=== PATIENT | male | born 1955 | race Hispanic/Latino ===

== ENCOUNTER 2017-01-15 10:07 | Emergency (ER) | payer OTHER ==
[2017-01-15 10:08] VITALS: PULSE 93
[2017-01-15 10:20] VITALS: O2SAT 100
--- NOTE | 2017-01-15 11:11 | ED PDOC ---
HPI: Back Time Seen by Provider: 01/15/17 11:08 Chief Complaint (Nursing): Back Pain Chief Complaint (Provider): fall History Per: Patient (61 y/o male on h/o DM on xeralta here for evaluation of fall of chair in cafeteria. Patient states chair broke and he landed on buttock. No head injury. Was worried he would have back pain (no current back pain) but notes instead right calf swelling and discomfort. ) History/Exam Limitations: no limitations Past Medical History Reviewed: Historical Data, Nursing Documentation, Vital Signs Vital Signs: Last Vital Signs Temp 97 F L 01/15/17 10:16 Pulse 89 01/15/17 10:16 Resp 18 01/15/17 10:16 BP 154/77 H 01/15/17 10:16 Pulse Ox 100 01/15/17 10:16 - Medical History PMH: Arthritis, Atrial Fibrillation, CAD (w/ stents), Cardia Arrhythmia (A FIB) , CHF, Diabetes, HTN, Hypercholesterolemia, Peripheral Edema Denies: HIV - Surgical History Surgical History: Cholecystectomy, Coronary Stent (2), Endoscopy Denies: Pacemaker - Family History Family History: States: Unknown Family Hx - Home Medications Home Medications: Ambulatory Orders Medication Instructions Recorded Amlodipine Besylate 10 mg PO DAILY 08/16/14 Aspirin 325 mg PO DAILY 08/16/14 Digoxin 0.25 mg PO DAILY 08/16/14 Furosemide 40 mg PO DAILY 08/16/14 Gemfibrozil 600 mg PO BID 08/16/14 GlipiZIDE SR [Glucotrol XL] 2.5 mg PO BID 08/16/14 Metformin Hydrochloride/Megan 1 tab PO BID 08/16/14 [Janumet 1000 mg-50 mg] Metoprolol Tartrate 50 mg PO BID 08/16/14 Rivaroxaban [Xarelto] 20 mg PO DAILY 08/16/14 Valsartan/Hydrochlorothiazide 1 tab PO DAILY 08/16/14 [Valsartan-Hydrochlorothiazide 12.5 mg-160 mg] Amoxicillin/Clavulanate [Augmentin 1 tab PO BID #14 tab 06/29/15 875 MG-125 MG] ALPRAZolam [Xanax] 0.25 mg PO BID PRN #6 tab 04/24/16 Naproxen [Naprosyn] 500 mg PO Q12H #20 tab 10/02/16 Sulfamethoxazole/Trimethoprim 1 tab PO BID #20 tab 10/02/16 [Bactrim DS 800 mg-160 mg] Acetaminophen [Acetaminophen Extra 2 tab PO Q6 PRN #24 tablet 01/15/17 Strength] - Allergies Allergies/Adverse Reactions: Allergies Allergy/AdvReac Type Severity Reaction Status Date / Time azithromycin Allergy RASH Verified 01/15/17 10:25 [From Zithromax Z-Mitchell] ciprofloxacin [From Cipro] Allergy RASH Verified 01/15/17 10:16 ciprofloxacin HCl Allergy RASH Verified 01/15/17 10:16 [From Cipro] Penicillins Allergy RASH Verified 01/15/17 10:24 Review of Systems ROS Statement: Except As Marked, All Systems Reviewed And Found Negative Musculoskeletal: Positive for: Leg Pain Physical Exam - Reviewed Nursing Documentation Reviewed: Yes Vital Signs Reviewed: Yes - Physical Exam Appears: Positive for: Well, Non-toxic, No Acute Distress Head Exam: Positive for: ATRAUMATIC, NORMAL INSPECTION, NORMOCEPHALIC Skin: Positive for: Normal Color, Warm, DRY Eye Exam: Positive for: EOMI, Normal appearance, PERRL ENT: Positive for: Normal ENT Inspection Neck: Positive for: Normal, Painless ROM Cardiovascular/Chest: Positive for: Regular Rate, Rhythm Respiratory: Positive for: CNT, Normal Breath Sounds Gastrointestinal/Abdominal: Positive for: Normal Exam, Bowel Sounds, Soft Back: Positive for: Normal Inspection Extremity: Positive for: Normal ROM, Swelling (right calf swelling noted. No ecchymosis. Nontender knee. No tibial spine tenderness. nontender ankle) Neurologic/Psych: Positive for: Alert, Oriented - ECG O2 Sat by Pulse Oximetry: 100 Disposition - Clinical Impression Clinical Impression: Contusion of leg - Patient ED Disposition Is Patient to be Admitted: No - Disposition Disposition: Routine/Home Disposition Time: 11:11 Condition: FAIR Prescriptions: Acetaminophen [Acetaminophen Extra Strength] 2 tab PO Q6 PRN #24 tablet PRN Reason: Pain, Moderate (4-7) Instructions: Contusion in Adults (ED)
[2017-01-15 11:33] VITALS: BP 120/78; PULSE 78; RESP 20; TEMP 97.6
== END 2017-01-15 11:32 | disposition home or self-care (01) ==
LOC: H.ER 10:07
DX: S80.11XA Contusion of right lower leg, initial encounter (principal); W07.XXXA Fall from chair, initial encounter; Y92.238 Other place in hospital as the place of occurrence of the external cause; E11.9 Type 2 diabetes mellitus without complications; E78.00 Pure hypercholesterolemia, unspecified; I11.0 Hypertensive heart disease with heart failure; I25.10 Atherosclerotic heart disease of native coronary artery without angina pectoris; I50.9 Heart failure, unspecified; Z79.01 Long term (current) use of anticoagulants; Z79.82 Long term (current) use of aspirin; Z88.0 Allergy status to penicillin; Z95.5 Presence of coronary angioplasty implant and graft

== ENCOUNTER 2017-01-17 14:48 | Inpatient (IN) | payer OTHER ==
--- NOTE | 2017-01-17 15:22 | ED PDOC ---
HPI: Hypertension/Hypotension Time Seen by Provider: 01/17/17 14:58 Chief Complaint (Nursing): Palpitations Additional Complaint(s): Patient is a 61 y/o M with hx of stents, chf, DM, afib, presentating with palpitations, nausea and lightheadedness. Patient reports that he was eating lunch when he began to feel unwell. He reports some chest tightness and chronic worsening shortness of breath. He also reports a recent increase in swelling in his legs. He reports that he saw his PMD who ordered an echo and increased his diuretic. PMD: Dr. Hernandez Meds: digoxin, glipizide, janumet, xarelto, amlodipine, furosemide, valsartan/ htcz, aspirin Past Medical History Vital Signs: Last Vital Signs Temp 98.6 F 01/17/17 14:51 Pulse 113 H 01/17/17 14:51 Resp 19 01/17/17 14:51 BP 151/90 H 01/17/17 14:51 Pulse Ox 100 01/17/17 14:51 - Medical History PMH: Arthritis, Atrial Fibrillation, CAD (w/ stents), Cardia Arrhythmia (A FIB) , CHF, Diabetes, HTN, Hypercholesterolemia, Peripheral Edema Denies: HIV - Surgical History Surgical History: Cholecystectomy, Coronary Stent (2), Endoscopy Denies: Pacemaker - Family History Family History: States: Unknown Family Hx - Home Medications Home Medications: Ambulatory Orders Medication Instructions Recorded Aspirin [Aspirin EC] 325 mg PO DAILY 01/17/17 Digoxin [Lanoxin] 0.0625 mg PO DAILY 01/17/17 Furosemide [Lasix] 40 mg PO DAILY 01/17/17 Glyburide [Micronase] 1.25 mg PO DAILY 01/17/17 Metoprolol Tartrate [Lopressor] 75 mg PO BID 01/17/17 Rivaroxaban [Xarelto] 20 mg PO QPM 01/17/17 Sitagliptin Phos/Metformin HCl 1 tab PO BID 01/17/17 [Janumet 50-1,000 mg Tablet] Spironolactone [Aldactone] 25 mg PO DAILY 01/17/17 Valsartan/Hydrochlorothiazide 1 tab PO DAILY 01/17/17 [Diovan Hct 160-12.5 mg Tab] amLODIPine [Norvasc] 10 mg PO DAILY 06/22/17 traMADol [Ultram] 50 mg PO Q8H PRN 01/17/17 - Allergies Allergies/Adverse Reactions: Allergies Allergy/AdvReac Type Severity Reaction Status Date / Time azithromycin Allergy RASH Verified 01/15/17 10:25 [From Zithromax Z-Mitchell] ciprofloxacin [From Cipro] Allergy RASH Verified 01/15/17 10:16 ciprofloxacin HCl Allergy RASH Verified 01/15/17 10:16 [From Cipro] Penicillins Allergy RASH Verified 01/15/17 10:24 Review of Systems Constitutional: Negative for: Fever, Chills, Weakness, Malaise, Weight loss Cardiovascular: Positive for: Palpitations, Edema, Light Headedness. Negative for: Chest Pain Respiratory: Positive for: Shortness of Breath. Negative for: Cough, Pleuritic Pain, Wheezing Gastrointestinal: Negative for: Nausea, Vomiting, Abdominal Pain, Diarrhea, Constipation Genitourinary Male: Negative for: Dysuria Musculoskeletal: Negative for: Neck Pain Skin: Negative for: Rash Neurological: Negative for: Weakness, Numbness, Incoordination, Change in Speech , Confusion, Seizures, Altered Mental Status, Headache Physical Exam - Reviewed Nursing Documentation Reviewed: Yes Vital Signs Reviewed: Yes - Physical Exam Appears: Positive for: Well Head Exam: Positive for: ATRAUMATIC, NORMAL INSPECTION, NORMOCEPHALIC Skin: Positive for: Normal Color, Warm, DRY Eye Exam: Positive for: EOMI, Normal appearance, PERRL Neck: Positive for: Normal, Painless ROM, Supple Cardiovascular/Chest: Positive for: Tachycardia (irregularly irregular) Respiratory: Positive for: Normal Breath Sounds. Negative for: Rales, Rhonchi, Stridor Gastrointestinal/Abdominal: Positive for: Soft. Negative for: Tenderness, Mass , Distended Extremity: Positive for: Pedal Edema (2+) - Laboratory Results Result Diagrams: 01/17/17 15:37 01/17/17 15:37 - ECG O2 Sat by Pulse Oximetry: 100 Medical Decision Making Medical Decision Making: Patient has multiple cardiac risk factors and presenting with afib at 107bpm with pvcs. He is complaining of nausea and lightheadedness. Compliant with all medications, including aspirin 325mg this morning 4:26PM Cxray negative. Trop x 1 negative but BNP elevated. Due to presenting rapid afib symptoms (HR now 86), and hx, combined with lab results, that is concerning for chf vs acs, will need observation for further cardiac evaluation and echo. Lasix ordered. 5:46PM Spoke to Dr. Hernandez who agrees and consult to cardiology placed. PMD aware that residents are at graduation tonight. Disposition - Clinical Impression Clinical Impression: Rapid palpitations, CHF (congestive heart failure), Edema - Disposition Disposition Time: 16:27 Condition: FAIR - Pt Status Changed To: Hospital Disposition Of: Observation
[2017-01-17 15:43] LABS: BASO # 0.1 K/uL (0.0-0.2); BASO % 0.9 % (0.0-2.0); EOS # 0.1 K/uL (0.0-0.7); EOS % 1.3 % (0.0-4.0); HEMATOCRIT 44.7 % (35.0-51.0); LYMPH # 2.2 K/uL (1.0-4.3); MEAN CELL VOLUME 82.5 fl (80.0-94.0); MEAN CORPUSCULAR HEMOGLOBIN 27.9 pg (27.0-31.0); MEAN CORPUSCULAR HGB CONC 33.8 g/dL (33.0-37.0); MEAN PLATELET VOLUME 9.8 fl (7.2-11.7); MONO # 1.4 K/uL (0.0-0.8); MONO % 12.5 % (0.0-10.0); NEUT # 7.5 K/uL (1.8-7.0); NEUT % 66.3 % (50.0-75.0); RED CELL DISTRIBUTION WIDTH 14.2 % (11.5-14.5); WHITE BLOOD COUNT 11.3 K/uL (4.8-10.8)
--- NOTE | 2017-01-17 15:45 | RAD ---
HISTORY: palpitations COMPARISON: Chest x-ray performed 08/16/14 TECHNIQUE: Chest, one view. FINDINGS: Examination limited by habitus. LUNGS: No focal consolidation. Please note that chest x-ray has limited sensitivity for the detection of pulmonary masses. PLEURA: No significant pleural effusion identified. No definite pneumothorax . CARDIOVASCULAR: Heart size appears top normal. OSSEOUS STRUCTURES: No acute osseous abnormality identified. VISUALIZED UPPER ABDOMEN: Unremarkable. OTHER FINDINGS: None. IMPRESSION: No focal consolidation, significant pleural effusion, or definite pneumothorax identified.
[2017-01-17 15:52] LABS: ALB/GLOB RATIO 1.3 (1.0-2.1); ALKALINE PHOSPHATASE 102 U/L (38-126); ALT/SGPT 50 U/L (21-72); AST/SGOT 40 U/L (17-59); BILIRUBIN,TOTAL 1.1 mg/dl (0.2-1.3); BLOOD UREA NITROGEN 26 mg/dl (9-20); CALCIUM 9.5 mg/dL (8.4-10.2); CARBON DIOXIDE 28 mmol/L (22-30); CHLORIDE 101 mmol/L (98-107); GFR AFRICAN-AMERICAN > 60; GLUCOSE,RANDOM 100 mg/dL (75-110); LIPASE 267 U/L (23-300); MAGNESIUM 2.2 MG/DL (1.6-2.3); PHOSPHOROUS 3.7 mg/dl (2.5-4.5); POTASSIUM 3.7 MMOL/L (3.6-5.0); SODIUM 142 mmol/l (132-148); TOTAL PROTEIN 8.1 G/DL (6.3-8.2)
--- NOTE | 2017-01-18 01:29 | CP.PCM.HP ---
Addendum entered and electronically signed by Mara Acosta MD 01/18/17 11 :48: Patient was seen and examined at bedside, in no acute distress, intermittent symptoms of dizziness persist, cardiology on board recommended repeat echo/hold aldactone, monitor patient on telemetry. Original Note: <Roosevelt Kate - Last Filed: 01/18/17 05:26> History of Present Illness - History of Present Illness History of Present Illness: CC/HPI: Pt. reports was in the hospital cafeteria sitting down having lung when all of a sudden he started having palpitations. Pt. reports palpitations were persistent and felt like if he was missing beats. Associated symptoms include nausea, sweating, and weakness. Pt. reports he has a history of A-fib and that he has felt palpitations in the past but due to the acuity and persistent nature of current symptoms walked over unassisted to the [facility] Pt. reports since his evaluation in the emergency room he has felt better and symptoms have improved but not completely resolved. ROS: Pt. denies any headache, chest pain, dizziness, lightheadedness, vomiting, abdominal pain, flank pain, limb pain, hematuria, or dysuria. PMHx: HTN, HLD, DM, CAD, A-FIB, CHF PHSx: Cardiac stent x 2, Cholecystectomy FMHx: HTN, DM, & CAD Social: Denies current use of TOB, ETOH, DRUGS Quit smoking 15 years Allegies: PCN, Azithromycin, Ciprofloxacin Meds: See Med List PMD: Dr. David Obrien Course: Patient has multiple cardiac risk factors and presenting with afib at 107bpm with pvcs. He is complaining of nausea and lightheadedness. Compliant with all medications, including aspirin 325mg this morning 4:26PM Cxray negative. Trop x 1 negative but BNP elevated. Due to presenting rapid afib symptoms (HR now 86), and hx, combined with lab results, that is concerning for chf vs acs, will need observation for further cardiac evaluation and echo. Lasix ordered. 5:46PM Spoke to Dr. Henderson who agrees and consult to cardiology placed. PMD aware that residents are at graduation tonight. Present on Admission - Present on Admission Any Indicators Present on Admission: Yes History of DVT/PE: No History of Uncontrolled Diabetes: Yes Urinary Catheter: No Decubitus Ulcer Present: No Review of Systems - Review of Systems Review of Systems: See HPI Past Patient History - Infectious Disease Hx of Infectious Diseases: None - Past Medical History & Family History Past Medical History?: Yes - Past Social History Smoking Status: Former Smoker - CARDIAC Hx Atrial Fibrillation: Yes Hx Cardia Arrhythmia: Yes (A FIB) Hx Congestive Heart Failure: Yes Hx Hypercholesterolemia: Yes Hx Hypertension: Yes Hx Pacemaker: No Hx Peripheral Edema: Yes - PULMONARY Hx Respiratory Disorders: No - NEUROLOGICAL Hx Paralysis: No - HEENT Hx HEENT Problems: No - RENAL Hx Chronic Kidney Disease: No - ENDOCRINE/METABOLIC Hx Endocrine Disorders: Yes Hx Diabetes Mellitus Type 2: Yes - HEMATOLOGICAL/ONCOLOGICAL Hx AIDS: No Hx Human Immunodeficiency Virus (HIV): No - INTEGUMENTARY Hx Dermatological Problems: Yes Hx Eczema: Yes - MUSCULOSKELETAL/RHEUMATOLOGICAL Hx Arthritis: Yes Hx Falls: Yes - GASTROINTESTINAL Hx Gastrointestinal Disorders: No - GENITOURINARY/GYNECOLOGICAL Hx Genitourinary Disorders: No - PSYCHIATRIC Hx Psychophysiologic Disorder: No Hx Substance Use: No - SURGICAL HISTORY Hx Cholecystectomy: Yes Hx Coronary Stent: Yes (2) Other/Comment: Left knee Sx - ANESTHESIA Hx Anesthesia: Yes Hx Anesthesia Reactions: No Hx Malignant Hyperthermia: No Meds Allergies/Adverse Reactions: Allergies Allergy/AdvReac Type Severity Reaction Status Date / Time azithromycin Allergy RASH Verified 01/15/17 10:25 [From Zithromax Z-Mitchell] ciprofloxacin [From Cipro] Allergy RASH Verified 01/15/17 10:16 ciprofloxacin HCl Allergy RASH Verified 01/15/17 10:16 [From Cipro] Penicillins Allergy RASH Verified 01/15/17 10:24 Physical Exam - Constitutional Appears: Non-toxic, No Acute Distress - Head Exam Head Exam: ATRAUMATIC, NORMOCEPHALIC - Eye Exam Eye Exam: Normal appearance. absent: Scleral icterus - Neck Exam Neck exam: Positive for: Full Rom - Respiratory Exam Respiratory Exam: Clear to Auscultation Bilateral, NORMAL BREATHING PATTERN - Cardiovascular Exam Cardiovascular Exam: REGULAR RHYTHM, +S1, +S2 - GI/Abdominal Exam GI & Abdominal Exam: Soft. absent: Tenderness - Extremities Exam Extremities exam: Positive for: pedal edema (+2 up to ankle). Negative for: calf tenderness - Back Exam Back exam: absent: CVA tenderness (L), CVA tenderness (R) - Neurological Exam Neurological exam: Alert, Oriented x3 - Psychiatric Exam Psychiatric exam: Normal Affect, Normal Mood - Skin Additional comments: + Left Knee Scar Results - Vital Signs Recent Vital Signs: Last Vital Signs Temp 98.8 F 01/18/17 00:11 Pulse 96 H 01/18/17 00:31 Resp 18 01/18/17 00:31 BP 116/82 01/18/17 00:11 Pulse Ox 95 01/18/17 00:31 - Labs Result Diagrams: 01/17/17 15:37 01/17/17 15:37 Labs: Laboratory Results - last 24 hr 01/17/17 21:29 POC Glucose (mg/dL) 196 H Assessment & Plan - Assessment and Plan (Free Text) Assessment: 61 y.o. male with Hx of CAD s/p stent x2, DM, HN, HLD admitted for evaluation of palpitations. Palpiations due to unclear etiology 1- Troponin x 1 negative - Repeat Troponin 2- Echocardiogram 3- Cardiology- Dr. Ennis consult 4- Admit to tele 5- Repeat EKG A-Fib 1- Xarelto 20mg qpm CHF- Systolic pendign evaluation with Echocardiogram 1- Spironolactone 2- Lasix Type II NIDDM 1- Accuchecks QHS 2- LDSS 3- Metformin 4- Januvia 5- Glyburide 5- Sitaglipin HTN 1- Valsartan 2- Metoprolol 3- Amlodipine Leucocytosis- 11.3 - Afebrile 1- Repeat CBC DVT prophylaxis 1- Lovenox 40mg sc Diet 1- Heart Healthy <Mara Acosta - Last Filed: 01/18/17 11:58> <Kaveh Henderson - Last Filed: 01/21/17 07:02> Results - Vital Signs Recent Vital Signs: Last Vital Signs Temp 97.8 F 01/19/17 08:00 Pulse 82 01/19/17 09:00 Resp 18 01/19/17 08:00 BP 119/82 01/19/17 08:52 Pulse Ox 99 01/19/17 08:00 - Labs Result Diagrams: 01/18/17 05:00 01/19/17 06:00 Attending/Attestation - Attestation I have personally seen and examined this patient.: Yes I have fully participated in the care of the patient.: Yes I have reviewed all pertinent clinical information: Yes
[2017-01-18 05:23] LABS: BASO # 0.1 K/uL (0.0-0.2); BASO % 0.6 % (0.0-2.0); EOS # 0.1 K/uL (0.0-0.7); EOS % 1.4 % (0.0-4.0); HEMATOCRIT 41.1 % (35.0-51.0); LYMPH # 2.2 K/uL (1.0-4.3); LYMPH % 22.5 % (20.0-40.0); MEAN CELL VOLUME 83.5 fl (80.0-94.0); MEAN CORPUSCULAR HEMOGLOBIN 28.1 pg (27.0-31.0); MEAN CORPUSCULAR HGB CONC 33.7 g/dL (33.0-37.0); MEAN PLATELET VOLUME 9.2 fl (7.2-11.7); MONO # 1.2 K/uL (0.0-0.8); MONO % 12.8 % (0.0-10.0); NEUT # 6.1 K/uL (1.8-7.0); NEUT % 62.7 % (50.0-75.0); NRBC % 0.1 % (0.0-0.0); RED CELL DISTRIBUTION WIDTH 14.1 % (11.5-14.5); WHITE BLOOD COUNT 9.7 K/uL (4.8-10.8)
[2017-01-18 05:36] LABS: BLOOD UREA NITROGEN 24 mg/dl (9-20); CARBON DIOXIDE 30 mmol/L (22-30); CHLORIDE 101 mmol/L (98-107); GFR AFRICAN-AMERICAN > 60; GLUCOSE,RANDOM 130 mg/dL (75-110); POTASSIUM 3.8 MMOL/L (3.6-5.0); SODIUM 142 mmol/l (132-148)
[2017-01-18] MEDS: Aspirin 325 mg EC Tablets PO SCH (08:28)
[2017-01-18] MEDS: Digoxin 125 mcg (0.125 mg) Tab PO SCH (08:29)
[2017-01-18] MEDS ORDERED: GLYBURIDE 1.25 MG PO SCH (09:00)
[2017-01-18] MEDS ORDERED: Enoxaparin 40 mg Syringe SC SCH ×2 (09:00)
--- NOTE | 2017-01-18 09:33 | CP.PCM.CON ---
History of Present Illness - History of Present Illness History of Present Illness: Full Note Dictated. Near syncope with orthostatic Hypotension (Due to vigorous diuresis) CHF (LV, Syst, Chr) A Fib Stable CAD with old IWMI DM(II)?HTN/Dyslipidemia Echocardiogral Withold diuretics Labs tomorrow Past Patient History - Infectious Disease Hx of Infectious Diseases: None - Past Medical History & Family History Past Medical History?: Yes - Past Social History Smoking Status: Former Smoker - CARDIAC Hx Atrial Fibrillation: Yes Hx Cardia Arrhythmia: Yes (A FIB) Hx Congestive Heart Failure: Yes Hx Hypercholesterolemia: Yes Hx Hypertension: Yes Hx Pacemaker: No Hx Peripheral Edema: Yes - PULMONARY Hx Respiratory Disorders: No - NEUROLOGICAL Hx Paralysis: No - HEENT Hx HEENT Problems: No - RENAL Hx Chronic Kidney Disease: No - ENDOCRINE/METABOLIC Hx Endocrine Disorders: Yes Hx Diabetes Mellitus Type 2: Yes - HEMATOLOGICAL/ONCOLOGICAL Hx AIDS: No Hx Human Immunodeficiency Virus (HIV): No - INTEGUMENTARY Hx Dermatological Problems: Yes Hx Eczema: Yes - MUSCULOSKELETAL/RHEUMATOLOGICAL Hx Arthritis: Yes Hx Falls: Yes - GASTROINTESTINAL Hx Gastrointestinal Disorders: No - GENITOURINARY/GYNECOLOGICAL Hx Genitourinary Disorders: No - PSYCHIATRIC Hx Psychophysiologic Disorder: No Hx Substance Use: No - SURGICAL HISTORY Hx Cholecystectomy: Yes Hx Coronary Stent: Yes (2) Other/Comment: Left knee Sx - ANESTHESIA Hx Anesthesia: Yes Hx Anesthesia Reactions: No Hx Malignant Hyperthermia: No Meds Allergies/Adverse Reactions: Allergies Allergy/AdvReac Type Severity Reaction Status Date / Time azithromycin Allergy RASH Verified 01/15/17 10:25 [From Zithromax Z-Mitchell] ciprofloxacin [From Cipro] Allergy RASH Verified 01/15/17 10:16 ciprofloxacin HCl Allergy RASH Verified 01/15/17 10:16 [From Cipro] Penicillins Allergy RASH Verified 01/15/17 10:24 - Medications Medications: Current Medications Amlodipine Besylate (Norvasc) 10 mg PO DAILY [facility] Last Admin: 01/18/17 08:32 Dose: 10 mg Aspirin (Ecotrin) 325 mg PO DAILY [facility] Last Admin: 01/18/17 08:28 Dose: 325 mg Digoxin (Lanoxin) 0.0625 mg PO DAILY [facility] Last Admin: 01/18/17 08:29 Dose: 0.0625 mg Furosemide (Lasix) 40 mg IV DAILY [facility] Last Admin: 01/18/17 08:29 Dose: 40 mg Glyburide (Micronase) 1.25 mg PO DAILY [facility] Last Admin: 01/18/17 08:32 Dose: 1.25 mg Metformin HCl (Glucophage) 1,000 mg PO BIDWM [facility] Last Admin: 01/18/17 08:29 Dose: 1,000 mg Metoprolol Tartrate (Lopressor) 75 mg PO BID [facility] Last Admin: 01/18/17 08:31 Dose: 75 mg Rivaroxaban (Xarelto) 20 mg PO QPM ADEN PRN Reason: Protocol Last Admin: 01/17/17 23:51 Dose: 20 mg Sitagliptin Phosphate (Januvia) 50 mg PO HS [facility] Last Admin: 01/17/17 23:46 Dose: 50 mg Spironolactone (Aldactone) 25 mg PO DAILY [facility] Last Admin: 01/18/17 08:27 Dose: 25 mg Tramadol HCl (Ultram) 50 mg PO Q8H PRN PRN Reason: Pain, severe (8-10) Valsartan (Diovan) 160 mg PO DAILY [facility] Last Admin: 01/18/17 08:28 Dose: 160 mg Results - Vital Signs Recent Vital Signs: Last Vital Signs Temp 98.7 F 01/18/17 08:32 Pulse 81 01/18/17 08:32 Resp 18 01/18/17 08:32 BP 107/68 01/18/17 08:32 Pulse Ox 99 01/18/17 08:32 - Labs Result Diagrams: 01/18/17 05:00 01/18/17 05:00 Labs: Laboratory Results - last 24 hr 01/17/17 01/18/17 01/18/17 21:29 05:00 05:00 WBC 9.7 RBC 4.93 Hgb 13.9 Hct 41.1 MCV 83.5 MCH 28.1 MCHC 33.7 RDW 14.1 Plt Count 208 MPV 9.2 Neut % (Auto) 62.7 Lymph % (Auto) 22.5 [place] % (Auto) 12.8 H Eos % (Auto) 1.4 Baso % (Auto) 0.6 Neut # 6.1 Lymph # 2.2 [place] # 1.2 H Eos # 0.1 Baso # 0.1 Sodium 142 Potassium 3.8 Chloride 101 Carbon Dioxide 30 Anion Gap 14 BUN 24 H Creatinine 1.3 Est GFR ( Amer) > 60 Est GFR (Non-Af Amer) 56 POC Glucose (mg/dL) 196 H Random Glucose 130 H Calcium 9.0 Troponin I < 0.0120 01/18/17 05:30 WBC RBC Hgb Hct MCV MCH MCHC RDW Plt Count MPV Neut % (Auto) Lymph % (Auto) [place] % (Auto) Eos % (Auto) Baso % (Auto) Neut # Lymph # [place] # Eos # Baso # Sodium Potassium Chloride Carbon Dioxide Anion Gap BUN Creatinine Est GFR ( Amer) Est GFR (Non-Af Amer) POC Glucose (mg/dL) 145 H Random Glucose Calcium Troponin I
--- NOTE | 2017-01-18 11:50 | CON ---
DATE: 01/18/2017 He is hospitalized under Dr. Henderson's care in room 411 of telemetry unit. HISTORY OF PRESENT ILLNESS: This 61-year-old man, a longstanding diabetic and hypertensive with known coronary artery disease, who suffered an acute myocardial infarction more than 6 years back and subsequently has developed atrial fibrillation with congestive cardiac failure. The patient gives history of having recently put on weight and having developed pedal edema along with dyspnea on exertion, which was treated by addition of Aldactone to his furosemide, and the patient promptly diuresed with losing approximately 9 pounds and having lost his pedal edema along with an improvement in his effort tolerance. Yesterday, while sitting at a lunch table, he suddenly perspired, developed severe dizziness and felt acute sense of nausea. Arrived in the Emergency Room and was hospitalized. Denies any chest pains. Does admit to developing palpitations when severe dizziness came on. The patient now has slept well and does not report any further lightheaded spells while being in bed. His telemetry shows his heart rate at 80-90 beats per minute, irregularly irregular with his blood pressure of 120/70 mmHg while lying in bed, which dropped down to 108/70 mmHg. Upon standing up, the patient complained of a sense of lightheadedness and mild palpitations. This was promptly relieved by sitting down. The patient has received this morning his dose of intravenous furosemide approximately half an hour back. PHYSICAL EXAMINATION: There was no pedal edema. HEART: There was a brief apical systolic murmur of mitral regurgitation. There was no S3 gallop. LUNGS: There were no rales. NECK: His JVP was flat. EXTREMITIES: Warm. Nailbeds were pink. There was no central or peripheral cyanosis. There was no clubbing. DIAGNOSTIC DATA: His electrocardiogram showed atrial fibrillation with nonspecific ST changes. No Q-waves were detected on his electrocardiogram. LABORATORY DATA: Showed that his BUN of 26 and creatinine of 1.3 were mildly elevated as compared to the levels on 01/03 before spironolactone was added to his Lasix. IMPRESSION: At this time is orthostatic hypotension due to hypovolemia induced by aggressive diuresis for congestive cardiac failure, chronic atrial fibrillation with congestive cardiac failure which is left ventricular systolic and chronic, with stable coronary artery disease status post coronary stenting during urgent care for an acute myocardial infarction more than 6 years back, diabetes, and hypertension. The patient at this juncture is comfortable while sitting down and from lying down, but does display any evidence of hypovolemia with orthostatic drop in blood pressure. I have discontinued his diuretics. I have instructed him to drink extra fluids. An echocardiogram will be done to evaluate his left ventricular systolic function. The last echocardiogram was 4 years back. Tomorrow, he will have labs drawn to assess his renal function which would reflect peripheral perfusion and his state of cardiac output. At this juncture , incidentally, his labs show no evidence of myocyte injury in the form of abnormal troponin levels. His electrolytes were normal. Elijah Ennis MD cc: 23 TT: 01/18/2017 11:49:38 Confirmation # [id number] Dictation # [id number] [place]
--- NOTE | 2017-01-18 16:58 | CARD ---
APPROVED REPORT EXAM: Two-dimensional and M-mode echocardiogram with Doppler, color Doppler with contrast. Other Information Quality : AverageRhythm : NSR INDICATION Atrial Fibrillation Echo Enhancing Agent Indication: Endocardial border delineation Agent/Amount Used: Definity Surgery/Intervention Status/Post Intervention: Stent 2D DIMENSIONS IVSd1.24 (0.7-1.1cm)LVDd4.82 (3.9-5.9cm) LVOT Diameter2.96 (1.8-2.4cm)PWd1.24 (0.7-1.1cm) IVSs1.57 (0.8-1.2cm)LVDs3.16 (2.5-4.0cm) FS (%) 34.4 %PWs1.38 (0.8-1.2cm) LVEF (%)55.0 (>50%) M-Mode DIMENSIONS Left Atrium (MM)4.59 (2.5-4.0cm)IVSd1.09 (0.7-1.1cm) Aortic Root3.47 (2.2-3.7cm)LVDd6.03 (4.0-5.6cm) Aortic Cusp Exc.2.66 (1.5-2.0cm)PWd1.38 (0.7-1.1cm) IVSs1.50 cmFS (%) 29 % LVDs4.28 (2.0-3.8cm)PWs1.81 cm Mitral Valve E/A ratio0.0 TDI E/Lateral E'0.0E/Medial E'0.0 LEFT VENTRICLE The left ventricle is normal size. There is mild concentric left ventricular hypertrophy. The left ventricular function is normal. The left ventricular ejection fraction is within the normal range. There is normal LV segmental wall motion. Patien is in A Fib No left ventricle thrombus noted on this study. RIGHT VENTRICLE The right ventricle is normal size. There is normal right ventricular wall thickness. The right ventricular systolic function is normal. ATRIA The left atrium is moderately dilated. The right atrium is mildly dilated. AORTIC VALVE The aortic valve is mildly sclerotic. No aortic regurgitation is present. There is no aortic valvular stenosis. MITRAL VALVE The mitral valve is mildly thickened. There is no mitral valve stenosis. There is no mitral valve regurgitation noted. TRICUSPID VALVE The tricuspid valve is normal in structure and function. There is no tricuspid valve regurgitation noted. PULMONIC VALVE The pulmonary valve is normal in structure and function. There is no pulmonic valvular regurgitation. GREAT VESSELS The aortic root is mildly enlarged. The IVC was not visualized. PERICARDIAL EFFUSION There is a trace loculated anterior pericardial effusion. <Conclusion> The left ventricle is normal size. There is mild concentric left ventricular hypertrophy. The left ventricular function is normal. The left ventricular ejection fraction is within the normal range. There is normal LV segmental wall motion. No left ventricle thrombus noted on this study.
[2017-01-19 08:03] VITALS: BP 119/82; PULSE 82; RESP 18; TEMP 97.8; O2SAT 99
[2017-01-19 08:26] LABS: ALB/GLOB RATIO 1.2 (1.0-2.1); ALKALINE PHOSPHATASE 67 U/L (38-126); ALT/SGPT 41 U/L (21-72); AST/SGOT 31 U/L (17-59); BILIRUBIN,TOTAL 1.2 mg/dl (0.2-1.3); BLOOD UREA NITROGEN 21 mg/dl (9-20); CALCIUM 8.8 mg/dL (8.4-10.2); CARBON DIOXIDE 30 mmol/L (22-30); CHLORIDE 101 mmol/L (98-107); GFR AFRICAN-AMERICAN > 60; GLUCOSE,RANDOM 135 mg/dL (75-110); POTASSIUM 4.1 MMOL/L (3.6-5.0); SODIUM 140 mmol/l (132-148); TOTAL PROTEIN 6.8 G/DL (6.3-8.2)
[2017-01-19] MEDS: Aspirin 325 mg EC Tablets PO SCH (08:50)
[2017-01-19] MEDS: Digoxin 125 mcg (0.125 mg) Tab PO SCH (08:51)
[2017-01-19 08:53] VITALS: PULSE 82
--- NOTE | 2017-01-19 09:54 | CP.PCM.PN ---
Subjective - Date & Time of Evaluation Date of Evaluation: 01/19/17 Time of Evaluation: 09:35 - Subjective Subjective: Has been well overnight Telemetry shows A Fib at 80 BPM (rare, brief episodes of 120 BPM) No dizziness on standing up to go to BR BP 130/80 mm Hg lying down/ 126/80 mm Hg on standing up No rales, no gallop Labs show stable BUN/ Creatinin Electrolytes stable Echo reviewed Only apical half of the septum/ant wall show mild hypokinesia Overall LV function marginally depressed LA enlargemnt reflects this Pt to go home on present Rx (Including Lasix but NO Aldactone) Promises to weigh himfelf daily Will see me by January 30. Objective - Vital Signs/Intake and Output Vital Signs (last 24 hours): Temp Pulse Resp BP Pulse Ox 97.8 F 82 18 119/82 99 01/19/17 08:00 01/19/17 08:52 01/19/17 08:00 01/19/17 08:52 01/19/17 08:00 Intake and Output: 01/19/17 01/19/17 06:59 18:59 Intake Total 1200 Output Total 600 Balance 600 - Medications Medications: Current Medications Amlodipine Besylate (Norvasc) 10 mg PO DAILY [facility] Last Admin: 01/19/17 08:52 Dose: 10 mg Aspirin (Ecotrin) 325 mg PO DAILY [facility] Last Admin: 01/19/17 08:50 Dose: 325 mg Digoxin (Lanoxin) 0.0625 mg PO DAILY [facility] Last Admin: 01/19/17 08:51 Dose: 0.0625 mg Glyburide (Micronase) 1.25 mg PO DAILY [facility] Last Admin: 01/19/17 08:52 Dose: 1.25 mg Metformin HCl (Glucophage) 1,000 mg PO BIDWM [facility] Last Admin: 01/19/17 08:50 Dose: 1,000 mg Metoprolol Tartrate (Lopressor) 75 mg PO BID [facility] Last Admin: 01/19/17 08:52 Dose: 75 mg Rivaroxaban (Xarelto) 20 mg PO QPM [facility] PRN Reason: Protocol Last Admin: 01/18/17 17:54 Dose: 20 mg Sitagliptin Phosphate (Januvia) 50 mg PO HS [facility] Last Admin: 01/18/17 21:51 Dose: 50 mg Tramadol HCl (Ultram) 50 mg PO Q8H PRN PRN Reason: Pain, severe (8-10) Valsartan (Diovan) 160 mg PO DAILY [facility] Last Admin: 01/19/17 08:50 Dose: 160 mg - Labs Labs: 01/19/17 06:00
--- NOTE | 2017-01-19 10:09 | CP.PCM.DIS ---
Provider - Provider Date of Admission: 01/18/17 09:34 Attending physician: Kaveh Hernandez MD Consults: Dr. Ennis -cardiology Time Spent in preparation of Discharge (in minutes): 30 Diagnosis - Discharge Diagnosis (1) Atrial fibrillation with RVR Status: Acute Priority: Medium Hospital Course - Lab Results Lab Results: Most Recent Lab Values WBC 9.7 K/uL (4.8-10.8) 01/18/17 05:00 RBC 4.93 Mil/uL (4.40-5.90) 01/18/17 05:00 Hgb 13.9 g/dL (12.0-18.0) 01/18/17 05:00 Hct 41.1 % (35.0-51.0) 01/18/17 05:00 MCV 83.5 fl (80.0-94.0) 01/18/17 05:00 MCH 28.1 pg (27.0-31.0) 01/18/17 05:00 MCHC 33.7 g/dL (33.0-37.0) 01/18/17 05:00 RDW 14.1 % (11.5-14.5) 01/18/17 05:00 Plt Count 208 K/uL (130-400) 01/18/17 05:00 MPV 9.2 fl (7.2-11.7) 01/18/17 05:00 Neut % (Auto) 62.7 % (50.0-75.0) 01/18/17 05:00 Lymph % (Auto) 22.5 % (20.0-40.0) 01/18/17 05:00 [place] % (Auto) 12.8 % (0.0-10.0) H 01/18/17 05:00 Eos % (Auto) 1.4 % (0.0-4.0) 01/18/17 05:00 Baso % (Auto) 0.6 % (0.0-2.0) 01/18/17 05:00 Neut # 6.1 K/uL (1.8-7.0) 01/18/17 05:00 Lymph # 2.2 K/uL (1.0-4.3) 01/18/17 05:00 [place] # 1.2 K/uL (0.0-0.8) H 01/18/17 05:00 Eos # 0.1 K/uL (0.0-0.7) 01/18/17 05:00 Baso # 0.1 K/uL (0.0-0.2) 01/18/17 05:00 Sodium 140 mmol/l (132-148) 01/19/17 06:00 Potassium 4.1 MMOL/L (3.6-5.0) 01/19/17 06:00 Chloride 101 mmol/L (98-107) 01/19/17 06:00 Carbon Dioxide 30 mmol/L (22-30) 01/19/17 06:00 Anion Gap 13 (10-20) 01/19/17 06:00 BUN 21 mg/dl (9-20) H 01/19/17 06:00 Creatinine 1.3 mg/dL (0.8-1.5) 01/19/17 06:00 Est GFR ( Amer) > 60 01/19/17 06:00 Est GFR (Non-Af Amer) 56 01/19/17 06:00 POC Glucose (mg/dL) 134 mg/dL (65-110) H 01/19/17 06:04 Random Glucose 135 mg/dL (75-110) H 01/19/17 06:00 Calcium 8.8 mg/dL (8.4-10.2) 01/19/17 06:00 Phosphorus 3.7 mg/dl (2.5-4.5) 01/17/17 15:37 Magnesium 2.2 MG/DL (1.6-2.3) 01/17/17 15:37 Total Bilirubin 1.2 mg/dl (0.2-1.3) 01/19/17 06:00 AST 31 U/L (17-59) 01/19/17 06:00 ALT 41 U/L (21-72) 01/19/17 06:00 Alkaline Phosphatase 67 U/L (38-126) 01/19/17 06:00 Total Creatine Kinase 356 U/L (55-170) H 01/17/17 15:37 CK-MB (Mass) 6.36 ng/mL (0.0-3.38) H 01/17/17 15:37 Troponin I < 0.0120 ng/mL (0.00-0.120) 01/18/17 05:00 NT-Pro-B Natriuret Pep 1310 pg/ml (0-900) H 01/17/17 15:37 Total Protein 6.8 G/DL (6.3-8.2) 01/19/17 06:00 Albumin 3.8 g/dL (3.5-5.0) 01/19/17 06:00 Globulin 3.1 gm/dL (2.2-3.9) 01/19/17 06:00 Albumin/Globulin Ratio 1.2 (1.0-2.1) 01/19/17 06:00 Lipase 267 U/L (23-300) 01/17/17 15:37 Digoxin < 0.4 ng/mL (0.8-2.0) L 01/17/17 15:37 - Hospital Course Hospital Course: 61 yr old male admitted for palpitations and dizziness with PMHx of CAD s/p stent x2, DM, HTN and HLD. Patient was evaluated by cardiology, repeat echo showed LV function marginally depressed. Patients' aldactone was discontinued, his symptoms resolved, pt BP improved and remained stable. Pt was discharged with instructions to weigh hismlef daily and bring log to his follow up with his PMD Dr. Hernandez within [address] Ennis by January 30, 2017, discontinue Aldactone and resume the rest of his home meds. - Date & Time of H&P Date of H&P: 01/18/17 Time of H&P: 01:29 Discharge Exam - Head Exam Head Exam: ATRAUMATIC, NORMOCEPHALIC - Eye Exam Eye Exam: EOMI, PERRL - ENT Exam ENT Exam: Mucous Membranes Moist - Neck Exam Neck exam: Full Rom - Respiratory Exam Respiratory Exam: Clear to PA & Lateral, NORMAL BREATHING PATTERN - Cardiovascular Exam Cardiovascular Exam: REGULAR RHYTHM, +S1, +S2 - GI/Abdominal Exam GI & Abdominal Exam: Normal Bowel Sounds, Soft. absent: Tenderness - Extremities Exam Extremities exam: full ROM, pedal edema (trace pitting bilateral) - Back Exam Back exam: absent: CVA tenderness (L), CVA tenderness (R) - Neurological Exam Neurological exam: Alert, CN II-XII Intact - Psychiatric Exam Psychiatric exam: Normal Affect, Normal Mood - Skin Skin Exam: Dry, Intact, Warm Discharge Plan - Follow Up Plan Condition: FAIR Disposition: HOME/ ROUTINE Instructions: Heart Failure (GEN), Atrial Fibrillation (GEN) Additional Instructions: -Discontinue Aldactone -Take the rest of your home meds as prescribed -Follow up with your oracle ebs developer Dr. Ennis within 1-2 weeks -Follow up with your PMD Dr. Hernandez within 1 week -May return to work and resume normal activities -weigh yourself daily, bring log to your f/u appts -monitor blood sugar at home, bring glucose and food logs to your appt with PMD Referrals: Elijah Ennis MD [Staff Provider] - Kaveh Hernandez MD [Family Provider] - Clinical Quality Measures - Date & Time of Discharge Summary Date of Discharge Summary: 01/19/17 Time of Discharge Summary: 14:59
== END 2017-01-19 12:16 | disposition home or self-care (01) | DRG 309 ==
LOC: H.ER 14:48 → H.ERHOLD 17:03 → H.TEL 21:40 → OBSVTOIN 01-18 09:34
PROVIDERS: ADMIT Family Medicine; ATTEND Family Medicine
DX: I48.2 Chronic atrial fibrillation (principal); I50.22 Chronic systolic (congestive) heart failure; I11.0 Hypertensive heart disease with heart failure; E86.1 Hypovolemia; E11.9 Type 2 diabetes mellitus without complications; E78.5 Hyperlipidemia, unspecified; D72.829 Elevated white blood cell count, unspecified; I95.1 Orthostatic hypotension; I25.10 Atherosclerotic heart disease of native coronary artery without angina pectoris; E78.00 Pure hypercholesterolemia, unspecified; I25.2 Old myocardial infarction; I49.3 Ventricular premature depolarization; Z79.82 Long term (current) use of aspirin; Z79.84 Long term (current) use of oral hypoglycemic drugs; Z87.891 Personal history of nicotine dependence; Z95.5 Presence of coronary angioplasty implant and graft; Z88.1 Allergy status to other antibiotic agents; Z88.0 Allergy status to penicillin

== ENCOUNTER 2017-07-09 12:23 | Observation (INO) | payer OTHER ==
[2017-07-09 13:32] LABS: BASO # 0.1 K/uL (0.0-0.2); BASO % 1.1 % (0.0-2.0); EOS # 0.1 K/uL (0.0-0.7); EOS % 1.2 % (0.0-4.0); HEMATOCRIT 42.3 % (35.0-51.0); LYMPH # 2.3 K/uL (1.0-4.3); LYMPH % 20.1 % (20.0-40.0); MEAN CELL VOLUME 83.9 fl (80.0-94.0); MEAN CORPUSCULAR HEMOGLOBIN 28.2 pg (27.0-31.0); MEAN CORPUSCULAR HGB CONC 33.6 g/dL (33.0-37.0); MEAN PLATELET VOLUME 9.2 fl (7.2-11.7); MONO # 1.1 K/uL (0.0-0.8); MONO % 9.3 % (0.0-10.0); NEUT % 68.3 % (50.0-75.0); NRBC % 1.7 % (0.0-0.0); RED CELL DISTRIBUTION WIDTH 14.1 % (11.5-14.5); WHITE BLOOD COUNT 11.7 K/uL (4.8-10.8)
[2017-07-09 13:33] LABS: BLOOD UREA NITROGEN 21 mg/dl (9-20); CALCIUM 9.3 mg/dL (8.4-10.2); CARBON DIOXIDE 29 mmol/L (22-30); CHLORIDE 102 mmol/L (98-107); GFR AFRICAN-AMERICAN > 60; GLUCOSE,RANDOM 95 mg/dL (75-110); POTASSIUM 3.6 MMOL/L (3.6-5.0); SODIUM 141 mmol/l (132-148)
[2017-07-09 13:37] LABS: PARTIAL THROMBOPLASTIN TIME 33.8 Seconds (25.6-37.1)
--- NOTE | 2017-07-09 13:46 | ED PDOC ---
HPI: Chest Pain Time Seen by Provider: 07/09/17 12:42 Chief Complaint (Nursing): Chest Pain History Per: Patient History/Exam Limitations: no limitations Onset/Duration Of Symptoms: Hrs Current Symptoms Are (Timing): Still Present Quality: "Pain" Associated Symptoms: denies: Nausea, Dyspnea, Diaphoresis, Syncope Modifying Factors: None Exacerbating Factors: None Alleviating Factors: None Additional History Per: Patient Additional Complaint(s): 61 year old male, with PMHx of CAD, Afib, CHF, HTN, and diabetes, presents to ED for evaluation of left sided chest pain radiating to left arm that started this morning. Pt described the pain as sharp, stabbing, and states pain lasted for several hours in the morning, but pain is now intermittent. Pt reports associated shortness of breath with the chest pain. Notes taking Aspirin this morning. Also reports chronic leg swelling, left leg more than right. Denies cough, palpitations, or fever. Past Medical History Reviewed: Historical Data, Nursing Documentation, Vital Signs Vital Signs: Last Vital Signs Temp 97.9 F 07/09/17 12:41 Pulse 77 07/09/17 15:40 Resp 18 07/09/17 12:41 BP 122/81 07/09/17 12:41 Pulse Ox 99 07/09/17 15:40 - Medical History PMH: Arthritis, Atrial Fibrillation, CAD (w/ stents), Cardia Arrhythmia (A FIB) , CHF, Diabetes, HTN, Hypercholesterolemia, Peripheral Edema Denies: HIV, Chronic Kidney Disease - Surgical History Surgical History: Cholecystectomy, Coronary Stent (2), Endoscopy Denies: Pacemaker Other surgeries: knee replacement surgery - Family History Family History: States: No Known Family Hx - Home Medications Home Medications: Ambulatory Orders Medication Instructions Recorded Aspirin [Aspirin EC] 325 mg PO DAILY 01/17/17 Digoxin [Lanoxin] 0.0625 mg PO DAILY 01/17/17 Furosemide [Lasix] 40 mg PO DAILY 01/17/17 Glyburide [Micronase] 1.25 mg PO DAILY 01/17/17 Metoprolol Tartrate [Lopressor] 75 mg PO BID 01/17/17 Rivaroxaban [Xarelto] 20 mg PO QPM 01/17/17 Sitagliptin Phos/Metformin HCl 1 tab PO BID 01/17/17 [Janumet 50-1,000 mg Tablet] Valsartan/Hydrochlorothiazide 1 tab PO DAILY 01/17/17 [Diovan Hct 160-12.5 mg Tab] amLODIPine [Norvasc] 10 mg PO DAILY 01/17/17 traMADol [Ultram] 50 mg PO Q8H PRN 01/17/17 - Allergies Allergies/Adverse Reactions: Allergies Allergy/AdvReac Type Severity Reaction Status Date / Time azithromycin Allergy RASH Verified 01/15/17 10:25 [From Zithromax Z-Mitchell] ciprofloxacin [From Cipro] Allergy RASH Verified 01/15/17 10:16 ciprofloxacin HCl Allergy RASH Verified 01/15/17 10:16 [From Cipro] Penicillins Allergy RASH Verified 01/15/17 10:24 DAYNA Risk Score for UA/NSTEMI - DAYNA Risk Score Age > 64: NO 3 or more CAD Risk Factors: YES Known CAD (Stenosis greater than 50%): YES Aspirin use in past 7 days: YES Severe Angina: NO EKG ST changes greater than 0.5mm: NO DAYNA Score: 3 Risk %: 13% Wells Criteria for PE - Wells Criteria for Pulmonary Embolism Clinical Signs and Symptoms of DVT: No P.E is #1 Diagnosis, or Equally Likely: No Heart Rate >100: No Immobilization at least 3 days;Surgery previous 4 weeks: No Previous, objectively diagnosed PE or DVT: No Hemoptysis: No Malignancy w/treatment within 6 months, or palliative: No Total Score: 0 Review of Systems Constitutional: Negative for: Fever, Chills Cardiovascular: Positive for: Chest Pain, Edema. Negative for: Palpitations, Light Headedness Respiratory: Positive for: Shortness of Breath. Negative for: Cough Gastrointestinal: Negative for: Nausea, Vomiting, Abdominal Pain Neurological: Negative for: Headache, Dizziness Physical Exam - Reviewed Nursing Documentation Reviewed: Yes Vital Signs Reviewed: Yes - Physical Exam Appears: Positive for: Non-toxic, No Acute Distress Head Exam: Positive for: ATRAUMATIC, NORMOCEPHALIC Skin: Positive for: Normal Color, Warm, Dry Eye Exam: Positive for: Normal appearance, EOMI Neck: Positive for: Painless ROM, Supple Cardiovascular/Chest: Positive for: Irregularly Irregular Respiratory: Positive for: Normal Breath Sounds. Negative for: Rales, Rhonchi, Wheezing, Respiratory Distress Gastrointestinal/Abdominal: Positive for: Soft. Negative for: Tenderness Back: Positive for: Normal Inspection Extremity: Positive for: Normal ROM, Pedal Edema, Swelling (bilateral leg swelling, left leg more than right leg). Negative for: Deformity Neurologic/Psych: Positive for: Alert, Oriented. Negative for: Motor/Sensory Deficits - Laboratory Results Result Diagrams: 07/09/17 13:19 07/09/17 13:19 - ECG ECG: Positive for: Interpreted By Me, Viewed By Me ECG Rhythm: Positive for: Normal ST Segment, Atrial Fibrillation. Negative for : ST/T Changes Rate: 77 O2 Sat by Pulse Oximetry: 99 Medical Decision Making Medical Decision Making: Impression: Chest pain Differential Diagnosis: ACS, CHF exacerbation Plan: EKG CXR Blood work Reassess Admission criteria. Acute chest pain in patient with CAD and multiple risk factors including high DAYNA score warranting admission for observation considering high mortality and morbidity. Scribe Attestation: Documented by Shen Keene, acting as a scribe for Zoran Greenberg MD Provider Scribe Attestation: All medical record entries made by the Scribe were at my direction and personally dictated by me. I have reviewed the chart and agree that the record accurately reflects my personal performance of the history, physical exam, medical decision making, and the department course for this patient. I have also personally directed, reviewed, and agree with the discharge instructions and disposition. Disposition - Clinical Impression Clinical Impression: Chest pain, CHF (congestive heart failure) - Patient ED Disposition Is Patient to be Admitted: Yes Discussed With : Levi Gurrola Doctor Will See Patient In The: ED Counseled Patient/Family Regarding: Studies Performed, Diagnosis - Disposition Disposition Time: 14:30 Condition: FAIR - Pt Status Changed To: Hospital Disposition Of: Observation - POA Present On Arrival: None Core Measure Indicators: Chest Pain
[2017-07-09] MEDS ORDERED: Glucagon Recombinant 1 mg Inj IM PRN (15:08)
[2017-07-09] MEDS ORDERED: Dextrose 50% SYRINGE Inj (50 ml) IV PRN (15:08)
--- NOTE | 2017-07-09 15:44 | CP.PCM.HP ---
Addendum entered and electronically signed by Shaniqua Nice MD 07/09/17 16:32 : Correction: Left sided chest pain radiating to the left shoulder and left arm. Original Note: <Shaniqua Nice - Last Filed: 07/09/17 16:31> History of Present Illness - History of Present Illness History of Present Illness: 61 YO M w/ PMH of CAD, CHF, HTN and DM presents to the ER with left sided chest pain radiating to the right shoulder and upper arm. This morning the pain was worse, but currently has decreased in intensity, describes the pain as a 4/10, sharp in nature. Denies any aggravating or relieving factors. - Patient states that in the last couple of days he has felt increase SOB, on exertion, but has not had any chest pain on exertion. - Denies any nausea or vomiting. - Patient states he took 325 mg of Asprin this morning. - He also has been having worsening leg swelling left more then right leg. ROS: Pt. denies any headache, palpatation, dizziness, lightheadedness, vomiting , abdominal pain, flank pain, limb pain, hematuria, or dysuria. PMHx: HTN, HLD, DM, CAD, A-FIB, CHF PHSx: Cardiac stent x 2 ( Jose 2013 and Liang 2009), Cholecystectomy FMHx: HTN, DM, & CAD Social: Denies current use of TOB, ETOH, DRUGS Quit smoking 15 years Allegies: PCN, Azithromycin, Ciprofloxacin Meds: See Med List PMD: Dr. Hernandez ER Work up: EKG: Atrial fibrilation CXR Troponin x 1 negative Asprin 325 mg Present on Admission - Present on Admission Any Indicators Present on Admission: No Review of Systems - Review of Systems All systems: reviewed and no additional remarkable complaints except Past Patient History - Infectious Disease Hx of Infectious Diseases: None - Past Medical History & Family History Past Medical History?: Yes - Past Social History Smoking Status: Former Smoker - CARDIAC Hx Atrial Fibrillation: Yes Hx Cardia Arrhythmia: Yes (A FIB) Hx Congestive Heart Failure: Yes Hx Hypercholesterolemia: Yes Hx Hypertension: Yes Hx Pacemaker: No Hx Peripheral Edema: Yes - PULMONARY Hx Respiratory Disorders: No - NEUROLOGICAL Hx Paralysis: No - HEENT Hx HEENT Problems: No - RENAL Hx Chronic Kidney Disease: No - ENDOCRINE/METABOLIC Hx Endocrine Disorders: Yes Hx Diabetes Mellitus Type 2: Yes - HEMATOLOGICAL/ONCOLOGICAL Hx Human Immunodeficiency Virus (HIV): No - INTEGUMENTARY Hx Dermatological Problems: Yes Hx Eczema: Yes - MUSCULOSKELETAL/RHEUMATOLOGICAL Hx Arthritis: Yes - GASTROINTESTINAL Hx Gastrointestinal Disorders: No - GENITOURINARY/GYNECOLOGICAL Hx Genitourinary Disorders: No - PSYCHIATRIC Hx Psychophysiologic Disorder: No Hx Substance Use: No - SURGICAL HISTORY Hx Cholecystectomy: Yes Hx Coronary Stent: Yes (2) - ANESTHESIA Hx Anesthesia: Yes Hx Anesthesia Reactions: No Hx Malignant Hyperthermia: No Meds Allergies/Adverse Reactions: Allergies Allergy/AdvReac Type Severity Reaction Status Date / Time azithromycin Allergy RASH Verified 01/15/17 10:25 [From Zithromax Z-Mitchell] ciprofloxacin [From Cipro] Allergy RASH Verified 01/15/17 10:16 ciprofloxacin HCl Allergy RASH Verified 01/15/17 10:16 [From Cipro] Penicillins Allergy RASH Verified 01/15/17 10:24 Physical Exam - Constitutional Appears: No Acute Distress - Head Exam Head Exam: NORMAL INSPECTION - Respiratory Exam Respiratory Exam: Clear to Auscultation Bilateral, NORMAL BREATHING PATTERN. absent: Rales, Rhonchi, Wheezes - Cardiovascular Exam Cardiovascular Exam: Irregular Rhythm, +S1, +S2 - GI/Abdominal Exam GI & Abdominal Exam: Normal Bowel Sounds, Soft. absent: Tenderness - Extremities Exam Additional comments: 2 + pitting edema on left ankle 1+ pitting edema right ankle - Neurological Exam Neurological exam: Alert, CN II-XII Intact, Oriented x3 - Skin Additional comments: Birthmark rash on back Results - Vital Signs Recent Vital Signs: Last Vital Signs Temp 97.9 F 07/09/17 12:41 Pulse 75 07/09/17 12:41 Resp 18 07/09/17 12:41 BP 122/81 07/09/17 12:41 Pulse Ox 99 07/09/17 13:51 - Labs Result Diagrams: 07/09/17 13:19 07/09/17 13:19 Labs: Laboratory Results - last 24 hr 07/09/17 07/09/17 07/09/17 13:19 13:19 13:19 WBC 11.7 H RBC 5.04 Hgb 14.2 Hct 42.3 MCV 83.9 MCH 28.2 MCHC 33.6 RDW 14.1 Plt Count 252 MPV 9.2 Neut % (Auto) 68.3 Lymph % (Auto) 20.1 [place] % (Auto) 9.3 Eos % (Auto) 1.2 Baso % (Auto) 1.1 Neut # 8.0 H Lymph # 2.3 [place] # 1.1 H Eos # 0.1 Baso # 0.1 PT 13.5 H INR 1.2 APTT 33.8 Sodium 141 Potassium 3.6 Chloride 102 Carbon Dioxide 29 Anion Gap 14 BUN 21 H Creatinine 1.3 Est GFR ( Amer) > 60 Est GFR (Non-Af Amer) 56 Random Glucose 95 Calcium 9.3 Troponin I < 0.0120 NT-Pro-B Natriuret Pep 1390 H Digoxin 07/09/17 13:19 WBC RBC Hgb Hct MCV MCH MCHC RDW Plt Count MPV Neut % (Auto) Lymph % (Auto) [place] % (Auto) Eos % (Auto) Baso % (Auto) Neut # Lymph # [place] # Eos # Baso # PT INR APTT Sodium Potassium Chloride Carbon Dioxide Anion Gap BUN Creatinine Est GFR ( Amer) Est GFR (Non-Af Amer) Random Glucose Calcium Troponin I NT-Pro-B Natriuret Pep Digoxin < 0.4 L Assessment & Plan - Assessment and Plan (Free Text) Assessment: 1. Chest pain - Troponin x 1 negative - EGG: no ST elevations noted. Afib was seen - F/U with serial troponin, BNP, lower extremity doppler 2) A Fib -Digoxin - Xarelto - Monitor in Tele 3) CHF - Lasix - EF : 55% on 12/2016 4) Type 2 NIDDM - Accucheck QHS - LDSS - Continue home meds 5) HTN Valsartan Metoprolol Amlodipine 6) DVT prophylaxis - Xaralto <Julian Gresham - Last Filed: 07/11/17 07:05> Results - Vital Signs Recent Vital Signs: Last Vital Signs Temp 97.9 F 07/10/17 12:12 Pulse 84 07/10/17 12:12 Resp 20 07/10/17 12:12 BP 132/96 H 07/10/17 12:12 Pulse Ox 99 07/10/17 12:12 - Labs Result Diagrams: 07/10/17 04:30 07/10/17 04:30 Labs: Laboratory Results - last 24 hr 12/13/17 12/13/17 09:09 10:54 POC Glucose (mg/dL) 160 H Amylase 122 H Lipase 279 Attending/Attestation - Attestation I have personally seen and examined this patient.: Yes I have fully participated in the care of the patient.: Yes I have reviewed all pertinent clinical information: Yes
--- NOTE | 2017-07-09 16:12 | RAD ---
PROCEDURE: CHEST RADIOGRAPH, 1 VIEW HISTORY: chest pain COMPARISON: 01/17/2017 FINDINGS: LUNGS: Clear. PLEURA: No pneumothorax or pleural fluid seen. CARDIOVASCULAR: Normal. OSSEOUS STRUCTURES: No significant abnormalities. VISUALIZED UPPER ABDOMEN: Normal. OTHER FINDINGS: None. IMPRESSION: No active disease. No acute/significant interval changes.
--- NOTE | 2017-07-09 17:52 | US ---
PROCEDURE: Duplex venous sonography bilateral lower extremity HISTORY: asymetrical swelling of lower extremity and SOB COMPARISON: None available. TECHNIQUE: Bilateral common femoral, superficial femoral, popliteal and posterior tibial veins were evaluated. Flow was assessed with color Doppler, compressibility, assessment of phasic flow and augmentation response. FINDINGS: COMMON FEMORAL VEIN: Right CFV: Unremarkable. Left CFV: Unremarkable. SUPERFICIAL FEMORAL VEIN: Right SFV: Unremarkable. Left SFV: Unremarkable. POPLITEAL VEIN: Right Popliteal: Unremarkable. Left Popliteal: Unremarkable. POSTERIOR TIBIAL VEIN: Right PTV: Unremarkable. Left PTV: Unremarkable. OTHER FINDINGS: None. IMPRESSION: No evidence of deep venous thrombosis.
[2017-07-09] MEDS: Insulin Regular 100 units/ml SC SCH ×2 (19:12→21:26)
[2017-07-09 19:14] VITALS: RESP 20
[2017-07-10 05:56] LABS: BASO # 0.1 K/uL (0.0-0.2); BASO % 0.7 % (0.0-2.0); EOS # 0.2 K/uL (0.0-0.7); EOS % 1.9 % (0.0-4.0); HEMATOCRIT 41.9 % (35.0-51.0); LYMPH # 1.9 K/uL (1.0-4.3); LYMPH % 21.9 % (20.0-40.0); MEAN CELL VOLUME 83.3 fl (80.0-94.0); MEAN CORPUSCULAR HEMOGLOBIN 28.5 pg (27.0-31.0); MEAN CORPUSCULAR HGB CONC 34.2 g/dL (33.0-37.0); MEAN PLATELET VOLUME 9.2 fl (7.2-11.7); MONO # 0.8 K/uL (0.0-0.8); MONO % 9.6 % (0.0-10.0); NEUT # 5.7 K/uL (1.8-7.0); NEUT % 65.9 % (50.0-75.0); NRBC % 0.9 % (0.0-0.0); RED CELL DISTRIBUTION WIDTH 14.1 % (11.5-14.5); WHITE BLOOD COUNT 8.7 K/uL (4.8-10.8)
[2017-07-10 06:19] LABS: BLOOD UREA NITROGEN 21 mg/dl (9-20); CALCIUM 8.7 mg/dL (8.4-10.2); CARBON DIOXIDE 30 mmol/L (22-30); CHLORIDE 102 mmol/L (98-107); GFR AFRICAN-AMERICAN > 60; GLUCOSE,RANDOM 123 mg/dL (75-110); POTASSIUM 3.4 MMOL/L (3.6-5.0); SODIUM 141 mmol/l (132-148)
[2017-07-10] MEDS: Insulin Regular 100 units/ml SC SCH ×2 (06:30→11:47)
[2017-07-10] MEDS ORDERED: Potassium Chloride 20 mEq ER Tab PO ONE (06:59)
[2017-07-10 08:02] VITALS: O2SAT 99
[2017-07-10] MEDS ORDERED: Digoxin 125 mcg (0.125 mg) Tab PO SCH (09:00)
[2017-07-10] MEDS ORDERED: Aspirin 325 mg EC Tablets PO SCH (09:00)
--- NOTE | 2017-07-10 09:09 | CP.PCM.CON ---
History of Present Illness - History of Present Illness History of Present Illness: This 61-year- old man a hypertensive and diabetic who has known coronary artery disease and required urgent coronary stenting approximately 8 years back during an acute myocardial infarction, has come into the hospital complaining of a left pectoral pain which was stabbing in character and has gone on off and on for the last 24 hours. It is not associated with any physical exertion This is not accompanied by any nausea vomiting or perspiration and is not aggravated by any body movements are accompanied by any tenderness in this area. Breathing does not aggravate this discomfort. He denies any trauma to this area and denies lifting heavy heavy objects in the last 2-3 days. The patient had required stenting of mid LAD in May 2014 after an abnormal stress test which was done following an episode of chest pain. The patient has had atrial fibrillation and requires beta-blockade as well as a small dose of digoxin to control his heart rate and has been on chronic oral anticoagulation. His echocardiogram and left ventriculogram during coronary angiography has shown preserved left ventricular systolic function. The patient is not a smoker and has not had any peripheral vascular disease. He has had a foot drop on the left side. On physical examination this is a middle aged pleasant man who is comfortable at rest and his telemetry shows atrial fibrillation at moderate heart rates which range between 60 and 80 bpm. His blood pressure in an upright posture was 138/84 mmHg. His jugular venous pressure was not elevated and there was no edema over his lower extremities. The pedal pulses were feeble but distinctly present. There were no carotid bruits. The apex was not palpable, first and second heart sounds were distant but normal. There was no murmur or gallop. there were no rales. His abdomen was soft and liver and spleen were not palpable. His electrocardiogram showed atrial fibrillation at moderate heart rates with mild ST-T depression due to digitalis effect. No Q waves were detected on the electrocardiogram. His lab data shows normal troponins on 3 separate occasions 8 hours apart. His hemoglobin and hematocrit and his renal function were normal. Impression: Atypical chest pain with no evidence of acute coronary syndrome. Stable coronary artery disease with a history of acute myocardial infarction approximately 8 years back and stenting of left anterior descending artery in May 2014. Chronic atrial fibrillation. Diabetes mellitus and hypertension. There is no evidence of acute coronary syndrome. The patient is hemodynamically stable and may be allowed to return home. I will arrange a nuclear stress test since his last coronary stent is 3 years old. I have discussed his case with the resident. Past Patient History - Infectious Disease Hx of Infectious Diseases: None - Past Medical History & Family History Past Medical History?: Yes - Past Social History Smoking Status: Former Smoker - CARDIAC Hx Angina: Yes Hx Atrial Fibrillation: Yes Hx Cardia Arrhythmia: Yes (A FIB) Hx Congestive Heart Failure: Yes Hx Hypercholesterolemia: Yes Hx Hypertension: Yes Hx Pacemaker: No Hx Peripheral Edema: Yes - PULMONARY Hx Respiratory Disorders: No - NEUROLOGICAL Hx Neurological Disorder: No Hx Paralysis: No - HEENT Hx HEENT Problems: No - RENAL Hx Chronic Kidney Disease: No - ENDOCRINE/METABOLIC Hx Endocrine Disorders: Yes Hx Diabetes Mellitus Type 2: Yes - HEMATOLOGICAL/ONCOLOGICAL Hx Human Immunodeficiency Virus (HIV): No - INTEGUMENTARY Hx Dermatological Problems: No - MUSCULOSKELETAL/RHEUMATOLOGICAL Hx Arthritis: Yes Hx Falls: No Other/Comment: pt fell on ice and sustained subdural bleed - GASTROINTESTINAL Hx Gastrointestinal Disorders: No - GENITOURINARY/GYNECOLOGICAL Hx Genitourinary Disorders: No - PSYCHIATRIC Hx Psychophysiologic Disorder: No Hx Substance Use: No - SURGICAL HISTORY Hx Cholecystectomy: Yes Hx Coronary Stent: Yes (2) - ANESTHESIA Hx Anesthesia: Yes Hx Anesthesia Reactions: Yes (headaches) Hx Malignant Hyperthermia: No Has any member of the family had a problem w/ anesthesia?: No Meds Allergies/Adverse Reactions: Allergies Allergy/AdvReac Type Severity Reaction Status Date / Time azithromycin Allergy RASH Verified 01/15/17 10:25 [From Zithromax Z-Mitchell] ciprofloxacin [From Cipro] Allergy RASH Verified 01/15/17 10:16 ciprofloxacin HCl Allergy RASH Verified 01/15/17 10:16 [From Cipro] Penicillins Allergy RASH Verified 01/15/17 10:24 - Medications Medications: Current Medications Amlodipine Besylate (Norvasc) 10 mg PO DAILY [facility] Last Admin: 07/10/17 08:53 Dose: 10 mg Aspirin (Ecotrin) 325 mg PO DAILY [facility] Last Admin: 07/10/17 08:51 Dose: 325 mg Dextrose (Dextrose 50% Inj) 0 ml IV STAT PRN; Protocol PRN Reason: Hypoglycemia Protocol Dextrose (Glutose 15) 0 gm PO ONCE PRN; Protocol PRN Reason: Hypoglycemia Protocol Digoxin (Lanoxin) 0.0625 mg PO DAILY [facility] Furosemide (Lasix) 40 mg PO DAILY [facility] Last Admin: 12/13/17 08:53 Dose: 40 mg Glucagon (Glucagen Diagnostic Kit) 0 mg IM STAT PRN; Protocol PRN Reason: Hypoglycemia Protocol Glyburide (Micronase) 1.25 mg PO DAILY [facility] Hydrochlorothiazide (Microzide) 12.5 mg PO DAILY [facility] Last Admin: 07/10/17 08:53 Dose: 12.5 mg Insulin Human Regular (Humulin R) 0 units SC ACHS ADEN PRN Reason: Protocol Last Admin: 07/10/17 06:30 Dose: Not Given Metformin HCl (Glucophage) 1,000 mg PO BID [facility] Last Admin: 07/10/17 08:52 Dose: 1,000 mg Metoprolol Tartrate (Lopressor) 75 mg PO BID [facility] Last Admin: 07/10/17 08:53 Dose: 75 mg Rivaroxaban (Xarelto) 20 mg PO QPM ADEN PRN Reason: Protocol Last Admin: 07/09/17 18:37 Dose: 20 mg Sitagliptin Phosphate (Januvia) 50 mg PO BID [facility] Last Admin: 07/10/17 08:52 Dose: 50 mg Tramadol HCl (Ultram) 50 mg PO Q8H PRN PRN Reason: Pain, severe (8-10) Valsartan (Diovan) 160 mg PO DAILY [facility] Last Admin: 07/10/17 08:51 Dose: 160 mg Results - Vital Signs Recent Vital Signs: Last Vital Signs Temp 98.4 F 07/10/17 08:01 Pulse 80 07/10/17 08:53 Resp 20 07/10/17 08:01 BP 133/93 H 07/10/17 08:53 Pulse Ox 99 07/10/17 08:01 - Labs Result Diagrams: 07/10/17 04:30 07/10/17 04:30 Labs: Laboratory Results - last 24 hr 07/09/17 07/09/17 07/09/17 13:19 13:19 13:19 WBC 11.7 H RBC 5.04 Hgb 14.2 Hct 42.3 MCV 83.9 MCH 28.2 MCHC 33.6 RDW 14.1 Plt Count 252 MPV 9.2 Neut % (Auto) 68.3 Lymph % (Auto) 20.1 Moody % (Auto) 9.3 Eos % (Auto) 1.2 Baso % (Auto) 1.1 Neut # 8.0 H Lymph # 2.3 Moody # 1.1 H Eos # 0.1 Baso # 0.1 PT 13.5 H INR 1.2 APTT 33.8 Sodium 141 Potassium 3.6 Chloride 102 Carbon Dioxide 29 Anion Gap 14 BUN 21 H Creatinine 1.3 Est GFR ( Amer) > 60 Est GFR (Non-Af Amer) 56 POC Glucose (mg/dL) Random Glucose 95 Calcium 9.3 Troponin I < 0.0120 NT-Pro-B Natriuret Pep 1390 H Digoxin 07/09/17 07/09/17 07/09/17 13:19 20:45 21:25 WBC RBC Hgb Hct MCV MCH MCHC RDW Plt Count MPV Neut % (Auto) Lymph % (Auto) Moody % (Auto) Eos % (Auto) Baso % (Auto) Neut # Lymph # Moody # Eos # Baso # PT INR APTT Sodium Potassium Chloride Carbon Dioxide Anion Gap BUN Creatinine Est GFR ( Amer) Est GFR (Non-Af Amer) POC Glucose (mg/dL) 113 H Random Glucose Calcium Troponin I < 0.0120 NT-Pro-B Natriuret Pep Digoxin < 0.4 L 07/10/17 07/10/17 07/10/17 04:30 04:30 05:32 WBC 8.7 RBC 5.02 Hgb 14.3 Hct 41.9 MCV 83.3 MCH 28.5 MCHC 34.2 RDW 14.1 Plt Count 225 MPV 9.2 Neut % (Auto) 65.9 Lymph % (Auto) 21.9 Moody % (Auto) 9.6 Eos % (Auto) 1.9 Baso % (Auto) 0.7 Neut # 5.7 Lymph # 1.9 Moody # 0.8 Eos # 0.2 Baso # 0.1 PT INR APTT Sodium 141 Potassium 3.4 L Chloride 102 Carbon Dioxide 30 Anion Gap 12 BUN 21 H Creatinine 1.2 Est GFR ( Amer) > 60 Est GFR (Non-Af Amer) > 60 POC Glucose (mg/dL) 131 H Random Glucose 123 H Calcium 8.7 Troponin I < 0.0120 NT-Pro-B Natriuret Pep 956 H Digoxin
[2017-07-10 09:19] LABS: AMYLASE 122 U/L (30-110); LIPASE 279 U/L (23-300)
[2017-07-10 09:38] VITALS: PULSE 80
--- NOTE | 2017-07-10 10:11 | CP.PCM.DIS ---
Provider - Provider Date of Admission: 07/09/17 14:34 Attending physician: Kaveh Hernandez MD Time Spent in preparation of Discharge (in minutes): 30 Hospital Course - Lab Results Lab Results: Most Recent Lab Values WBC 8.7 K/uL (4.8-10.8) 07/10/17 04:30 RBC 5.02 Mil/uL (4.40-5.90) 07/10/17 04:30 Hgb 14.3 g/dL (12.0-18.0) 07/10/17 04:30 Hct 41.9 % (35.0-51.0) 07/10/17 04:30 MCV 83.3 fl (80.0-94.0) 07/10/17 04:30 MCH 28.5 pg (27.0-31.0) 07/10/17 04:30 MCHC 34.2 g/dL (33.0-37.0) 07/10/17 04:30 RDW 14.1 % (11.5-14.5) 07/10/17 04:30 Plt Count 225 K/uL (130-400) 07/10/17 04:30 MPV 9.2 fl (7.2-11.7) 07/10/17 04:30 Neut % (Auto) 65.9 % (50.0-75.0) 07/10/17 04:30 Lymph % (Auto) 21.9 % (20.0-40.0) 07/10/17 04:30 Pepin % (Auto) 9.6 % (0.0-10.0) 07/10/17 04:30 Eos % (Auto) 1.9 % (0.0-4.0) 07/10/17 04:30 Baso % (Auto) 0.7 % (0.0-2.0) 07/10/17 04:30 Neut # 5.7 K/uL (1.8-7.0) 07/10/17 04:30 Lymph # 1.9 K/uL (1.0-4.3) 07/10/17 04:30 Pepin # 0.8 K/uL (0.0-0.8) 07/10/17 04:30 Eos # 0.2 K/uL (0.0-0.7) 07/10/17 04:30 Baso # 0.1 K/uL (0.0-0.2) 07/10/17 04:30 PT 13.5 Seconds (9.8-13.1) H 07/09/17 13:19 INR 1.2 (0.9-1.2) 07/09/17 13:19 APTT 33.8 Seconds (25.6-37.1) 07/09/17 13:19 Sodium 141 mmol/l (132-148) 07/10/17 04:30 Potassium 3.4 MMOL/L (3.6-5.0) L 07/10/17 04:30 Chloride 102 mmol/L (98-107) 07/10/17 04:30 Carbon Dioxide 30 mmol/L (22-30) 07/10/17 04:30 Anion Gap 12 (10-20) 07/10/17 04:30 BUN 21 mg/dl (9-20) H 07/10/17 04:30 Creatinine 1.2 mg/dl (0.8-1.5) 07/10/17 04:30 Est GFR ( Amer) > 60 07/10/17 04:30 Est GFR (Non-Af Amer) > 60 07/10/17 04:30 POC Glucose (mg/dL) 131 mg/dL (65-110) H 07/10/17 05:32 Random Glucose 123 mg/dL (75-110) H 07/10/17 04:30 Calcium 8.7 mg/dL (8.4-10.2) 07/10/17 04:30 Troponin I < 0.0120 ng/mL (0.00-0.120) 07/10/17 04:30 NT-Pro-B Natriuret Pep 956 pg/ml (0-900) H 07/10/17 04:30 Amylase 122 U/L (30-110) H 07/10/17 09:09 Lipase 279 U/L (23-300) 07/10/17 09:09 Digoxin < 0.4 ng/mL (0.8-2.0) L 07/09/17 13:19 - Hospital Course Hospital Course: 61 YO M w/ PMH of CAD, CHF, HTN and DM presents to the ER with left sided chest pain radiating to left arm and radiating to the back. Symptoms had subsided in intensity during his stay. He was also noted to have increase in SOB over the last couple of days and increase swelling of his lower extremities. - Patient had a troponin x 3 negative - No ST elevations were noted on EKG, A fib was noted - Chest X Ray: unremarkable. - D dimer normal for age - Lower extremity ultrasound : Unremarkable - BroBN: 1390 intially and trended down to 956 - Lipase : WNL - Cardiology was seen, has recommended patient for a outpatient Lexiscan which will be done at 7am on 07/15/17 ER precausions have been given - Have been advised to follow up with Dr. Ennis and Dr. hernandez within one week after discharge. Discharge Exam - Head Exam Head Exam: NORMAL INSPECTION - ENT Exam ENT Exam: Normal Exam - Respiratory Exam Respiratory Exam: Clear to PA & Lateral, NORMAL BREATHING PATTERN. absent: Rales, Rhonchi, Wheezes, Respiratory Distress - GI/Abdominal Exam GI & Abdominal Exam: Normal Bowel Sounds, Soft. absent: Tenderness - Neurological Exam Neurological exam: Alert, CN II-XII Intact, Oriented x3 - Skin Skin Exam: Normal Color, Warm Discharge Plan - Follow Up Plan Condition: GOOD Disposition: HOME/ ROUTINE Instructions: Heart Failure (DC), Heart Failure (GEN), Pulmonary Edema (DC), Pulmonary Edema (GEN) Additional Instructions: - PAtient is scheduled for a Monalisa Scan on 07/15/17. Arrive at 7:00 AM. Do not eat anything after midnight the night before. Do not take medications in the morning. Bring medications with you. Follow up with Dr. Hernandez and Dr. Ennis within one week after discharge - If chest pain, SOB, nausea, or vomiting reoccur or worsen please return to the ER. Referrals: Elijah Ennis MD [Staff Provider] - Kaveh Hernandez MD [Family Provider] -
[2017-07-10 12:13] VITALS: BP 132/96; PULSE 84; TEMP 97.9
--- NOTE | 2017-07-11 19:36 | CARD ---
APPROVED REPORT EKG Measurement Heart [id number] <Conclusion> Atrial fibrillation Abnormal ECG
== END 2017-07-10 14:58 | disposition home or self-care (01) ==
LOC: H.ER 12:23 → H.ERHOLD 14:34 → H.TEL 17:42
PROVIDERS: ADMIT Family Medicine; ATTEND Family Medicine
DX: R07.89 Other chest pain (principal); Z88.1 Allergy status to other antibiotic agents; Z88.3 Allergy status to other anti-infective agents; Z88.0 Allergy status to penicillin; I25.10 Atherosclerotic heart disease of native coronary artery without angina pectoris; I48.2 Chronic atrial fibrillation; Z95.5 Presence of coronary angioplasty implant and graft; I11.0 Hypertensive heart disease with heart failure; I50.9 Heart failure, unspecified; E11.9 Type 2 diabetes mellitus without complications; M19.90 Unspecified osteoarthritis, unspecified site; E78.00 Pure hypercholesterolemia, unspecified; E78.5 Hyperlipidemia, unspecified; I25.2 Old myocardial infarction; Z96.659 Presence of unspecified artificial knee joint; M21.372 Foot drop, left foot; Z79.01 Long term (current) use of anticoagulants
CPT/HCPCS: 36415; 71010; 80048; 80162; 82150; 82948; 83690; 83880; 84484; 85025; 85610; 85730; 93970; 99282; G0378

== ENCOUNTER 2018-11-03 05:52 | Inpatient (IN) | payer OTHER ==
[2018-11-03] MEDS ORDERED: EPINEPHrine 1 mg/ml (1:1000) Inj ONE (07:13)
[2018-11-03] MEDS ORDERED: Absorbable Gelatin Sponge Size 12-7 ONE (07:13)
[2018-11-03] MEDS ORDERED: Bacitracin Ointment 30 GM TUBE ONE (07:13)
[2018-11-03] MEDS ORDERED: Thrombin Topical 5,000 Int Units Spray Kit ONE (07:14)
[2018-11-03 07:17] VITALS: BMI 32.8
--- NOTE | 2018-11-03 07:19 | CP.PCM.CON ---
History of Present Illness - History of Present Illness History of Present Illness: Orthopedic consultation Dr. Brown 63M with continued left knee pain and swelling after TKR. Patient had diagnostic/therapeutic left hip injection and knee aspiration 10/13/18 with no improvement in knee pain. Cultures in afb/fungal from that procedure are all negative. Patient for left knee revision/I&D/poly exchange today. Denies fever/chills, denies CP/SOB/dizziness Medical clearance Dr. Henderson and cardio Dr. Ennis on chart, reviewed last dose of xarelto 08/30 PMH: Afib, CAD, HTN, DM, neuropathy, HLD Allergies: zithromax, cipro, PCN PSH: hernia, cholecystectomy, Left ankle, Left TKR 2005 Review of Systems - Review of Systems All systems: reviewed and no additional remarkable complaints except Past Patient History - Infectious Disease Hx of Infectious Diseases: None - Past Medical History & Family History Past Medical History?: Yes Past Family History: Reviewed and not pertinent - Past Social History Smoking Status: Former Smoker - CARDIAC Hx Congestive Heart Failure: Yes Hx Hypercholesterolemia: Yes Hx Hypertension: Yes Other/Comment: AFIB - PULMONARY Hx Respiratory Disorders: No - NEUROLOGICAL Hx Neurological Disorder: No - HEENT Hx HEENT Problems: No - RENAL Hx Chronic Kidney Disease: No - ENDOCRINE/METABOLIC Hx Endocrine Disorders: Yes Hx Diabetes Mellitus Type 2: Yes - HEMATOLOGICAL/ONCOLOGICAL Hx Blood Disorders: Yes Hx Anemia: No Hx Blood Transfusions: No Other/Comment: EASY BRUISING FROM BLOOD THINNER - INTEGUMENTARY Hx Dermatological Problems: No - MUSCULOSKELETAL/RHEUMATOLOGICAL Other/Comment: pt fell on ice and sustained subdural bleed - GASTROINTESTINAL Hx Gastrointestinal Disorders: No - GENITOURINARY/GYNECOLOGICAL Hx Genitourinary Disorders: No - PSYCHIATRIC Hx Emotional Abuse: No Hx Physical Abuse: No - SURGICAL HISTORY Hx Cholecystectomy: Yes Hx Herniorrhaphy: Yes Hx Joint Replacement: Yes (Left TKR 2005) Hx Open Reduction Internal Fixation: Yes (left ankle) Other/Comment: Left knee Sx - ANESTHESIA Hx Anesthesia Reactions: Yes (HEADACHES AND QUEASY STOMACH) Meds Allergies/Adverse Reactions: Allergies Allergy/AdvReac Type Severity Reaction Status Date / Time azithromycin Allergy RASH Verified 09/29/18 11:30 [From Zithromax Z-Mitchell] ciprofloxacin [From Cipro] Allergy RASH Verified 09/29/18 11:30 ciprofloxacin HCl Allergy RASH Verified 09/29/18 11:30 [From Cipro] Penicillins Allergy RASH Verified 09/29/18 11:30 Physical Exam - Constitutional Appears: Well, No Acute Distress - Head Exam Head Exam: ATRAUMATIC - Neck Exam Neck exam: Positive for: Full Rom, Normal Inspection - Respiratory Exam Respiratory Exam: NORMAL BREATHING PATTERN - Cardiovascular Exam Additional comments: +DP/PT pulses - Expanded Lower Extremities Exam Left Knee exam: effusion, tenderness (incision intact, well healed, no drainage) Ankle exam: FULL ROM - Neurological Exam Neurological exam: Alert, Oriented x3 - Psychiatric Exam Psychiatric exam: Normal Affect, Normal Mood - Skin Skin Exam: Dry, Intact, Normal Color, Warm Results - Vital Signs Recent Vital Signs: Last Vital Signs Temp 98 F 11/03/18 06:54 Pulse 73 11/03/18 07:03 Resp 18 11/03/18 06:54 BP 131/91 H 11/03/18 06:54 Pulse Ox 97 11/03/18 06:54 - Labs Labs: Laboratory Results - last 24 hr 11/03/18 07:10 POC Glucose (mg/dL) 217 H Assessment & Plan (1) Painful total knee replacement, left Assessment and Plan: for OR today NPO T&C d/w Dr. Brown, agrees with above Status: Acute
[2018-11-03] MEDS ORDERED: Propofol 10 mg/ml Inj (20 ML) ONE ×2 (07:24→08:13)
[2018-11-03] MEDS ORDERED: Rocuronium 10 mg/ml (5 ml) ONE ×2 (07:24→08:58)
[2018-11-03] MEDS ORDERED: Midazolam 2 MG/2 ML VIAL ONE (07:24)
[2018-11-03] MEDS ORDERED: Lidocaine 4% (Laryng-O-Jet) Kit MM ONE (07:25)
[2018-11-03] MEDS ORDERED: Lidocaine 1% 5ml Abboject ONE (07:25)
[2018-11-03] MEDS ORDERED: Neostigmine 1:1000 (1 mg/ml) Inj ONE (07:25)
[2018-11-03] MEDS ORDERED: Succinylcholine Chloride 20 mg/ml Syr (5 ml) IV ONE (07:27)
[2018-11-03] MEDS ORDERED: Phenylephrine 10 mg/ml Inj ONE (07:27)
[2018-11-03] MEDS ORDERED: Bupivacaine 0.25%-Epinephrine 1:200,000 (30 ml) Inj ONE (07:37)
--- NOTE | 2018-11-03 07:44 | CP.PCM.HP ---
History of Present Illness - History of Present Illness History of Present Illness: Orthopedist: Dr Brown PMD: Dr Hernandez Chief complaint: Left knee pain The patient was codey dn examined in the SDS unit HPI: The hx was obtained from the patient and after review of the medical records. This is a 63 years old male with hx of Chronic A Fib, CHF, CAD and Arthritis with Left Total Knee replacement in 2004. He underwent left knee aspiration 09/2018 for painful Swelling, without much improvement. He has come for an elevtive revision of the left knee prosthesis. No fever, chest pain, SOB, Palpitation, urinary symptoms, nausea nor vomits. PMHx: HTN, HLD, DM, CAD, A-FIB, CHF PHSx: Cardiac stent x 2 ( Jose 2013 and Liang 2009), Cholecystectomy FMHx: HTN, DM, & CAD Social: Denies current use of TOB, ETOH, DRUGS Quit smoking 16 years Allegies: PCN, Azithromycin, Ciprofloxacin Meds: See Med List PMD: Dr. Hernandez Present on Admission - Present on Admission Any Indicators Present on Admission: Yes History of DVT/PE: No History of Uncontrolled Diabetes: Yes Urinary Catheter: No Decubitus Ulcer Present: No Review of Systems - Constitutional Constitutional: absent: Anorexia, Chills, Fever, Frequent Falls, Headache - EENT Eyes: Requires Corrective Lenses. absent: Blurred Vision Ears: absent: Decreased Hearing, Ear Discharge, Tinnitus Nose/Mouth/Throat: absent: Epistaxis, Nasal Congestion, Nasal Discharge, Nasal Trauma, Sinus Pain, Sinus Pressure - Cardiovascular Cardiovascular: absent: Orthopnea, Palpitations, Paroxysmal Nocturnal Dyspnea - Respiratory Respiratory: absent: Dyspnea, Wheezing, Snoring, Stridor - Gastrointestinal Gastrointestinal: absent: Constipation, Diarrhea, Nausea, Vomiting - Musculoskeletal Musculoskeletal: Arthralgias, Joint Swelling - Integumentary Additional comments: Swollen left knee with pain - Neurological Neurological: Numbness, Paresthesias. absent: Confusion, Dizziness, Focal Weakness - Psychiatric Psychiatric: absent: Anxiety, Depression, Panic Attacks - Endocrine Endocrine: absent: Palpitations, Polydipsia, Polyphagia, Polyuria - Hematologic/Lymphatic Hematologic: absent: Easy Bruising Past Patient History - Infectious Disease Hx of Infectious Diseases: None - Past Medical History & Family History Past Medical History?: Yes Past Family History: Reviewed and not pertinent - Past Social History Smoking Status: Former Smoker - CARDIAC Hx Congestive Heart Failure: Yes Hx Hypercholesterolemia: Yes Hx Hypertension: Yes Other/Comment: AFIB - PULMONARY Hx Respiratory Disorders: No - NEUROLOGICAL Hx Neurological Disorder: No - HEENT Hx HEENT Problems: No - RENAL Hx Chronic Kidney Disease: No - ENDOCRINE/METABOLIC Hx Endocrine Disorders: Yes Hx Diabetes Mellitus Type 2: Yes - HEMATOLOGICAL/ONCOLOGICAL Hx Blood Disorders: Yes Hx Anemia: No Hx Blood Transfusions: No Other/Comment: EASY BRUISING FROM BLOOD THINNER - INTEGUMENTARY Hx Dermatological Problems: No - MUSCULOSKELETAL/RHEUMATOLOGICAL Other/Comment: pt fell on ice and sustained subdural bleed - GASTROINTESTINAL Hx Gastrointestinal Disorders: No - GENITOURINARY/GYNECOLOGICAL Hx Genitourinary Disorders: No - PSYCHIATRIC Hx Emotional Abuse: No Hx Physical Abuse: No - SURGICAL HISTORY Hx Cholecystectomy: Yes Hx Herniorrhaphy: Yes Hx Joint Replacement: Yes (Left TKR 2005) Hx Open Reduction Internal Fixation: Yes (left ankle) Other/Comment: Left knee Sx - ANESTHESIA Hx Anesthesia Reactions: Yes (HEADACHES AND QUEASY STOMACH) Meds Allergies/Adverse Reactions: Allergies Allergy/AdvReac Type Severity Reaction Status Date / Time azithromycin Allergy RASH Verified 11/03/18 07:35 [From Zithromax Z-Mitchell] ciprofloxacin [From Cipro] Allergy RASH Verified 11/03/18 07:35 ciprofloxacin HCl Allergy RASH Verified 11/03/18 07:35 [From Cipro] Penicillins Allergy RASH Verified 11/03/18 07:35 Physical Exam - Constitutional Appears: No Acute Distress - Head Exam Head Exam: ATRAUMATIC, NORMAL INSPECTION - Eye Exam Eye Exam: EOMI, Normal appearance Pupil Exam: NORMAL ACCOMODATION, PERRL - ENT Exam ENT Exam: Mucous Membranes Moist, Normal Exam - Neck Exam Neck exam: Negative for: Lymphadenopathy, Tenderness - Respiratory Exam Respiratory Exam: Clear to Auscultation Bilateral. absent: Rales, Rhonchi, Wheezes - Cardiovascular Exam Cardiovascular Exam: Irregular Rhythm, +S1, +S2 - GI/Abdominal Exam GI & Abdominal Exam: Normal Bowel Sounds, Soft. absent: Mass, Organomegaly, Tenderness - Rectal Exam Rectal Exam: Deferred - Extremities Exam Extremities exam: Positive for: joint swelling, normal inspection. Negative for: calf tenderness, pedal edema - Back Exam Back exam: NORMAL INSPECTION. absent: CVA tenderness (L), CVA tenderness (R) - Neurological Exam Neurological exam: Alert, CN II-XII Intact, Oriented x3, Reflexes Normal - Psychiatric Exam Psychiatric exam: Normal Affect, Normal Mood - Skin Skin Exam: Dry, Intact, Normal Color, Warm Results - Vital Signs Recent Vital Signs: Last Vital Signs Temp 98 F 11/03/18 06:54 Pulse 73 11/03/18 07:03 Resp 18 11/03/18 06:54 BP 131/91 H 11/03/18 06:54 Pulse Ox 97 11/03/18 06:54 - Labs Labs: Laboratory Results - last 24 hr 11/03/18 07:10 POC Glucose (mg/dL) 217 H Assessment & Plan - Assessment and Plan (Free Text) Plan: 63 years old male with hx of Chronic A Fib, CHF, CAD and Arthritis with Left Total Knee replacement in 2004. He underwent left knee aspiration 09/2018 for painful Swelling, without much improvement. He has come for an elective revision of the left knee prosthesis. #. Left knee inflammation s/p Left TKR - Consult Orthopedic Dr Brown - Orthopedic Management - Pain management - OT/PT post surgery #. Chronic A Fib - Restart Anticoagulation POD# 1 - Rate control with metoprolol #. DM II - Lispro Insulin sliding scale Q6hrs according to sliding scale during surgery - Restart antiglycemic medications when patient begin oral diet - Diabetic/Heart Healthy diet #. CHF and CAD - Reatart Lasix/ Losartan/ Lipitor/ ASA/ when patient begins oral diet Digoxin #, DVT prophylaxis with Xarelto post surgery SCD #. Code Status: Full farzana Jojo - Date & Time Date: 11/03/18 Time: 07:44
[2018-11-03] MEDS ORDERED: Lactated Ringer's 1,000 ML IV ONE ×2 (08:05→11:20)
[2018-11-03] MEDS ORDERED: Insulin Lispro (humaLOG) 100 Units/ml Inj SC SCH (08:30)
[2018-11-03 09:25] LABS: FLUID TYPE SYNOVIAL FLUID
[2018-11-03 10:19] LABS: SF GROSS APPEARANCE CLOUDY (CLEAR); SYNOVIAL FLUID COMMENT YELLOW/MUCOID
[2018-11-03] MEDS ORDERED: Bacitracin OINT 15GM TOP ONE (10:48)
[2018-11-03] MEDS ORDERED: Sodium Chloride 0.9% 1,000 ML IV SCH (11:30)
[2018-11-03] MEDS ORDERED: HYDROmorphone 0.5 mg/0.5 ml ISec ONE (11:36)
[2018-11-03] MEDS: HYDROmorphone 0.5 mg/0.5 ml ISec IVP PRN ×7 (11:40→21:23)
--- NOTE | 2018-11-03 11:46 | PCM.SURG1 ---
Surgeon's Initial Post Op Note - Surgeon's Notes Surgeon: Evan Brown MD Lacing Cutter: Ayesha Galvin PA-C Type of Anesthesia: General Endo Anesthesia Administered By: Dr. Sanders Pre-Operative Diagnosis: Left painful total knee replacement Operative Findings: tourniquet: 99min @350mmHg Post-Operative Diagnosis: same Operation Performed: 1. Left revision total knee replacement, two components. 2. Repair patellar ligament. 3. Posterior capsular release. 4. Extensive anterior and posterior synovectomy. 5. Excision of skin and subcutaneous tissue Specimen/Specimens Removed: 1. prepatellar bursa. 2. synovium. 3. tibial polyethylene block. 4. patellar button Estimated Blood Loss: EBL {In ML}: 70 Blood Products Given: N/A Drains Used: No Drains Post-Op Condition: Fair Date of Surgery/Procedure: 11/03/18 Time of Surgery/Procedure: 11:49
--- NOTE | 2018-11-03 11:53 | PCM.ANESB7 ---
Adductor Canal Block - Adductor Canal Block Date of Procedure: 11/03/18 Anesthiologist: Dr. Sanders Pre-Procedure Diagnosis: S/P revision of left TKR and patellar tendon repair Post-Procedure Diagnosis: S/P revision of left TKR and patellar tendon repair Procedure Performed: Adductor Canal Block Left - Procedure Adductor Canal Block: The procedure was explained to the patient that it is for the post-operative pain management. Consent was obtained after a thorough discussion with the patient regarding the benefits and possible complications of local anesthetic adductor canal block of the femoral nerve. Standard monitors, as defined by the ASA, were applied to the patient. Time-out was held with the circulating nurse to confirm the appropriate block. After the surgery while still under general anesthesia, the patient in supine position with the operative leg flexed slightly at the knee and externally rotated as needed, and was kept anatomically stable. The mid-thigh of the left lower extremity was exposed. The ultrasound transducer was then applied transversely along the medial aspect, about midway down the thigh and the femoral artery and vein were identified in appropriate relation with the sartorius muscle. At this time, the femoral nerve was visualized lateral to the femoral artery within the canal. After thorough identification, this area area was prepped with Chloroprep solution. At this point, a #20 gauge Stimuplex 4-inch needle was inserted in-plane in a [id number] orientation, and advanced toward the femoral nerve. Advancement was performed carefully under direct ultrasound visualization. After negative aspiration, 3cc of 0.25% bupivacaine with 1:200,000 epinephrine was injected and this was followed with 17cc of 0.25% bupivacaine with 1:200,000 epinephrine. Under ultrasound guidance the local anesthetics were observed spreading around the femoral nerve. The needle was removed intact and sterile dressing was applied. The patient had stable vital signs, was awaken from anesthesia and in no apparent distress. The patient tolerated the femoral nerve block well with stable vital signs and was transported to PACU.
--- NOTE | 2018-11-03 13:26 | RAD ---
Date of service: 11/03/2018 PROCEDURE: Left Knee Radiographs. HISTORY: Pain. COMPARISON: 10/13/2018. TECHNIQUE: 2 views obtained. FINDINGS: BONES: There is no acute displaced fracture or bone destruction. Bone alignment is normal. There is diffuse bone demineralization. JOINTS: Status post total cemented arthroplasty. The previously demonstrated radiopaque material superior to the patella and in the popliteal fossa is no longer identified. JOINT EFFUSION: Small joint effusion. Expected postoperative air in the suprapatellar bursa. OTHER FINDINGS: Expected postoperative changes in the periarticular soft tissues. There are anterior skin brooke. IMPRESSION: Status post total cemented knee arthroplasty. Expected postoperative changes in the periarticular soft tissues, no acute findings.
[2018-11-03 14:52] LABS: SYNOVIAL FLUID MONO/MACROPHAGE 7 % (0-0)
[2018-11-03] MEDS ORDERED: Glucagon Recombinant 1 mg Inj IM PRN (17:58)
[2018-11-03] MEDS ORDERED: Dextrose 50% SYRINGE Inj (50 ml) IV PRN (17:58)
[2018-11-03] MEDS: Lactated Ringer's 1,000 ML IV SCH (22:00)
[2018-11-03] MEDS: Insulin Lispro (humaLOG) 100 Units/ml Inj SC SCH (23:00)
[2018-11-04] MEDS: HYDROmorphone 0.5 mg/0.5 ml ISec IVP PRN ×2 (02:22→05:58)
[2018-11-04 06:10] LABS: MEAN CORPUSCULAR HEMOGLOBIN 28.7 pg (27.0-31.0); MEAN CORPUSCULAR HGB CONC 34.1 g/dL (33.0-37.0); RBC 4.65 Mil/uL (4.40-5.90); WHITE BLOOD COUNT 12.8 K/uL (4.8-10.8)
[2018-11-04 06:13] LABS: BLOOD UREA NITROGEN 15 mg/dl (9-20); CALCIUM 8.7 mg/dL (8.4-10.2); GFR NON-AFRICAN AMERICAN > 60
[2018-11-04 06:20] LABS: HEMOGLOBIN 13.3 g/dL (12.0-18.0)
[2018-11-04] MEDS: Digoxin 125 mcg (0.125 mg) Tab PO SCH (08:13)
[2018-11-04] MEDS: Lactated Ringer's 1,000 ML IV SCH (08:16)
[2018-11-04] MEDS: Insulin Lispro (humaLOG) 100 Units/ml Inj SC SCH ×4 (08:16→22:02)
--- NOTE | 2018-11-04 08:36 | CP.PCM.PN ---
Subjective - Date & Time of Evaluation Date of Evaluation: 11/04/18 Time of Evaluation: 07:15 - Subjective Subjective: Patient seen and examined at bedside. In moderate pain with prn medication, greater pain to thigh. Has kept LLE elevated in knee imm overnight. Has been OOB with RW this AM. No acute events overnight. Denies CP/SOB/dizziness/fever. Objective - Vital Signs/Intake and Output Vital Signs (last 24 hours): Temp Pulse Resp BP Pulse Ox 99.9 F H 93 H 20 146/93 H 97 11/04/18 07:37 11/04/18 08:14 11/04/18 07:37 11/04/18 08:15 11/04/18 07:37 - Medications Medications: Current Medications Acetaminophen (Tylenol 325mg Tab) 650 mg PO Q6 [facility] Last Admin: 11/04/18 05:00 Dose: 650 mg Amlodipine Besylate (Norvasc) 10 mg PO DAILY [facility] Dextrose (Dextrose 50% Inj) 0 ml IV STAT PRN; Protocol PRN Reason: Hypoglycemia Protocol Dextrose (Glutose 15) 0 gm PO ONCE PRN; Protocol PRN Reason: Hypoglycemia Protocol Digoxin (Digoxin) 0.0625 mg PO DAILY [facility] Last Admin: 11/04/18 08:13 Dose: 0.0625 mg Docusate Sodium (Colace) 100 mg PO BID [facility] Last Admin: 11/04/18 08:15 Dose: 100 mg Enoxaparin Sodium (Lovenox) 40 mg SC DAILY [facility]; Protocol Furosemide (Lasix) 40 mg PO DAILY [facility] Last Admin: 11/04/18 08:15 Dose: 40 mg Glucagon (Glucagen Diagnostic Kit) 0 mg IM STAT PRN; Protocol PRN Reason: Hypoglycemia Protocol Glyburide (Micronase) 1.25 mg PO DAILY [facility] Last Admin: 11/04/18 08:15 Dose: 1.25 mg Hydrochlorothiazide (Microzide) 12.5 mg PO DAILY [facility] Last Admin: 11/04/18 08:14 Dose: 12.5 mg Hydromorphone HCl (Dilaudid) 0.5 mg IVP Q4 PRN PRN Reason: Pain, severe (8-10) Last Admin: 11/04/18 05:58 Dose: 0.5 mg Lactated Ringer's (Lactated Ringer's) 1,000 mls @ 100 mls/hr IV .Q10H [facility] Last Admin: 11/04/18 08:16 Dose: Not Given Insulin Human Lispro (Humalog) 0 units SC ACHS [facility]; Protocol Last Admin: 11/04/18 08:16 Dose: 4 units Losartan Potassium (Cozaar) 50 mg PO DAILY [facility] Metformin HCl (Glucophage) 1,000 mg PO BID [facility] Last Admin: 11/04/18 08:14 Dose: 1,000 mg Metoprolol Tartrate (Lopressor) 75 mg PO BID [facility] Last Admin: 11/04/18 08:14 Dose: 75 mg Morphine Sulfate (Morphine) 1 mg IVP Q6 PRN PRN Reason: Pain, moderate (4-7) Last Admin: 11/04/18 06:45 Dose: 1 mg Ondansetron HCl (Zofran Inj) 4 mg IVPB Q6H PRN PRN Reason: Nausea/Vomiting Sitagliptin Phosphate (Januvia) 50 mg PO BID [facility] Last Admin: 11/04/18 08:13 Dose: 50 mg - Labs Labs: 11/04/18 05:15 11/04/18 05:15 - Extremities Exam Additional comments: LLE: knee imm in place Dressings CDI sensation intact SP/DP/TN motor intact EHL/FHL/TA/G pedal pulses intact calves soft NT b/l Assessment and Plan (1) Painful total knee replacement, left Assessment & Plan: POD#1 s/p L revision TKA -pain control -DVT ppx -PT/OT -d/c planning to home -d/w Dr. Brown who agrees with above Status: Acute
[2018-11-04] MEDS ORDERED: HYDROmorphone 0.5 mg/0.5 ml ISec IVP PRN (08:46)
[2018-11-04] MEDS ORDERED: Enoxaparin 40 mg Syringe SC SCH (09:00)
[2018-11-04] MEDS ORDERED: Potassium Chloride 20 mEq ER Tab PO ONE (09:30)
--- NOTE | 2018-11-04 13:52 | OP ---
PROCEDURE DATE: 11/03/2018 PREOPERATIVE DIAGNOSIS: Painful unstable left total knee replacement. POSTOPERATIVE DIAGNOSES: 1. Painful unstable left total knee replacement. 2. Damage to the patellar component. 3. Attenuation of the patellar ligament. 4. Posterior capsular contracture. OPERATIONS PERFORMED: 1. Revision of left total knee replacement, two components. 2. Repair of patellar ligament. 3. Posterior capsular release. 4. Extensive anterior and posterior synovectomy. 5. Excision of skin and subcutaneous tissue. SURGEON: Abdiaziz Brown MD CLIENT EXPERIENCE SPECIALIST: Farzana Webster PA-C SECOND WOOD PATTERN MAKER: Caryn Shaw, certified registered nursing oncology physician assistant. SPECIMENS: 1. Prepatellar bursa. 2. Synovium. 3. Polyethylene tibial component, which is worn. 4. Patellar button, which is worn. BLOOD LOSS: 70 mL. BLOOD PRODUCTS GIVEN: None. DRAINS USED: None. COMPLICATIONS: None. POSTOPERATIVE CONDITION: Stable/fair. TIME OF SURGERY: 11:49 . OPERATIVE INDICATIONS: Joe Reinoso is an employee of the [employer]. The patient works on the [employer] buck and has had a successful total knee replacement arthroplasty 13 years ago. The patient unfortunately has developed polyethylene wear and laxity of the ligaments. The patient had undergone aspiration and manipulation of the knee, which was positive for instability, but negative for any evidence of sepsis. Pros, cons, risks and benefits of revision arthroplasty were discussed. The concept was that the entire construct will be evaluated and if necessary all three components would be revised and if necessary the patella would be revised with possible polyethylene exchange. Possibility of stiffness, mechanical failure, infection, thromboembolic disease, possibility of secondary or tertiary surgery was discussed. The patient could no longer withstand the discomfort and wished the surgery to be accomplished. OPERATIVE PROCEDURE: After having obtained extensive informed consent, after having identified side, site and procedure and a critical pause/time-out, after the satisfactory induction of the anesthetic, the patient was identified as Joe Reinoso in the supine position with all bony prominences well padded, the lower extremity was prepped and free draped in the usual fashion for lower extremity surgery. Again, the knee was evaluated. There was found to be evidence of anterior instability, 4+. After having identified side, site and procedure and a critical pause/time-out, after the satisfactory induction of the anesthetic, after having obtained informed consent, after sterilely prepping and draping, after having applied the tourniquet, the initial incision was described two fingerbreadths distally. An ellipse of skin was removed encapsulating and including the initial incision and the proximal aspect of the incision was extended two fingerbreadths proximally. After exsanguinating the limb using a 6-inch Esmarch bandage, the tourniquet which had been applied was inflated to 350 mmHg. Using #10 blade, skin incision was carried down through the skin and subcutaneous tissue. An ellipse of skin was removed and the incision was carried proximally. At this point in time, dissection was carried out medially and laterally, identifying and exposing the medial and lateral retinaculum of the knee. This having been accomplished, medial arthrotomy was accomplished. Dissection was carried around posteromedially to the direct head of semimembranosus tendon. There was found to be an exuberant amount of synovitis. There was no evidence of purulence on egress of the fluid. Again, an additional stat Gram stain was sent for number of white cells per high-power field, aerobic, anaerobic, AFB and fungal cultures. The portion of the patellar ligament was elevated. The dissection was carried around posteromedially to the direct head of the semimembranosus tendon. This having been accomplished, the patella was everted. A portion of the patellar ligament was elevated, patella was everted. The knee was flexed. Anterior and posterior synovectomy was accomplished. Jorge rake retractors were placed, exposing the anterior aspect of the femur. An extensive synovectomy was accomplished anteriorly and at this point in time, the portion of the patellar ligament was elevated. Patellar ligament was found to be a bit attenuated and dissection was carried around posterolaterally to protect the patellar ligament to the area of Gerdy's tubercle, releasing the lateral aspect of Gerdy's tubercle. This having been accomplished, the tibia was dislocated anteriorly. The tibial polyethylene was removed and found to be worn. There was evidence obviously of the gross instability. At this point in time, though there was evidence of posterior capsular contracture, the posterior capsule was released. A posterior synovectomy was identified and a careful and extensive posterior synovectomy was accomplished as well. Anterior and posterior synovectomy having been accomplished, dissection was carried around posteromedially. Patella was everted at this point in time. There was found to be evidence of synovitis in the undersurface of the quadriceps' extension to the patella. This was carefully debrided and at this point in time, the 13-mm trial was introduced and flexion/extension was found to be excellent. There was found to be excellent stability. At this point in time, attention was turned to the patella. There was found to be marked patellar wear and eburnation and the decision was made to revise the patellar component as well. At this point in time, the patella was everted. It was protected. The posterior capsule had been carefully released, anterior and posterior synovectomies having been released, initial patellar osteotomy was accomplished and the interface of the patellar component with the bone was exposed and at that interface, using an oscillating saw, the patella was excised. Using a high-speed drill, the posts on the patella were removed from the patella. At this point in time, the patellar osteotomy was completed and the 41-mm template was applied to the patella and reaming was accomplished. This having been accomplished, the patella was also for better interface with the cement. At this point in time, the wound was thoroughly irrigated. The posterior capsule having been released, the anterior and posterior synovectomy having been released, the tibial component was revised in the following fashion. The initial component had been removed. The interfaces by the way of the femur and the tibial components were excellent. There was no evidence of mechanical loosening or septic loosening. The Gram stain was essentially negative. Please refer to the hospital chart. At this point in time, the 13-mm polyethylene was impacted into the tibia. The construct was reduced. Flexion/extension was found to be balanced and excellent. There was no evidence of instability. The patella having been prepared, the 41-mm patella was cemented. Cementation was accomplished and flexion/extension trialing had been accomplished with the patellar component. Flexion/extension balance was excellent. Balance of the patellar component was excellent as well. At this point in time, attention was turned to the patellar ligament. Repair and reinforcement of the patellar ligament was accomplished with an Arthrex 4.5 mm anchor. Drilling was accomplished followed by tapping, followed by introduction of the anchor and at this point in time, with the knee in extension, using free needles, the two sets of sutures were used to reinforce and repair the patella to the medial expansion and retinaculum. Further closure done after the tourniquet had been deflated. Hemostasis was controlled with the Aquamantys. Excellent hemostasis was obtained. No need for Hemovac drain. Closure of the extensor expansion was with #2 FiberWire, followed by #1 Vicryl, followed by 0 Vicryl, 2-0 Vicryl and brooke for skin. Jarod Zhou compression dressing and knee immobilizer were applied. Postoperative x-rays revealed excellent position of the construct. Postoperative x-ray revealed excellent position of the construct. The patient was stable in recovery. Abdiaziz Brown MD
--- NOTE | 2018-11-04 14:12 | CP.PCM.PN ---
Subjective - Date & Time of Evaluation Date of Evaluation: 11/04/18 Time of Evaluation: 13:00 - Subjective Subjective: Patient seen and evaluated bedside . S/p revision of left TKR post op day 1 . Complains of pain to left knee , unable to sleep well Hemodynamically stable, Tmax 100.5 last 12 hours BP 144/93 Hr 93 Voiding freely Participating with PT Objective - Vital Signs/Intake and Output Vital Signs (last 24 hours): Temp Pulse Resp BP Pulse Ox 99.9 F H 93 H 20 146/93 H 97 11/04/18 07:37 11/04/18 09:29 11/04/18 07:37 11/04/18 09:29 11/04/18 07:37 - Medications Medications: Current Medications Acetaminophen (Tylenol 325mg Tab) 650 mg PO Q6 [facility] Last Admin: 11/04/18 10:00 Dose: 650 mg Amlodipine Besylate (Norvasc) 10 mg PO DAILY [facility] Last Admin: 11/04/18 09:29 Dose: 10 mg Dextrose (Dextrose 50% Inj) 0 ml IV STAT PRN; Protocol PRN Reason: Hypoglycemia Protocol Dextrose (Glutose 15) 0 gm PO ONCE PRN; Protocol PRN Reason: Hypoglycemia Protocol Digoxin (Digoxin) 0.0625 mg PO DAILY [facility] Last Admin: 11/04/18 08:13 Dose: 0.0625 mg Docusate Sodium (Colace) 100 mg PO BID [facility] Last Admin: 11/04/18 08:15 Dose: 100 mg Furosemide (Lasix) 40 mg PO DAILY [facility] Last Admin: 11/04/18 08:15 Dose: 40 mg Glucagon (Glucagen Diagnostic Kit) 0 mg IM STAT PRN; Protocol PRN Reason: Hypoglycemia Protocol Glyburide (Micronase) 1.25 mg PO DAILY [facility] Last Admin: 11/04/18 08:15 Dose: 1.25 mg Hydrochlorothiazide (Microzide) 12.5 mg PO DAILY [facility] Last Admin: 11/04/18 08:14 Dose: 12.5 mg Hydromorphone HCl (Dilaudid) 1 mg IVP Q3 PRN PRN Reason: Pain, severe (8-10) Last Admin: 11/04/18 12:25 Dose: 1 mg Lactated Ringer's (Lactated Ringer's) 1,000 mls @ 100 mls/hr IV .Q10H [facility] Last Admin: 11/04/18 08:16 Dose: Not Given Insulin Human Lispro (Humalog) 0 units SC ACHS [facility]; Protocol Last Admin: 11/04/18 12:27 Dose: 4 units Losartan Potassium (Cozaar) 50 mg PO DAILY [facility] Last Admin: 11/04/18 09:28 Dose: 50 mg Metformin HCl (Glucophage) 1,000 mg PO BID [facility] Last Admin: 11/04/18 08:14 Dose: 1,000 mg Metoprolol Tartrate (Lopressor) 75 mg PO BID [facility] Last Admin: 11/04/18 08:14 Dose: 75 mg Ondansetron HCl (Zofran Inj) 4 mg IVPB Q6H PRN PRN Reason: Nausea/Vomiting Rivaroxaban (Xarelto) 20 mg PO QPM [facility]; Protocol Sitagliptin Phosphate (Januvia) 50 mg PO BID [facility] Last Admin: 11/04/18 08:13 Dose: 50 mg Tramadol HCl (Ultram) 50 mg PO Q4 PRN PRN Reason: Pain, Mild (1-3) Tramadol HCl (Ultram) 100 mg PO Q4 PRN PRN Reason: Pain, moderate (4-7) - Labs Labs: 11/04/18 05:15 11/04/18 05:15 - Constitutional Appears: Non-toxic, No Acute Distress - Head Exam Head Exam: ATRAUMATIC, NORMOCEPHALIC - Eye Exam Eye Exam: EOMI, PERRL Pupil Exam: NORMAL ACCOMODATION - ENT Exam ENT Exam: Mucous Membranes Moist, Normal Exam - Neck Exam Neck Exam: Full ROM, Normal Inspection - Respiratory Exam Respiratory Exam: Clear to Ausculation Bilateral, NORMAL BREATHING PATTERN. absent: Rales, Rhonchi, Wheezes, Respiratory Distress - Cardiovascular Exam Cardiovascular Exam: Irregular Rhythm, RRR, +S1, +S2. absent: JVD - GI/Abdominal Exam GI & Abdominal Exam: Soft, Normal Bowel Sounds. absent: Distended, Guarding, Tenderness, Rebound - Rectal Exam Rectal Exam: Deferred - Extremities Exam Extremities Exam: Normal Inspection. absent: Calf Tenderness Additional comments: Left LE Dressing with PAOLA bandage in Place - Back Exam Back Exam: NORMAL INSPECTION - Neurological Exam Neurological Exam: Alert, Awake, CN II-XII Intact, Oriented x3 - Psychiatric Exam Psychiatric exam: Normal Affect - Skin Skin Exam: Dry, Warm Assessment and Plan - Assessment and Plan (Free Text) Assessment: 63 year old male with PMH of Chronic A Fib, CHF with normal EF , CAD ,Arthritis ,Left Total Knee replacement in 2004 admitted for elective revision of left TKR . He underwent left knee aspiration 09/2018 for painful Swelling, without much improvement. At present s/p revision of left TKR post op day 1, complains of pain. 1. s/p Revision of left TKR post op day 1 Continue pain management PRN PT consulted Incentive spirometry Q1 hour Received Clindamycin prophylactically Will start Xaralto thi PM Plan for d/c home 2. Chronic A Fib rate controlled will restart xarelto today continue Metoprolol and digoxin 3. DM II continue accuchecks, insulin coverage , diabetic diet on metformin , Glyburide, Januvia 4. Hypertension Labile continue losartan,metoprolol, norvasc,HCTZ, lasix 5.CHF , chronic, compensated , Normal EF resume home meds Losartan, Metoprolol, Lasix 6. Hypokalemia Replaced 7. Vitamin deficiency Start Vitamin D supplements 8. DVT prophylaxis SCD Will start Xarelto
--- NOTE | 2018-11-04 15:07 | PQF ---
PROVIDER RESPONSE TEXT: Provider was unable to determine a response for this query. REVIEWER QUERY TEXT: CHF Acuity and Type Congestive Heart Failure is documented in the Medical Record. Please document the type and acuity (in cludes probable or suspected) Such as: Type: -- Systolic -- Diastolic -- Combined -- Other, please specify Acuity: -- Acute -- Chronic -- Acute on chronic -- Other, please specify Also please document the underlying cause of the CHF (includes probable or suspected) The patient's Clinical Indicators include: History of CHF. Rx: Cozaar, Digoxin, Lasix 07/25/18 ECHO: Mild LVH, EF 50-55%, The LV diastolic function cannot be assessed due to underlying a trial fibrillation, LA mildly dilated. Trivial TR Query created by: Jamilah Richards on 11/04/2018 8:00 AM Electronically signed by: 11/04/2018 3:04 PM
[2018-11-05 07:19] LABS: HEMOGLOBIN 11.9 g/dL (12.0-18.0); MEAN CELL VOLUME 83.7 fl (80.0-94.0); MEAN CORPUSCULAR HEMOGLOBIN 28.9 pg (27.0-31.0); MEAN CORPUSCULAR HGB CONC 34.5 g/dL (33.0-37.0); RBC 4.12 Mil/uL (4.40-5.90); RED CELL DISTRIBUTION WIDTH 13.7 % (11.5-14.5)
[2018-11-05 07:26] LABS: BLOOD UREA NITROGEN 22 mg/dl (9-20); CALCIUM 8.4 mg/dL (8.4-10.2); GFR NON-AFRICAN AMERICAN 56
[2018-11-05] MEDS: Digoxin 125 mcg (0.125 mg) Tab PO SCH (08:11)
[2018-11-05 08:12] VITALS: PULSE 95
[2018-11-05] MEDS: Insulin Lispro (humaLOG) 100 Units/ml Inj SC SCH ×3 (08:13→17:02)
--- NOTE | 2018-11-05 08:32 | CP.PCM.CON ---
History of Present Illness - History of Present Illness History of Present Illness: 63 yo man s/p left knee hardware partial revision, POD #2, is referred for pain management. Patient doesn't usually take pain medications at home prior to surgery, but has had several procedures to the knee before. After this current surgery, pain has been severe, limiting his ability to partake in PT. Dilaudid IV is helpful, but only for 2 hours, and does make him drowsy. Patient states that Percocet made him "loopy" before and had tried Gabapentin previously. Past Patient History - Infectious Disease Hx of Infectious Diseases: None - Past Medical History & Family History Past Medical History?: Yes Past Family History: Reviewed and not pertinent - Past Social History Smoking Status: Former Smoker - CARDIAC Hx Congestive Heart Failure: Yes Hx Hypercholesterolemia: Yes Hx Hypertension: Yes Other/Comment: AFIB - PULMONARY Hx Respiratory Disorders: No - NEUROLOGICAL Hx Neurological Disorder: No - HEENT Hx HEENT Problems: No - RENAL Hx Chronic Kidney Disease: No - ENDOCRINE/METABOLIC Hx Endocrine Disorders: Yes Hx Diabetes Mellitus Type 2: Yes - HEMATOLOGICAL/ONCOLOGICAL Hx Blood Disorders: Yes Hx Anemia: No Hx Blood Transfusions: No Other/Comment: EASY BRUISING FROM BLOOD THINNER - INTEGUMENTARY Hx Dermatological Problems: No - MUSCULOSKELETAL/RHEUMATOLOGICAL Other/Comment: pt fell on ice and sustained subdural bleed - GASTROINTESTINAL Hx Gastrointestinal Disorders: No - GENITOURINARY/GYNECOLOGICAL Hx Genitourinary Disorders: No - PSYCHIATRIC Hx Emotional Abuse: No Hx Physical Abuse: No - SURGICAL HISTORY Hx Cholecystectomy: Yes Hx Herniorrhaphy: Yes Hx Joint Replacement: Yes (Left TKR 2005) Hx Open Reduction Internal Fixation: Yes (left ankle) Other/Comment: Left knee Sx - ANESTHESIA Hx Anesthesia Reactions: Yes (HEADACHES AND QUEASY STOMACH) Meds Allergies/Adverse Reactions: Allergies Allergy/AdvReac Type Severity Reaction Status Date / Time azithromycin Allergy RASH Verified 11/03/18 07:35 [From Zithromax Z-Mitchell] ciprofloxacin [From Cipro] Allergy RASH Verified 11/03/18 07:35 ciprofloxacin HCl Allergy RASH Verified 11/03/18 07:35 [From Cipro] Penicillins Allergy RASH Verified 11/03/18 07:35 - Medications Medications: Current Medications Acetaminophen (Tylenol 325mg Tab) 650 mg PO Q6 [facility] Last Admin: 11/05/18 05:02 Dose: Not Given Amlodipine Besylate (Norvasc) 10 mg PO DAILY [facility] Last Admin: 11/05/18 08:11 Dose: 10 mg Aspirin (Ecotrin) 325 mg PO DAILY [facility] Last Admin: 11/05/18 08:11 Dose: 325 mg Atorvastatin Calcium (Lipitor) 20 mg PO DIN [facility] Last Admin: 11/04/18 16:27 Dose: 20 mg Cholecalciferol (Vitamin D) 1,000 intlu PO DAILY [facility] Last Admin: 11/05/18 08:09 Dose: 1,000 intlu Dextrose (Dextrose 50% Inj) 0 ml IV STAT PRN; Protocol PRN Reason: Hypoglycemia Protocol Dextrose (Glutose 15) 0 gm PO ONCE PRN; Protocol PRN Reason: Hypoglycemia Protocol Digoxin (Digoxin) 0.0625 mg PO DAILY [facility] Last Admin: 11/05/18 08:11 Dose: 0.0625 mg Docusate Sodium (Colace) 100 mg PO BID [facility] Last Admin: 11/05/18 08:10 Dose: 100 mg Furosemide (Lasix) 40 mg PO DAILY [facility] Last Admin: 11/05/18 08:09 Dose: 40 mg Gabapentin (Neurontin) 300 mg PO BID [facility] Glucagon (Glucagen Diagnostic Kit) 0 mg IM STAT PRN; Protocol PRN Reason: Hypoglycemia Protocol Glyburide (Micronase) 1.25 mg PO DAILY [facility] Last Admin: 11/05/18 08:11 Dose: 1.25 mg Hydrochlorothiazide (Microzide) 12.5 mg PO DAILY [facility] Last Admin: 11/05/18 08:11 Dose: 12.5 mg Hydromorphone HCl (Dilaudid) 1 mg IVP Q3 PRN PRN Reason: Pain, severe (8-10) Last Admin: 11/05/18 06:53 Dose: 1 mg Insulin Human Lispro (Humalog) 0 units SC [facility]; Protocol Last Admin: 11/05/18 08:13 Dose: 2 units Losartan Potassium (Cozaar) 50 mg PO DAILY [facility] Last Admin: 11/05/18 08:10 Dose: 50 mg Metformin HCl (Glucophage) 1,000 mg PO BID [facility] Last Admin: 11/05/18 08:09 Dose: 1,000 mg Metoprolol Tartrate (Lopressor) 75 mg PO BID [facility] Last Admin: 11/05/18 08:10 Dose: 75 mg Morphine Sulfate (Morphine Extended Release Tab) 15 mg PO Q8 [facility] Ondansetron HCl (Zofran Inj) 4 mg IVPB Q6H PRN PRN Reason: Nausea/Vomiting Potassium Chloride (K-Dur 20 Meq Er Tab) 60 meq PO ONCE ONE Stop: 11/05/18 09:01 Rivaroxaban (Xarelto) 20 mg PO QPM [facility]; Protocol Last Admin: 11/04/18 18:00 Dose: 20 mg Sitagliptin Phosphate (Januvia) 50 mg PO BID [facility] Last Admin: 11/05/18 08:10 Dose: 50 mg Physical Exam - Constitutional Appears: Non-toxic, No Acute Distress - Extremities Exam Additional comments: Left knee dressing intact. Results - Vital Signs Recent Vital Signs: Last Vital Signs Temp 100.0 F H 11/05/18 07:44 Pulse 98 H 11/05/18 08:11 Resp 20 11/05/18 07:44 BP 129/86 11/05/18 08:11 Pulse Ox 96 11/05/18 07:44 - Labs Result Diagrams: 11/05/18 05:35 11/05/18 05:35 Labs: Laboratory Results - last 24 hr 11/04/18 11/04/18 11/04/18 06:18 10:51 15:33 WBC RBC Hgb Hct MCV MCH MCHC RDW Plt Count Sodium Potassium Chloride Carbon Dioxide Anion Gap BUN Creatinine Est GFR ( Amer) Est GFR (Non-Af Amer) POC Glucose (mg/dL) 278 H 193 H Random Glucose Calcium 25-OH Vitamin D Total 15.6 L 11/04/18 11/05/18 11/05/18 21:06 05:35 05:35 WBC 13.0 H RBC 4.12 L Hgb 11.9 L Hct 34.5 L MCV 83.7 MCH 28.9 MCHC 34.5 RDW 13.7 Plt Count 169 Sodium 135 Potassium 2.9 L Chloride 96 L Carbon Dioxide 30 Anion Gap 12 BUN 22 H Creatinine 1.3 Est GFR ( Amer) > 60 Est GFR (Non-Af Amer) 56 POC Glucose (mg/dL) 220 H Random Glucose 194 H Calcium 8.4 25-OH Vitamin D Total 11/05/18 06:57 WBC RBC Hgb Hct MCV MCH MCHC RDW Plt Count Sodium Potassium Chloride Carbon Dioxide Anion Gap BUN Creatinine Est GFR ( Amer) Est GFR (Non-Af Amer) POC Glucose (mg/dL) 175 H Random Glucose Calcium 25-OH Vitamin D Total Assessment & Plan - Assessment and Plan (Free Text) Assessment: 63 yo man s/p left knee revision. Pain management is inadequate, delaying PT and possible discharge. - start MS Contin 15mg q8h - continue Dilaudid IV today for now, can change to MSIR 15mg or Dilaudid 2mg PO for breakthrough tomorrow or if discharge is planned for today - add Neurontin 300mg bid to regimen - for discharge, can send patient home with one week of MS Contin, and 2 weeks of breakthrough short acting medication
[2018-11-05] MEDS ORDERED: Potassium Chloride 20 mEq ER Tab PO ONE ×2 (09:00)
[2018-11-05] MEDS ORDERED: Potassium Chloride 20 mEq 100 ML IVPB ONE (09:00)
[2018-11-05] MEDS ORDERED: Cholecalciferol 1,000 INTLU TAB PO SCH (09:00)
[2018-11-05] MEDS ORDERED: Aspirin 325 mg EC Tablets PO SCH (09:00)
[2018-11-05] MEDS: Morphine 15 mg SR Tab PO SCH ×2 (09:14→17:00)
--- NOTE | 2018-11-05 12:13 | CP.PCM.DIS ---
Provider - Provider Date of Admission: 11/03/18 11:19 Attending physician: Bruno Glover Primary care physician: Kaveh Henderson MD Consults: 11/03/18 07:47 Orthopedic Consult Routine Comment: Consulting Provider: Abdiaziz Brown III Consulting Physician: Abdiaziz Brown III Reason for Consult: For Revision of Left knee replacement 11/03/18 11:19 Case Management Referral Routine Comment: Physician Instructions: Reason For Exam: Reason for Referral: Discharge Planning 11/04/18 16:14 Physician Consult Routine Comment: Consulting Provider: Sanjay Gerardo Consulting Physician: Sanjay Gerardo Reason for Consult: Pain control s/o surgery Time Spent in preparation of Discharge (in minutes): 30 Hospital Course - Lab Results Lab Results: Micro Results 11/03/18 13:45 Knee - Left Gram Stain - Final 11/03/18 13:45 Knee - Left Wound Culture - Preliminary No growth. 11/03/18 13:45 Knee - Left Gram Stain - Final 11/03/18 13:45 Knee - Left Wound Culture - Preliminary No growth. 11/03/18 13:45 Knee - Left Gram Stain - Final 11/03/18 13:45 Knee - Left Wound Culture - Preliminary No growth. 11/03/18 13:45 Knee - Left Gram Stain - Final 11/03/18 13:45 Knee - Left Wound Culture - Preliminary No growth. 11/03/18 13:45 Knee - Left Gram Stain - Final 11/03/18 13:45 Knee - Left Wound Culture - Preliminary No growth. 11/03/18 13:45 Knee - Left Gram Stain - Final 11/03/18 13:45 Knee - Left Wound Culture - Preliminary No growth. 11/03/18 13:45 Knee - Left Gram Stain - Final 11/03/18 13:45 Knee - Left Wound Culture - Preliminary No growth. 11/03/18 09:27 Body Fluid - Knee-Left Gram Stain - Final 11/03/18 09:27 Body Fluid - Knee-Left Anaerobic Culture - Final NO ANAEROBES ISOLATED. 11/03/18 09:27 Body Fluid - Knee-Left Body Fluid Culture - Preliminary NO GROWTH AFTER 2 DAYS 11/03/18 11:58 Knee - Left Gram Stain - Final 11/03/18 11:58 Knee - Left Wound Culture - Preliminary NO GROWTH AFTER 24 HOURS 11/03/18 09:27 Other: Please Indicate Mycobacterial Culture - Preliminary 11/03/18 09:27 Knee Left Fungal Culture - Preliminary Most Recent Lab Values WBC 13.0 K/uL (4.8-10.8) H 11/05/18 05:35 RBC 4.12 Mil/uL (4.40-5.90) L 11/05/18 05:35 Hgb 11.9 g/dL (12.0-18.0) L 11/05/18 05:35 Hct 34.5 % (35.0-51.0) L 11/05/18 05:35 MCV 83.7 fl (80.0-94.0) 11/05/18 05:35 MCH 28.9 pg (27.0-31.0) 11/05/18 05:35 MCHC 34.5 g/dL (33.0-37.0) 11/05/18 05:35 RDW 13.7 % (11.5-14.5) 11/05/18 05:35 Plt Count 169 K/uL (130-400) 11/05/18 05:35 Sodium 135 mmol/l (132-148) 11/05/18 05:35 Potassium 2.9 MMOL/L (3.6-5.0) L 11/05/18 05:35 Chloride 96 mmol/L (98-107) L 11/05/18 05:35 Carbon Dioxide 30 mmol/L (22-30) 11/05/18 05:35 Anion Gap 12 (10-20) 11/05/18 05:35 BUN 22 mg/dl (9-20) H 11/05/18 05:35 Creatinine 1.3 mg/dl (0.8-1.5) 11/05/18 05:35 Est GFR ( Amer) > 60 11/05/18 05:35 Est GFR (Non-Af Amer) 56 11/05/18 05:35 POC Glucose (mg/dL) 213 mg/dL (65-110) H 11/05/18 10:45 Random Glucose 194 mg/dL (75-110) H 11/05/18 05:35 Calcium 8.4 mg/dL (8.4-10.2) 11/05/18 05:35 25-OH Vitamin D Total 15.6 NG/ML (30.0-100.0) L 11/04/18 06:18 Fluid Type Synovial fluid 11/03/18 09:23 Synovial WBC 190.0 /mm3 (0.0-150.0) H 11/03/18 09:23 Synovial RBC 540.0 /mm3 (0.0-0.0) H 11/03/18 09:23 Synovial Neutrophils 17.0 % (0-0) H 11/03/18 09:23 Synovial Lymphocytes 26.0 % (0-0) H 11/03/18 09:23 Synov Monos/Macrophage 7 % (0-0) H 11/03/18 09:23 Synovial Fluid Comment Yellow/mucoid 11/03/18 09:23 Blood Type B POSITIVE 11/03/18 07:20 Antibody Screen Negative 11/03/18 07:20 Crossmatch See Detail 11/03/18 07:20 BBK History Checked Patient has bt 11/03/18 07:20 - Hospital Course Hospital Course: 63 years old male with hx of Chronic A Fib, CHF, CAD and Arthritis with Left Total Knee replacement in 2004 s/p left revision of TKR, POD 2 was seen this morning. Patient continues to complain of pain, but states it is tolerable with current pain med regimen. Patient will be discharged to TCU for continuation of physical therapy. Left knee inflammation s/p revision of Left TKR -s/p left revision of TKR POD 2 - C/w Pain management Chronic A Fib -Metoprolol 75 mg PO BID -Xarelto 20mg QPM - Dig 0.0625mg DM II - Lispro Insulin sliding scale Q6hrs according to sliding scale during surgery - Glyburide 1.25mg PO QD -Januvia 50mg PO BID - Diabetic/Heart Healthy diet CHF and CAD - Lasix 40mg PO QD -Losartan 50mg-HCTZ 12.5mg PO QD -Lipitor 20mg PO -ASA/ 325mg PO QD -Norvasc 10mg PO QD Vit D deficiency -15.6L -cont with supplementation DVT prophylaxis with Xarelto post surgery -Xarelto 20mg QPM Discharge Exam - Head Exam Head Exam: ATRAUMATIC, NORMOCEPHALIC - ENT Exam ENT Exam: Mucous Membranes Moist - Respiratory Exam Respiratory Exam: NORMAL BREATHING PATTERN - Cardiovascular Exam Cardiovascular Exam: +S1, +S2 - GI/Abdominal Exam GI & Abdominal Exam: Normal Bowel Sounds, Soft. absent: Guarding, Rigid, Tenderness - Extremities Exam Additional comments: Left knee immobilizer in place; sensation intact b/l - Neurological Exam Neurological exam: Alert, Oriented x3 - Skin Skin Exam: Dry Discharge Plan - Follow Up Plan Condition: GOOD Disposition: HOME/ ROUTINE Instructions: Knee Immobilizer (DC) Referrals: Kaveh Henderson MD [Primary Care Provider] - Clinical Quality Measures - CQM - Stroke Antithrombotic Prescribed: Yes Anticoagulation Prescribed for Atrial Flutter, Atrial Fibrillation and History of:: Yes Statin prescribed: Yes - CQM - VTE Did patient receive overlap therapy during hosptialization?: No If no, please select a reason why?: Risk of Bleeding Surgical Overlap Therapy Reason during Hospitalization: Patient had revision of left TKR - CQM - Heart Failure Ejection Fraction: 40 % or Greater PAOLA Inhibitor Prescribed: No Contraindication/Reason for not providing: patient on losartan Contraindication/Reason for not providing: Patient on metoprolol tartrate Angiotensin II Receptor Darron Prescribed: Yes AnticoagulationTherapy for Atrial Fibrillation/Atrialflutter: Yes Aldosterone Antagonist Prescribed: No Contraindication/Reason for not providing: EF is 50-55% Hydralazine Nitrate Prescribed: No Contraindication/Reason for not providing: EF is 50-55% Implantable Cardioverter Defibrillator Therapy: No Contraindication/Reason for not providing: EF is 50-55% Cardiac Resynchronization Therapy Prescribed: No Contraindication/Reason for not providing: EF is 50-55% Will be discharged to: [facility]
--- NOTE | 2018-11-05 15:00 | CP.PCM.PN ---
Subjective - Date & Time of Evaluation Date of Evaluation: 11/05/18 Time of Evaluation: 12:00 - Subjective Subjective: Patient seen and examined at bedside. Pain is better controlled today, pain mgmt on board. Tolerating PT well, having difficulties with stairs. No other complaints. Denies CP/SOB/fever/dizziness. Objective - Vital Signs/Intake and Output Vital Signs (last 24 hours): Temp Pulse Resp BP Pulse Ox 100.8 F H 91 H 20 129/86 94 L 11/05/18 10:57 11/05/18 09:30 11/05/18 07:44 11/05/18 08:11 11/05/18 09:30 - Medications Medications: Current Medications Acetaminophen (Tylenol 325mg Tab) 650 mg PO Q6 [facility] Last Admin: 11/05/18 09:57 Dose: 650 mg Amlodipine Besylate (Norvasc) 10 mg PO DAILY [facility] Last Admin: 11/05/18 08:11 Dose: 10 mg Aspirin (Ecotrin) 325 mg PO DAILY [facility] Last Admin: 11/05/18 08:11 Dose: 325 mg Atorvastatin Calcium (Lipitor) 20 mg PO DIN [facility] Last Admin: 11/04/18 16:27 Dose: 20 mg Cholecalciferol (Vitamin D) 1,000 intlu PO DAILY [facility] Last Admin: 11/05/18 08:09 Dose: 1,000 intlu Dextrose (Dextrose 50% Inj) 0 ml IV STAT PRN; Protocol PRN Reason: Hypoglycemia Protocol Dextrose (Glutose 15) 0 gm PO ONCE PRN; Protocol PRN Reason: Hypoglycemia Protocol Digoxin (Digoxin) 0.0625 mg PO DAILY [facility] Last Admin: 11/05/18 08:11 Dose: 0.0625 mg Docusate Sodium (Colace) 100 mg PO BID [facility] Last Admin: 11/05/18 08:10 Dose: 100 mg Furosemide (Lasix) 40 mg PO DAILY [facility] Last Admin: 11/05/18 08:09 Dose: 40 mg Gabapentin (Neurontin) 300 mg PO BID [facility] Last Admin: 11/05/18 09:14 Dose: 300 mg Glucagon (Glucagen Diagnostic Kit) 0 mg IM STAT PRN; Protocol PRN Reason: Hypoglycemia Protocol Glyburide (Micronase) 1.25 mg PO DAILY [facility] Last Admin: 11/05/18 08:11 Dose: 1.25 mg Hydrochlorothiazide (Microzide) 12.5 mg PO DAILY [facility] Last Admin: 11/05/18 08:11 Dose: 12.5 mg Hydromorphone HCl (Dilaudid) 1 mg IVP Q3 PRN PRN Reason: Pain, severe (8-10) Last Admin: 11/05/18 12:25 Dose: 1 mg Insulin Human Lispro (Humalog) 0 units SC [facility]; Protocol Last Admin: 11/05/18 12:26 Dose: 3 units Losartan Potassium (Cozaar) 50 mg PO DAILY [facility] Last Admin: 11/05/18 08:10 Dose: 50 mg Metformin HCl (Glucophage) 1,000 mg PO BID [facility] Last Admin: 11/05/18 08:09 Dose: 1,000 mg Metoprolol Tartrate (Lopressor) 75 mg PO BID [facility] Last Admin: 11/05/18 08:10 Dose: 75 mg Morphine Sulfate (Morphine Extended Release Tab) 15 mg PO Q8 [facility] Last Admin: 11/05/18 09:14 Dose: 15 mg Ondansetron HCl (Zofran Inj) 4 mg IVPB Q6H PRN PRN Reason: Nausea/Vomiting Rivaroxaban (Xarelto) 20 mg PO QPM [facility]; Protocol Last Admin: 11/04/18 18:00 Dose: 20 mg Sitagliptin Phosphate (Januvia) 50 mg PO BID [facility] Last Admin: 11/05/18 08:10 Dose: 50 mg - Labs Labs: 11/05/18 05:35 11/05/18 05:35 - Extremities Exam Additional comments: LLE: knee imm in place moderate thigh swelling and knee effusion Dressings CDI Incisions CDI with brooke sensation intact SP/DP/TN motor intact EHL/FHL/TA/G pedal pulses intact calves soft NT b/l Assessment and Plan (1) Painful total knee replacement, left Assessment & Plan: POD#2 s/p L revision TKA -dressings changed -DVT ppx -PT/OT -orthopedically stable for d/c to TCU today -d/w Dr. Brown who agrees with above Status: Acute
[2018-11-05 16:01] VITALS: BP 112/73; PULSE 95; RESP 18; TEMP 99.1; O2SAT 95
[2018-11-05 16:45] LABS: URINE BACTERIA MANY (<OCC); URINE BILIRUBIN NEGATIVE (NEGATIVE); URINE BLOOD SMALL (NEGATIVE); URINE CLARITY SLIGHTY-CLOUDY (Clear); URINE COLOR YELLOW (YELLOW); URINE GLUCOSE (UA) NEG (NEGATIVE); URINE HYALINE CAST 0-2 /hpf (0-2); URINE LEUKOCYTE ESTERASE MOD Leu/uL (Negative); URINE PROTEIN 100 mg/dL (NEGATIVE); URINE UROBILINOGEN 0.2-1.0 mg/dL (0.2-1.0)
[2018-11-05] MEDS ORDERED: Clindamycin in NS 300 MG/50 ML BAG IVPB SCH (17:15)
[2018-11-05] MEDS ORDERED: Tmp-Smz 800 mg-160 mg DS Tab PO SCH (17:15)
== END 2018-11-05 17:20 | DRG 467 ==
LOC: H.OPSURG 05:52 → MERGE 11:19 → H.MEDSURG1 11:19
PROVIDERS: ADMIT Internal Medicine; ATTEND Internal Medicine
PROC: 3E0T3BZ Introduction of Anesthetic Agent into Peripheral Nerves and Plexi, Percutaneous Approach (ICD-10-PCS; 2018-11-03)
PROC: 0SRD0J9 Replacement of Left Knee Joint with Synthetic Substitute, Cemented, Open Approach (ICD-10-PCS; principal; 2018-11-03 07:45)
PROC: 0SPD0JZ Removal of Synthetic Substitute from Left Knee Joint, Open Approach (ICD-10-PCS; 2018-11-03 07:45)
DX: T84.84XA Pain due to internal orthopedic prosthetic devices, implants and grafts, initial encounter (principal); I50.32 Chronic diastolic (congestive) heart failure; I48.2 Chronic atrial fibrillation; I11.0 Hypertensive heart disease with heart failure; M65.862 Other synovitis and tenosynovitis, left lower leg; M24.562 Contracture, left knee; E87.6 Hypokalemia; E11.40 Type 2 diabetes mellitus with diabetic neuropathy, unspecified; E55.9 Vitamin D deficiency, unspecified; I25.10 Atherosclerotic heart disease of native coronary artery without angina pectoris; M25.362 Other instability, left knee; E78.00 Pure hypercholesterolemia, unspecified; E78.5 Hyperlipidemia, unspecified; Z96.652 Presence of left artificial knee joint; Z79.01 Long term (current) use of anticoagulants; Z79.84 Long term (current) use of oral hypoglycemic drugs; Z87.891 Personal history of nicotine dependence; Z95.5 Presence of coronary angioplasty implant and graft; Z88.1 Allergy status to other antibiotic agents; Z88.0 Allergy status to penicillin

== ENCOUNTER 2018-11-05 12:40 | Inpatient (IN) | payer OTHER ==
[2018-11-05 19:10] VITALS: BMI 34.3
[2018-11-05] MEDS: Tmp-Smz 800 mg-160 mg DS Tab PO SCH (21:35)
[2018-11-06] MEDS: Morphine 15 mg SR Tab PO SCH ×3 (00:32→17:30)
[2018-11-06] MEDS: Cefepime 1 GM in Sodium Chloride 0.9% 100 ML IVPB SCH ×3 (04:00→17:40)
[2018-11-06 05:04] LABS: ALB/GLOB RATIO 1.1 (1.0-2.1); ALBUMIN 3.2 g/dL (3.5-5.0); ALT/SGPT 32 U/L (21-72); AST/SGOT 25 U/L (17-59); BLOOD UREA NITROGEN 25 mg/dl (9-20); CALCIUM 8.1 mg/dL (8.4-10.2); GFR NON-AFRICAN AMERICAN 56
[2018-11-06 05:28] LABS: BASO # 0.1 K/uL (0.0-0.2); BASO % 0.6 % (0.0-2.0); EOS # 0.1 K/uL (0.0-0.7); EOS % 1.2 % (0.0-4.0); HEMOGLOBIN 11.1 g/dL (12.0-18.0); LYMPH # 1.4 K/uL (1.0-4.3); MEAN CELL VOLUME 84.7 fl (80.0-94.0); MEAN CORPUSCULAR HEMOGLOBIN 29.3 pg (27.0-31.0); MEAN CORPUSCULAR HGB CONC 34.6 g/dL (33.0-37.0); MEAN PLATELET VOLUME 10.6 fl (7.2-11.7); MONO # 1.4 K/uL (0.0-0.8); MONO % 12.3 % (0.0-10.0); NEUT % 72.9 % (50.0-75.0); RBC 3.8 Mil/uL (4.40-5.90); RED CELL DISTRIBUTION WIDTH 13.8 % (11.5-14.5)
[2018-11-06 06:31] LABS: SQUAMOUS EPITHIAL 1 /hpf (0-5); URINE BACTERIA OCC (<OCC); URINE BILIRUBIN NEGATIVE (NEGATIVE); URINE BLOOD NEGATIVE (NEGATIVE); URINE CLARITY SLIGHTY-CLOUDY (Clear); URINE COLOR YELLOW (YELLOW); URINE GLUCOSE (UA) 150 mg/dL (NEGATIVE); URINE LEUKOCYTE ESTERASE SMALL Leu/uL (Negative); URINE PROTEIN 100 mg/dL (NEGATIVE); URINE UROBILINOGEN 0.2-1.0 mg/dL (0.2-1.0)
[2018-11-06] MEDS: Morphine 15 mg Immediate Release Tab PO PRN ×3 (07:53→21:06)
[2018-11-06] MEDS: Insulin Regular 100 units/ml SC SCH ×4 (07:54→21:07)
--- NOTE | 2018-11-06 08:39 | CP.PCM.PN ---
Subjective - Date & Time of Evaluation Date of Evaluation: 11/06/18 Time of Evaluation: 07:45 - Subjective Subjective: Patient seen and examined at bedside comfortable. Pain is much improved today. Tmax to 102 deg last night. Difficulty voiding but denies dysuria. Denies CP/SOB/dizziness/CROSS. Objective - Vital Signs/Intake and Output Vital Signs (last 24 hours): Temp Pulse Resp BP Pulse Ox 99.5 F 92 H 18 101/63 96 11/06/18 07:37 11/06/18 07:37 11/06/18 07:37 11/06/18 07:37 11/06/18 07:37 - Medications Medications: Current Medications Acetaminophen (Tylenol 325mg Tab) 650 mg PO Q6 [facility] Last Admin: 11/06/18 04:48 Dose: 650 mg Amlodipine Besylate (Norvasc) 10 mg PO DAILY [facility] Aspirin (Ecotrin) 81 mg PO DAILY [facility] Atorvastatin Calcium (Lipitor) 20 mg PO DIN [facility] Cholecalciferol (Vitamin D) 1,000 intlu PO DAILY [facility] Digoxin (Digoxin) 0.125 mg PO DAILY [facility] Docusate Sodium (Colace) 100 mg PO BID [facility] Furosemide (Lasix) 40 mg PO DAILY [facility] Gabapentin (Neurontin) 300 mg PO BID [facility] Glyburide (Micronase) 1.25 mg PO DAILY [facility] HCTZ/Losartan Potassium (Hyzaar 12.5 Mg-50 Mg) 1 tab PO DAILY [facility] Vancomycin HCl 1 gm/ Sodium (Chloride) 250 mls @ 166.667 mls/hr IVPB Q12H [facility]; Protocol Last Admin: 11/06/18 05:24 Dose: 166.667 mls/hr Cefepime HCl 1 gm/ Sodium (Chloride) 100 mls @ 100 mls/hr IVPB Q8 [facility]; Protocol Last Admin: 11/06/18 04:00 Dose: 100 mls/hr Insulin Human Regular (Humulin R) 0 units SC [facility]; Protocol Last Admin: 11/06/18 07:54 Dose: 3 u Metformin HCl (Glucophage) 1,000 mg PO BID [facility] Metoprolol Tartrate (Lopressor) 75 mg PO BID [facility] Morphine Sulfate (Morphine Extended Release Tab) 15 mg PO Q8 [facility] Last Admin: 11/06/18 00:32 Dose: 15 mg Morphine Sulfate (Morphine Immediate Release Tab) 15 mg PO Q4 PRN PRN Reason: Pain, severe (8-10) Last Admin: 11/06/18 07:53 Dose: 15 mg Ondansetron HCl (Zofran Inj) 4 mg IVPB Q6H PRN PRN Reason: Nausea/Vomiting Pantoprazole Sodium (Protonix Ec Tab) 40 mg PO DAILY [facility] Potassium Chloride (K-Dur 20 Meq Er Tab) 20 meq PO DAILY [facility] Rivaroxaban (Xarelto) 20 mg PO QPM [facility]; Protocol Last Admin: 11/05/18 19:12 Dose: Not Given Sitagliptin Phosphate (Januvia) 50 mg PO BID [facility] Trimethoprim/Sulfamethoxazole (Bactrim Ds Tab) 1 tab PO Q12 [facility]; Protocol Last Admin: 11/05/18 21:35 Dose: 1 tab - Labs Labs: 11/06/18 03:35 11/06/18 03:35 - Extremities Exam Additional comments: LLE: knee imm in place moderate thigh swelling and knee effusion improved Dressings CDI sensation intact SP/DP/TN motor intact EHL/FHL/TA/G pedal pulses intact calves soft NT b/l Assessment and Plan (1) Status post revision of total replacement of left knee Assessment & Plan: POD#3 s/p L revision TKA -fever likely due to SIRS -DVT ppx -PT/OT -CPM -knee imm at night when in bed -frequent icing -orthopedically stable -d/w Dr. Brown who agrees with above Status: Acute
[2018-11-06] MEDS ORDERED: Digoxin 125 mcg (0.125 mg) Tab PO SCH (09:00)
[2018-11-06] MEDS ORDERED: Patient's Own Med (Sitagliptin Phos/Metformin Hcl [Janumet 50-1,000 Mg Tablet] 1 TAB) PO SCH (09:00)
[2018-11-06] MEDS: Digoxin 125 mcg (0.125 mg) Tab PO SCH (09:12)
[2018-11-06] MEDS: HCTZ/Losartan 12.5/50 Tab PO SCH (09:15)
[2018-11-06] MEDS: Potassium Chloride 20 mEq ER Tab PO SCH (09:15)
[2018-11-06] MEDS: Pantoprazole 40 mg EC Tab PO SCH (09:19)
[2018-11-06] MEDS: Cholecalciferol 1,000 INTLU TAB PO SCH (09:20)
[2018-11-06] MEDS: Tmp-Smz 800 mg-160 mg DS Tab PO SCH (09:53)
--- NOTE | 2018-11-06 12:43 | CP.PCM.HP ---
<Mary Beth Arias - Last Filed: 11/06/18 13:49> History of Present Illness - History of Present Illness History of Present Illness: 63 years old male with hx of Chronic A Fib, CHF, CAD and Arthritis with Left Total Knee replacement in 2004 s/p left revision of TKR, POD 3. Pt was seen and examined today. Patient continues to complain of pain, which is tolerabel with current pain medication regimen. Pt in TCU for continuation of physical therapy. PMHx: HTN, HLD, DM, CAD, A-FIB, CHF PHSx: Cardiac stent x 2 ( Jose 2013 and Liang 2009), Cholecystectomy FMHx: HTN, DM, & CAD Social: Denies current use of cigarettes at this time; Quit smoking 16 years; denies ETOH Allegies: PCN, Azithromycin, Ciprofloxacin Meds: See Med List PMD: Dr. Hernandez Present on Admission - Present on Admission Any Indicators Present on Admission: No Past Patient History - Infectious Disease Hx of Infectious Diseases: None - Past Medical History & Family History Past Medical History?: Yes - Past Social History Smoking Status: Former Smoker - CARDIAC Hx Cardiac Disorders: No Hx Congestive Heart Failure: No - PULMONARY Hx Respiratory Disorders: No - NEUROLOGICAL Hx Neurological Disorder: No - HEENT Hx HEENT Problems: No - RENAL Hx Chronic Kidney Disease: No - ENDOCRINE/METABOLIC Hx Endocrine Disorders: Yes Hx Diabetes Mellitus Type 2: Yes - HEMATOLOGICAL/ONCOLOGICAL Hx Blood Disorders: Yes Hx Anemia: No Hx Blood Transfusions: No Other/Comment: EASY BRUISING FROM BLOOD THINNER - INTEGUMENTARY Hx Dermatological Problems: No - MUSCULOSKELETAL/RHEUMATOLOGICAL Hx Falls: No Other/Comment: pt fell on ice and sustained subdural bleed - GASTROINTESTINAL Hx Gastrointestinal Disorders: No - GENITOURINARY/GYNECOLOGICAL Hx Genitourinary Disorders: No - PSYCHIATRIC Hx Emotional Abuse: No Hx Physical Abuse: No Hx Substance Use: No - SURGICAL HISTORY Hx Cholecystectomy: Yes Hx Herniorrhaphy: Yes Hx Joint Replacement: Yes (Left TKR 2005) Hx Open Reduction Internal Fixation: Yes (left ankle) Other/Comment: Left knee Sx - ANESTHESIA Hx Anesthesia Reactions: Yes (HEADACHES AND QUEASY STOMACH) Meds Allergies/Adverse Reactions: Allergies Allergy/AdvReac Type Severity Reaction Status Date / Time azithromycin Allergy RASH Verified 11/05/18 14:40 [From Zithromax Z-Mitchell] ciprofloxacin [From Cipro] Allergy RASH Verified 11/05/18 14:40 ciprofloxacin HCl Allergy RASH Verified 11/05/18 14:40 [From Cipro] Penicillins Allergy RASH Verified 11/05/18 14:40 Physical Exam - Constitutional Appears: Non-toxic - Head Exam Head Exam: ATRAUMATIC - ENT Exam ENT Exam: Mucous Membranes Moist - Respiratory Exam Respiratory Exam: NORMAL BREATHING PATTERN - Cardiovascular Exam Cardiovascular Exam: +S1, +S2 Additional comments: borderline tachycardia - GI/Abdominal Exam GI & Abdominal Exam: Normal Bowel Sounds, Soft. absent: Guarding, Rigid, Tenderness - Extremities Exam Additional comments: Left knee immobilizer in place; sensation intact b/l - Neurological Exam Neurological exam: Alert, Oriented x3 - Psychiatric Exam Psychiatric exam: Normal Mood - Skin Skin Exam: Dry Results - Vital Signs Recent Vital Signs: Last Vital Signs Temp 99.5 F 11/06/18 10:00 Pulse 95 H 11/06/18 11:35 Resp 18 11/06/18 10:00 BP 101/63 11/06/18 10:00 Pulse Ox 96 11/06/18 11:35 - Labs Result Diagrams: 11/06/18 03:35 11/06/18 03:35 Labs: Laboratory Results - last 24 hr 11/05/18 11/05/18 11/06/18 18:12 21:44 03:35 WBC 11.0 H RBC 3.80 L Hgb 11.1 L Hct 32.2 L MCV 84.7 MCH 29.3 MCHC 34.6 RDW 13.8 Plt Count 174 MPV 10.6 Neut % (Auto) 72.9 Lymph % (Auto) 13.0 L [place] % (Auto) 12.3 H Eos % (Auto) 1.2 Baso % (Auto) 0.6 Neut # (Auto) 8.0 H Lymph # (Auto) 1.4 [place] # (Auto) 1.4 H Eos # (Auto) 0.1 Baso # (Auto) 0.1 Sodium Potassium Chloride Carbon Dioxide Anion Gap BUN Creatinine Est GFR ( Amer) Est GFR (Non-Af Amer) POC Glucose (mg/dL) 170 H 201 H Random Glucose Lactic Acid Calcium Total Bilirubin AST ALT Alkaline Phosphatase Total Protein Albumin Globulin Albumin/Globulin Ratio Urine Color Urine Clarity Urine pH Ur Specific [place] Urine Protein Urine Glucose (UA) Urine Ketones Urine Blood Urine Nitrate Urine Bilirubin Urine Urobilinogen Ur Leukocyte Esterase Urine RBC (Auto) Urine Microscopic WBC Ur Squamous Epith Cells Urine Bacteria 11/06/18 11/06/18 11/06/18 03:35 05:20 06:10 WBC RBC Hgb Hct MCV MCH MCHC RDW Plt Count MPV Neut % (Auto) Lymph % (Auto) [place] % (Auto) Eos % (Auto) Baso % (Auto) Neut # (Auto) Lymph # (Auto) [place] # (Auto) Eos # (Auto) Baso # (Auto) Sodium 135 Potassium 3.1 L Chloride 97 L Carbon Dioxide 28 Anion Gap 13 BUN 25 H Creatinine 1.3 Est GFR ( Amer) > 60 Est GFR (Non-Af Amer) 56 POC Glucose (mg/dL) 269 H Random Glucose 242 H Lactic Acid 2.6 H Calcium 8.1 L Total Bilirubin 0.7 AST 25 ALT 32 Alkaline Phosphatase 61 Total Protein 6.0 L Albumin 3.2 L D Globulin 2.8 Albumin/Globulin Ratio 1.1 Urine Color Urine Clarity Urine pH Ur Specific [place] Urine Protein Urine Glucose (UA) Urine Ketones Urine Blood Urine Nitrate Urine Bilirubin Urine Urobilinogen Ur Leukocyte Esterase Urine RBC (Auto) Urine Microscopic WBC Ur Squamous Epith Cells Urine Bacteria 11/06/18 11/06/18 06:18 10:42 WBC RBC Hgb Hct MCV MCH MCHC RDW Plt Count MPV Neut % (Auto) Lymph % (Auto) [place] % (Auto) Eos % (Auto) Baso % (Auto) Neut # (Auto) Lymph # (Auto) [place] # (Auto) Eos # (Auto) Baso # (Auto) Sodium Potassium Chloride Carbon Dioxide Anion Gap BUN Creatinine Est GFR ( Amer) Est GFR (Non-Af Amer) POC Glucose (mg/dL) 293 H Random Glucose Lactic Acid Calcium Total Bilirubin AST ALT Alkaline Phosphatase Total Protein Albumin Globulin Albumin/Globulin Ratio Urine Color Yellow Urine Clarity Slighty-cloudy Urine pH 6.0 Ur Specific [place] 1.021 Urine Protein 100 Urine Glucose (UA) 150 Urine Ketones Negative Urine Blood Negative Urine Nitrate Negative Urine Bilirubin Negative Urine Urobilinogen 0.2-1.0 Ur Leukocyte Esterase Small Urine RBC (Auto) 3 Urine Microscopic WBC 25 H Ur Squamous Epith Cells 1 Urine Bacteria Occ H Assessment & Plan - Assessment and Plan (Free Text) Assessment: 63 years old male with hx of Chronic A Fib, CHF, CAD and Arthritis with Left Total Knee replacement in 2004 s/p left revision of TKR, POD 2 was seen this morning. Patient continues to complain of pain, but states it is tolerable with current pain med regimen. Pt in TCU for continuation of physical therapy. Left knee inflammation s/p revision of Left TKR -s/p left revision of TKR POD 3 - C/w Pain management Post-op fever -Tmax 102.2F; 99.5F this AM -FU Ucx & Blood cx & official CXR -IV vanco & zosyn started this AM Chronic A Fib -Metoprolol 75 mg PO BID -Xarelto 20mg QPM - Dig 0.0625mg DM II - Lispro Insulin sliding scale Q6hrs according to sliding scale during surgery - Glyburide 1.25mg PO QD -Januvia 50mg PO BID - Diabetic/Heart Healthy diet CHF and CAD - Lasix 40mg PO QD -Losartan 50mg-HCTZ 12.5mg PO QD -Lipitor 20mg PO -ASA/ 325mg PO QD -Norvasc 10mg PO QD Vit D deficiency -15.6L -cont with supplementation DVT prophylaxis with Xarelto post surgery -Xarelto 20mg QPM <Malu Huber - Last Filed: 11/08/18 15:57> Results - Vital Signs Recent Vital Signs: Last Vital Signs Temp 99.1 F 11/08/18 12:51 Pulse 97 H 11/08/18 10:00 Resp 20 11/08/18 10:00 BP 145/79 11/08/18 10:00 Pulse Ox 97 11/08/18 10:00 - Labs Result Diagrams: 11/07/18 05:45 11/07/18 05:45 Labs: Laboratory Results - last 24 hr 11/07/18 11/08/18 20:45 05:11 POC Glucose (mg/dL) 207 H 199 H Attending/Attestation - Attestation I have personally seen and examined this patient.: Yes I have fully participated in the care of the patient.: Yes I have reviewed all pertinent clinical information: Yes Notes (Text): 11/08/18 15:56 63 years old male with hx of Chronic A Fib, CHF, CAD and Arthritis with Left Total Knee replacement in 2004 s/p left revision of TKR, POD 3. Admitted to TCU for physical therapy. Agree with findings and plan as above.
--- NOTE | 2018-11-06 14:19 | RAD ---
Date of service: 11/06/2018 PROCEDURE: CHEST RADIOGRAPH, 1 VIEW HISTORY: Fever/tachy COMPARISON: 09/29/2018 FINDINGS: LUNGS: Clear. PLEURA: No pneumothorax or pleural fluid seen. CARDIOVASCULAR: No aortic atherosclerotic calcification present. Normal. OSSEOUS STRUCTURES: No significant abnormalities. VISUALIZED UPPER ABDOMEN: Normal. OTHER FINDINGS: None. IMPRESSION: No active disease.
--- NOTE | 2018-11-06 19:07 | CP.PCM.PN ---
Subjective - Date & Time of Evaluation Date of Evaluation: 11/06/18 Time of Evaluation: 19:05 - Subjective Subjective: ID NOTE PATIENT EXAMINED ,EMR REVIEWED PERSISTENT FEVER CULTURES NEGATIVE SO FAR WILL D/C VANCOMYCIN START DAPTOMYCIN FOR PRESENT ,CONTINUE MAXIPEME BUT AM CONSIDERING CHANGE Objective - Vital Signs/Intake and Output Vital Signs (last 24 hours): Temp Pulse Resp BP Pulse Ox 100.1 F H 106 H 20 102/64 94 L 11/06/18 16:19 11/06/18 17:27 11/06/18 16:19 11/06/18 17:27 11/06/18 16:19 - Medications Medications: Current Medications Acetaminophen (Tylenol 325mg Tab) 975 mg PO Q8H [facility] Last Admin: 11/06/18 12:04 Dose: 975 mg Amlodipine Besylate (Norvasc) 10 mg PO DAILY [facility] Last Admin: 11/06/18 09:19 Dose: 10 mg Aspirin (Ecotrin) 81 mg PO DAILY [facility] Last Admin: 11/06/18 09:13 Dose: 81 mg Cholecalciferol (Vitamin D) 1,000 intlu PO DAILY [facility] Last Admin: 11/06/18 09:20 Dose: 1,000 intlu Digoxin (Digoxin) 0.125 mg PO DAILY [facility] Last Admin: 11/06/18 09:12 Dose: 0.125 mg Docusate Sodium (Colace) 100 mg PO BID [facility] Last Admin: 11/06/18 17:23 Dose: 100 mg Furosemide (Lasix) 40 mg PO DAILY [facility] Last Admin: 11/06/18 09:15 Dose: 40 mg Gabapentin (Neurontin) 300 mg PO BID [facility] Last Admin: 11/06/18 17:29 Dose: 300 mg Glyburide (Micronase) 1.25 mg PO DAILY [facility] Last Admin: 11/06/18 09:18 Dose: 1.25 mg HCTZ/Losartan Potassium (Hyzaar 12.5 Mg-50 Mg) 1 tab PO DAILY [facility] Last Admin: 11/06/18 09:15 Dose: 1 tab Cefepime HCl 1 gm/ Sodium (Chloride) 100 mls @ 100 mls/hr IVPB Q8 [facility]; Protocol Last Admin: 11/06/18 17:40 Dose: 100 mls/hr Daptomycin 690 mg/ Sodium (Chloride) 100 mls @ 100 mls/hr IV Q48H [facility]; Protocol Stop: 11/11/18 19:01 Insulin Human Regular (Humulin R) 0 units SC ACHS [facility]; Protocol Last Admin: 11/06/18 17:51 Dose: 1 u Metformin HCl (Glucophage) 1,000 mg PO BID [facility] Last Admin: 11/06/18 17:51 Dose: 1,000 mg Metoprolol Tartrate (Lopressor) 75 mg PO BID [facility] Last Admin: 11/06/18 17:27 Dose: 75 mg Morphine Sulfate (Morphine Extended Release Tab) 15 mg PO Q8 [facility] Last Admin: 11/06/18 17:30 Dose: 15 mg Morphine Sulfate (Morphine Immediate Release Tab) 15 mg PO Q4 PRN PRN Reason: Pain, severe (8-10) Last Admin: 11/06/18 15:15 Dose: 15 mg Ondansetron HCl (Zofran Inj) 4 mg IVPB Q6H PRN PRN Reason: Nausea/Vomiting Pantoprazole Sodium (Protonix Ec Tab) 40 mg PO DAILY [facility] Last Admin: 11/06/18 09:19 Dose: 40 mg Potassium Chloride (K-Dur 20 Meq Er Tab) 20 meq PO DAILY [facility] Last Admin: 11/06/18 09:15 Dose: 20 meq Rivaroxaban (Xarelto) 20 mg PO QPM [facility]; Protocol Last Admin: 11/06/18 18:08 Dose: 20 mg Sitagliptin Phosphate (Januvia) 50 mg PO BID [facility] Last Admin: 11/06/18 17:26 Dose: 50 mg - Labs Labs: 11/06/18 03:35 11/06/18 03:35
[2018-11-07] MEDS: Cefepime 1 GM in Sodium Chloride 0.9% 100 ML IVPB SCH ×3 (01:48→16:20)
[2018-11-07] MEDS: Morphine 15 mg SR Tab PO SCH ×3 (01:48→16:26)
[2018-11-07 06:01] LABS: BASO # 0.1 K/uL (0.0-0.2); BASO % 0.9 % (0.0-2.0); EOS # 0.2 K/uL (0.0-0.7); EOS % 2.9 % (0.0-4.0); HEMOGLOBIN 11.2 g/dL (12.0-18.0); LYMPH # 1.3 K/uL (1.0-4.3); LYMPH % 16.4 % (20.0-40.0); MEAN CELL VOLUME 84.7 fl (80.0-94.0); MEAN CORPUSCULAR HEMOGLOBIN 29.2 pg (27.0-31.0); MEAN CORPUSCULAR HGB CONC 34.5 g/dL (33.0-37.0); MEAN PLATELET VOLUME 9.4 fl (7.2-11.7); MONO # 1.1 K/uL (0.0-0.8); MONO % 13.3 % (0.0-10.0); NEUT # 5.4 K/uL (1.8-7.0); NEUT % 66.5 % (50.0-75.0); RBC 3.84 Mil/uL (4.40-5.90); RED CELL DISTRIBUTION WIDTH 13.8 % (11.5-14.5); WHITE BLOOD COUNT 8.1 K/uL (4.8-10.8)
[2018-11-07 06:27] LABS: ALBUMIN 3.1 g/dL (3.5-5.0); ALT/SGPT 39 U/L (21-72); AST/SGOT 24 U/L (17-59); BLOOD UREA NITROGEN 24 mg/dl (9-20); CALCIUM 8.5 mg/dL (8.4-10.2); GFR NON-AFRICAN AMERICAN > 60
[2018-11-07] MEDS: Insulin Regular 100 units/ml SC SCH ×4 (06:48→21:10)
[2018-11-07] MEDS: Potassium Chloride 20 mEq ER Tab PO SCH (08:18)
[2018-11-07] MEDS: HCTZ/Losartan 12.5/50 Tab PO SCH (08:19)
[2018-11-07] MEDS: Pantoprazole 40 mg EC Tab PO SCH (08:19)
[2018-11-07] MEDS: Digoxin 125 mcg (0.125 mg) Tab PO SCH (08:20)
[2018-11-07] MEDS: Cholecalciferol 1,000 INTLU TAB PO SCH (08:20)
--- NOTE | 2018-11-07 10:49 | CP.PCM.PN ---
Subjective - Date & Time of Evaluation Date of Evaluation: 11/07/18 Time of Evaluation: 10:47 - Subjective Subjective: Patient still complaining of significant knee pain. Denies CP/SOB/dizziness. Objective - Vital Signs/Intake and Output Vital Signs (last 24 hours): Temp Pulse Resp BP Pulse Ox 99.8 F H 100 H 20 129/74 94 L 11/06/18 22:39 11/07/18 08:22 11/06/18 19:36 11/07/18 08:22 11/06/18 19:36 - Medications Medications: Current Medications Acetaminophen (Tylenol 325mg Tab) 975 mg PO Q8H [facility] Last Admin: 11/07/18 04:30 Dose: Not Given Amlodipine Besylate (Norvasc) 10 mg PO DAILY [facility] Last Admin: 11/07/18 08:22 Dose: 10 mg Aspirin (Ecotrin) 81 mg PO DAILY [facility] Last Admin: 11/07/18 08:20 Dose: 81 mg Cholecalciferol (Vitamin D) 1,000 intlu PO DAILY [facility] Last Admin: 11/07/18 08:20 Dose: 1,000 intlu Digoxin (Digoxin) 0.125 mg PO DAILY [facility] Last Admin: 11/07/18 08:20 Dose: 0.125 mg Docusate Sodium (Colace) 100 mg PO BID [facility] Last Admin: 11/07/18 08:18 Dose: 100 mg Furosemide (Lasix) 40 mg PO DAILY [facility] Last Admin: 11/07/18 08:20 Dose: 40 mg Gabapentin (Neurontin) 300 mg PO BID [facility] Last Admin: 11/07/18 08:18 Dose: 300 mg Glyburide (Micronase) 1.25 mg PO DAILY [facility] Last Admin: 11/07/18 08:23 Dose: 1.25 mg HCTZ/Losartan Potassium (Hyzaar 12.5 Mg-50 Mg) 1 tab PO DAILY [facility] Last Admin: 11/07/18 08:19 Dose: 1 tab Cefepime HCl 1 gm/ Sodium (Chloride) 100 mls @ 100 mls/hr IVPB Q8 [facility]; Protocol Last Admin: 11/07/18 08:28 Dose: 100 mls/hr Daptomycin 690 mg/ Sodium (Chloride) 100 mls @ 100 mls/hr IV Q48H [facility]; Protocol Stop: 11/11/18 21:01 Last Admin: 11/06/18 22:25 Dose: 100 mls/hr Insulin Human Regular (Humulin R) 0 units SC ACHS [facility]; Protocol Last Admin: 11/07/18 06:48 Dose: 1 u Metformin HCl (Glucophage) 1,000 mg PO BID [facility] Last Admin: 11/07/18 08:19 Dose: 1,000 mg Metoprolol Tartrate (Lopressor) 75 mg PO BID [facility] Last Admin: 11/07/18 08:21 Dose: 75 mg Morphine Sulfate (Morphine Extended Release Tab) 15 mg PO Q8 [facility] Last Admin: 11/07/18 08:17 Dose: 15 mg Morphine Sulfate (Morphine Immediate Release Tab) 15 mg PO Q4 PRN PRN Reason: Pain, severe (8-10) Last Admin: 11/06/18 21:06 Dose: 15 mg Ondansetron HCl (Zofran Inj) 4 mg IVPB Q6H PRN PRN Reason: Nausea/Vomiting Pantoprazole Sodium (Protonix Ec Tab) 40 mg PO DAILY [facility] Last Admin: 11/07/18 08:19 Dose: 40 mg Potassium Chloride (K-Dur 20 Meq Er Tab) 20 meq PO DAILY [facility] Last Admin: 11/07/18 08:18 Dose: 20 meq Rivaroxaban (Xarelto) 20 mg PO QPM [facility]; Protocol Last Admin: 11/06/18 18:08 Dose: 20 mg Sitagliptin Phosphate (Januvia) 50 mg PO BID [facility] Last Admin: 11/07/18 08:19 Dose: 50 mg - Labs Labs: 11/07/18 05:45 11/07/18 05:45 - Extremities Exam Additional comments: Left knee: scant serosang drainage inferior incision. Noted 2-3+ pitting edema to LLE (2+ pre op) mild erythema to distal knee, but appears inflammatory not infected. Calves soft NT negh omans. Compression dressing applied and leg elevated. +DP/PT pulses. Sensation intact. Assessment and Plan (1) Status post revision of total replacement of left knee Assessment & Plan: POD#4 s/sp revision TKR PT/OT elevation dressing changes VTE proph d/w Dr. Brown, agrees with above Status: Acute (2) Vitamin D deficiency Assessment & Plan: cont supp, goal >40 Status: Acute (3) UTI (urinary tract infection) Assessment & Plan: ID on case Status: Acute
[2018-11-07] MEDS: Morphine 15 mg Immediate Release Tab PO PRN (11:31)
--- NOTE | 2018-11-07 12:08 | CP.PCM.CON ---
History of Present Illness - History of Present Illness History of Present Illness: 63 year old male admitted to TCU for subacute rehab with diagnosis of L trk and at fib, CHF,CAD Review of Systems - Musculoskeletal Musculoskeletal: Limited Range of Motion, Muscle Weakness Past Patient History - Infectious Disease Hx of Infectious Diseases: None - Past Medical History & Family History Past Medical History?: Yes - Past Social History Smoking Status: Former Smoker - CARDIAC Hx Cardiac Disorders: No Hx Congestive Heart Failure: No - PULMONARY Hx Respiratory Disorders: No - NEUROLOGICAL Hx Neurological Disorder: No - HEENT Hx HEENT Problems: No - RENAL Hx Chronic Kidney Disease: No - ENDOCRINE/METABOLIC Hx Endocrine Disorders: Yes Hx Diabetes Mellitus Type 2: Yes - HEMATOLOGICAL/ONCOLOGICAL Hx AIDS: No Hx Human Immunodeficiency Virus (HIV): No - INTEGUMENTARY Hx Dermatological Problems: No - MUSCULOSKELETAL/RHEUMATOLOGICAL Hx Falls: No Other/Comment: pt fell on ice and sustained subdural bleed - GASTROINTESTINAL Hx Gastrointestinal Disorders: No - GENITOURINARY/GYNECOLOGICAL Hx Genitourinary Disorders: No - PSYCHIATRIC Hx Emotional Abuse: No Hx Physical Abuse: No Hx Substance Use: No - SURGICAL HISTORY Hx Cholecystectomy: Yes Hx Herniorrhaphy: Yes Hx Joint Replacement: Yes (Left TKR 2005) Hx Open Reduction Internal Fixation: Yes (left ankle) Other/Comment: Left knee Sx - ANESTHESIA Hx Anesthesia Reactions: Yes (HEADACHES AND QUEASY STOMACH) Meds Allergies/Adverse Reactions: Allergies Allergy/AdvReac Type Severity Reaction Status Date / Time azithromycin Allergy RASH Verified 11/05/18 14:40 [From Zithromax Z-Mitchell] ciprofloxacin [From Cipro] Allergy RASH Verified 11/05/18 14:40 ciprofloxacin HCl Allergy RASH Verified 11/05/18 14:40 [From Cipro] Penicillins Allergy RASH Verified 11/05/18 14:40 - Medications Medications: Current Medications Acetaminophen (Tylenol 325mg Tab) 975 mg PO Q8H [facility] Last Admin: 11/07/18 04:30 Dose: Not Given Amlodipine Besylate (Norvasc) 10 mg PO DAILY [facility] Last Admin: 11/07/18 08:22 Dose: 10 mg Aspirin (Ecotrin) 81 mg PO DAILY [facility] Last Admin: 11/07/18 08:20 Dose: 81 mg Cholecalciferol (Vitamin D) 1,000 intlu PO DAILY [facility] Last Admin: 11/07/18 08:20 Dose: 1,000 intlu Digoxin (Digoxin) 0.125 mg PO DAILY [facility] Last Admin: 11/07/18 08:20 Dose: 0.125 mg Docusate Sodium (Colace) 100 mg PO BID [facility] Last Admin: 11/07/18 08:18 Dose: 100 mg Furosemide (Lasix) 40 mg PO DAILY [facility] Last Admin: 11/07/18 08:20 Dose: 40 mg Gabapentin (Neurontin) 300 mg PO BID [facility] Last Admin: 11/07/18 08:18 Dose: 300 mg Glyburide (Micronase) 1.25 mg PO DAILY [facility] Last Admin: 11/07/18 08:23 Dose: 1.25 mg HCTZ/Losartan Potassium (Hyzaar 12.5 Mg-50 Mg) 1 tab PO DAILY [facility] Last Admin: 11/07/18 08:19 Dose: 1 tab Cefepime HCl 1 gm/ Sodium (Chloride) 100 mls @ 100 mls/hr IVPB Q8 [facility]; Protocol Last Admin: 11/07/18 08:28 Dose: 100 mls/hr Daptomycin 690 mg/ Sodium (Chloride) 100 mls @ 100 mls/hr IV Q48H [facility]; Protocol Stop: 11/11/18 21:01 Last Admin: 11/06/18 22:25 Dose: 100 mls/hr Insulin Human Regular (Humulin R) 0 units SC ACHS [facility]; Protocol Last Admin: 11/07/18 11:34 Dose: 3 u Metformin HCl (Glucophage) 1,000 mg PO BID [facility] Last Admin: 11/07/18 08:19 Dose: 1,000 mg Metoprolol Tartrate (Lopressor) 75 mg PO BID [facility] Last Admin: 11/07/18 08:21 Dose: 75 mg Morphine Sulfate (Morphine Extended Release Tab) 15 mg PO Q8 [facility] Last Admin: 11/07/18 08:17 Dose: 15 mg Morphine Sulfate (Morphine Immediate Release Tab) 15 mg PO Q4 PRN PRN Reason: Pain, severe (8-10) Last Admin: 11/07/18 11:31 Dose: 15 mg Ondansetron HCl (Zofran Inj) 4 mg IVPB Q6H PRN PRN Reason: Nausea/Vomiting Pantoprazole Sodium (Protonix Ec Tab) 40 mg PO DAILY [facility] Last Admin: 11/07/18 08:19 Dose: 40 mg Potassium Chloride (K-Dur 20 Meq Er Tab) 20 meq PO DAILY [facility] Last Admin: 11/07/18 08:18 Dose: 20 meq Rivaroxaban (Xarelto) 20 mg PO QPM [facility]; Protocol Last Admin: 11/06/18 18:08 Dose: 20 mg Sitagliptin Phosphate (Januvia) 50 mg PO BID [facility] Last Admin: 11/07/18 08:19 Dose: 50 mg Physical Exam - Constitutional Appears: Well - Head Exam Head Exam: ATRAUMATIC, NORMAL INSPECTION, NORMOCEPHALIC - Eye Exam Eye Exam: EOMI, Normal appearance, PERRL Pupil Exam: NORMAL ACCOMODATION, PERRL - ENT Exam ENT Exam: Mucous Membranes Moist, Normal Exam - Respiratory Exam Respiratory Exam: Clear to Auscultation Bilateral, NORMAL BREATHING PATTERN - Cardiovascular Exam Cardiovascular Exam: REGULAR RHYTHM - GI/Abdominal Exam GI & Abdominal Exam: Normal Bowel Sounds - Rectal Exam Rectal Exam: NORMAL INSPECTION - Exam External exam: NORMAL EXTERNAL EXAM - Extremities Exam Extremities exam: Positive for: normal inspection - Back Exam Back exam: NORMAL INSPECTION - Neurological Exam Neurological exam: Alert, CN II-XII Intact - Psychiatric Exam Psychiatric exam: Normal Affect, Normal Mood - Skin Skin Exam: Dry Results - Vital Signs Recent Vital Signs: Last Vital Signs Temp 99.8 F H 11/06/18 22:39 Pulse 100 H 11/07/18 08:22 Resp 20 11/06/18 19:36 BP 129/74 11/07/18 08:22 Pulse Ox 94 L 11/06/18 19:36 - Labs Result Diagrams: 11/07/18 05:45 11/07/18 05:45 Labs: Laboratory Results - last 24 hr 11/06/18 11/06/18 11/06/18 15:45 19:01 20:23 WBC RBC Hgb Hct MCV MCH MCHC RDW Plt Count MPV Neut % (Auto) Lymph % (Auto) [place] % (Auto) Eos % (Auto) Baso % (Auto) Neut # (Auto) Lymph # (Auto) [place] # (Auto) Eos # (Auto) Baso # (Auto) Sodium Potassium Chloride Carbon Dioxide Anion Gap BUN Creatinine Est GFR ( Amer) Est GFR (Non-Af Amer) POC Glucose (mg/dL) 181 H 202 H Random Glucose Calcium Total Bilirubin AST ALT Alkaline Phosphatase Total Protein Albumin Globulin Albumin/Globulin Ratio Procalcitonin 0.37 11/07/18 11/07/18 11/07/18 05:41 05:45 05:45 WBC 8.1 RBC 3.84 L Hgb 11.2 L Hct 32.5 L MCV 84.7 MCH 29.2 MCHC 34.5 RDW 13.8 Plt Count 207 MPV 9.4 Neut % (Auto) 66.5 Lymph % (Auto) 16.4 L [place] % (Auto) 13.3 H Eos % (Auto) 2.9 Baso % (Auto) 0.9 Neut # (Auto) 5.4 Lymph # (Auto) 1.3 [place] # (Auto) 1.1 H Eos # (Auto) 0.2 Baso # (Auto) 0.1 Sodium 137 Potassium 3.1 L Chloride 99 Carbon Dioxide 32 H Anion Gap 9 L BUN 24 H Creatinine 1.2 Est GFR ( Amer) > 60 Est GFR (Non-Af Amer) > 60 POC Glucose (mg/dL) 174 H Random Glucose 152 H Calcium 8.5 Total Bilirubin 0.9 AST 24 ALT 39 Alkaline Phosphatase 51 Total Protein 6.0 L Albumin 3.1 L Globulin 3.0 Albumin/Globulin Ratio 1.0 Procalcitonin 11/07/18 11:31 WBC RBC Hgb Hct MCV MCH MCHC RDW Plt Count MPV Neut % (Auto) Lymph % (Auto) [place] % (Auto) Eos % (Auto) Baso % (Auto) Neut # (Auto) Lymph # (Auto) [place] # (Auto) Eos # (Auto) Baso # (Auto) Sodium Potassium Chloride Carbon Dioxide Anion Gap BUN Creatinine Est GFR ( Amer) Est GFR (Non-Af Amer) POC Glucose (mg/dL) 256 H Random Glucose Calcium Total Bilirubin AST ALT Alkaline Phosphatase Total Protein Albumin Globulin Albumin/Globulin Ratio Procalcitonin Assessment & Plan (1) Status post revision of total replacement of left knee Assessment and Plan: plan for range of motion, strengthening, transfers and gait training, for knee immobilizer, physical, occupational therapy. Monitor labs and temp Status: Acute (2) UTI (urinary tract infection) Status: Acute (3) Vitamin D deficiency Status: Acute (4) ASHD (arteriosclerotic heart disease) Status: Acute Priority: Medium (5) Atrial fibrillation Status: Acute (6) Atrial fibrillation with RVR Status: Acute Priority: Medium (7) CAD (coronary artery disease) Status: Acute Priority: Medium (8) CHF (congestive heart failure) Status: Acute
[2018-11-08] MEDS: Cefepime 1 GM in Sodium Chloride 0.9% 100 ML IVPB SCH ×3 (01:43→16:22)
[2018-11-08] MEDS: Morphine 15 mg SR Tab PO SCH ×4 (01:45→18:39)
[2018-11-08] MEDS: Insulin Regular 100 units/ml SC SCH ×4 (06:49→21:22)
[2018-11-08] MEDS: Digoxin 125 mcg (0.125 mg) Tab PO SCH (08:38)
[2018-11-08] MEDS: HCTZ/Losartan 12.5/50 Tab PO SCH (08:39)
[2018-11-08] MEDS: Potassium Chloride 20 mEq ER Tab PO SCH (08:39)
[2018-11-08] MEDS: Pantoprazole 40 mg EC Tab PO SCH (08:40)
[2018-11-08] MEDS: Cholecalciferol 1,000 INTLU TAB PO SCH (08:42)
[2018-11-08] MEDS: Morphine 15 mg Immediate Release Tab PO PRN ×2 (13:05→23:19)
--- NOTE | 2018-11-08 16:17 | CP.PCM.PN ---
Subjective - Date & Time of Evaluation Date of Evaluation: 11/08/18 Time of Evaluation: 16:11 - Subjective Subjective: I D NOTE STILL FEBRILE KNEE ERYTHENATOUS AND SWOLLEN SIGNIFICANT PAIN ALSO HAS KLEBSILLA OXYTOCA UTI RENAL FUNCTION IS PRESENTLY WNL WILL INCREASE DAPTOMYCIN TO DAILY Objective - Vital Signs/Intake and Output Vital Signs (last 24 hours): Temp Pulse Resp BP Pulse Ox 99.7 F H 83 20 122/72 96 11/08/18 16:04 11/08/18 16:04 11/08/18 16:04 11/08/18 16:04 11/08/18 16:04 - Medications Medications: Current Medications Acetaminophen (Tylenol 325mg Tab) 975 mg PO Q8H [facility] Last Admin: 11/08/18 11:51 Dose: 975 mg Amlodipine Besylate (Norvasc) 10 mg PO DAILY [facility] Last Admin: 11/08/18 08:39 Dose: 10 mg Aspirin (Ecotrin) 81 mg PO DAILY [facility] Last Admin: 11/08/18 08:47 Dose: 81 mg Cholecalciferol (Vitamin D) 1,000 intlu PO DAILY [facility] Last Admin: 11/08/18 08:42 Dose: 1,000 intlu Digoxin (Digoxin) 0.125 mg PO DAILY [facility] Last Admin: 11/08/18 08:38 Dose: 0.125 mg Docusate Sodium (Colace) 100 mg PO BID [facility] Last Admin: 11/08/18 08:37 Dose: 100 mg Furosemide (Lasix) 40 mg PO DAILY [facility] Last Admin: 11/08/18 08:40 Dose: 40 mg Gabapentin (Neurontin) 300 mg PO BID [facility] Last Admin: 11/08/18 08:39 Dose: 300 mg Glyburide (Micronase) 1.25 mg PO DAILY [facility] Last Admin: 11/08/18 08:41 Dose: 1.25 mg HCTZ/Losartan Potassium (Hyzaar 12.5 Mg-50 Mg) 1 tab PO DAILY [facility] Last Admin: 11/08/18 08:39 Dose: 1 tab Cefepime HCl 1 gm/ Sodium (Chloride) 100 mls @ 100 mls/hr IVPB Q8 [facility]; Protocol Last Admin: 11/08/18 08:43 Dose: 100 mls/hr Daptomycin 690 mg/ Sodium (Chloride) 100 mls @ 100 mls/hr IV Q24H [facility]; Protocol Stop: 11/13/18 21:01 Insulin Human Regular (Humulin R) 0 units SC ACHS [facility]; Protocol Last Admin: 11/08/18 11:56 Dose: 2 units Metformin HCl (Glucophage) 1,000 mg PO BID [facility] Last Admin: 11/08/18 08:47 Dose: 1,000 mg Metoprolol Tartrate (Lopressor) 75 mg PO BID [facility] Last Admin: 11/08/18 08:40 Dose: 75 mg Morphine Sulfate (Morphine Extended Release Tab) 15 mg PO Q8 [facility] Last Admin: 11/08/18 08:58 Dose: 15 mg Morphine Sulfate (Morphine Immediate Release Tab) 15 mg PO Q4 PRN PRN Reason: Pain, severe (8-10) Last Admin: 11/08/18 13:05 Dose: 15 mg Ondansetron HCl (Zofran Inj) 4 mg IVPB Q6H PRN PRN Reason: Nausea/Vomiting Pantoprazole Sodium (Protonix Ec Tab) 40 mg PO DAILY [facility] Last Admin: 11/08/18 08:40 Dose: 40 mg Potassium Chloride (K-Dur 20 Meq Er Tab) 20 meq PO DAILY [facility] Last Admin: 11/08/18 08:39 Dose: 20 meq Rivaroxaban (Xarelto) 20 mg PO QPM [facility]; Protocol Last Admin: 11/07/18 17:34 Dose: 20 mg Sitagliptin Phosphate (Januvia) 50 mg PO BID [facility] Last Admin: 11/08/18 08:40 Dose: 50 mg - Labs Labs: 11/07/18 05:45 11/07/18 05:45
[2018-11-09] MEDS: Cefepime 1 GM in Sodium Chloride 0.9% 100 ML IVPB SCH (00:14)
[2018-11-09] MEDS: Morphine 15 mg SR Tab PO SCH ×3 (00:22→16:36)
[2018-11-09] MEDS: Insulin Regular 100 units/ml SC SCH ×4 (06:51→22:00)
[2018-11-09 08:16] LABS: ALT/SGPT 37 U/L (21-72); AST/SGOT 44 U/L (17-59); BLOOD UREA NITROGEN 17 mg/dl (9-20); CALCIUM 8.4 mg/dL (8.4-10.2); GFR NON-AFRICAN AMERICAN > 60
[2018-11-09] MEDS: Cholecalciferol 1,000 INTLU TAB PO SCH (08:20)
[2018-11-09] MEDS: Digoxin 125 mcg (0.125 mg) Tab PO SCH (08:21)
[2018-11-09] MEDS: Pantoprazole 40 mg EC Tab PO SCH (08:21)
[2018-11-09] MEDS: Potassium Chloride 20 mEq ER Tab PO SCH (08:23)
[2018-11-09] MEDS: HCTZ/Losartan 12.5/50 Tab PO SCH (08:24)
[2018-11-09] MEDS: Morphine 15 mg Immediate Release Tab PO PRN ×3 (10:12→18:26)
[2018-11-10] MEDS: Morphine 15 mg SR Tab PO SCH ×3 (00:32→16:17)
[2018-11-10 02:02] VITALS: RESP 20
[2018-11-10] MEDS: Insulin Regular 100 units/ml SC SCH ×4 (07:35→21:38)
[2018-11-10] MEDS: Digoxin 125 mcg (0.125 mg) Tab PO SCH (09:35)
[2018-11-10] MEDS: HCTZ/Losartan 12.5/50 Tab PO SCH (09:35)
[2018-11-10] MEDS: Cholecalciferol 1,000 INTLU TAB PO SCH (09:37)
[2018-11-10] MEDS: Pantoprazole 40 mg EC Tab PO SCH (09:37)
[2018-11-10] MEDS: Potassium Chloride 20 mEq ER Tab PO SCH (09:38)
[2018-11-10] MEDS ORDERED: Povidone Iodine Topical 10% Sol ONE (09:47)
--- NOTE | 2018-11-10 10:00 | CP.PCM.PN ---
Subjective - Date & Time of Evaluation Date of Evaluation: 11/10/18 Time of Evaluation: 09:57 - Subjective Subjective: Patient seen and examined with Dr. Brown Patient still complaining of continued knee pain. He says he is very anxious. Denies CP/SOB. Denies calf pain. Objective - Vital Signs/Intake and Output Vital Signs (last 24 hours): Temp Pulse Resp BP Pulse Ox 9902 F H 98 H 20 132/78 96 11/10/18 08:28 11/10/18 09:37 11/10/18 08:28 11/10/18 09:37 11/10/18 08:28 - Medications Medications: Current Medications Acetaminophen (Tylenol 325mg Tab) 975 mg PO Q8H [facility] Last Admin: 11/10/18 03:30 Dose: Not Given Amlodipine Besylate (Norvasc) 10 mg PO DAILY [facility] Last Admin: 11/10/18 09:36 Dose: 10 mg Aspirin (Ecotrin) 81 mg PO DAILY [facility] Last Admin: 11/10/18 09:38 Dose: 81 mg Cholecalciferol (Vitamin D) 1,000 intlu PO DAILY [facility] Last Admin: 11/10/18 09:37 Dose: 1,000 intlu Digoxin (Digoxin) 0.125 mg PO DAILY [facility] Last Admin: 11/10/18 09:35 Dose: 0.125 mg Docusate Sodium (Colace) 100 mg PO BID [facility] Last Admin: 11/10/18 09:36 Dose: 100 mg Furosemide (Lasix) 40 mg PO DAILY [facility] Last Admin: 11/10/18 09:36 Dose: 40 mg Gabapentin (Neurontin) 300 mg PO BID [facility] Last Admin: 11/10/18 09:35 Dose: 300 mg Glyburide (Micronase) 1.25 mg PO DAILY [facility] Last Admin: 11/10/18 09:35 Dose: 1.25 mg HCTZ/Losartan Potassium (Hyzaar 12.5 Mg-50 Mg) 1 tab PO DAILY [facility] Last Admin: 11/10/18 09:35 Dose: 1 tab Daptomycin 690 mg/ Sodium (Chloride) 100 mls @ 100 mls/hr IV Q24H [facility]; Protocol Stop: 11/13/18 21:01 Last Admin: 11/09/18 20:43 Dose: 100 mls/hr Insulin Human Regular (Humulin R) 0 units SC ACHS [facility]; Protocol Last Admin: 11/10/18 07:35 Dose: 2 units Metformin HCl (Glucophage) 1,000 mg PO BID [facility] Last Admin: 11/10/18 09:38 Dose: 1,000 mg Metoprolol Tartrate (Lopressor) 75 mg PO BID [facility] Last Admin: 11/10/18 09:37 Dose: 75 mg Morphine Sulfate (Morphine Extended Release Tab) 15 mg PO Q8 [facility] Last Admin: 11/10/18 09:37 Dose: Not Given Morphine Sulfate (Morphine Immediate Release Tab) 15 mg PO Q4 PRN PRN Reason: Pain, severe (8-10) Last Admin: 11/09/18 18:26 Dose: 15 mg Ondansetron HCl (Zofran Inj) 4 mg IVPB Q6H PRN PRN Reason: Nausea/Vomiting Pantoprazole Sodium (Protonix Ec Tab) 40 mg PO DAILY [facility] Last Admin: 11/10/18 09:37 Dose: 40 mg Potassium Chloride (K-Dur 20 Meq Er Tab) 20 meq PO DAILY [facility] Last Admin: 11/10/18 09:38 Dose: 20 meq Rivaroxaban (Xarelto) 20 mg PO QPM [facility]; Protocol Last Admin: 11/09/18 17:01 Dose: 20 mg Sitagliptin Phosphate (Januvia) 50 mg PO BID [facility] Last Admin: 11/10/18 09:34 Dose: 50 mg - Labs Labs: 11/07/18 05:45 11/09/18 06:40 - Extremities Exam Additional comments: Left knee: noted hemarthrosis, moderate sang drainage from inferior wound. More redness and ecchymosis to knee today. Peripheral edema now 1-2+ sensation intact Calves soft NT neg homans Assessment and Plan (1) Status post revision of total replacement of left knee Assessment & Plan: still with fevers UTI knee swelling/bleeing, patient back on xarelto 20 since 11/06 r/o DVT r/o PE, pt tachycardic, ?feeling of anxiety betadine wet to dry elevation hold PT today d/w Dr. Brown, agrees with above Status: Acute (2) Vitamin D deficiency Status: Acute (3) UTI (urinary tract infection) Assessment & Plan: ID f/u appreciated Status: Acute
[2018-11-10] MEDS: Morphine 15 mg Immediate Release Tab PO PRN (10:31)
[2018-11-10 10:34] LABS: BASO # 0.1 K/uL (0.0-0.2); BASO % 0.6 % (0.0-2.0); EOS # 0.1 K/uL (0.0-0.7); EOS % 1.1 % (0.0-4.0); HEMOGLOBIN 10.8 g/dL (12.0-18.0); LYMPH % 9.9 % (20.0-40.0); MEAN CORPUSCULAR HEMOGLOBIN 29.1 pg (27.0-31.0); MEAN CORPUSCULAR HGB CONC 34.2 g/dL (33.0-37.0); MEAN PLATELET VOLUME 8.4 fl (7.2-11.7); MONO # 0.9 K/uL (0.0-0.8); MONO % 9.4 % (0.0-10.0); NEUT # 7.8 K/uL (1.8-7.0); NRBC % 0.1 % (0.0-0.0); PLATELET COUNT 330 K/uL (130-400); RBC 3.73 Mil/uL (4.40-5.90); RED CELL DISTRIBUTION WIDTH 13.8 % (11.5-14.5); WHITE BLOOD COUNT 9.8 K/uL (4.8-10.8)
[2018-11-10 10:59] LABS: BLOOD UREA NITROGEN 21 mg/dl (9-20); CALCIUM 8.9 mg/dL (8.4-10.2); GFR NON-AFRICAN AMERICAN > 60
[2018-11-10] MEDS ORDERED: Sodium Chloride 0.9% 50 ML IV ONE (11:20)
[2018-11-10] MEDS ORDERED: Iodixanol 320 MG/ML 100 ML BOTTLE IV ONE (11:20)
[2018-11-10 12:15] LABS: BASOPHIL 3 % (0-2); EOSINOPHIL 1 % (0-7); LYMPHOCYTE 10 % (20-50); MONOCYTE 9 % (0-10); NEUTROPHIL 77 % (42-75); PLATELET ESTIMATE NORMAL (NORMAL); TOTAL CELLS COUNTED 100
[2018-11-10 12:16] LABS: ANISOCYTOSIS SLIGHT; OVALOCYTES SLIGHT
[2018-11-10 12:17] LABS: LARGE PLATELETS PRESENT
--- NOTE | 2018-11-10 16:22 | CP.PCM.PN ---
Subjective - Date & Time of Evaluation Date of Evaluation: 11/10/18 Time of Evaluation: 16:20 - Subjective Subjective: I D NOTE KNEE IS SIILL PAINFUL,SWOLLEN WILL DC MAXIPEME ,START AZACTAM AWIT CT SCAN ,US Objective - Vital Signs/Intake and Output Vital Signs (last 24 hours): Temp Pulse Resp BP Pulse Ox 99.9 F H 99 H 20 115/70 95 11/10/18 16:08 11/10/18 16:08 11/10/18 16:08 11/10/18 16:08 11/10/18 16:08 - Medications Medications: Current Medications Acetaminophen (Tylenol 325mg Tab) 975 mg PO Q8H [facility] Last Admin: 11/10/18 13:38 Dose: Not Given Amlodipine Besylate (Norvasc) 10 mg PO DAILY [facility] Last Admin: 11/10/18 09:36 Dose: 10 mg Aspirin (Ecotrin) 81 mg PO DAILY [facility] Last Admin: 11/10/18 09:38 Dose: 81 mg Cholecalciferol (Vitamin D) 1,000 intlu PO DAILY [facility] Last Admin: 11/10/18 09:37 Dose: 1,000 intlu Digoxin (Digoxin) 0.125 mg PO DAILY [facility] Last Admin: 11/10/18 09:35 Dose: 0.125 mg Docusate Sodium (Colace) 100 mg PO BID [facility] Last Admin: 11/10/18 09:36 Dose: 100 mg Furosemide (Lasix) 40 mg PO DAILY [facility] Last Admin: 11/10/18 09:36 Dose: 40 mg Gabapentin (Neurontin) 300 mg PO BID [facility] Last Admin: 11/10/18 09:35 Dose: 300 mg Glyburide (Micronase) 1.25 mg PO DAILY [facility] Last Admin: 11/10/18 09:35 Dose: 1.25 mg HCTZ/Losartan Potassium (Hyzaar 12.5 Mg-50 Mg) 1 tab PO DAILY [facility] Last Admin: 11/10/18 09:35 Dose: 1 tab Daptomycin 690 mg/ Sodium (Chloride) 100 mls @ 100 mls/hr IV Q24H [facility]; Protocol Stop: 11/13/18 21:01 Last Admin: 11/09/18 20:43 Dose: 100 mls/hr Insulin Human Regular (Humulin R) 0 units SC ACHS [facility]; Protocol Last Admin: 11/10/18 13:34 Dose: 2 units Metformin HCl (Glucophage) 1,000 mg PO BID [facility] Last Admin: 11/10/18 09:38 Dose: 1,000 mg Metoprolol Tartrate (Lopressor) 75 mg PO BID [facility] Last Admin: 11/10/18 09:37 Dose: 75 mg Morphine Sulfate (Morphine Extended Release Tab) 15 mg PO Q8 [facility] Last Admin: 11/10/18 09:37 Dose: Not Given Morphine Sulfate (Morphine Immediate Release Tab) 15 mg PO Q4 PRN PRN Reason: Pain, severe (8-10) Last Admin: 11/10/18 10:31 Dose: 15 mg Ondansetron HCl (Zofran Inj) 4 mg IVPB Q6H PRN PRN Reason: Nausea/Vomiting Pantoprazole Sodium (Protonix Ec Tab) 40 mg PO DAILY [facility] Last Admin: 11/10/18 09:37 Dose: 40 mg Potassium Chloride (K-Dur 20 Meq Er Tab) 20 meq PO DAILY [facility] Last Admin: 11/10/18 09:38 Dose: 20 meq Rivaroxaban (Xarelto) 20 mg PO QPM [facility]; Protocol Last Admin: 11/09/18 17:01 Dose: 20 mg Sitagliptin Phosphate (Januvia) 50 mg PO BID [facility] Last Admin: 11/10/18 09:34 Dose: 50 mg - Labs Labs: 11/10/18 10:00 11/10/18 10:00
[2018-11-10] MEDS: Aztreonam 1 GM in Sodium Chloride 0.9% 100 ML IVPB SCH (21:36)
[2018-11-11] MEDS: Morphine 15 mg SR Tab PO SCH ×3 (00:56→17:23)
[2018-11-11] MEDS: Insulin Regular 100 units/ml SC SCH ×4 (06:42→21:56)
[2018-11-11] MEDS ORDERED: Povidone Iodine Topical 10% Sol ONE (07:33)
--- NOTE | 2018-11-11 08:10 | CP.PCM.PN ---
Subjective - Date & Time of Evaluation Date of Evaluation: 11/11/18 Time of Evaluation: 07:40 - Subjective Subjective: Patient seen and examined at bedside with Dr. Brown. Patient in moderate knee pain this AM but improved since yesterday. Patient continues to drain blood from distal wound for past 3 days. Denies CP/SOB/CROSS/dizziness. Objective - Vital Signs/Intake and Output Vital Signs (last 24 hours): Temp Pulse Resp BP Pulse Ox 98.8 F 80 20 137/84 96 11/11/18 07:47 11/11/18 07:47 11/11/18 07:47 11/11/18 07:47 11/11/18 07:47 - Medications Medications: Current Medications Acetaminophen (Tylenol 325mg Tab) 975 mg PO Q8H [facility] Last Admin: 11/11/18 05:10 Dose: Not Given Amlodipine Besylate (Norvasc) 10 mg PO DAILY [facility] Last Admin: 11/10/18 09:36 Dose: 10 mg Aspirin (Ecotrin) 81 mg PO DAILY [facility] Last Admin: 11/10/18 09:38 Dose: 81 mg Cholecalciferol (Vitamin D) 1,000 intlu PO DAILY [facility] Last Admin: 11/10/18 09:37 Dose: 1,000 intlu Digoxin (Digoxin) 0.125 mg PO DAILY [facility] Last Admin: 11/10/18 09:35 Dose: 0.125 mg Docusate Sodium (Colace) 100 mg PO BID [facility] Last Admin: 11/10/18 16:19 Dose: 100 mg Enoxaparin Sodium (Lovenox) 40 mg SC DAILY@0800 [facility]; Protocol Furosemide (Lasix) 40 mg PO DAILY [facility] Last Admin: 11/10/18 09:36 Dose: 40 mg Gabapentin (Neurontin) 300 mg PO BID [facility] Last Admin: 11/10/18 16:18 Dose: 300 mg Glyburide (Micronase) 1.25 mg PO DAILY [facility] Last Admin: 11/10/18 09:35 Dose: 1.25 mg HCTZ/Losartan Potassium (Hyzaar 12.5 Mg-50 Mg) 1 tab PO DAILY [facility] Last Admin: 11/10/18 09:35 Dose: 1 tab Daptomycin 690 mg/ Sodium (Chloride) 100 mls @ 100 mls/hr IV Q24H [facility]; Protocol Stop: 04/18/19 21:01 Last Admin: 11/10/18 20:15 Dose: 100 mls/hr Aztreonam 1 gm/ Sodium (Chloride) 100 mls @ 100 mls/hr IVPB Q12 [facility]; Protocol Last Admin: 11/10/18 21:36 Dose: 100 mls/hr Insulin Human Regular (Humulin R) 0 units SC ACHS [facility]; Protocol Last Admin: 11/11/18 06:42 Dose: 1 units Metformin HCl (Glucophage) 1,000 mg PO BID [facility] Last Admin: 11/10/18 16:19 Dose: 1,000 mg Metoprolol Tartrate (Lopressor) 75 mg PO BID [facility] Last Admin: 11/10/18 16:18 Dose: 75 mg Morphine Sulfate (Morphine Extended Release Tab) 15 mg PO Q8 [facility] Last Admin: 11/11/18 00:56 Dose: 15 mg Morphine Sulfate (Morphine Immediate Release Tab) 15 mg PO Q4 PRN PRN Reason: Pain, severe (8-10) Last Admin: 11/10/18 10:31 Dose: 15 mg Ondansetron HCl (Zofran Inj) 4 mg IVPB Q6H PRN PRN Reason: Nausea/Vomiting Pantoprazole Sodium (Protonix Ec Tab) 40 mg PO DAILY [facility] Last Admin: 11/10/18 09:37 Dose: 40 mg Potassium Chloride (K-Dur 20 Meq Er Tab) 20 meq PO DAILY [facility] Last Admin: 11/10/18 09:38 Dose: 20 meq Sitagliptin Phosphate (Januvia) 50 mg PO BID [facility] Last Admin: 11/10/18 16:19 Dose: 50 mg - Labs Labs: 11/10/18 10:00 11/10/18 10:00 - Extremities Exam Additional comments: L knee: moderate swelling and effusion bloody drainage from distal wound, mid to proximal wound CDI LLE edema sensation intact SP/DP/TN motor intact EHL/FHL/TA/G pedal pulse intact calves soft NT b/l Assessment and Plan (1) Status post revision of total replacement of left knee Assessment & Plan: POD# 8 s/p L revision TKA, with wound drainage -dressings changed this AM by Dr. Brown -CT PE and LE venous duplex performed yesterday negative for PE and DVT respectively -Xarelto will be held today due to the patient bleeding from distal wound for past 3 days -Resume DVT/PE ppx with Lovenox 40mg daily starting tomorrow AM -Hold PT/CPM today, bedrest -ice and elevate LLE -d/w Dr. Brown who agrees with above Status: Acute
[2018-11-11] MEDS: Digoxin 125 mcg (0.125 mg) Tab PO SCH (08:27)
[2018-11-11] MEDS: Potassium Chloride 20 mEq ER Tab PO SCH (08:28)
[2018-11-11] MEDS: HCTZ/Losartan 12.5/50 Tab PO SCH (08:28)
[2018-11-11] MEDS: Pantoprazole 40 mg EC Tab PO SCH (08:29)
[2018-11-11] MEDS: Cholecalciferol 1,000 INTLU TAB PO SCH (08:29)
[2018-11-11] MEDS: Morphine 15 mg Immediate Release Tab PO PRN (08:30)
[2018-11-11] MEDS: Aztreonam 1 GM in Sodium Chloride 0.9% 100 ML IVPB SCH ×2 (08:43→21:55)
[2018-11-11 09:41] LABS: INR 1.5; PROTHROMBIN TIME 17.2 Seconds (9.8-13.1)
[2018-11-11 09:44] LABS: PARTIAL THROMBOPLASTIN TIME 34.9 Seconds (25.6-37.1)
--- NOTE | 2018-11-11 14:47 | CP.PCM.PN ---
Subjective - Date & Time of Evaluation Date of Evaluation: 11/11/18 Time of Evaluation: 10:00 - Subjective Subjective: no acute leg pain Objective - Vital Signs/Intake and Output Vital Signs (last 24 hours): Temp Pulse Resp BP Pulse Ox 98.8 F 80 20 137/84 96 11/11/18 07:47 11/11/18 08:29 11/11/18 07:47 11/11/18 08:29 11/11/18 07:47 - Medications Medications: Current Medications Acetaminophen (Tylenol 325mg Tab) 975 mg PO Q8H [facility] Last Admin: 11/11/18 12:22 Dose: 975 mg Amlodipine Besylate (Norvasc) 10 mg PO DAILY [facility] Last Admin: 11/11/18 08:29 Dose: 10 mg Aspirin (Ecotrin) 81 mg PO DAILY [facility] Last Admin: 11/11/18 08:27 Dose: 81 mg Cholecalciferol (Vitamin D) 1,000 intlu PO DAILY [facility] Last Admin: 11/11/18 08:29 Dose: 1,000 intlu Digoxin (Digoxin) 0.125 mg PO DAILY [facility] Last Admin: 11/11/18 08:27 Dose: 0.125 mg Docusate Sodium (Colace) 100 mg PO BID [facility] Last Admin: 11/11/18 08:27 Dose: 100 mg Enoxaparin Sodium (Lovenox) 40 mg SC DAILY@0800 [facility]; Protocol Furosemide (Lasix) 40 mg PO DAILY [facility] Last Admin: 11/11/18 08:28 Dose: 40 mg Gabapentin (Neurontin) 300 mg PO BID [facility] Last Admin: 11/11/18 08:26 Dose: 300 mg Glyburide (Micronase) 1.25 mg PO DAILY [facility] Last Admin: 11/11/18 08:29 Dose: 1.25 mg HCTZ/Losartan Potassium (Hyzaar 12.5 Mg-50 Mg) 1 tab PO DAILY [facility] Last Admin: 11/11/18 08:28 Dose: 1 tab Daptomycin 690 mg/ Sodium (Chloride) 100 mls @ 100 mls/hr IV Q24H [facility]; Protocol Stop: 11/13/18 21:01 Last Admin: 11/10/18 20:15 Dose: 100 mls/hr Aztreonam 1 gm/ Sodium (Chloride) 100 mls @ 100 mls/hr IVPB Q12 [facility]; Protocol Last Admin: 11/11/18 08:43 Dose: 100 mls/hr Insulin Human Regular (Humulin R) 0 units SC ACHS [facility]; Protocol Last Admin: 11/11/18 11:09 Dose: 2 units Metformin HCl (Glucophage) 1,000 mg PO BID [facility] Last Admin: 11/11/18 08:28 Dose: 1,000 mg Metoprolol Tartrate (Lopressor) 75 mg PO BID [facility] Last Admin: 11/11/18 08:28 Dose: 75 mg Morphine Sulfate (Morphine Extended Release Tab) 15 mg PO Q8 [facility] Last Admin: 11/11/18 09:51 Dose: 15 mg Morphine Sulfate (Morphine Immediate Release Tab) 15 mg PO Q4 PRN PRN Reason: Pain, severe (8-10) Last Admin: 11/11/18 08:30 Dose: 15 mg Ondansetron HCl (Zofran Inj) 4 mg IVPB Q6H PRN PRN Reason: Nausea/Vomiting Pantoprazole Sodium (Protonix Ec Tab) 40 mg PO DAILY [facility] Last Admin: 11/11/18 08:29 Dose: 40 mg Potassium Chloride (K-Dur 20 Meq Er Tab) 20 meq PO DAILY [facility] Last Admin: 11/11/18 08:28 Dose: 20 meq Sitagliptin Phosphate (Januvia) 50 mg PO BID [facility] Last Admin: 11/11/18 08:28 Dose: 50 mg - Labs Labs: 11/10/18 10:00 11/10/18 10:00 PT 17.2 Seconds (9.8-13.1) H 11/11/18 09:00 INR 1.5 11/11/18 09:00 APTT 34.9 Seconds (25.6-37.1) 11/11/18 09:00 - Constitutional Appears: Well - Head Exam Head Exam: ATRAUMATIC, NORMAL INSPECTION, NORMOCEPHALIC - Eye Exam Eye Exam: EOMI, Normal appearance, PERRL Pupil Exam: NORMAL ACCOMODATION, PERRL - ENT Exam ENT Exam: Mucous Membranes Moist, Normal Exam - Neck Exam Neck Exam: Full ROM - Respiratory Exam Respiratory Exam: Clear to Ausculation Bilateral, NORMAL BREATHING PATTERN - Cardiovascular Exam Cardiovascular Exam: REGULAR RHYTHM - GI/Abdominal Exam GI & Abdominal Exam: Soft, Normal Bowel Sounds - Rectal Exam Rectal Exam: NORMAL INSPECTION - Exam External exam: NORMAL EXTERNAL EXAM - Extremities Exam Extremities Exam: Full ROM, Normal Capillary Refill - Back Exam Back Exam: NORMAL INSPECTION - Neurological Exam Neurological Exam: Alert Neuro motor strength exam: Left Lower Extremity: 3 - Psychiatric Exam Psychiatric exam: Normal Affect - Skin Skin Exam: Dry Assessment and Plan (1) Status post revision of total replacement of left knee Assessment & Plan: plan for physical, occupational therapy equipment eval and Dc planning Status: Acute (2) UTI (urinary tract infection) Status: Acute (3) Vitamin D deficiency Status: Acute (4) ASHD (arteriosclerotic heart disease) Status: Acute (5) Atrial fibrillation Status: Acute (6) Atrial fibrillation with RVR Status: Acute (7) CAD (coronary artery disease) Status: Acute (8) CHF (congestive heart failure) Status: Acute
--- NOTE | 2018-11-11 14:49 | CP.PCM.PN ---
Subjective - Date & Time of Evaluation Date of Evaluation: 11/08/18 Time of Evaluation: 18:00 - Subjective Subjective: patient with mild knee discomfort Objective - Vital Signs/Intake and Output Vital Signs (last 24 hours): Temp Pulse Resp BP Pulse Ox 98.8 F 80 20 137/84 96 11/11/18 07:47 11/11/18 08:29 11/11/18 07:47 11/11/18 08:29 11/11/18 07:47 - Medications Medications: Current Medications Acetaminophen (Tylenol 325mg Tab) 975 mg PO Q8H [facility] Last Admin: 11/11/18 12:22 Dose: 975 mg Amlodipine Besylate (Norvasc) 10 mg PO DAILY [facility] Last Admin: 11/11/18 08:29 Dose: 10 mg Aspirin (Ecotrin) 81 mg PO DAILY [facility] Last Admin: 11/11/18 08:27 Dose: 81 mg Cholecalciferol (Vitamin D) 1,000 intlu PO DAILY [facility] Last Admin: 11/11/18 08:29 Dose: 1,000 intlu Digoxin (Digoxin) 0.125 mg PO DAILY [facility] Last Admin: 11/11/18 08:27 Dose: 0.125 mg Docusate Sodium (Colace) 100 mg PO BID [facility] Last Admin: 11/11/18 08:27 Dose: 100 mg Enoxaparin Sodium (Lovenox) 40 mg SC DAILY@0800 [facility]; Protocol Furosemide (Lasix) 40 mg PO DAILY [facility] Last Admin: 11/11/18 08:28 Dose: 40 mg Gabapentin (Neurontin) 300 mg PO BID [facility] Last Admin: 11/11/18 08:26 Dose: 300 mg Glyburide (Micronase) 1.25 mg PO DAILY [facility] Last Admin: 11/11/18 08:29 Dose: 1.25 mg HCTZ/Losartan Potassium (Hyzaar 12.5 Mg-50 Mg) 1 tab PO DAILY [facility] Last Admin: 11/11/18 08:28 Dose: 1 tab Daptomycin 690 mg/ Sodium (Chloride) 100 mls @ 100 mls/hr IV Q24H [facility]; Protocol Stop: 11/13/18 21:01 Last Admin: 11/10/18 20:15 Dose: 100 mls/hr Aztreonam 1 gm/ Sodium (Chloride) 100 mls @ 100 mls/hr IVPB Q12 [facility]; Protocol Last Admin: 11/11/18 08:43 Dose: 100 mls/hr Insulin Human Regular (Humulin R) 0 units SC ACHS [facility]; Protocol Last Admin: 11/11/18 11:09 Dose: 2 units Metformin HCl (Glucophage) 1,000 mg PO BID [facility] Last Admin: 11/11/18 08:28 Dose: 1,000 mg Metoprolol Tartrate (Lopressor) 75 mg PO BID [facility] Last Admin: 11/11/18 08:28 Dose: 75 mg Morphine Sulfate (Morphine Extended Release Tab) 15 mg PO Q8 [facility] Last Admin: 11/11/18 09:51 Dose: 15 mg Morphine Sulfate (Morphine Immediate Release Tab) 15 mg PO Q4 PRN PRN Reason: Pain, severe (8-10) Last Admin: 11/11/18 08:30 Dose: 15 mg Ondansetron HCl (Zofran Inj) 4 mg IVPB Q6H PRN PRN Reason: Nausea/Vomiting Pantoprazole Sodium (Protonix Ec Tab) 40 mg PO DAILY [facility] Last Admin: 11/11/18 08:29 Dose: 40 mg Potassium Chloride (K-Dur 20 Meq Er Tab) 20 meq PO DAILY [facility] Last Admin: 11/11/18 08:28 Dose: 20 meq Sitagliptin Phosphate (Januvia) 50 mg PO BID [facility] Last Admin: 11/11/18 08:28 Dose: 50 mg - Labs Labs: 11/10/18 10:00 11/10/18 10:00 PT 17.2 Seconds (9.8-13.1) H 11/11/18 09:00 INR 1.5 11/11/18 09:00 APTT 34.9 Seconds (25.6-37.1) 11/11/18 09:00 - Constitutional Appears: Well - Head Exam Head Exam: ATRAUMATIC, NORMAL INSPECTION, NORMOCEPHALIC - Eye Exam Eye Exam: EOMI, Normal appearance, PERRL Pupil Exam: NORMAL ACCOMODATION - ENT Exam ENT Exam: Mucous Membranes Moist, Normal Exam - Neck Exam Neck Exam: Full ROM - Respiratory Exam Respiratory Exam: Clear to Ausculation Bilateral, NORMAL BREATHING PATTERN - Cardiovascular Exam Cardiovascular Exam: REGULAR RHYTHM - GI/Abdominal Exam GI & Abdominal Exam: Soft, Normal Bowel Sounds - Rectal Exam Rectal Exam: NORMAL INSPECTION - Exam External exam: NORMAL EXTERNAL EXAM - Extremities Exam Extremities Exam: Full ROM, Normal Capillary Refill - Back Exam Back Exam: NORMAL INSPECTION - Neurological Exam Neurological Exam: Alert Neuro motor strength exam: Left Lower Extremity: 3 - Psychiatric Exam Psychiatric exam: Normal Affect - Skin Skin Exam: Normal Color Assessment and Plan (1) Status post revision of total replacement of left knee Assessment & Plan: monitor skin, temp, and viatls, pain management, Pt and Ot . ID follow up Status: Acute (2) UTI (urinary tract infection) Status: Acute (3) Vitamin D deficiency Status: Acute (4) ASHD (arteriosclerotic heart disease) Status: Acute (5) Atrial fibrillation Status: Acute (6) Atrial fibrillation with RVR Status: Acute (7) CAD (coronary artery disease) Status: Acute (8) CHF (congestive heart failure) Status: Acute
--- NOTE | 2018-11-11 16:10 | CP.PCM.PN ---
Subjective - Date & Time of Evaluation Date of Evaluation: 11/11/18 Time of Evaluation: 14:00 - Subjective Subjective: Patient seen and examined bedside . All chart and clinical data reviewed. Care resumed . Hemodynamically stable, afebrile Pain is better controlled With minimal bleeding from lower portion of left knee surgical incision No acute issues overnight Tmax 99.9 WBC 9.8 Hgb 10.8 Objective - Vital Signs/Intake and Output Vital Signs (last 24 hours): Temp Pulse Resp BP Pulse Ox 98.8 F 80 20 137/84 96 11/11/18 07:47 11/11/18 08:29 11/11/18 07:47 11/11/18 08:29 11/11/18 07:47 - Medications Medications: Current Medications Acetaminophen (Tylenol 325mg Tab) 975 mg PO Q8H [facility] Last Admin: 11/11/18 12:22 Dose: 975 mg Amlodipine Besylate (Norvasc) 10 mg PO DAILY [facility] Last Admin: 11/11/18 08:29 Dose: 10 mg Aspirin (Ecotrin) 81 mg PO DAILY [facility] Last Admin: 11/11/18 08:27 Dose: 81 mg Cholecalciferol (Vitamin D) 1,000 intlu PO DAILY [facility] Last Admin: 11/11/18 08:29 Dose: 1,000 intlu Digoxin (Digoxin) 0.125 mg PO DAILY [facility] Last Admin: 11/11/18 08:27 Dose: 0.125 mg Docusate Sodium (Colace) 100 mg PO BID [facility] Last Admin: 11/11/18 08:27 Dose: 100 mg Enoxaparin Sodium (Lovenox) 40 mg SC DAILY@0800 [facility]; Protocol Furosemide (Lasix) 40 mg PO DAILY [facility] Last Admin: 11/11/18 08:28 Dose: 40 mg Gabapentin (Neurontin) 300 mg PO BID [facility] Last Admin: 11/11/18 08:26 Dose: 300 mg Glyburide (Micronase) 1.25 mg PO DAILY [facility] Last Admin: 11/11/18 08:29 Dose: 1.25 mg HCTZ/Losartan Potassium (Hyzaar 12.5 Mg-50 Mg) 1 tab PO DAILY [facility] Last Admin: 11/11/18 08:28 Dose: 1 tab Daptomycin 690 mg/ Sodium (Chloride) 100 mls @ 100 mls/hr IV Q24H [facility]; Protocol Stop: 11/13/18 21:01 Last Admin: 11/10/18 20:15 Dose: 100 mls/hr Aztreonam 1 gm/ Sodium (Chloride) 100 mls @ 100 mls/hr IVPB Q12 [facility]; Protocol Last Admin: 11/11/18 08:43 Dose: 100 mls/hr Insulin Human Regular (Humulin R) 0 units SC ACHS [facility]; Protocol Last Admin: 11/11/18 11:09 Dose: 2 units Metformin HCl (Glucophage) 1,000 mg PO BID [facility] Last Admin: 11/11/18 08:28 Dose: 1,000 mg Metoprolol Tartrate (Lopressor) 75 mg PO BID [facility] Last Admin: 11/11/18 08:28 Dose: 75 mg Morphine Sulfate (Morphine Extended Release Tab) 15 mg PO Q8 [facility] Last Admin: 11/11/18 09:51 Dose: 15 mg Morphine Sulfate (Morphine Immediate Release Tab) 15 mg PO Q4 PRN PRN Reason: Pain, severe (8-10) Last Admin: 11/11/18 08:30 Dose: 15 mg Ondansetron HCl (Zofran Inj) 4 mg IVPB Q6H PRN PRN Reason: Nausea/Vomiting Pantoprazole Sodium (Protonix Ec Tab) 40 mg PO DAILY [facility] Last Admin: 11/11/18 08:29 Dose: 40 mg Potassium Chloride (K-Dur 20 Meq Er Tab) 20 meq PO DAILY [facility] Last Admin: 11/11/18 08:28 Dose: 20 meq Sitagliptin Phosphate (Januvia) 50 mg PO BID [facility] Last Admin: 11/11/18 08:28 Dose: 50 mg - Labs Labs: 11/10/18 10:00 11/10/18 10:00 PT 17.2 Seconds (9.8-13.1) H 11/11/18 09:00 INR 1.5 11/11/18 09:00 APTT 34.9 Seconds (25.6-37.1) 11/11/18 09:00 - Constitutional Appears: Non-toxic, No Acute Distress - Head Exam Head Exam: ATRAUMATIC, NORMAL INSPECTION, NORMOCEPHALIC - Eye Exam Eye Exam: EOMI, Normal appearance, PERRL - ENT Exam ENT Exam: Mucous Membranes Moist, Normal Exam - Neck Exam Neck Exam: Full ROM, Normal Inspection - Respiratory Exam Respiratory Exam: Clear to Ausculation Bilateral. absent: Rales, Rhonchi, Wheezes, Respiratory Distress - Cardiovascular Exam Cardiovascular Exam: Tachycardia, Irregular Rhythm. absent: JVD - GI/Abdominal Exam GI & Abdominal Exam: Soft, Normal Bowel Sounds. absent: Distended, Guarding, Tenderness, Rebound - Rectal Exam Rectal Exam: Deferred - Extremities Exam Extremities Exam: Normal Capillary Refill. absent: Calf Tenderness, Pedal Edema Additional comments: left knee surgical incision with brooke in place appears clean and intact - Back Exam Back Exam: NORMAL INSPECTION - Neurological Exam Neurological Exam: Alert, Awake, CN II-XII Intact, Oriented x3 - Psychiatric Exam Psychiatric exam: Normal Affect, Normal Mood - Skin Skin Exam: Dry, Normal Color, Warm Assessment and Plan - Assessment and Plan (Free Text) Assessment: 63 y/o male with hx of Chronic A Fib, CHF, CAD and Arthritis was admitted to TCU for physical therapy after revision of left TKR. At present in TCU doing well, pain is better controlled Developed bleeding from lower portion of surgical incision last couple of days while on Xarelto for AFIB At present Xarelto on hold as per ortho recommendations. 1. s/p Revision of left TKR Ortho on board following Continue pain management Surgical incision appears clean and intact with minimal bleeding from lower portion .As per ortho patient had developed Hemarthrosis due to xarelto use and most likely this was the reason for post op fever PT and Xarelto on hold as per ortho Continue pain management on Aztreonam and daptomycin empirically due to post op fever Started Lovenox 40 mg SQ daily for DVt prophylaxis 2.Post op fever Id on consult ] on aztreonam and Daptomycin empirically [place] cx [place] [id number] colonies Most likely reason for fever is left knee hemarthrosis as per ortho Hold Xarelto 3. Chronic A Fib rate controlled Continue Metoprolol 75 mg PO BID and dig Hold xarelto for now since patient developed hemarthrosis patient knows that he is at increased risk for stroke by holding Xarelto 4.DM II controlled Continuew Accuchecks, insulin coverage , diabetic diet On Januvia and Glyburide 5. History of CHF and CAD continue losartan, ASA, statin , Lasix Stable 6. Vitamine D deficiency continue with supplementation 7. Acute blood loss anemia Hgb 10.8 monitor for now 8. DVT prophylaxis Started Lovenox as per ortho
--- NOTE | 2018-11-11 22:54 | CP.PCM.CON ---
History of Present Illness - History of Present Illness History of Present Illness: 63 year old male with a history of CHF, CAD s/p stent, DM, HTN, afib on Xarelto, admitted to TCU s/p left TKR revision, complicated by surgical site serosanguinous drainage/bleeding. The patient has had Xarelto held. He notes to near resolution of drainage and bleeding. He has not had bleeding and clotting problems in the past. Past medical history: CHF, CAD s/p stent, DM, HTN, afib on xarelto Past surgical history: cholecystectomy, left TKR and revision. Family history: Denies Social history: Denies tobacco, alcohol, and illicit drug use. Allergies: Several, see list Review of systems: All remaining review of systems including HEENT, cardiovascular, respiratory, gastrointestinal, genitourinary, musculoskeletal, dermatologic, neurologic, and psychiatric are negative unless mentioned in the HPI. Past Patient History - Infectious Disease Hx of Infectious Diseases: None - Past Medical History & Family History Past Medical History?: Yes - Past Social History Smoking Status: Former Smoker - CARDIAC Hx Cardiac Disorders: No Hx Congestive Heart Failure: No - PULMONARY Hx Respiratory Disorders: No - NEUROLOGICAL Hx Neurological Disorder: No - HEENT Hx HEENT Problems: No - RENAL Hx Chronic Kidney Disease: No - ENDOCRINE/METABOLIC Hx Endocrine Disorders: Yes Hx Diabetes Mellitus Type 2: Yes - HEMATOLOGICAL/ONCOLOGICAL Hx AIDS: No Hx Human Immunodeficiency Virus (HIV): No - INTEGUMENTARY Hx Dermatological Problems: No - MUSCULOSKELETAL/RHEUMATOLOGICAL Hx Falls: No Other/Comment: pt fell on ice and sustained subdural bleed - GASTROINTESTINAL Hx Gastrointestinal Disorders: No - GENITOURINARY/GYNECOLOGICAL Hx Genitourinary Disorders: No - PSYCHIATRIC Hx Emotional Abuse: No Hx Physical Abuse: No Hx Substance Use: No - SURGICAL HISTORY Hx Cholecystectomy: Yes Hx Herniorrhaphy: Yes Hx Joint Replacement: Yes (Left TKR 2005) Hx Open Reduction Internal Fixation: Yes (left ankle) Other/Comment: Left knee Sx - ANESTHESIA Hx Anesthesia Reactions: Yes (HEADACHES AND QUEASY STOMACH) Meds Allergies/Adverse Reactions: Allergies Allergy/AdvReac Type Severity Reaction Status Date / Time azithromycin Allergy RASH Verified 11/05/18 14:40 [From Zithromax Z-Mitchell] ciprofloxacin [From Cipro] Allergy RASH Verified 11/05/18 14:40 ciprofloxacin HCl Allergy RASH Verified 11/05/18 14:40 [From Cipro] Penicillins Allergy RASH Verified 11/05/18 14:40 - Medications Medications: Current Medications Acetaminophen (Tylenol 325mg Tab) 975 mg PO Q8H [facility] Last Admin: 11/11/18 21:59 Dose: Not Given Amlodipine Besylate (Norvasc) 10 mg PO DAILY [facility] Last Admin: 11/11/18 08:29 Dose: 10 mg Aspirin (Ecotrin) 81 mg PO DAILY [facility] Last Admin: 11/11/18 08:27 Dose: 81 mg Cholecalciferol (Vitamin D) 1,000 intlu PO DAILY [facility] Last Admin: 11/11/18 08:29 Dose: 1,000 intlu Digoxin (Digoxin) 0.125 mg PO DAILY [facility] Last Admin: 11/11/18 08:27 Dose: 0.125 mg Docusate Sodium (Colace) 100 mg PO BID [facility] Last Admin: 11/11/18 17:22 Dose: 100 mg Enoxaparin Sodium (Lovenox) 40 mg SC DAILY@0800 [facility]; Protocol Furosemide (Lasix) 40 mg PO DAILY [facility] Last Admin: 11/11/18 08:28 Dose: 40 mg Gabapentin (Neurontin) 300 mg PO BID [facility] Last Admin: 11/11/18 17:22 Dose: 300 mg Glyburide (Micronase) 1.25 mg PO DAILY [facility] Last Admin: 11/11/18 08:29 Dose: 1.25 mg HCTZ/Losartan Potassium (Hyzaar 12.5 Mg-50 Mg) 1 tab PO DAILY [facility] Last Admin: 11/11/18 08:28 Dose: 1 tab Daptomycin 690 mg/ Sodium (Chloride) 100 mls @ 100 mls/hr IV Q24H [facility]; Protocol Stop: 11/13/18 21:01 Last Admin: 11/10/18 20:15 Dose: 100 mls/hr Aztreonam 1 gm/ Sodium (Chloride) 100 mls @ 100 mls/hr IVPB Q12 [facility]; Protocol Last Admin: 11/11/18 21:55 Dose: 100 mls/hr Insulin Human Regular (Humulin R) 0 units SC ACHS [facility]; Protocol Last Admin: 11/11/18 21:56 Dose: Not Given Metformin HCl (Glucophage) 1,000 mg PO BID [facility] Last Admin: 11/11/18 17:23 Dose: 1,000 mg Metoprolol Tartrate (Lopressor) 75 mg PO BID [facility] Last Admin: 11/11/18 17:23 Dose: 75 mg Morphine Sulfate (Morphine Extended Release Tab) 15 mg PO Q8 [facility] Last Admin: 11/11/18 17:23 Dose: 15 mg Morphine Sulfate (Morphine Immediate Release Tab) 15 mg PO Q4 PRN PRN Reason: Pain, severe (8-10) Last Admin: 11/11/18 08:30 Dose: 15 mg Ondansetron HCl (Zofran Inj) 4 mg IVPB Q6H PRN PRN Reason: Nausea/Vomiting Pantoprazole Sodium (Protonix Ec Tab) 40 mg PO DAILY [facility] Last Admin: 11/11/18 08:29 Dose: 40 mg Potassium Chloride (K-Dur 20 Meq Er Tab) 20 meq PO DAILY [facility] Last Admin: 11/11/18 08:28 Dose: 20 meq Sitagliptin Phosphate (Januvia) 50 mg PO BID [facility] Last Admin: 11/11/18 17:23 Dose: 50 mg Physical Exam - Head Exam Head Exam: ATRAUMATIC - Eye Exam Eye Exam: Normal appearance - ENT Exam ENT Exam: Mucous Membranes Dry - Respiratory Exam Respiratory Exam: NORMAL BREATHING PATTERN - Cardiovascular Exam Cardiovascular Exam: +S1, +S2 - GI/Abdominal Exam GI & Abdominal Exam: Normal Bowel Sounds - Extremities Exam Additional comments: left LE dressing - Neurological Exam Neurological exam: Oriented x3 - Psychiatric Exam Psychiatric exam: Normal Affect, Normal Mood - Skin Skin Exam: Warm Results - Vital Signs Recent Vital Signs: Last Vital Signs Temp 99.3 F 11/11/18 20:01 Pulse 77 11/11/18 20:01 Resp 20 11/11/18 20:01 BP 126/80 11/11/18 20:01 Pulse Ox 97 11/11/18 20:01 - Labs Result Diagrams: 11/10/18 10:00 11/10/18 10:00 Labs: Laboratory Results - last 24 hr 11/11/18 11/11/18 11/11/18 05:11 09:00 10:51 PT 17.2 H INR 1.5 APTT 34.9 POC Glucose (mg/dL) 168 H 252 H 11/11/18 11/11/18 15:58 20:50 PT INR APTT POC Glucose (mg/dL) 139 H 211 H Assessment & Plan (1) Bleeding Assessment and Plan: appears to have resolved agree with holding Xarelto for now, on aspirin okay to start lovenox 40mg prophylaxis tomorrow AM; would recommend prophylaxis dosing of lovenox for several days and if no bleeding, can consider therapeutic anticoagulation Status: Acute (2) Anemia Assessment and Plan: surgical blood loss retic count, b12, folate, ferritin to further characterize Status: Acute (3) Coagulopathy Assessment and Plan: secondary to anticoagulation Thank you for this interesting consult. Status: Acute
[2018-11-12] MEDS: Morphine 15 mg SR Tab PO SCH (00:38)
[2018-11-12] MEDS: Insulin Regular 100 units/ml SC SCH ×4 (06:52→21:19)
--- NOTE | 2018-11-12 07:56 | CP.PCM.PN ---
Subjective - Date & Time of Evaluation Date of Evaluation: 11/12/18 Time of Evaluation: 07:56 - Subjective Subjective: Patient seen and examined with Dr. Brown. Pain is better controlled today. Swelling and drainage has improved. He denies any CP/SOB/fever overnight. Objective - Vital Signs/Intake and Output Vital Signs (last 24 hours): Temp Pulse Resp BP Pulse Ox 99.3 F 77 20 126/80 97 11/11/18 20:01 11/11/18 20:01 11/11/18 20:01 11/11/18 20:01 11/11/18 20:01 - Medications Medications: Current Medications Acetaminophen (Tylenol 325mg Tab) 975 mg PO Q8H [facility] Last Admin: 11/12/18 04:00 Dose: Not Given Amlodipine Besylate (Norvasc) 10 mg PO DAILY [facility] Last Admin: 11/11/18 08:29 Dose: 10 mg Aspirin (Ecotrin) 81 mg PO DAILY [facility] Last Admin: 11/11/18 08:27 Dose: 81 mg Cholecalciferol (Vitamin D) 1,000 intlu PO DAILY [facility] Last Admin: 11/11/18 08:29 Dose: 1,000 intlu Digoxin (Digoxin) 0.125 mg PO DAILY [facility] Last Admin: 11/11/18 08:27 Dose: 0.125 mg Docusate Sodium (Colace) 100 mg PO BID [facility] Last Admin: 11/11/18 17:22 Dose: 100 mg Enoxaparin Sodium (Lovenox) 40 mg SC DAILY@0800 [facility]; Protocol Furosemide (Lasix) 40 mg PO DAILY [facility] Last Admin: 11/11/18 08:28 Dose: 40 mg Gabapentin (Neurontin) 300 mg PO BID [facility] Last Admin: 11/11/18 17:22 Dose: 300 mg Glyburide (Micronase) 1.25 mg PO DAILY [facility] Last Admin: 11/11/18 08:29 Dose: 1.25 mg HCTZ/Losartan Potassium (Hyzaar 12.5 Mg-50 Mg) 1 tab PO DAILY [facility] Last Admin: 11/11/18 08:28 Dose: 1 tab Daptomycin 690 mg/ Sodium (Chloride) 100 mls @ 100 mls/hr IV Q24H [facility]; Protocol Stop: 11/13/18 21:01 Last Admin: 11/11/18 23:19 Dose: 100 mls/hr Aztreonam 1 gm/ Sodium (Chloride) 100 mls @ 100 mls/hr IVPB Q12 [facility]; Protocol Last Admin: 11/11/18 21:55 Dose: 100 mls/hr Insulin Human Regular (Humulin R) 0 units SC ACHS [facility]; Protocol Last Admin: 11/12/18 06:52 Dose: Not Given Metformin HCl (Glucophage) 1,000 mg PO BID [facility] Last Admin: 11/11/18 17:23 Dose: 1,000 mg Metoprolol Tartrate (Lopressor) 75 mg PO BID [facility] Last Admin: 11/11/18 17:23 Dose: 75 mg Ondansetron HCl (Zofran Inj) 4 mg IVPB Q6H PRN PRN Reason: Nausea/Vomiting Oxycodone/Acetaminophen (Percocet 5/325 Mg Tab) 1 tab PO Q4 PRN PRN Reason: Pain, severe (8-10) Stop: 11/15/18 07:55 Pantoprazole Sodium (Protonix Ec Tab) 40 mg PO DAILY [facility] Last Admin: 11/11/18 08:29 Dose: 40 mg Potassium Chloride (K-Dur 20 Meq Er Tab) 20 meq PO DAILY [facility] Last Admin: 11/11/18 08:28 Dose: 20 meq Sitagliptin Phosphate (Januvia) 50 mg PO BID [facility] Last Admin: 11/11/18 17:23 Dose: 50 mg - Labs Labs: 11/10/18 10:00 11/10/18 10:00 PT 17.2 Seconds (9.8-13.1) H 11/11/18 09:00 INR 1.5 11/11/18 09:00 APTT 34.9 Seconds (25.6-37.1) 11/11/18 09:00 - Extremities Exam Additional comments: L knee: moderate swelling and effusion improved Dressings with mild dry bloody drainage from distal wound, mid to proximal wound CDI, no active bleeding sensation intact SP/DP/TN motor intact EHL/FHL/TA/G pedal pulse intact calves soft NT b/l Assessment and Plan (1) Status post revision of total replacement of left knee Assessment & Plan: POD# 9 s/p L revision TKA, with wound drainage -wet to dry betadine dressings changed this AM with Dr. Brown -continue to hold Xarelto, start Lovenox 40mg daily -Resume PT/CPM today -ice and elevate LLE -d/w Dr. Brown who agrees with above Status: Acute
[2018-11-12] MEDS: Aztreonam 1 GM in Sodium Chloride 0.9% 100 ML IVPB SCH ×2 (08:12→20:26)
[2018-11-12] MEDS: Digoxin 125 mcg (0.125 mg) Tab PO SCH (08:13)
[2018-11-12] MEDS: HCTZ/Losartan 12.5/50 Tab PO SCH (08:14)
[2018-11-12] MEDS: Potassium Chloride 20 mEq ER Tab PO SCH (08:14)
[2018-11-12] MEDS: Pantoprazole 40 mg EC Tab PO SCH (08:15)
[2018-11-12] MEDS: Cholecalciferol 1,000 INTLU TAB PO SCH (08:15)
[2018-11-12] MEDS: Enoxaparin 40 mg Syringe SC SCH (08:15)
[2018-11-12] MEDS: Oxycodone/Acetaminophen 5/325 mg Tab PO PRN ×3 (09:48→20:26)
--- NOTE | 2018-11-12 13:18 | CP.PCM.PN ---
Subjective - Date & Time of Evaluation Date of Evaluation: 11/12/18 Time of Evaluation: 12:00 - Subjective Subjective: patinet now feeling better Objective - Vital Signs/Intake and Output Vital Signs (last 24 hours): Temp Pulse Resp BP Pulse Ox 99.2 F 94 H 20 136/86 98 11/12/18 07:57 11/12/18 08:15 11/12/18 07:57 11/12/18 08:15 11/12/18 07:57 - Medications Medications: Current Medications Acetaminophen (Tylenol 325mg Tab) 975 mg PO Q8H [facility] Last Admin: 11/12/18 11:26 Dose: 975 mg Amlodipine Besylate (Norvasc) 10 mg PO DAILY [facility] Last Admin: 11/12/18 08:15 Dose: 10 mg Aspirin (Ecotrin) 81 mg PO DAILY [facility] Last Admin: 11/12/18 11:26 Dose: 81 mg Cholecalciferol (Vitamin D) 1,000 intlu PO DAILY [facility] Last Admin: 11/12/18 08:15 Dose: 1,000 intlu Digoxin (Digoxin) 0.125 mg PO DAILY [facility] Last Admin: 11/12/18 08:13 Dose: 0.125 mg Docusate Sodium (Colace) 100 mg PO BID [facility] Last Admin: 11/12/18 08:12 Dose: 100 mg Enoxaparin Sodium (Lovenox) 40 mg SC DAILY@0800 [facility]; Protocol Last Admin: 11/12/18 08:15 Dose: 40 mg Furosemide (Lasix) 40 mg PO DAILY [facility] Last Admin: 11/12/18 08:14 Dose: 40 mg Gabapentin (Neurontin) 300 mg PO BID [facility] Last Admin: 11/12/18 08:13 Dose: 300 mg Glyburide (Micronase) 1.25 mg PO DAILY [facility] Last Admin: 11/12/18 08:13 Dose: 1.25 mg HCTZ/Losartan Potassium (Hyzaar 12.5 Mg-50 Mg) 1 tab PO DAILY [facility] Last Admin: 11/12/18 08:14 Dose: 1 tab Daptomycin 690 mg/ Sodium (Chloride) 100 mls @ 100 mls/hr IV Q24H [facility]; Protocol Stop: 11/13/18 21:01 Last Admin: 11/11/18 23:19 Dose: 100 mls/hr Aztreonam 1 gm/ Sodium (Chloride) 100 mls @ 100 mls/hr IVPB Q12 [facility]; Protocol Last Admin: 11/12/18 08:12 Dose: 100 mls/hr Insulin Human Regular (Humulin R) 0 units SC ACHS [facility]; Protocol Last Admin: 11/12/18 11:28 Dose: 3 units Metformin HCl (Glucophage) 1,000 mg PO BID [facility] Last Admin: 11/12/18 08:12 Dose: 1,000 mg Metoprolol Tartrate (Lopressor) 75 mg PO BID [facility] Last Admin: 11/12/18 08:14 Dose: 75 mg Ondansetron HCl (Zofran Inj) 4 mg IVPB Q6H PRN PRN Reason: Nausea/Vomiting Oxycodone/Acetaminophen (Percocet 5/325 Mg Tab) 1 tab PO Q4 PRN PRN Reason: Pain, severe (8-10) Stop: 11/15/18 07:55 Last Admin: 11/12/18 09:48 Dose: 1 tab Pantoprazole Sodium (Protonix Ec Tab) 40 mg PO DAILY [facility] Last Admin: 11/12/18 08:15 Dose: 40 mg Potassium Chloride (K-Dur 20 Meq Er Tab) 20 meq PO DAILY [facility] Last Admin: 11/12/18 08:14 Dose: 20 meq Sitagliptin Phosphate (Januvia) 50 mg PO BID [facility] Last Admin: 11/12/18 08:13 Dose: 50 mg - Labs Labs: 11/10/18 10:00 11/10/18 10:00 PT 17.2 Seconds (9.8-13.1) H 11/11/18 09:00 INR 1.5 11/11/18 09:00 APTT 34.9 Seconds (25.6-37.1) 11/11/18 09:00 - Constitutional Appears: Well - Head Exam Head Exam: ATRAUMATIC, NORMAL INSPECTION, NORMOCEPHALIC - Eye Exam Eye Exam: EOMI, Normal appearance, PERRL Pupil Exam: NORMAL ACCOMODATION, PERRL - ENT Exam ENT Exam: Mucous Membranes Moist, Normal Exam - Neck Exam Neck Exam: Full ROM, Normal Inspection - Respiratory Exam Respiratory Exam: Clear to Ausculation Bilateral, NORMAL BREATHING PATTERN - Cardiovascular Exam Cardiovascular Exam: REGULAR RHYTHM - GI/Abdominal Exam GI & Abdominal Exam: Soft, Normal Bowel Sounds - Rectal Exam Rectal Exam: NORMAL INSPECTION - Exam External exam: NORMAL EXTERNAL EXAM - Extremities Exam Extremities Exam: Full ROM, Normal Capillary Refill, Normal Inspection - Back Exam Back Exam: NORMAL INSPECTION - Neurological Exam Neuro motor strength exam: Left Lower Extremity: 3 - Psychiatric Exam Psychiatric exam: Normal Affect, Normal Mood - Skin Skin Exam: Dry, Intact Assessment and Plan (1) Status post revision of total replacement of left knee Assessment & Plan: patient off hold for therapies, plan for physical, occupational therapy, evaluation for equipmen at home and home services. Moniot infection and skin incisional site and pain Status: Acute (2) UTI (urinary tract infection) Status: Acute (3) Vitamin D deficiency Status: Acute (4) ASHD (arteriosclerotic heart disease) Status: Acute (5) Atrial fibrillation Status: Acute (6) Atrial fibrillation with RVR Status: Acute (7) CAD (coronary artery disease) Status: Acute (8) CHF (congestive heart failure) Status: Acute
[2018-11-12 17:09] LABS: FOLATE 14.6 ng/mL
--- NOTE | 2018-11-12 18:14 | CP.PCM.PN ---
Subjective - Date & Time of Evaluation Date of Evaluation: 11/12/09 Time of Evaluation: 18:08 - Subjective Subjective: iI D NOTE STILL FEBRIL;E HAS PAIN ,LESS BLOOD LOSS HAVE ORDERED PICC LINE CONTINUE IV ANTIBIOTICS FOR EXTENDED PERIOD WILL RE EVAIUATE FOR LENGTH OF RX Objective - Vital Signs/Intake and Output Vital Signs (last 24 hours): Temp Pulse Resp BP Pulse Ox 99.3 F 86 20 105/69 99 11/12/18 15:26 11/12/18 16:35 11/12/18 15:26 11/12/18 16:35 11/12/18 15:26 - Medications Medications: Current Medications Acetaminophen (Tylenol 325mg Tab) 975 mg PO Q8H ON LICENSE OF [facility] Last Admin: 11/12/18 11:26 Dose: 975 mg Amlodipine Besylate (Norvasc) 10 mg PO DAILY ON LICENSE OF [facility] Last Admin: 11/12/18 08:15 Dose: 10 mg Aspirin (Ecotrin) 81 mg PO DAILY ON [facility] OF [facility] Last Admin: 11/12/18 11:26 Dose: 81 mg Cholecalciferol (Vitamin D) 1,000 intlu PO DAILY ON [facility] OF [facility] Last Admin: 11/12/18 08:15 Dose: 1,000 intlu Digoxin (Digoxin) 0.125 mg PO DAILY ON LICENSE OF [facility] Last Admin: 11/12/18 08:13 Dose: 0.125 mg Docusate Sodium (Colace) 100 mg PO BID ON LICENSE OF [facility] Last Admin: 11/12/18 16:34 Dose: 100 mg Enoxaparin Sodium (Lovenox) 40 mg SC DAILY@0800 ON LICENSE OF [facility]; Protocol Last Admin: 11/12/18 08:15 Dose: 40 mg Furosemide (Lasix) 40 mg PO DAILY ON [facility] OF [facility] Last Admin: 11/12/18 08:14 Dose: 40 mg Gabapentin (Neurontin) 300 mg PO BID ON [facility] OF [facility] Last Admin: 11/12/18 16:34 Dose: 300 mg Glyburide (Micronase) 1.25 mg PO DAILY ON [facility] OF [facility] Last Admin: 11/12/18 08:13 Dose: 1.25 mg HCTZ/Losartan Potassium (Hyzaar 12.5 Mg-50 Mg) 1 tab PO DAILY ON [facility] OF [facility] Last Admin: 11/12/18 08:14 Dose: 1 tab Daptomycin 690 mg/ Sodium (Chloride) 100 mls @ 100 mls/hr IV Q24H ON LICENSE OF [facility]; Protocol Stop: 04/18/19 21:01 Last Admin: 11/11/18 23:19 Dose: 100 mls/hr Aztreonam 1 gm/ Sodium (Chloride) 100 mls @ 100 mls/hr IVPB Q12 ON [facility] OF [facility]; Protocol Last Admin: 11/12/18 08:12 Dose: 100 mls/hr Insulin Human Regular (Humulin R) 0 units SC ACHS ON LICENSE OF [facility]; Protocol Last Admin: 11/12/18 16:34 Dose: Not Given Metformin HCl (Glucophage) 1,000 mg PO BID ON [facility] OF [facility] Last Admin: 11/12/18 16:34 Dose: 1,000 mg Metoprolol Tartrate (Lopressor) 75 mg PO BID ON [facility] OF [facility] Last Admin: 11/12/18 16:35 Dose: 75 mg Ondansetron HCl (Zofran Inj) 4 mg IVPB Q6H PRN PRN Reason: Nausea/Vomiting Oxycodone/Acetaminophen (Percocet 5/325 Mg Tab) 1 tab PO Q4 PRN PRN Reason: Pain, severe (8-10) Stop: 11/15/18 07:55 Last Admin: 11/12/18 16:33 Dose: 1 tab Pantoprazole Sodium (Protonix Ec Tab) 40 mg PO DAILY ON [facility] OF [facility] Last Admin: 11/12/18 08:15 Dose: 40 mg Potassium Chloride (K-Dur 20 Meq Er Tab) 20 meq PO DAILY ON [facility] OF [facility] Last Admin: 11/12/18 08:14 Dose: 20 meq Sitagliptin Phosphate (Januvia) 50 mg PO BID ON LICENSE OF [facility] Last Admin: 11/12/18 16:35 Dose: 50 mg - Labs Labs: 11/10/18 10:00 11/10/18 10:00 PT 17.2 Seconds (9.8-13.1) H 11/11/18 09:00 INR 1.5 11/11/18 09:00 APTT 34.9 Seconds (25.6-37.1) 11/11/18 09:00
[2018-11-13] MEDS: Oxycodone/Acetaminophen 5/325 mg Tab PO PRN ×5 (01:33→23:47)
[2018-11-13 05:46] LABS: BASO # 0.1 K/uL (0.0-0.2); BASO % 1.4 % (0.0-2.0); EOS # 0.1 K/uL (0.0-0.7); EOS % 1.5 % (0.0-4.0); HEMOGLOBIN 11.4 g/dL (12.0-18.0); LYMPH # 1.4 K/uL (1.0-4.3); MEAN CORPUSCULAR HEMOGLOBIN 29.4 pg (27.0-31.0); MEAN CORPUSCULAR HGB CONC 34.2 g/dL (33.0-37.0); MONO # 0.9 K/uL (0.0-0.8); MONO % 10.3 % (0.0-10.0); NEUT # 6.2 K/uL (1.8-7.0); NEUT % 70.8 % (50.0-75.0); NRBC % 0.1 % (0.0-0.0); RBC 3.87 Mil/uL (4.40-5.90); RED CELL DISTRIBUTION WIDTH 14.5 % (11.5-14.5); WHITE BLOOD COUNT 8.8 K/uL (4.8-10.8)
[2018-11-13 05:59] LABS: ALB/GLOB RATIO 1.1 (1.0-2.1); ALBUMIN 3.4 g/dL (3.5-5.0); ALT/SGPT 39 U/L (21-72); AST/SGOT 33 U/L (17-59); BLOOD UREA NITROGEN 16 mg/dl (9-20); CALCIUM 8.6 mg/dL (8.4-10.2); GFR NON-AFRICAN AMERICAN > 60
[2018-11-13] MEDS: Insulin Regular 100 units/ml SC SCH ×4 (06:50→22:23)
[2018-11-13] MEDS: Digoxin 125 mcg (0.125 mg) Tab PO SCH (08:16)
[2018-11-13] MEDS: Enoxaparin 40 mg Syringe SC SCH (08:16)
[2018-11-13] MEDS: HCTZ/Losartan 12.5/50 Tab PO SCH (08:17)
[2018-11-13] MEDS: Cholecalciferol 1,000 INTLU TAB PO SCH (08:17)
[2018-11-13] MEDS: Potassium Chloride 20 mEq ER Tab PO SCH (08:17)
[2018-11-13] MEDS: Pantoprazole 40 mg EC Tab PO SCH (08:18)
[2018-11-13] MEDS: Aztreonam 1 GM in Sodium Chloride 0.9% 100 ML IVPB SCH ×2 (08:22→21:35)
--- NOTE | 2018-11-13 09:04 | CP.PCM.PN ---
Subjective - Date & Time of Evaluation Date of Evaluation: 11/13/18 Time of Evaluation: 07:15 - Subjective Subjective: Patient seen and examined at bedside comfortable. Anxious overnight. Pain well controlled. No other complaints. Objective - Vital Signs/Intake and Output Vital Signs (last 24 hours): Temp Pulse Resp BP Pulse Ox 98.8 F 100 H 20 147/88 98 11/13/18 08:01 11/13/18 08:17 11/13/18 08:01 11/13/18 08:18 11/13/18 08:01 - Medications Medications: Current Medications Acetaminophen (Tylenol 325mg Tab) 975 mg PO Q8H [facility] Last Admin: 11/13/18 04:00 Dose: Not Given Amlodipine Besylate (Norvasc) 10 mg PO DAILY [facility] Last Admin: 11/13/18 08:17 Dose: 10 mg Aspirin (Ecotrin) 81 mg PO DAILY [facility] Last Admin: 11/13/18 08:17 Dose: 81 mg Cholecalciferol (Vitamin D) 1,000 intlu PO DAILY [facility] Last Admin: 11/13/18 08:17 Dose: 1,000 intlu Digoxin (Digoxin) 0.125 mg PO DAILY [facility] Last Admin: 11/13/18 08:16 Dose: 0.125 mg Docusate Sodium (Colace) 100 mg PO BID [facility] Last Admin: 11/13/18 08:17 Dose: 100 mg Enoxaparin Sodium (Lovenox) 40 mg SC DAILY@0800 [facility]; Protocol Last Admin: 11/13/18 08:16 Dose: 40 mg Furosemide (Lasix) 40 mg PO DAILY [facility] Last Admin: 11/13/18 08:18 Dose: 40 mg Gabapentin (Neurontin) 300 mg PO BID [facility] Last Admin: 11/13/18 08:18 Dose: 300 mg Glyburide (Micronase) 1.25 mg PO DAILY [facility] Last Admin: 11/12/18 08:13 Dose: 1.25 mg HCTZ/Losartan Potassium (Hyzaar 12.5 Mg-50 Mg) 1 tab PO DAILY [facility] Last Admin: 11/13/18 08:17 Dose: 1 tab Daptomycin 690 mg/ Sodium (Chloride) 100 mls @ 100 mls/hr IV Q24H [facility]; Protocol Stop: 11/13/18 21:01 Last Admin: 11/12/18 21:20 Dose: 100 mls/hr Aztreonam 1 gm/ Sodium (Chloride) 100 mls @ 100 mls/hr IVPB Q12 [facility]; Protocol Last Admin: 11/13/18 08:22 Dose: 100 mls/hr Insulin Human Regular (Humulin R) 0 units SC ACHS [facility]; Protocol Last Admin: 11/13/18 06:50 Dose: 2 units Metformin HCl (Glucophage) 1,000 mg PO BID [facility] Last Admin: 11/13/18 08:18 Dose: 1,000 mg Metoprolol Tartrate (Lopressor) 75 mg PO BID [facility] Last Admin: 11/13/18 08:16 Dose: 75 mg Ondansetron HCl (Zofran Inj) 4 mg IVPB Q6H PRN PRN Reason: Nausea/Vomiting Oxycodone/Acetaminophen (Percocet 5/325 Mg Tab) 1 tab PO Q4 PRN PRN Reason: Pain, severe (8-10) Stop: 11/15/18 07:55 Last Admin: 11/13/18 01:33 Dose: 1 tab Pantoprazole Sodium (Protonix Ec Tab) 40 mg PO DAILY [facility] Last Admin: 11/13/18 08:18 Dose: 40 mg Potassium Chloride (K-Dur 20 Meq Er Tab) 20 meq PO DAILY [facility] Last Admin: 11/13/18 08:17 Dose: 20 meq Sitagliptin Phosphate (Januvia) 50 mg PO BID [facility] Last Admin: 11/13/18 08:17 Dose: 50 mg - Labs Labs: 11/13/18 05:20 11/13/18 05:20 PT 17.2 Seconds (9.8-13.1) H 11/11/18 09:00 INR 1.5 11/11/18 09:00 APTT 34.9 Seconds (25.6-37.1) 11/11/18 09:00 - Extremities Exam Additional comments: L knee: mild to moderate swelling and effusion Dressings with mild dry bloody drainage from distal wound, mid to proximal wound CDI, no active bleeding sensation intact SP/DP/TN motor intact EHL/FHL/TA/G pedal pulse intact calves soft NT b/l Assessment and Plan (1) Status post revision of total replacement of left knee Assessment & Plan: POD# 10 s/p L revision TKA, with wound drainage -wet to dry betadine dressings changed this AM -abx as per ID, IV abx x 2 weeks, PICC to be inserted today -continue Lovenox 40mg daily -PT/OT/CPM -ice and elevate LLE -d/w Dr. Brown who agrees with above Status: Acute
--- NOTE | 2018-11-13 20:41 | CP.PCM.PN ---
Subjective - Date & Time of Evaluation Date of Evaluation: 11/13/18 Time of Evaluation: 12:00 - Subjective Subjective: Has left knee discomfort Objective - Vital Signs/Intake and Output Vital Signs (last 24 hours): Temp Pulse Resp BP Pulse Ox 99.3 F 83 20 139/80 97 11/13/18 19:44 11/13/18 19:37 11/13/18 19:37 11/13/18 19:37 11/13/18 19:37 - Medications Medications: Current Medications Acetaminophen (Tylenol 325mg Tab) 975 mg PO Q8H [facility] Last Admin: 11/13/18 19:44 Dose: 975 mg Amlodipine Besylate (Norvasc) 10 mg PO DAILY [facility] Last Admin: 11/13/18 08:17 Dose: 10 mg Aspirin (Ecotrin) 81 mg PO DAILY [facility] Last Admin: 11/13/18 08:17 Dose: 81 mg Cholecalciferol (Vitamin D) 1,000 intlu PO DAILY [facility] Last Admin: 11/13/18 08:17 Dose: 1,000 intlu Digoxin (Digoxin) 0.125 mg PO DAILY [facility] Last Admin: 11/13/18 08:16 Dose: 0.125 mg Docusate Sodium (Colace) 100 mg PO BID [facility] Last Admin: 11/13/18 16:34 Dose: 100 mg Enoxaparin Sodium (Lovenox) 40 mg SC DAILY@0800 [facility]; Protocol Last Admin: 11/13/18 08:16 Dose: 40 mg Furosemide (Lasix) 40 mg PO DAILY [facility] Last Admin: 11/13/18 08:18 Dose: 40 mg Gabapentin (Neurontin) 300 mg PO BID [facility] Last Admin: 11/13/18 16:33 Dose: 300 mg Glyburide (Micronase) 1.25 mg PO DAILY [facility] Last Admin: 11/13/18 12:31 Dose: 1.25 mg HCTZ/Losartan Potassium (Hyzaar 12.5 Mg-50 Mg) 1 tab PO DAILY [facility] Last Admin: 11/13/18 08:17 Dose: 1 tab Daptomycin 690 mg/ Sodium (Chloride) 100 mls @ 100 mls/hr IV Q24H [facility]; Protocol Stop: 11/13/18 21:01 Last Admin: 11/12/18 21:20 Dose: 100 mls/hr Aztreonam 1 gm/ Sodium (Chloride) 100 mls @ 100 mls/hr IVPB Q12 [facility]; Protocol Last Admin: 11/13/18 08:22 Dose: 100 mls/hr Insulin Human Regular (Humulin R) 0 units SC ACHS [facility]; Protocol Last Admin: 11/13/18 16:35 Dose: 1 units Metformin HCl (Glucophage) 1,000 mg PO BID [facility] Last Admin: 11/13/18 16:34 Dose: 1,000 mg Metoprolol Tartrate (Lopressor) 75 mg PO BID [facility] Last Admin: 11/13/18 16:35 Dose: 75 mg Ondansetron HCl (Zofran Inj) 4 mg IVPB Q6H PRN PRN Reason: Nausea/Vomiting Oxycodone/Acetaminophen (Percocet 5/325 Mg Tab) 1 tab PO Q4 PRN PRN Reason: Pain, severe (8-10) Stop: 11/15/18 07:55 Last Admin: 11/13/18 19:43 Dose: 1 tab Pantoprazole Sodium (Protonix Ec Tab) 40 mg PO DAILY [facility] Last Admin: 11/13/18 08:18 Dose: 40 mg Potassium Chloride (K-Dur 20 Meq Er Tab) 20 meq PO DAILY [facility] Last Admin: 11/13/18 08:17 Dose: 20 meq Sitagliptin Phosphate (Januvia) 50 mg PO BID [facility] Last Admin: 11/13/18 16:34 Dose: 50 mg - Labs Labs: 11/13/18 05:20 11/13/18 05:20 PT 17.2 Seconds (9.8-13.1) H 11/11/18 09:00 INR 1.5 11/11/18 09:00 APTT 34.9 Seconds (25.6-37.1) 11/11/18 09:00 - Head Exam Head Exam: ATRAUMATIC - Eye Exam Eye Exam: Normal appearance - ENT Exam ENT Exam: Mucous Membranes Dry - Respiratory Exam Respiratory Exam: NORMAL BREATHING PATTERN - Cardiovascular Exam Cardiovascular Exam: +S1, +S2 - GI/Abdominal Exam GI & Abdominal Exam: Normal Bowel Sounds - Extremities Exam Additional comments: left knee dressing Assessment and Plan (1) Bleeding Assessment & Plan: resolved recommend cont. aspirin and lovenox 40mg subq until sees orthopedics as outpatient if surgical site is cleared by orthopedics and felt to be healing appropriately as an outpatient, can discontinue lovenox and restart Xarelto Status: Acute (2) Anemia Assessment & Plan: improving Status: Acute (3) Coagulopathy Assessment & Plan: secondary to anticoagulation Status: Acute
[2018-11-14] MEDS: Insulin Regular 100 units/ml SC SCH ×4 (06:40→22:07)
--- NOTE | 2018-11-14 08:43 | CP.PCM.PN ---
Subjective - Date & Time of Evaluation Date of Evaluation: 11/14/18 Time of Evaluation: 08:42 - Subjective Subjective: Patient complains of continued knee and thigh pain. Denies CP/SOB/dizziness Objective - Vital Signs/Intake and Output Vital Signs (last 24 hours): Temp Pulse Resp BP Pulse Ox 98.4 F 73 20 147/90 99 11/14/18 08:18 11/14/18 08:18 11/14/18 08:18 11/14/18 08:18 11/14/18 08:18 - Medications Medications: Current Medications Acetaminophen (Tylenol 325mg Tab) 975 mg PO Q8H [facility] Last Admin: 11/14/18 04:09 Dose: 975 mg Amlodipine Besylate (Norvasc) 10 mg PO DAILY [facility] Last Admin: 11/13/18 08:17 Dose: 10 mg Aspirin (Ecotrin) 81 mg PO DAILY [facility] Last Admin: 11/13/18 08:17 Dose: 81 mg Cholecalciferol (Vitamin D) 1,000 intlu PO DAILY [facility] Last Admin: 11/13/18 08:17 Dose: 1,000 intlu Digoxin (Digoxin) 0.125 mg PO DAILY [facility] Last Admin: 11/13/18 08:16 Dose: 0.125 mg Docusate Sodium (Colace) 100 mg PO BID [facility] Last Admin: 11/13/18 16:34 Dose: 100 mg Enoxaparin Sodium (Lovenox) 40 mg SC DAILY@0800 [facility]; Protocol Last Admin: 11/13/18 08:16 Dose: 40 mg Furosemide (Lasix) 40 mg PO DAILY [facility] Last Admin: 11/13/18 08:18 Dose: 40 mg Gabapentin (Neurontin) 300 mg PO BID [facility] Last Admin: 11/13/18 16:33 Dose: 300 mg Glyburide (Micronase) 1.25 mg PO DAILY [facility] Last Admin: 11/13/18 12:31 Dose: 1.25 mg HCTZ/Losartan Potassium (Hyzaar 12.5 Mg-50 Mg) 1 tab PO DAILY [facility] Last Admin: 11/13/18 08:17 Dose: 1 tab Aztreonam 1 gm/ Sodium (Chloride) 100 mls @ 100 mls/hr IVPB Q12 [facility]; Protocol Last Admin: 11/13/18 21:35 Dose: 100 mls/hr Insulin Human Regular (Humulin R) 0 units SC ACHS [facility]; Protocol Last Admin: 11/14/18 06:40 Dose: Not Given Metformin HCl (Glucophage) 1,000 mg PO BID [facility] Last Admin: 11/13/18 16:34 Dose: 1,000 mg Metoprolol Tartrate (Lopressor) 75 mg PO BID [facility] Last Admin: 11/13/18 16:35 Dose: 75 mg Ondansetron HCl (Zofran Inj) 4 mg IVPB Q6H PRN PRN Reason: Nausea/Vomiting Oxycodone/Acetaminophen (Percocet 5/325 Mg Tab) 1 tab PO Q4 PRN PRN Reason: Pain, severe (8-10) Stop: 11/15/18 07:55 Last Admin: 11/13/18 23:47 Dose: 1 tab Pantoprazole Sodium (Protonix Ec Tab) 40 mg PO DAILY [facility] Last Admin: 11/13/18 08:18 Dose: 40 mg Potassium Chloride (K-Dur 20 Meq Er Tab) 20 meq PO DAILY [facility] Last Admin: 11/13/18 08:17 Dose: 20 meq Sitagliptin Phosphate (Januvia) 50 mg PO BID [facility] Last Admin: 11/13/18 16:34 Dose: 50 mg - Labs Labs: 11/13/18 05:20 11/13/18 05:20 PT 17.2 Seconds (9.8-13.1) H 11/11/18 09:00 INR 1.5 11/11/18 09:00 APTT 34.9 Seconds (25.6-37.1) 11/11/18 09:00 - Extremities Exam Additional comments: Left knee: incision intact, very small amount of sang drainage distal incision, rest of incision dry. Betadine applied to draining part of wound. Peripheral edema now 1+. +ROM ankle/toes, sensation intact AROM 0-85, +DP/PT pulses, no erythema Assessment and Plan (1) Status post revision of total replacement of left knee Assessment & Plan: orthopedically stable for d/c per Dr. Brown f/u in office on 11/18 daily dressing changes until dry cont VTE proph Per Dr. Brown, continue lovenox 40mg SQ daily until 11/21, then resume xarelto on 11/22 dw/ Dr. Brown, agrees with above cont PT/OT cont AROM knee Status: Acute (2) Vitamin D deficiency Status: Acute (3) UTI (urinary tract infection) Status: Acute
[2018-11-14] MEDS: Enoxaparin 40 mg Syringe SC SCH (09:00)
[2018-11-14] MEDS: Aztreonam 1 GM in Sodium Chloride 0.9% 100 ML IVPB SCH ×2 (09:07→21:30)
[2018-11-14] MEDS: Digoxin 125 mcg (0.125 mg) Tab PO SCH (09:08)
[2018-11-14] MEDS: Potassium Chloride 20 mEq ER Tab PO SCH (09:09)
[2018-11-14] MEDS: HCTZ/Losartan 12.5/50 Tab PO SCH (09:09)
[2018-11-14] MEDS: Cholecalciferol 1,000 INTLU TAB PO SCH (09:11)
[2018-11-14] MEDS: Oxycodone/Acetaminophen 5/325 mg Tab PO PRN ×3 (09:11→21:36)
[2018-11-14] MEDS: Pantoprazole 40 mg EC Tab PO SCH (09:11)
--- NOTE | 2018-11-14 13:25 | CP.PCM.PN ---
Subjective - Date & Time of Evaluation Date of Evaluation: 11/14/18 Time of Evaluation: 13:20 - Subjective Subjective: I D NOTE PATIENT TO RECEIVE AT LEAST 2 WEEKS OF IV ANTIBIOTIC RX HAVE WRITTEN HOME INFUSION ORDERS Objective - Vital Signs/Intake and Output Vital Signs (last 24 hours): Temp Pulse Resp BP Pulse Ox 98.4 F 96 H 20 123/82 98 11/14/18 08:18 11/14/18 10:56 11/14/18 08:18 11/14/18 10:56 11/14/18 10:56 - Medications Medications: Current Medications Acetaminophen (Tylenol 325mg Tab) 975 mg PO Q8H [facility] Last Admin: 11/14/18 12:09 Dose: 975 mg Amlodipine Besylate (Norvasc) 10 mg PO DAILY [facility] Last Admin: 11/14/18 09:10 Dose: 10 mg Aspirin (Ecotrin) 81 mg PO DAILY [facility] Last Admin: 11/14/18 09:08 Dose: 81 mg Cholecalciferol (Vitamin D) 1,000 intlu PO DAILY [facility] Last Admin: 11/14/18 09:11 Dose: 1,000 intlu Digoxin (Digoxin) 0.125 mg PO DAILY [facility] Last Admin: 11/14/18 09:08 Dose: 0.125 mg Docusate Sodium (Colace) 100 mg PO BID [facility] Last Admin: 11/14/18 09:08 Dose: 100 mg Enoxaparin Sodium (Lovenox) 40 mg SC DAILY@0800 [facility]; Protocol Last Admin: 11/14/18 09:00 Dose: 40 mg Furosemide (Lasix) 40 mg PO DAILY [facility] Last Admin: 11/14/18 09:09 Dose: 40 mg Gabapentin (Neurontin) 300 mg PO BID [facility] Last Admin: 11/14/18 09:10 Dose: 300 mg Glyburide (Micronase) 1.25 mg PO DAILY [facility] Last Admin: 11/14/18 09:10 Dose: 1.25 mg HCTZ/Losartan Potassium (Hyzaar 12.5 Mg-50 Mg) 1 tab PO DAILY [facility] Last Admin: 11/14/18 09:09 Dose: 1 tab Aztreonam 1 gm/ Sodium (Chloride) 100 mls @ 100 mls/hr IVPB Q12 [facility]; Protocol Last Admin: 11/14/18 09:07 Dose: 100 mls/hr Daptomycin 690 mg/ Sodium (Chloride) 100 mls @ 100 mls/hr IV Q24H [facility]; Protocol Stop: 11/19/18 13:16 Insulin Human Regular (Humulin R) 0 units SC ACHS [facility]; Protocol Last Admin: 11/14/18 12:10 Dose: 2 units Metformin HCl (Glucophage) 1,000 mg PO BID [facility] Last Admin: 11/14/18 09:09 Dose: 1,000 mg Metoprolol Tartrate (Lopressor) 75 mg PO BID [facility] Last Admin: 11/14/18 09:10 Dose: 75 mg Ondansetron HCl (Zofran Inj) 4 mg IVPB Q6H PRN PRN Reason: Nausea/Vomiting Oxycodone/Acetaminophen (Percocet 5/325 Mg Tab) 1 tab PO Q4 PRN PRN Reason: Pain, severe (8-10) Stop: 11/15/18 07:55 Last Admin: 11/14/18 09:11 Dose: 1 tab Pantoprazole Sodium (Protonix Ec Tab) 40 mg PO DAILY [facility] Last Admin: 11/14/18 09:11 Dose: 40 mg Potassium Chloride (K-Dur 20 Meq Er Tab) 20 meq PO DAILY [facility] Last Admin: 11/14/18 09:09 Dose: 20 meq Sitagliptin Phosphate (Januvia) 50 mg PO BID [facility] Last Admin: 11/14/18 09:09 Dose: 50 mg - Labs Labs: 11/13/18 05:20 11/13/18 05:20 PT 17.2 Seconds (9.8-13.1) H 11/11/18 09:00 INR 1.5 11/11/18 09:00 APTT 34.9 Seconds (25.6-37.1) 11/11/18 09:00
--- NOTE | 2018-11-14 16:05 | CP.PCM.PN ---
Subjective - Date & Time of Evaluation Date of Evaluation: 11/14/18 Time of Evaluation: 09:00 - Subjective Subjective: patinet with still occasional knee discomfort Objective - Vital Signs/Intake and Output Vital Signs (last 24 hours): Temp Pulse Resp BP Pulse Ox 98.4 F 96 H 20 123/82 98 11/14/18 08:18 11/14/18 10:56 11/14/18 08:18 11/14/18 10:56 11/14/18 10:56 - Medications Medications: Current Medications Acetaminophen (Tylenol 325mg Tab) 975 mg PO Q8H [facility] Last Admin: 11/14/18 12:09 Dose: 975 mg Amlodipine Besylate (Norvasc) 10 mg PO DAILY [facility] Last Admin: 11/14/18 09:10 Dose: 10 mg Aspirin (Ecotrin) 81 mg PO DAILY [facility] Last Admin: 11/14/18 09:08 Dose: 81 mg Cholecalciferol (Vitamin D) 1,000 intlu PO DAILY [facility] Last Admin: 11/14/18 09:11 Dose: 1,000 intlu Digoxin (Digoxin) 0.125 mg PO DAILY [facility] Last Admin: 11/14/18 09:08 Dose: 0.125 mg Docusate Sodium (Colace) 100 mg PO BID [facility] Last Admin: 11/14/18 09:08 Dose: 100 mg Enoxaparin Sodium (Lovenox) 40 mg SC DAILY@0800 [facility]; Protocol Last Admin: 11/14/18 09:00 Dose: 40 mg Furosemide (Lasix) 40 mg PO DAILY [facility] Last Admin: 11/14/18 09:09 Dose: 40 mg Gabapentin (Neurontin) 300 mg PO BID [facility] Last Admin: 11/14/18 09:10 Dose: 300 mg Glyburide (Micronase) 1.25 mg PO DAILY [facility] Last Admin: 11/14/18 09:10 Dose: 1.25 mg HCTZ/Losartan Potassium (Hyzaar 12.5 Mg-50 Mg) 1 tab PO DAILY [facility] Last Admin: 11/14/18 09:09 Dose: 1 tab Aztreonam 1 gm/ Sodium (Chloride) 100 mls @ 100 mls/hr IVPB Q12 [facility]; Protocol Last Admin: 11/14/18 09:07 Dose: 100 mls/hr Daptomycin 690 mg/ Sodium (Chloride) 100 mls @ 100 mls/hr IV Q24H [facility]; Protocol Stop: 11/19/18 13:16 Insulin Human Regular (Humulin R) 0 units SC ACHS [facility]; Protocol Last Admin: 11/14/18 12:10 Dose: 2 units Metformin HCl (Glucophage) 1,000 mg PO BID [facility] Last Admin: 11/14/18 09:09 Dose: 1,000 mg Metoprolol Tartrate (Lopressor) 75 mg PO BID [facility] Last Admin: 11/14/18 09:10 Dose: 75 mg Ondansetron HCl (Zofran Inj) 4 mg IVPB Q6H PRN PRN Reason: Nausea/Vomiting Oxycodone/Acetaminophen (Percocet 5/325 Mg Tab) 1 tab PO Q4 PRN PRN Reason: Pain, severe (8-10) Stop: 11/15/18 07:55 Last Admin: 11/14/18 14:37 Dose: 1 tab Pantoprazole Sodium (Protonix Ec Tab) 40 mg PO DAILY [facility] Last Admin: 11/14/18 09:11 Dose: 40 mg Potassium Chloride (K-Dur 20 Meq Er Tab) 20 meq PO DAILY [facility] Last Admin: 11/14/18 09:09 Dose: 20 meq Sitagliptin Phosphate (Januvia) 50 mg PO BID [facility] Last Admin: 11/14/18 09:09 Dose: 50 mg - Labs Labs: 11/13/18 05:20 11/13/18 05:20 PT 17.2 Seconds (9.8-13.1) H 11/11/18 09:00 INR 1.5 11/11/18 09:00 APTT 34.9 Seconds (25.6-37.1) 11/11/18 09:00 - Constitutional Appears: Well - Head Exam Head Exam: ATRAUMATIC, NORMAL INSPECTION, NORMOCEPHALIC - Eye Exam Eye Exam: EOMI, Normal appearance, PERRL Pupil Exam: NORMAL ACCOMODATION - ENT Exam ENT Exam: Mucous Membranes Moist, Normal Exam - Neck Exam Neck Exam: Full ROM, Normal Inspection - Respiratory Exam Respiratory Exam: Clear to Ausculation Bilateral, NORMAL BREATHING PATTERN - Cardiovascular Exam Cardiovascular Exam: REGULAR RHYTHM - GI/Abdominal Exam GI & Abdominal Exam: Soft, Normal Bowel Sounds - Rectal Exam Rectal Exam: NORMAL INSPECTION - Exam External exam: NORMAL EXTERNAL EXAM - Extremities Exam Extremities Exam: Full ROM, Normal Capillary Refill, Normal Inspection - Back Exam Back Exam: NORMAL INSPECTION - Neurological Exam Neurological Exam: Alert, Awake Neuro motor strength exam: Left Lower Extremity: 3 - Psychiatric Exam Psychiatric exam: Normal Affect, Normal Mood - Skin Skin Exam: Dry, Intact Assessment and Plan (1) Status post revision of total replacement of left knee Assessment & Plan: plan for discharge status post therapy, to continue with antiboitics, follow up with orthopedic doctor and PMD Status: Acute (2) UTI (urinary tract infection) Status: Acute (3) Vitamin D deficiency Status: Acute (4) ASHD (arteriosclerotic heart disease) Status: Acute (5) Atrial fibrillation Status: Acute (6) Atrial fibrillation with RVR Status: Acute (7) CAD (coronary artery disease) Status: Acute (8) CHF (congestive heart failure) Status: Acute
[2018-11-14 21:36] VITALS: O2SAT 98
[2018-11-15] MEDS: Oxycodone/Acetaminophen 5/325 mg Tab PO PRN (06:46)
[2018-11-15] MEDS: Insulin Regular 100 units/ml SC SCH ×2 (06:49→11:32)
[2018-11-15] MEDS: Enoxaparin 40 mg Syringe SC SCH (08:15)
[2018-11-15 08:16] VITALS: BP 142/88; PULSE 80
[2018-11-15] MEDS: Cholecalciferol 1,000 INTLU TAB PO SCH (08:16)
[2018-11-15 08:17] VITALS: PULSE 80
[2018-11-15] MEDS: Digoxin 125 mcg (0.125 mg) Tab PO SCH (08:17)
[2018-11-15] MEDS: Pantoprazole 40 mg EC Tab PO SCH (08:18)
[2018-11-15 08:19] VITALS: TEMP 99.1
[2018-11-15] MEDS: HCTZ/Losartan 12.5/50 Tab PO SCH (08:19)
[2018-11-15] MEDS: Potassium Chloride 20 mEq ER Tab PO SCH (08:19)
[2018-11-15] MEDS: Aztreonam 1 GM in Sodium Chloride 0.9% 100 ML IVPB SCH (08:20)
[2018-11-15] MEDS ORDERED: Povidone Iodine Topical 10% Sol ONE (11:17)
--- NOTE | 2018-11-15 11:56 | CP.PCM.DIS ---
Provider - Provider Date of Admission: 11/05/18 17:29 Attending physician: Finesse Peterson MD Primary care physician: Kaveh Henderson MD Consults: 11/05/18 18:03 Orthopedic Consult Routine Comment: Consulting Provider: Abdiaziz Brown III Consulting Physician: Abdiaziz Brown III Reason for Consult: s/p revision Left TKR 11/06/18 13:43 Physician Consult Routine Comment: Consulting Provider: Johnie Manzano Consulting Physician: Johnie Manzano Reason for Consult: post-op fever 11/06/18 15:45 Physiatry Consult Routine Comment: Consulting Provider: Brian Gerardo Md Consulting Physician: Brian Gerardo Md Reason for Consult: pain management 11/07/18 10:07 Physiatry Consult Routine Comment: Consulting Provider: Yoseph Ball Consulting Physician: Yoseph Ball Reason for Consult: s/p left tkr 11/11/18 08:20 Hematology Oncology Consult Routine Comment: Consulting Provider: Adalberto Benitez Consulting Physician: Adalberto Benitez Reason for Consult: hematology consult; s/p Left TKR; on anticoagulant therapy Time Spent in preparation of Discharge (in minutes): 25 Diagnosis - Discharge Diagnosis (1) Status post revision of total replacement of left knee Status: Acute Comment: follow up with Dr Jauregui in a week. continue Lovenox until seen by o rthopedist (2) Atrial fibrillation Status: Acute Comment: rate controlled. continue Metoprolol. Xarelto placed on hold because of hemarthrosis (3) DM2 (diabetes mellitus, type 2) Status: Acute Comment: BS controlled. continue Januvia, Metformin and Glyburide (4) CAD (coronary artery disease) Status: Acute Priority: Medium Comment: continue ASA and statin, Hospital Course - Lab Results Lab Results: Micro Results 11/06/18 03:35 Blood-Venous Blood Culture - Final NO GROWTH AFTER 5 DAYS 11/06/18 03:35 Blood-Venous Gram Stain - Final TEST NOT PERFORMED 11/06/18 06:18 Urine,Clean Catch Urine Culture - Final Gram Negative Jaycob Most Recent Lab Values WBC 8.8 K/uL (4.8-10.8) 11/13/18 05:20 RBC 3.87 Mil/uL (4.40-5.90) L 11/13/18 05:20 Hgb 11.4 g/dL (12.0-18.0) L 11/13/18 05:20 Hct 33.2 % (35.0-51.0) L 11/13/18 05:20 MCV 86.0 fl (80.0-94.0) 11/13/18 05:20 MCH 29.4 pg (27.0-31.0) 11/13/18 05:20 MCHC 34.2 g/dL (33.0-37.0) 11/13/18 05:20 RDW 14.5 % (11.5-14.5) 11/13/18 05:20 Plt Count 382 K/uL (130-400) 11/13/18 05:20 MPV 8.0 fl (7.2-11.7) 11/13/18 05:20 Neut % (Auto) 70.8 % (50.0-75.0) 11/13/18 05:20 Lymph % (Auto) 16.0 % (20.0-40.0) L 11/13/18 05:20 White % (Auto) 10.3 % (0.0-10.0) H 11/13/18 05:20 Eos % (Auto) 1.5 % (0.0-4.0) 11/13/18 05:20 Baso % (Auto) 1.4 % (0.0-2.0) 11/13/18 05:20 Neut # (Auto) 6.2 K/uL (1.8-7.0) 11/13/18 05:20 Lymph # (Auto) 1.4 K/uL (1.0-4.3) 11/13/18 05:20 White # (Auto) 0.9 K/uL (0.0-0.8) H 11/13/18 05:20 Eos # (Auto) 0.1 K/uL (0.0-0.7) 11/13/18 05:20 Baso # (Auto) 0.1 K/uL (0.0-0.2) 11/13/18 05:20 Neutrophils % (Manual) 77 % (42-75) H 11/10/18 10:00 Lymphocytes % (Manual) 10 % (20-50) L 11/10/18 10:00 Monocytes % (Manual) 9 % (0-10) 11/10/18 10:00 Eosinophils % (Manual) 1 % (0-7) 11/10/18 10:00 Basophils % (Manual) 3 % (0-2) H 11/10/18 10:00 Platelet Estimate Normal (NORMAL) 11/10/18 10:00 Large Platelets Present 11/10/18 10:00 Anisocytosis (manual) Slight 11/10/18 10:00 Macrocytosis (manual) Slight 11/10/18 10:00 Ovalocytes Slight 11/10/18 10:00 Retic Count 5.8 % (0.5-1.5) H 11/12/18 05:50 PT 17.2 Seconds (9.8-13.1) H 11/11/18 09:00 INR 1.5 11/11/18 09:00 APTT 34.9 Seconds (25.6-37.1) 11/11/18 09:00 Sodium 136 mmol/l (132-148) 11/13/18 05:20 Potassium 3.3 MMOL/L (3.6-5.0) L 11/13/18 05:20 Chloride 99 mmol/L (98-107) 11/13/18 05:20 Carbon Dioxide 30 mmol/L (22-30) 11/13/18 05:20 Anion Gap 10 (10-20) 11/13/18 05:20 BUN 16 mg/dl (9-20) 11/13/18 05:20 Creatinine 0.9 mg/dl (0.8-1.5) 11/13/18 05:20 Est GFR ( Amer) > 60 11/13/18 05:20 Est GFR (Non-Af Amer) > 60 11/13/18 05:20 POC Glucose (mg/dL) 233 mg/dL (65-110) H 11/15/18 10:45 Random Glucose 190 mg/dL (75-110) H 11/13/18 05:20 Lactic Acid 2.6 mmol/L (0.7-2.1) H 11/06/18 06:10 Calcium 8.6 mg/dL (8.4-10.2) 11/13/18 05:20 Ferritin 141.0 ng/Ml (17.9-464) 11/12/18 05:50 Total Bilirubin 0.7 mg/dl (0.2-1.3) 11/13/18 05:20 AST 33 U/L (17-59) 11/13/18 05:20 ALT 39 U/L (21-72) 11/13/18 05:20 Alkaline Phosphatase 80 U/L (38-126) 11/13/18 05:20 Total Creatine Kinase 62 U/L (55-170) 11/13/18 05:20 Total Protein 6.6 G/DL (6.3-8.2) 11/13/18 05:20 Albumin 3.4 g/dL (3.5-5.0) L 11/13/18 05:20 Globulin 3.2 gm/dL (2.2-3.9) 11/13/18 05:20 Albumin/Globulin Ratio 1.1 (1.0-2.1) 11/13/18 05:20 Vitamin B12 752 pg/mL (239-931) 11/12/18 05:50 Folate 14.6 ng/mL 11/12/18 05:50 Procalcitonin 0.28 NG/ML (0.19-0.49) 11/07/18 05:45 Urine Color Yellow (YELLOW) 11/06/18 06:18 Urine Clarity Slighty-cloudy (Clear) 11/06/18 06:18 Urine pH 6.0 (5.0-8.0) 11/06/18 06:18 Ur Specific [place] 1.021 (1.003-1.030) 11/06/18 06:18 Urine Protein 100 mg/dL (NEGATIVE) 11/06/18 06:18 Urine Glucose (UA) 150 mg/dL (NEGATIVE) 11/06/18 06:18 Urine Ketones Negative mg/dL (NEGATIVE) 11/06/18 06:18 Urine Blood Negative (NEGATIVE) 11/06/18 06:18 Urine Nitrate Negative (NEGATIVE) 11/06/18 06:18 Urine Bilirubin Negative (NEGATIVE) 11/06/18 06:18 Urine Urobilinogen 0.2-1.0 mg/dL (0.2-1.0) 11/06/18 06:18 Ur Leukocyte Esterase Small Momo/uL (Negative) 11/06/18 06:18 Urine RBC (Auto) 3 /hpf (0-3) 11/06/18 06:18 Urine Microscopic WBC 25 /hpf (0-5) H 11/06/18 06:18 Ur Squamous Epith Cells 1 /hpf (0-5) 11/06/18 06:18 Urine Bacteria Occ (<OCC) H 11/06/18 06:18 - Hospital Course Hospital Course: 63 yo male with history of Chronic AFib, CHF, CAD and Arthritis had revision of left TKR. He was transferred to TCU for recuperation, continued management and therapy. Patient did well and now is ready for discharge. Discharge Exam - Head Exam Head Exam: ATRAUMATIC, NORMAL INSPECTION, NORMOCEPHALIC - Eye Exam Eye Exam: absent: Scleral icterus - ENT Exam ENT Exam: Mucous Membranes Moist - Respiratory Exam Respiratory Exam: absent: Rales, Rhonchi, Wheezes, Respiratory Distress - Cardiovascular Exam Cardiovascular Exam: REGULAR RHYTHM, +S1, +S2 - GI/Abdominal Exam GI & Abdominal Exam: Soft. absent: Tenderness - Rectal Exam Rectal Exam: Deferred - Neurological Exam Neurological exam: Alert, Oriented x3 - Psychiatric Exam Psychiatric exam: Normal Affect - Skin Skin Exam: Dry, Intact Discharge Plan - Discharge Medications Prescriptions: Enoxaparin [Lovenox] 40 mg SC DAILY@0800 #6 syr Gabapentin [Neurontin] 300 mg PO BID #28 cap oxyCODONE/Acetaminophen [Percocet 5/325 mg Tab] 1 ea PO Q6 #20 tab - Follow Up Plan Condition: GOOD Disposition: HOME/ ROUTINE Referrals: Kaveh Henderson MD [Primary Care Provider] -
== END 2018-11-15 14:29 | disposition home or self-care (01) | DRG 560 ==
LOC: H.TCU 17:29
PROVIDERS: ADMIT Hospitalist; ATTEND Hospitalist
PROC: F07Z9FZ Gait Training/Functional Ambulation Treatment using Assistive, Adaptive, Supportive or Protective Equipment (ICD-10-PCS; principal; 2018-11-05)
PROC: F08Z4FZ Home Management Treatment using Assistive, Adaptive, Supportive or Protective Equipment (ICD-10-PCS; 2018-11-05)
PROC: F07L6FZ Therapeutic Exercise Treatment of Musculoskeletal System - Lower Back / Lower Extremity using Assistive, Adaptive, Supportive or Protective Equipment (ICD-10-PCS; 2018-11-05)
DX: Z47.1 Aftercare following joint replacement surgery (principal); D62 Acute posthemorrhagic anemia; M25.062 Hemarthrosis, left knee; D68.8 Other specified coagulation defects; N39.0 Urinary tract infection, site not specified; Z96.652 Presence of left artificial knee joint; I50.32 Chronic diastolic (congestive) heart failure; R50.82 Postprocedural fever; I48.2 Chronic atrial fibrillation; I11.0 Hypertensive heart disease with heart failure; I25.10 Atherosclerotic heart disease of native coronary artery without angina pectoris; E11.9 Type 2 diabetes mellitus without complications; E55.9 Vitamin D deficiency, unspecified; E78.5 Hyperlipidemia, unspecified; Z95.5 Presence of coronary angioplasty implant and graft; Z79.01 Long term (current) use of anticoagulants; Z79.84 Long term (current) use of oral hypoglycemic drugs; Z87.891 Personal history of nicotine dependence; Z88.1 Allergy status to other antibiotic agents; Z88.0 Allergy status to penicillin

== ENCOUNTER 2018-11-13 11:10 | Day surgery (SDC) | payer OTHER ==
[2018-11-10 09:39] VITALS: PULSE 98
[2018-11-13 13:33] VITALS: BMI 31.8
[2018-11-13] MEDS ORDERED: Lidocaine Hydrochloride 1% 10 ML ONE (14:41)
--- NOTE | 2018-11-13 14:48 | CP.SDSHP ---
Same Day Surgery H & P - History Proposed Procedure: PICC placement Pre-Op Diagnosis: knee infection - Allergies Allergies: Allergies azithromycin [From Zithromax Z-Mitchell] Allergy (Verified 11/05/18 14:40) RASH ciprofloxacin [From Cipro] Allergy (Verified 11/05/18 14:40) RASH ciprofloxacin HCl [From Cipro] Allergy (Verified 11/05/18 14:40) RASH Penicillins Allergy (Verified 11/05/18 14:40) RASH - Physical Exam Vital Signs: Vital Signs 11/13/18 11/13/18 13:26 13:29 Temperature 98.2 F Pulse Rate 87 Pulse Rate [ 87 Bilateral Radial] Respiratory 20 Rate Blood Pressure 153/94 H O2 Sat by Pulse 97 Oximetry Mental Status: Alert & Oriented x3 Neuro: WNL Heart: WNL - Impression Impression: Pt with infection requirng termite treater helper abx. Plan picc placement. Pt. Evaluated Today:Candidate for Anesthesia & Procedure: No - Date & Time Date: 11/13/18 Time: 14:00 Short Stay Discharge - Short Stay Discharge Admitting Diagnosis/Reason for Visit: INFECTED KNEE Referrals: Kaveh Henderson MD [Primary Care Provider] -
--- NOTE | 2018-11-13 14:49 | PCM.SURG1 ---
Surgeon's Initial Post Op Note - Surgeon's Notes Surgeon: Rodney Joseph MD Embossing Press Operator Apprentice: NONE Type of Anesthesia: Local Pre-Operative Diagnosis: Infection Operative Findings: US showed a patent right basilic vein Post-Operative Diagnosis: Infection Operation Performed: Picc placement right arm Specimen/Specimens Removed: none Estimated Blood Loss: EBL {In ML}: 2 Blood Products Given: N/A Drains Used: No Drains Post-Op Condition: Fair Date of Surgery/Procedure: 11/13/18 Time of Surgery/Procedure: 14:45
[2018-11-13 14:53] VITALS: BP 151/88; PULSE 90; RESP 18; TEMP 98.8; O2SAT 99
== END 2018-11-13 15:20 | disposition still patient (30) ==
LOC: H.DIAGRAD 11:10 → H.OPSURG 11:10 → EDSTATUS 13:29 → H.OPSURG 15:20
PROVIDERS: ATTEND Family Medicine
DX: M00.9 Pyogenic arthritis, unspecified (principal); Z79.2 Long term (current) use of antibiotics; Z88.0 Allergy status to penicillin
CPT/HCPCS: 36573; 76942; A4310; C1751

== ENCOUNTER 2018-11-21 12:25 | Inpatient (IN) | payer OTHER ==
[2018-11-21 12:25] VITALS: BMI 31.8
[2018-11-21] MEDS ORDERED: Linezolid 600 mg in D5W 300 ml 600 MG/300 ML BAG IVPB STA (13:05)
[2018-11-21] MEDS ORDERED: Meropenem 1 GM in Sodium Chloride 0.9% 100 ML IVPB ONE (13:06)
[2018-11-21] MEDS ORDERED: Povidone Iodine Oint 10% Foilpak UD ONE (13:13)
--- NOTE | 2018-11-21 13:33 | ED PDOC ---
Lower Extremity Pain/Injury Time Seen by Provider: 11/21/18 12:41 Chief Complaint (Nursing): Lower Extremity Problem/Injury Chief Complaint (Provider): Lower Extremity Problem/Injury History Per: Patient History/Exam Limitations: no limitations Onset/Duration Of Symptoms: Days Current Symptoms Are (Timing): Still Present Additional Complaint(s): 63 year old male with a past medical history of Afib, osteoarthritis, and CAD who is presenting to the ED for evaluation of left knee. Patient states that 3 weeks ago he had a revision of his left knee replacement that was done by Dr. Byrne in 2005, and after restarting Xarelto, he noted drainage from the wound associated with swelling. He admits that he was evaluated by Dr. Manzano and given IV antibiotics and discharged home with pic line in place. Patient states that he noted serosanguinous drainage and spoke to Dr. Byrne who recommended he come to the Ed for evaluation and readmission. He denies any fevers, chills, nausea, or vomiting. Patient offers no other medical complaints at this time. PMD: Dr. Hernandez Infectious Disease: Dr. Manzano Orthopedist: Dr. Byrne Basket Maker: Dr. Montez Ennis Past Medical History Reviewed: Historical Data, Nursing Documentation, Vital Signs Vital Signs: Last Vital Signs Temp 98.6 F 11/21/18 12:34 Pulse 104 H 11/21/18 12:34 Resp 18 11/21/18 12:34 BP 163/84 H 11/21/18 12:34 Pulse Ox 98 11/21/18 12:34 - Medical History PMH: Atrial Fibrillation, CAD (w/ stents), Cardia Arrhythmia (A FIB), Diabetes, Peripheral Edema Denies: Anemia, Arthritis, CHF, COPD, HIV, HTN, Hypercholesterolemia, Hypothyroidism, Chronic Kidney Disease, Rheumatoid Arthritis - Surgical History Surgical History: Cholecystectomy, Coronary Stent (2), Endoscopy Denies: Pacemaker - Family History Family History: States: Unknown Family Hx - Social History Current smoker - smoking cessation education provided: No Alcohol: None Drugs: Denies - Home Medications Home Medications: Ambulatory Orders Medication Instructions Recorded Digoxin 0.0625 mg PO DAILY 01/17/17 Furosemide [Lasix] 40 mg PO DAILY 01/17/17 Glyburide [Micronase] 1.25 mg PO DAILY 01/17/17 Metoprolol Tartrate [Lopressor] 75 mg PO BID 01/17/17 Sitagliptin Phos/Metformin HCl 1 tab PO BID 01/17/17 [Janumet 50-1,000 mg Tablet] amLODIPine [Norvasc] 10 mg PO DAILY 01/17/17 Atorvastatin [Lipitor] 20 mg PO DIN #30 tab 07/26/17 Losartan/Hydrochlorothiazide 1 tab PO DAILY 10/13/18 [Losartan-Hctz 50-12.5 mg Tab] Gabapentin [Neurontin] 300 mg PO BID #28 cap 11/15/18 oxyCODONE/Acetaminophen [Percocet 1 ea PO Q6 #20 tab 11/15/18 5/325 mg Tab] - Allergies Allergies/Adverse Reactions: Allergies Allergy/AdvReac Type Severity Reaction Status Date / Time azithromycin Allergy RASH Verified 11/21/18 12:33 [From Zithromax Z-Mitchell] ciprofloxacin [From Cipro] Allergy RASH Verified 11/21/18 12:33 ciprofloxacin HCl Allergy RASH Verified 11/21/18 12:33 [From Cipro] Penicillins Allergy RASH Verified 11/21/18 12:33 Review of Systems ROS Statement: Except As Marked, All Systems Reviewed And Found Negative Constitutional: Negative for: Fever, Chills Gastrointestinal: Negative for: Nausea, Vomiting Musculoskeletal: Positive for: Leg Pain Physical Exam - Reviewed Nursing Documentation Reviewed: Yes Vital Signs Reviewed: Yes - Physical Exam Appears: Positive for: Non-toxic, No Acute Distress Head Exam: Positive for: ATRAUMATIC, NORMAL INSPECTION, NORMOCEPHALIC Skin: Positive for: Normal Color, Warm, DRY Eye Exam: Positive for: EOMI, Normal appearance, PERRL ENT: Positive for: Normal ENT Inspection Neck: Positive for: Normal, Painless ROM Cardiovascular/Chest: Positive for: Regular Rate, Rhythm. Negative for: Murmur Respiratory: Positive for: Normal Breath Sounds. Negative for: Respiratory Distress Gastrointestinal/Abdominal: Positive for: Normal Exam, Soft. Negative for: Tenderness Back: Positive for: Normal Inspection. Negative for: L CVA Tenderness, R CVA Tenderness Extremity: Positive for: Normal ROM, Other (long midline wound over left knee, m ild erythema and edema and warmth but no active drainage; ). Negative for: Deformity Neurological/Psych: Positive for: Awake, Alert, Normal Tone, Oriented. Negative for: Motor/Sensory Deficits - Laboratory Results Result Diagrams: 11/22/18 06:00 11/22/18 06:00 - ECG O2 Sat by Pulse Oximetry: 98 (RA) Pulse Ox Interpretation: Normal Medical Decision Making Medical Decision Making: Time: 13:03 Impression: 63 year old male presenting with post-OP wound drainage Plan: --EKG --CMP --Creatine Phosphokinase --Digoxin --Lact Acid, Plasma --CBC --Coags --Merrem IV --Morphine 4 mg IVP --Zyvox 600 mg in 300 ml IVPB --Blood Culture 13:[address] Manzano and Dr. Byrne who have reccommended admission for evacuation of post operative wound hematoma. Will refer case to hospitalist. 14:[address] of the extremity. CT of lower extremity ordered. Farzana, the ortho PA, applied dressing in ED as requested by Dr. Brown. Scribe Attestation: Documented by Gypsy Torres, acting as a scribe for Robinson Moreno MD. Provider Scribe Attestation: All medical record entries made by the Scribe were at my direction and personally dictated by me. I have reviewed the chart and agree that the record accurately reflects my personal performance of the history, physical exam, medical decision making, and the department course for this patient. I have also personally directed, reviewed, and agree with the discharge instructions and disposition. Disposition - Clinical Impression Clinical Impression: Postoperative wound hematoma Counseled Patient/Family Regarding: Studies Performed, Diagnosis - Disposition Disposition Time: 02:00 Condition: FAIR
[2018-11-21] MEDS ORDERED: Morphine 4 MG/ML VIAL ONE (13:39)
--- NOTE | 2018-11-21 13:44 | CP.PCM.CON ---
History of Present Illness - History of Present Illness History of Present Illness: Orthopedic consultation Dr. Brown 63M s/p left knee revision (two component) 11/03/2018 returns to ER with increased wound drainage today. He was discharged from TCU 11/15/2018 and at that time had minimal sang drainage from inferior aspect of wound. He says today that the wound drainage is much worse, and light bloody drainage. Patient developed hemarthrosis postoperatively. Knee was swollen, incision dry, but then started oozing blood from inferior incision around 11/10, xarelto was held, patient continued on lovenox 40mg SQ daily for DVT proph at that time. Patient also had negative dopplers and negative CT angio for PE while in TCU. Patient had PICC line placed and has been on antibiotics at home. Patient denies CP/SOB/dizziness. Some numbness around distal incision laterally to skin. Denies fever/chills. Denies n/v. Review of Systems - Review of Systems All systems: reviewed and no additional remarkable complaints except - Constitutional Constitutional: As Per HPI - Cardiovascular Cardiovascular: As Per HPI - Respiratory Respiratory: As Per HPI - Gastrointestinal Gastrointestinal: As Per HPI - Musculoskeletal Musculoskeletal: As Per HPI - Integumentary Integumentary: As Per HPI - Neurological Neurological: As Per HPI Past Patient History - Infectious Disease Hx of Infectious Diseases: None - Past Medical History & Family History Past Medical History?: Yes Past Family History: Reviewed and not pertinent - Past Social History Alcohol: None Drugs: Denies - CARDIAC Hx Atrial Fibrillation: Yes Hx Cardia Arrhythmia: Yes (A FIB) Hx Congestive Heart Failure: No Hx Hypercholesterolemia: No Hx Hypertension: No Hx Pacemaker: No Hx Peripheral Edema: Yes - PULMONARY Hx Chronic Obstructive Pulmonary Disease (COPD): No - NEUROLOGICAL Hx Neurological Disorder: No - HEENT Hx HEENT Problems: No - RENAL Hx Chronic Kidney Disease: No - ENDOCRINE/METABOLIC Hx Hypothyroidism: No - HEMATOLOGICAL/ONCOLOGICAL Hx Anemia: No Hx Human Immunodeficiency Virus (HIV): No - INTEGUMENTARY Hx Eczema: Yes - MUSCULOSKELETAL/RHEUMATOLOGICAL Hx Arthritis: No Hx Rheumatoid Arthritis: No - GASTROINTESTINAL Hx Gastrointestinal Disorders: No - GENITOURINARY/GYNECOLOGICAL Other/Comment: HX OF UTI - PSYCHIATRIC Hx Emotional Abuse: No Hx Physical Abuse: No - SURGICAL HISTORY Hx Cholecystectomy: Yes Hx Coronary Stent: Yes (2) - ANESTHESIA Hx Anesthesia: Yes Hx Anesthesia Reactions: Yes (HEADACHES AND QUEASY STOMACH) Meds Allergies/Adverse Reactions: Allergies Allergy/AdvReac Type Severity Reaction Status Date / Time azithromycin Allergy RASH Verified 11/21/18 12:33 [From Zithromax Z-Mitchell] ciprofloxacin [From Cipro] Allergy RASH Verified 11/21/18 12:33 ciprofloxacin HCl Allergy RASH Verified 11/21/18 12:33 [From Cipro] Penicillins Allergy RASH Verified 11/21/18 12:33 - Medications Medications: Current Medications Linezolid (Zyvox 600mg/300ml D5w) 600 mg in 300 mls @ 300 mls/hr IVPB STAT STA; Protocol Stop: 11/21/18 14:04 Oxycodone/Acetaminophen (Percocet 5/325 Mg Tab) 1 tab PO Q4 PRN PRN Reason: Pain, moderate (4-7) Stop: 11/24/18 13:40 Physical Exam - Constitutional Appears: Well, No Acute Distress - Head Exam Head Exam: ATRAUMATIC - Neck Exam Neck exam: Positive for: Full Rom, Normal Inspection - Respiratory Exam Respiratory Exam: NORMAL BREATHING PATTERN - Cardiovascular Exam Additional comments: +DP/PT pulses - Skin Additional comments: mild erythema to distal incision, actively draining serosang drainage moderate amount. Rest of incision well healed 2+ pitting edema LLE calves soft NT neg homans still complains of pain with knee flexion admits to numbness to skin just lateral to distal incision site betadine wet to dry dressing applied Results - Vital Signs Recent Vital Signs: Last Vital Signs Temp 98.6 F 11/21/18 12:34 Pulse 104 H 11/21/18 12:34 Resp 18 11/21/18 12:34 BP 163/84 H 11/21/18 12:34 Pulse Ox 98 11/21/18 13:39 Assessment & Plan (1) Drainage from wound Assessment and Plan: d/w Dr. Brown CT scan knee knee immob betadine wet to dry dressing changes admit to hospitalist ID consult hematology consultation hold anticoagulants (last dose of lovenox today) pain medication plan for I&D 11/[address] Brown Status: Acute (2) Status post revision of total replacement of left knee Status: Acute
--- NOTE | 2018-11-21 13:57 | CP.PCM.HP ---
<Ally Echols - Last Filed: 11/21/18 14:23> History of Present Illness - History of Present Illness History of Present Illness: 63 yo male with hx of Chronic A Fib (was previously on xarelto), CHF, CAD and Arthritis with Left Total Knee replacement in 2004 s/p left revision of TKR 11/03/2018 presented because of left knee hematoma. Pt was using Lovenox after his discharge from TCU (prophylactic dose) and he said the last dose was today. He reports that Saturday he noticed dark blood from the site then Saturday there was profuse dark blood. Pt was sent by Dr. Brown so he can have a wash out of the area. Reports increased pain from that area. Denies chest pain, dypsnea, nausea, vomiting, abdominal pain, diarrhea, weakness. ROS: negative except for stated above in the HPI. PMD: Dr. Hernandez PMHx: HTN, HLD, DM, CAD, A-FIB, CHF PHSx: Cardiac stent placement x 2 ( Jose 2013 and Liang 2009), Cholecystectomy FMHx: HTN, DM, & CAD Social: Denies current use of cigarettes at this time; Quit smoking 16 years; denies ETOH Allegies: PCN, Azithromycin, Ciprofloxacin Meds: See Med rec ED course: afebrile; BP: 142/88; HR: 80 ; O2 saturation: 98% room air - EKG, CMP, Creatine Phosphokinase, Lactic acid, CBC, INR, Morphine 4mg x1, Zyvox (day 1), Blood cultures Present on Admission - Present on Admission Any Indicators Present on Admission: No Past Patient History - Infectious Disease Hx of Infectious Diseases: None - Past Medical History & Family History Past Medical History?: Yes Past Family History: Reviewed and not pertinent - Past Social History Alcohol: None Drugs: Denies - CARDIAC Hx Atrial Fibrillation: Yes Hx Cardia Arrhythmia: Yes (A FIB) Hx Congestive Heart Failure: No Hx Hypercholesterolemia: No Hx Hypertension: No Hx Pacemaker: No Hx Peripheral Edema: Yes - PULMONARY Hx Chronic Obstructive Pulmonary Disease (COPD): No - NEUROLOGICAL Hx Neurological Disorder: No - HEENT Hx HEENT Problems: No - RENAL Hx Chronic Kidney Disease: No - ENDOCRINE/METABOLIC Hx Hypothyroidism: No - HEMATOLOGICAL/ONCOLOGICAL Hx Anemia: No Hx Human Immunodeficiency Virus (HIV): No - INTEGUMENTARY Hx Eczema: Yes - MUSCULOSKELETAL/RHEUMATOLOGICAL Hx Arthritis: No Hx Rheumatoid Arthritis: No - GASTROINTESTINAL Hx Gastrointestinal Disorders: No - GENITOURINARY/GYNECOLOGICAL Other/Comment: HX OF UTI - PSYCHIATRIC Hx Emotional Abuse: No Hx Physical Abuse: No - SURGICAL HISTORY Hx Cholecystectomy: Yes Hx Coronary Stent: Yes (2) - ANESTHESIA Hx Anesthesia: Yes Hx Anesthesia Reactions: Yes (HEADACHES AND QUEASY STOMACH) Meds Allergies/Adverse Reactions: Allergies Allergy/AdvReac Type Severity Reaction Status Date / Time azithromycin Allergy RASH Verified 11/21/18 12:33 [From Zithromax Z-Mitchell] ciprofloxacin [From Cipro] Allergy RASH Verified 11/21/18 12:33 ciprofloxacin HCl Allergy RASH Verified 11/21/18 12:33 [From Cipro] Penicillins Allergy RASH Verified 11/21/18 12:33 Physical Exam - Constitutional Appears: Non-toxic, No Acute Distress - Eye Exam Eye Exam: Normal appearance - ENT Exam ENT Exam: Mucous Membranes Moist - Respiratory Exam Respiratory Exam: Clear to Auscultation Bilateral, NORMAL BREATHING PATTERN. absent: Accessory Muscle Use, Chest Wall Tenderness, Decreased Breath Sounds, Prolonged Expiratory Phase, Rales, Rhonchi, Wheezes, Respiratory Distress, Stridor - Cardiovascular Exam Cardiovascular Exam: +S1, +S2 - GI/Abdominal Exam GI & Abdominal Exam: Normal Bowel Sounds, Soft. absent: Diminished Bowel Sounds, Distended, Firm, Mass, Rebound, Rigid, Tenderness - Extremities Exam Extremities exam: Positive for: normal capillary refill, pedal edema (+1 left leg pitting edema), pedal pulses present. Negative for: calf tenderness, tenderness Additional comments: Left knee wrapped. - Neurological Exam Neurological exam: Alert, Oriented x3 - Psychiatric Exam Psychiatric exam: Normal Affect, Normal Mood - Skin Skin Exam: Dry, Intact, Normal Color, Warm Results - Vital Signs Recent Vital Signs: Last Vital Signs Temp 98.6 F 11/21/18 12:34 Pulse 104 H 11/21/18 12:34 Resp 18 11/21/18 12:34 BP 163/84 H 11/21/18 12:34 Pulse Ox 98 11/21/18 13:39 Assessment & Plan - Assessment and Plan (Free Text) Assessment: 63 years old male with hx of Chronic A Fib, CHF, CAD and Arthritis with Left Total Knee replacement in 2004 s/p left revision of TKR 11/03/2018 admitted for I and D of left knee by Orthopedic team. Plan: Left knee hematoma s/p revision of Left TKR 11/03/2018 -s/p left revision of TKR - F/U Orthopedic recommendations at this time- consult appreciated - F/U CT scan of knee - ID consult - Heme consult - Hold Lovenox at this time - I & D planned for 11/24 (Saturday) - Zyvox Day # 1 Chronic A Fib - Rate controlled - C/W with home meds: Metoprolol 75 mg PO BID and digoxin 0.0625mg - Xarelto was stopped on previous admission. DM II - Glyburide 1.25mg PO QD - Januvia 50mg PO BID - Consistent carbohydrate diet CHF and CAD - Lasix 40mg PO QD -Losartan 50mg-HCTZ 12.5mg PO QD -Lipitor 20mg PO -ASA/ 325mg PO QD -Norvasc 10mg PO QD DVT prophylaxis - SCD at this time - hold lovenox given the recent bleeding from the left knee <Srikanth Kemp D - Last Filed: 11/21/18 18:52> Results - Vital Signs Recent Vital Signs: Last Vital Signs Temp 98.7 F 11/21/18 17:00 Pulse 80 11/21/18 17:39 Resp 20 11/21/18 17:39 BP 148/80 11/21/18 17:34 Pulse Ox 98 11/21/18 17:00 - Labs Result Diagrams: 11/21/18 13:46 11/21/18 13:46 Labs: Laboratory Results - last 24 hr 11/21/18 11/21/18 11/21/18 13:46 13:46 13:46 WBC 12.6 H RBC 4.47 Hgb 12.9 Hct 38.0 MCV 84.9 MCH 28.8 MCHC 33.9 RDW 15.1 H Plt Count 377 MPV 9.4 Neut % (Auto) 80.0 H Lymph % (Auto) 10.6 L [place] % (Auto) 7.9 Eos % (Auto) 0.6 Baso % (Auto) 0.9 Neut # (Auto) 10.1 H Lymph # (Auto) 1.3 [place] # (Auto) 1.0 H Eos # (Auto) 0.1 Baso # (Auto) 0.1 ESR 25 H PT INR APTT Sodium 140 Potassium 3.2 L Chloride 99 Carbon Dioxide 29 Anion Gap 15 BUN 17 Creatinine 1.0 Est GFR ( Amer) > 60 Est GFR (Non-Af Amer) > 60 POC Glucose (mg/dL) Random Glucose 128 H Lactic Acid 2.5 H Calcium 9.7 Total Bilirubin 0.9 AST 61 H D ALT 50 Alkaline Phosphatase 80 Total Creatine Kinase 413 H Total Protein 7.3 Albumin 4.2 Globulin 3.1 Albumin/Globulin Ratio 1.3 Digoxin 11/21/18 11/21/18 11/21/18 13:46 13:46 18:19 WBC RBC Hgb Hct MCV MCH MCHC RDW Plt Count MPV Neut % (Auto) Lymph % (Auto) [place] % (Auto) Eos % (Auto) Baso % (Auto) Neut # (Auto) Lymph # (Auto) [place] # (Auto) Eos # (Auto) Baso # (Auto) ESR PT 12.7 INR 1.1 APTT 30.9 Sodium Potassium Chloride Carbon Dioxide Anion Gap BUN Creatinine Est GFR ( Amer) Est GFR (Non-Af Amer) POC Glucose (mg/dL) 191 H Random Glucose Lactic Acid Calcium Total Bilirubin AST ALT Alkaline Phosphatase Total Creatine Kinase Total Protein Albumin Globulin Albumin/Globulin Ratio Digoxin 0.4 L Attending/Attestation - Attestation I have personally seen and examined this patient.: Yes I have fully participated in the care of the patient.: Yes I have reviewed all pertinent clinical information: Yes Notes (Text): 11/21/18 18:52 Patient seen and examined with resident. Case discussed and agreed with assessment and plan of management.
[2018-11-21 14:17] LABS: BASO # 0.1 K/uL (0.0-0.2); BASO % 0.9 % (0.0-2.0); EOS # 0.1 K/uL (0.0-0.7); EOS % 0.6 % (0.0-4.0); HEMOGLOBIN 12.9 g/dL (12.0-18.0); LYMPH # 1.3 K/uL (1.0-4.3); LYMPH % 10.6 % (20.0-40.0); MEAN CELL VOLUME 84.9 fl (80.0-94.0); MEAN CORPUSCULAR HEMOGLOBIN 28.8 pg (27.0-31.0); MEAN CORPUSCULAR HGB CONC 33.9 g/dL (33.0-37.0); MEAN PLATELET VOLUME 9.4 fl (7.2-11.7); MONO % 7.9 % (0.0-10.0); NEUT # 10.1 K/uL (1.8-7.0); NRBC % 0.1 % (0.0-0.0); RBC 4.47 Mil/uL (4.40-5.90); RED CELL DISTRIBUTION WIDTH 15.1 % (11.5-14.5); WHITE BLOOD COUNT 12.6 K/uL (4.8-10.8)
[2018-11-21 14:23] LABS: INR 1.1; PROTHROMBIN TIME 12.7 Seconds (9.8-13.1)
[2018-11-21 14:25] LABS: PARTIAL THROMBOPLASTIN TIME 30.9 Seconds (25.6-37.1)
[2018-11-21 14:39] LABS: ALB/GLOB RATIO 1.3 (1.0-2.1); ALBUMIN 4.2 g/dL (3.5-5.0); ALT/SGPT 50 U/L (21-72); AST/SGOT 61 U/L (17-59); BLOOD UREA NITROGEN 17 mg/dl (9-20); CALCIUM 9.7 mg/dL (8.4-10.2); GFR NON-AFRICAN AMERICAN > 60
[2018-11-21] MEDS ORDERED: Iohexol 300 100 ML IJ ONE (15:04)
[2018-11-21] MEDS ORDERED: Sodium Chloride 0.9% 50 ML IV ONE (15:04)
[2018-11-21] MEDS: Oxycodone/Acetaminophen 5/325 mg Tab PO SCH ×2 (16:19→22:00)
--- NOTE | 2018-11-21 16:34 | CT ---
Date of service: 11/21/2018 PROCEDURE: LEFT KNEE CT WITH CONTRAST 11/13/2018. HISTORY: left knee swelling COMPARISON: LEFT KNEE CT WITHOUT CONTRAST 01/10/2018. TECHNIQUE: A volumetric CT acquisition through the left knee was performed following intravenous contrast administration. Reformatted dataset have been provided in multiple projections. Contrast Dose: Omnipaque 300, 95 cc Radiation dose:Total exam DLP = 465.57 mGy-cm. This CT exam was performed using one or more of the following dose reduction techniques: Automated exposure control, adjustment of the mA and/or kV according to patient size, and/or use of iterative reconstruction technique. FINDINGS: There is a prominent suprapatellar bursa effusion appreciated this time with extension into the subcutaneous fat of the upper left knee. No emphysematous changes are related. Peripheral enhancement is suggested associated with this collection/effusion which is difficult to measure due to its nonuniform shape. Measures approximately 8.0 x 4.2 x 10.2 cm (transverse by anteroposterior by superoinferior dimensions). A small similar fluid collection is seen immediately cephalad to these findings in the region of the vastus intermedius muscle medially. Reactive changes are identified in the anteromedial distal thigh skin and subcutaneous fat. Lesser similar changes are identified at the distal lateral thigh skin and subcutaneous fat. Pattern is suspicious for infectious bursitis/abscess with local cellulitis. An inflammatory process is a alternative possibility. Clinically correlate. Prior total knee replacement hardware appears stable in position without evidence of loosening at either side of the joint. No fracture of the tibial or femoral components identified and no bony erosion or production is seen separate from the site of the prosthetic interfaces. No fracture, subluxation or dislocation. Arterial calcifications are identified in the region of the mid and distal left SFA and popliteal arteries as well as more distal branches below the knee. IMPRESSION: Findings suspicious for infectious bursitis and possible abscess related to suprapatellar bursa and immediately superficial distal thigh soft tissues local cellulitis. Inflammatory process is the differential diagnosis. No fracture or subluxation is appreciated at the left knee with total knee replacement hardware appearing intact including at the bony interface. No evidence of hardware loosening, bony erosion or production.
[2018-11-21] MEDS ORDERED: Patient's Own Med (Sitagliptin Phos/Metformin Hcl [Janumet 50-1,000 Mg Tablet] 1 TAB) PO SCH (17:00)
--- NOTE | 2018-11-21 17:22 | CP.PCM.PN ---
Subjective - Date & Time of Evaluation Date of Evaluation: 11/21/18 Time of Evaluation: 17:20 - Subjective Subjective: I D NOTE CONSULT DICTATED ANTIBIOTICS ORDERED Objective - Vital Signs/Intake and Output Vital Signs (last 24 hours): Temp Pulse Resp BP Pulse Ox 98.1 F 89 22 148/80 100 11/21/18 16:42 11/21/18 16:42 11/21/18 16:42 11/21/18 16:42 11/21/18 16:16 - Medications Medications: Current Medications Amlodipine Besylate (Norvasc) 10 mg PO DAILY [facility] Atorvastatin Calcium (Lipitor) 20 mg PO DIN [facility] Digoxin (Digoxin) 0.0625 mg PO DAILY [facility] Furosemide (Lasix) 40 mg PO DAILY [facility] Gabapentin (Neurontin) 300 mg PO BID [facility] Glyburide (Micronase) 1.25 mg PO DAILY [facility] HCTZ/Losartan Potassium (Hyzaar 12.5 Mg-50 Mg) 1 tab PO DAILY [facility] Linezolid (Zyvox 600mg/300ml D5w) 600 mg in 300 mls @ 300 mls/hr IVPB Q12 [facility]; Protocol Aztreonam 1 gm/ Sodium (Chloride) 100 mls @ 100 mls/hr IVPB Q12 [facility]; Protocol Metformin HCl (Glucophage) 1,000 mg PO BID [facility] Metoprolol Tartrate (Lopressor) 75 mg PO BID [facility] Oxycodone/Acetaminophen (Percocet 5/325 Mg Tab) 1 tab PO Q4 PRN PRN Reason: Pain, moderate (4-7) Stop: 11/24/18 13:40 Oxycodone/Acetaminophen (Percocet 5/325 Mg Tab) 1 tab PO Q6 [facility] Stop: 11/24/18 16:01 Last Admin: 11/21/18 16:19 Dose: Not Given Sitagliptin Phosphate (Januvia) 50 mg PO BID [facility] - Labs Labs: 11/21/18 13:46 11/21/18 13:46 PT 12.7 Seconds (9.8-13.1) 11/21/18 13:46 INR 1.1 11/21/18 13:46 APTT 30.9 Seconds (25.6-37.1) 11/21/18 13:46
[2018-11-21] MEDS: Oxycodone/Acetaminophen 5/325 mg Tab PO PRN ×2 (19:25→23:29)
[2018-11-21] MEDS: Linezolid 600 mg in D5W 300 ml 600 MG/300 ML BAG IVPB SCH (21:08)
[2018-11-21] MEDS: Aztreonam 1 GM in Sodium Chloride 0.9% 100 ML IVPB SCH (23:00)
[2018-11-22 01:12] LABS: SQUAMOUS EPITHIAL < 1 /hpf (0-5); URINE BILIRUBIN NEGATIVE (NEGATIVE); URINE BLOOD MODERATE (NEGATIVE); URINE CLARITY SLIGHTY-CLOUDY (Clear); URINE COLOR YELLOW (YELLOW); URINE GLUCOSE (UA) NEG (NEGATIVE); URINE LEUKOCYTE ESTERASE SMALL Leu/uL (Negative); URINE PROTEIN 100 mg/dL (NEGATIVE); URINE UROBILINOGEN 0.2-1.0 mg/dL (0.2-1.0)
[2018-11-22 07:01] LABS: BASO # 0.1 K/uL (0.0-0.2); BASO % 0.6 % (0.0-2.0); EOS # 0.2 K/uL (0.0-0.7); EOS % 1.7 % (0.0-4.0); HEMOGLOBIN 11.8 g/dL (12.0-18.0); LYMPH % 22.7 % (20.0-40.0); MEAN CELL VOLUME 85.3 fl (80.0-94.0); MEAN CORPUSCULAR HEMOGLOBIN 29.2 pg (27.0-31.0); MEAN CORPUSCULAR HGB CONC 34.3 g/dL (33.0-37.0); MEAN PLATELET VOLUME 9.1 fl (7.2-11.7); MONO # 0.9 K/uL (0.0-0.8); MONO % 10.7 % (0.0-10.0); NEUT # 5.6 K/uL (1.8-7.0); NEUT % 64.3 % (50.0-75.0); NRBC % 0.1 % (0.0-0.0); RBC 4.03 Mil/uL (4.40-5.90); RED CELL DISTRIBUTION WIDTH 15.3 % (11.5-14.5); WHITE BLOOD COUNT 8.8 K/uL (4.8-10.8)
[2018-11-22 07:10] LABS: BLOOD UREA NITROGEN 16 mg/dl (9-20); CALCIUM 8.7 mg/dL (8.4-10.2); GFR NON-AFRICAN AMERICAN > 60
[2018-11-22] MEDS ORDERED: Potassium Chloride 20 mEq ER Tab PO ONE (07:47)
[2018-11-22] MEDS ORDERED: HCTZ/Losartan 12.5/50 Tab PO SCH (09:00)
[2018-11-22] MEDS: Oxycodone/Acetaminophen 5/325 mg Tab PO SCH ×3 (09:01→21:01)
[2018-11-22] MEDS: Aztreonam 1 GM in Sodium Chloride 0.9% 100 ML IVPB SCH ×2 (09:01→22:23)
--- NOTE | 2018-11-22 09:39 | CP.PCM.PN ---
Subjective - Date & Time of Evaluation Date of Evaluation: 11/22/18 Time of Evaluation: 09:10 - Subjective Subjective: S-Pt comfortable at bedrest/ no complaints of shest pain/shortness of breath/ calf disocomfor/ nop complaints referable to thromboembolic disease Objective - Vital Signs/Intake and Output Vital Signs (last 24 hours): Temp Pulse Resp BP Pulse Ox 97.9 F 84 20 145/92 H 98 11/22/18 08:11 11/22/18 09:02 11/22/18 08:11 11/22/18 09:02 11/22/18 08:11 - Medications Medications: Current Medications Amlodipine Besylate (Norvasc) 10 mg PO DAILY [facility] Atorvastatin Calcium (Lipitor) 20 mg PO DIN [facility] Last Admin: 11/21/18 18:57 Dose: 20 mg Digoxin (Digoxin) 0.0625 mg PO DAILY [facility] Furosemide (Lasix) 40 mg PO DAILY [facility] Gabapentin (Neurontin) 300 mg PO BID [facility] Last Admin: 11/22/18 09:02 Dose: 300 mg Glyburide (Micronase) 1.25 mg PO DAILY [facility] HCTZ/Losartan Potassium (Hyzaar 12.5 Mg-50 Mg) 1 tab PO DAILY [facility] Last Admin: 11/22/18 09:19 Dose: Not Given Linezolid (Zyvox 600mg/300ml D5w) 600 mg in 300 mls @ 300 mls/hr IVPB Q12 [facility]; Protocol Last Admin: 11/21/18 21:08 Dose: 300 mls/hr Aztreonam 1 gm/ Sodium (Chloride) 100 mls @ 100 mls/hr IVPB Q12 [facility]; Protocol Last Admin: 11/22/18 09:01 Dose: 100 mls/hr Metformin HCl (Glucophage) 1,000 mg PO BID [facility] Last Admin: 11/22/18 09:02 Dose: 1,000 mg Metoprolol Tartrate (Lopressor) 75 mg PO BID [facility] Last Admin: 11/22/18 09:02 Dose: 75 mg Oxycodone/Acetaminophen (Percocet 5/325 Mg Tab) 1 tab PO Q4 PRN PRN Reason: Pain, moderate (4-7) Stop: 11/24/18 13:40 Last Admin: 11/21/18 23:29 Dose: 1 tab Oxycodone/Acetaminophen (Percocet 5/325 Mg Tab) 1 tab PO Q6 [facility] Stop: 11/24/18 16:01 Last Admin: 11/22/18 09:01 Dose: 1 tab Sitagliptin Phosphate (Januvia) 50 mg PO BID [facility] Last Admin: 11/22/18 09:02 Dose: 50 mg - Labs Labs: 11/22/18 06:00 11/22/18 06:00 PT 12.7 Seconds (9.8-13.1) 11/21/18 13:46 INR 1.1 11/21/18 13:46 APTT 30.9 Seconds (25.6-37.1) 11/21/18 13:46 - Additional Findings Additional findings: Objective afebrile/VSS no signs of local or sytemic sepsis chset and lugs- clear to A+P remainder of systemic O/E wnl <usculoskekltal stance/gait- defrred dressing/knee immobilizer intact N/V intact CT scan reviewed no repeat xrays accomplished Assessment and Plan - Assessment and Plan (Free Text) Assessment: A- post op hematoma, after post op anticoagulation was maryanne on PD#1 with XARELTO; anticoagulant was changed wityhout my knowledge or consent by DR Peterson, hospitalist. Further, hospitalist refused florentino initiate order for pic line when ordered by Dr Manzano; again NON courtesy of call to the operating surgeon accomplished a result pt returns to [facility] ER with 1cm wound dehiscience and drainage of intrarticula rhematoma. Pt presented to ER at [facility] and is admitted for Incision, drainage and poly exchange P- OOB, pt refuses compression boots; ZAIN stockings applied to contralateral limb; pt still with evidence for over anticoagulation Will be taken to OR SATURDAY AM for I+D and poly exchange Pros, cons risk and benfits discussed at length with pt PT OOB abd walking and spoke to nurse Sanon about repeating Xrays and making sure pt is OOB No evidence for septic drainage' no pauin on passive ROM no evidence for local or systemic sepsis
[2018-11-22] MEDS: Linezolid 600 mg in D5W 300 ml 600 MG/300 ML BAG IVPB SCH ×2 (10:14→21:02)
[2018-11-22] MEDS: Digoxin 125 mcg (0.125 mg) Tab PO SCH (12:23)
--- NOTE | 2018-11-22 14:13 | CP.PCM.PN ---
Subjective - Date & Time of Evaluation Date of Evaluation: 11/22/18 Time of Evaluation: 10:00 - Subjective Subjective: Patient seen and examined. Still with pain on left knee but controlled. Objective - Vital Signs/Intake and Output Vital Signs (last 24 hours): Temp Pulse Resp BP Pulse Ox 97.9 F 80 20 125/75 98 11/22/18 08:11 11/22/18 12:23 11/22/18 08:11 11/22/18 12:23 11/22/18 12:58 - Medications Medications: Current Medications Alprazolam (Xanax) 0.25 mg PO Q12 PRN PRN Reason: Anxiety Stop: 11/29/18 09:39 Last Admin: 11/22/18 10:22 Dose: 0.25 mg Amlodipine Besylate (Norvasc) 10 mg PO DAILY [facility] Last Admin: 11/22/18 12:23 Dose: 10 mg Atorvastatin Calcium (Lipitor) 20 mg PO DIN [facility] Last Admin: 11/21/18 18:57 Dose: 20 mg Digoxin (Digoxin) 0.0625 mg PO DAILY [facility] Last Admin: 11/22/18 12:23 Dose: 0.0625 mg Docusate Sodium (Colace) 100 mg PO DAILY [facility] Last Admin: 11/22/18 10:22 Dose: 100 mg Furosemide (Lasix) 40 mg PO DAILY [facility] Last Admin: 11/22/18 10:26 Dose: 40 mg Gabapentin (Neurontin) 300 mg PO BID [facility] Last Admin: 11/22/18 09:02 Dose: 300 mg Glyburide (Micronase) 1.25 mg PO DAILY [facility] Last Admin: 11/22/18 10:25 Dose: 1.25 mg Linezolid (Zyvox 600mg/300ml D5w) 600 mg in 300 mls @ 300 mls/hr IVPB Q12 [facility]; Protocol Last Admin: 11/22/18 10:14 Dose: 300 mls/hr Aztreonam 1 gm/ Sodium (Chloride) 100 mls @ 100 mls/hr IVPB Q12 [facility]; Protocol Last Admin: 11/22/18 09:01 Dose: 100 mls/hr Losartan Potassium (Cozaar) 50 mg PO DAILY [facility] Last Admin: 11/22/18 12:23 Dose: 50 mg Metformin HCl (Glucophage) 1,000 mg PO BID [facility] Last Admin: 11/22/18 09:02 Dose: 1,000 mg Metoprolol Tartrate (Lopressor) 75 mg PO BID [facility] Last Admin: 11/22/18 09:02 Dose: 75 mg Oxycodone/Acetaminophen (Percocet 5/325 Mg Tab) 1 tab PO Q4 PRN PRN Reason: Pain, moderate (4-7) Stop: 11/24/18 13:40 Last Admin: 11/21/18 23:29 Dose: 1 tab Oxycodone/Acetaminophen (Percocet 5/325 Mg Tab) 1 tab PO Q6 [facility] Stop: 11/24/18 16:01 Last Admin: 11/22/18 09:01 Dose: 1 tab Sitagliptin Phosphate (Januvia) 50 mg PO BID [facility] Last Admin: 11/22/18 09:02 Dose: 50 mg - Labs Labs: 11/22/18 06:00 11/22/18 06:00 PT 12.7 Seconds (9.8-13.1) 11/21/18 13:46 INR 1.1 11/21/18 13:46 APTT 30.9 Seconds (25.6-37.1) 11/21/18 13:46 - Constitutional Appears: No Acute Distress - Head Exam Head Exam: ATRAUMATIC - Eye Exam Eye Exam: absent: Scleral icterus - ENT Exam ENT Exam: Mucous Membranes Moist - Neck Exam Neck Exam: absent: Meningismus - Respiratory Exam Respiratory Exam: absent: Rales, Rhonchi, Wheezes, Respiratory Distress - Cardiovascular Exam Cardiovascular Exam: REGULAR RHYTHM, +S1, +S2 - GI/Abdominal Exam GI & Abdominal Exam: Soft. absent: Tenderness - Rectal Exam Rectal Exam: Deferred - Extremities Exam Extremities Exam: absent: Normal Inspection (knee immobiler on left leg intact) - Neurological Exam Neurological Exam: Alert, Oriented x3 - Psychiatric Exam Psychiatric exam: Normal Affect - Skin Skin Exam: Dry, Intact Assessment and Plan - Assessment and Plan (Free Text) Assessment: 63 yo male with history of AFib, CHF, CAD and Left TKR admitted for I&D because of hemarthrosis. 1. Left Knee Hemarthroses hold anticoagulants CT scan: suspicious infectious bursitis with possible abscess formation continue IV Zyvox ID consult with Dr Manzano 2. AFib rate controlled continue Metoprolol and Digoxin Xarelto indefinitely on hold 3. DM2 BS relatively controlled continue Glyburide, Metformin and Januvia 4. CAD asymptomatic continue statin and Metoprolol
--- NOTE | 2018-11-22 15:38 | CP.PCM.CON ---
History of Present Illness - History of Present Illness History of Present Illness: 63 year old male with a history of CHF, CAD s/p stent, DM, HTN, afib on aspirin and Xarelto, recent left TKR revision, complicated by surgical site serosanguinous drainage/bleeding with anticoagulation, now readmitted with left knee drainage. The patient had an abbreviated course of Xarelto post op which was complicated by intraartricular bleeding. His Xarelto was discontinued and aspirin and lovenox prohylaxis were started once adequate hemostasis was achieved. He was discharged with minimal joint drainage. He notes that 2-3 days ago, his knee began to experience knee swelling and brownish material oozing out of his knee. He was instructed to come to the ER. His last dose of aspirin and lovenox were on Saturday morning. Past medical history: CHF, CAD s/p stent, DM, HTN, afib on xarelto Past surgical history: cholecystectomy, left TKR and revision. Family history: Denies Social history: Denies tobacco, alcohol, and illicit drug use. Allergies: Several, see list Review of systems: All remaining review of systems including HEENT, cardiovascular, respiratory, gastrointestinal, genitourinary, musculoskeletal, dermatologic, neurologic, and psychiatric are negative unless mentioned in the HPI. Past Patient History - Infectious Disease Hx of Infectious Diseases: None - Past Medical History & Family History Past Medical History?: Yes - Past Social History Alcohol: None Drugs: Denies - CARDIAC Hx Atrial Fibrillation: Yes Hx Cardia Arrhythmia: Yes (A FIB) Hx Congestive Heart Failure: No Hx Hypercholesterolemia: No Hx Hypertension: No Hx Pacemaker: No Hx Peripheral Edema: Yes - PULMONARY Hx Chronic Obstructive Pulmonary Disease (COPD): No - NEUROLOGICAL Hx Neurological Disorder: No - HEENT Hx HEENT Problems: No - RENAL Hx Chronic Kidney Disease: No - ENDOCRINE/METABOLIC Hx Hypothyroidism: No - HEMATOLOGICAL/ONCOLOGICAL Hx Anemia: No Hx Human Immunodeficiency Virus (HIV): No - INTEGUMENTARY Hx Eczema: Yes - MUSCULOSKELETAL/RHEUMATOLOGICAL Hx Arthritis: No Hx Rheumatoid Arthritis: No - GASTROINTESTINAL Hx Gastrointestinal Disorders: No - GENITOURINARY/GYNECOLOGICAL Other/Comment: HX OF UTI - PSYCHIATRIC Hx Emotional Abuse: No Hx Physical Abuse: No Hx Substance Use: No - SURGICAL HISTORY Hx Cholecystectomy: Yes Hx Coronary Stent: Yes (2) - ANESTHESIA Hx Anesthesia: Yes Hx Anesthesia Reactions: Yes (HEADACHES AND QUEASY STOMACH) Meds Allergies/Adverse Reactions: Allergies Allergy/AdvReac Type Severity Reaction Status Date / Time azithromycin Allergy RASH Verified 11/21/18 12:33 [From Zithromax Z-Mitchell] ciprofloxacin [From Cipro] Allergy RASH Verified 11/21/18 12:33 ciprofloxacin HCl Allergy RASH Verified 11/21/18 12:33 [From Cipro] Penicillins Allergy RASH Verified 11/21/18 12:33 - Medications Medications: Current Medications Alprazolam (Xanax) 0.25 mg PO Q12 PRN PRN Reason: Anxiety Stop: 11/29/18 09:39 Last Admin: 11/22/18 10:22 Dose: 0.25 mg Amlodipine Besylate (Norvasc) 10 mg PO DAILY [facility] Last Admin: 11/22/18 12:23 Dose: 10 mg Atorvastatin Calcium (Lipitor) 20 mg PO DIN [facility] Last Admin: 11/21/18 18:57 Dose: 20 mg Digoxin (Digoxin) 0.0625 mg PO DAILY [facility] Last Admin: 11/22/18 12:23 Dose: 0.0625 mg Docusate Sodium (Colace) 100 mg PO DAILY [facility] Last Admin: 11/22/18 10:22 Dose: 100 mg Furosemide (Lasix) 40 mg PO DAILY [facility] Last Admin: 11/22/18 10:26 Dose: 40 mg Gabapentin (Neurontin) 300 mg PO BID [facility] Last Admin: 11/22/18 09:02 Dose: 300 mg Glyburide (Micronase) 1.25 mg PO DAILY [facility] Last Admin: 11/22/18 10:25 Dose: 1.25 mg Linezolid (Zyvox 600mg/300ml D5w) 600 mg in 300 mls @ 300 mls/hr IVPB Q12 [facility]; Protocol Last Admin: 11/22/18 10:14 Dose: 300 mls/hr Aztreonam 1 gm/ Sodium (Chloride) 100 mls @ 100 mls/hr IVPB Q12 [facility]; Protocol Last Admin: 11/22/18 09:01 Dose: 100 mls/hr Losartan Potassium (Cozaar) 50 mg PO DAILY [facility] Last Admin: 11/22/18 12:23 Dose: 50 mg Metformin HCl (Glucophage) 1,000 mg PO BID [facility] Last Admin: 11/22/18 09:02 Dose: 1,000 mg Metoprolol Tartrate (Lopressor) 75 mg PO BID [facility] Last Admin: 11/22/18 09:02 Dose: 75 mg Oxycodone/Acetaminophen (Percocet 5/325 Mg Tab) 1 tab PO Q4 PRN PRN Reason: Pain, moderate (4-7) Stop: 11/24/18 13:40 Last Admin: 11/21/18 23:29 Dose: 1 tab Oxycodone/Acetaminophen (Percocet 5/325 Mg Tab) 1 tab PO Q6 [facility] Stop: 11/24/18 16:01 Last Admin: 11/22/18 09:01 Dose: 1 tab Sitagliptin Phosphate (Januvia) 50 mg PO BID [facility] Last Admin: 11/22/18 09:02 Dose: 50 mg Physical Exam - Head Exam Head Exam: ATRAUMATIC - Eye Exam Eye Exam: Normal appearance - ENT Exam ENT Exam: Mucous Membranes Dry - Respiratory Exam Respiratory Exam: NORMAL BREATHING PATTERN - Cardiovascular Exam Cardiovascular Exam: +S1, +S2 - GI/Abdominal Exam GI & Abdominal Exam: Normal Bowel Sounds - Extremities Exam Extremities exam: Positive for: pedal edema - Neurological Exam Neurological exam: Oriented x3 - Psychiatric Exam Psychiatric exam: Normal Affect, Normal Mood - Skin Skin Exam: Warm Results - Vital Signs Recent Vital Signs: Last Vital Signs Temp 97.9 F 11/22/18 08:11 Pulse 80 11/22/18 12:23 Resp 20 11/22/18 08:11 BP 125/75 11/22/18 12:23 Pulse Ox 98 11/22/18 12:58 - Labs Result Diagrams: 11/22/18 06:00 11/22/18 06:00 Labs: Laboratory Results - last 24 hr 11/21/18 11/21/18 11/21/18 13:46 13:46 18:19 WBC RBC Hgb Hct MCV MCH MCHC RDW Plt Count MPV Neut % (Auto) Lymph % (Auto) [place] % (Auto) Eos % (Auto) Baso % (Auto) Neut # (Auto) Lymph # (Auto) [place] # (Auto) Eos # (Auto) Baso # (Auto) ESR 25 H Sodium Potassium Chloride Carbon Dioxide Anion Gap BUN Creatinine Est GFR ( Amer) Est GFR (Non-Af Amer) POC Glucose (mg/dL) 191 H Random Glucose Calcium C-Reactive Protein 20.30 H Procalcitonin Urine Color Urine Clarity Urine pH Ur Specific [place] Urine Protein Urine Glucose (UA) Urine Ketones Urine Blood Urine Nitrate Urine Bilirubin Urine Urobilinogen Ur Leukocyte Esterase Urine RBC (Auto) Urine Microscopic WBC Ur Squamous Epith Cells 11/21/18 11/21/18 11/22/18 18:49 21:24 00:15 WBC RBC Hgb Hct MCV MCH MCHC RDW Plt Count MPV Neut % (Auto) Lymph % (Auto) [place] % (Auto) Eos % (Auto) Baso % (Auto) Neut # (Auto) Lymph # (Auto) [place] # (Auto) Eos # (Auto) Baso # (Auto) ESR Sodium Potassium Chloride Carbon Dioxide Anion Gap BUN Creatinine Est GFR ( Amer) Est GFR (Non-Af Amer) POC Glucose (mg/dL) 199 H Random Glucose Calcium C-Reactive Protein Procalcitonin < 0.05 L Urine Color Yellow Urine Clarity Slighty-cloudy Urine pH 5.0 Ur Specific [place] 1.043 H Urine Protein 100 Urine Glucose (UA) Neg Urine Ketones Negative Urine Blood Moderate Urine Nitrate Positive H Urine Bilirubin Negative Urine Urobilinogen 0.2-1.0 Ur Leukocyte Esterase Small Urine RBC (Auto) 2 Urine Microscopic WBC 24 H Ur Squamous Epith Cells < 1 11/22/18 11/22/18 11/22/18 05:44 06:00 06:00 WBC 8.8 RBC 4.03 L Hgb 11.8 L Hct 34.3 L MCV 85.3 MCH 29.2 MCHC 34.3 RDW 15.3 H Plt Count 342 MPV 9.1 Neut % (Auto) 64.3 Lymph % (Auto) 22.7 [place] % (Auto) 10.7 H Eos % (Auto) 1.7 Baso % (Auto) 0.6 Neut # (Auto) 5.6 Lymph # (Auto) 2.0 [place] # (Auto) 0.9 H Eos # (Auto) 0.2 Baso # (Auto) 0.1 ESR Sodium 138 Potassium 3.0 L Chloride 99 Carbon Dioxide 30 Anion Gap 12 BUN 16 Creatinine 1.2 Est GFR ( Amer) > 60 Est GFR (Non-Af Amer) > 60 POC Glucose (mg/dL) 120 H Random Glucose 112 H Calcium 8.7 C-Reactive Protein Procalcitonin Urine Color Urine Clarity Urine pH Ur Specific [place] Urine Protein Urine Glucose (UA) Urine Ketones Urine Blood Urine Nitrate Urine Bilirubin Urine Urobilinogen Ur Leukocyte Esterase Urine RBC (Auto) Urine Microscopic WBC Ur Squamous Epith Cells 11/22/18 11:01 WBC RBC Hgb Hct MCV MCH MCHC RDW Plt Count MPV Neut % (Auto) Lymph % (Auto) [place] % (Auto) Eos % (Auto) Baso % (Auto) Neut # (Auto) Lymph # (Auto) [place] # (Auto) Eos # (Auto) Baso # (Auto) ESR Sodium Potassium Chloride Carbon Dioxide Anion Gap BUN Creatinine Est GFR ( Amer) Est GFR (Non-Af Amer) POC Glucose (mg/dL) 180 H Random Glucose Calcium C-Reactive Protein Procalcitonin Urine Color Urine Clarity Urine pH Ur Specific [place] Urine Protein Urine Glucose (UA) Urine Ketones Urine Blood Urine Nitrate Urine Bilirubin Urine Urobilinogen Ur Leukocyte Esterase Urine RBC (Auto) Urine Microscopic WBC Ur Squamous Epith Cells Assessment & Plan (1) Anemia Assessment and Plan: mild joint bleed monitor H/H Status: Acute (2) Drainage from wound Assessment and Plan: antiplatelet and anticoagulation held for bleeding encourage OOB hold antiplatelet and anticoagulation post op until cleared by orthopedics and reintroduce either aspirin or lovenox prophylaxis (NOT both) Thank you for this interesting consult. Status: Acute
--- NOTE | 2018-11-22 16:59 | RAD ---
Date of service: 11/22/2018 PROCEDURE: Left Knee Radiographs. HISTORY: Pain. COMPARISON: None. TECHNIQUE: 2 views obtained. FINDINGS: BONES: Left total knee replacement. Hardware appears intact without evidence of loosening or infection. There is satisfactory alignment. JOINTS: As above JOINT EFFUSION: None. OTHER FINDINGS: Interval removal drainage catheter and skin closure brooke. IMPRESSION: Total knee replacement. Hardware intact without evidence of failure. Satisfactory alignment.
--- NOTE | 2018-11-22 17:38 | CARD ---
APPROVED REPORT Date of service: 11/21/2018 EKG Measurement Heart [id number] <Conclusion> Atrial fibrillation Poor R wave progression in Precordial leads Abnormal ECG
[2018-11-22] MEDS ORDERED: Povidone Iodine Topical 10% Sol ONE (18:17)
--- NOTE | 2018-11-22 18:40 | CP.PCM.PN ---
Subjective - Date & Time of Evaluation Date of Evaluation: 11/22/18 Time of Evaluation: 18:35 - Subjective Subjective: I D NOTE LESS SWELLING ,MINIMAL DRAINAGE AFEBRILE,PROCALCITONIN IS WNL CONTINUE ZYVOX FOR OR ON SATURDAY Objective - Vital Signs/Intake and Output Vital Signs (last 24 hours): Temp Pulse Resp BP Pulse Ox 98 F 74 20 120/77 95 11/22/18 17:00 11/22/18 17:47 11/22/18 17:00 11/22/18 17:47 11/22/18 17:00 - Medications Medications: Current Medications Alprazolam (Xanax) 0.25 mg PO Q12 PRN PRN Reason: Anxiety Stop: 11/29/18 09:39 Last Admin: 11/22/18 10:22 Dose: 0.25 mg Amlodipine Besylate (Norvasc) 10 mg PO DAILY [facility] Last Admin: 11/22/18 12:23 Dose: 10 mg Atorvastatin Calcium (Lipitor) 20 mg PO DIN [facility] Last Admin: 11/21/18 18:57 Dose: 20 mg Digoxin (Digoxin) 0.0625 mg PO DAILY [facility] Last Admin: 11/22/18 12:23 Dose: 0.0625 mg Docusate Sodium (Colace) 100 mg PO DAILY [facility] Last Admin: 11/22/18 10:22 Dose: 100 mg Furosemide (Lasix) 40 mg PO DAILY [facility] Last Admin: 11/22/18 10:26 Dose: 40 mg Gabapentin (Neurontin) 300 mg PO BID [facility] Last Admin: 11/22/18 09:02 Dose: 300 mg Glyburide (Micronase) 1.25 mg PO DAILY [facility] Last Admin: 11/22/18 10:25 Dose: 1.25 mg Linezolid (Zyvox 600mg/300ml D5w) 600 mg in 300 mls @ 300 mls/hr IVPB Q12 [facility]; Protocol Last Admin: 11/22/18 10:14 Dose: 300 mls/hr Aztreonam 1 gm/ Sodium (Chloride) 100 mls @ 100 mls/hr IVPB Q12 [facility]; Protocol Last Admin: 11/22/18 09:01 Dose: 100 mls/hr Losartan Potassium (Cozaar) 50 mg PO DAILY [facility] Last Admin: 11/22/18 12:23 Dose: 50 mg Metformin HCl (Glucophage) 1,000 mg PO BID [facility] Last Admin: 11/22/18 17:47 Dose: 1,000 mg Metoprolol Tartrate (Lopressor) 75 mg PO BID [facility] Last Admin: 11/22/18 17:47 Dose: 75 mg Oxycodone/Acetaminophen (Percocet 5/325 Mg Tab) 1 tab PO Q4 PRN PRN Reason: Pain, moderate (4-7) Stop: 11/24/18 13:40 Last Admin: 11/21/18 23:29 Dose: 1 tab Oxycodone/Acetaminophen (Percocet 5/325 Mg Tab) 1 tab PO Q6 [facility] Stop: 11/24/18 16:01 Last Admin: 11/22/18 16:29 Dose: 1 tab Sitagliptin Phosphate (Januvia) 50 mg PO BID [facility] Last Admin: 11/22/18 17:47 Dose: 50 mg - Labs Labs: 11/22/18 06:00 11/22/18 06:00 PT 12.7 Seconds (9.8-13.1) 11/21/18 13:46 INR 1.1 11/21/18 13:46 APTT 30.9 Seconds (25.6-37.1) 11/21/18 13:46
[2018-11-23] MEDS: Oxycodone/Acetaminophen 5/325 mg Tab PO SCH ×4 (04:20→22:17)
[2018-11-23 07:06] LABS: BASO # 0.1 K/uL (0.0-0.2); EOS # 0.2 K/uL (0.0-0.7); EOS % 2.1 % (0.0-4.0); HEMOGLOBIN 11.7 g/dL (12.0-18.0); LYMPH # 1.9 K/uL (1.0-4.3); LYMPH % 24.6 % (20.0-40.0); MEAN CELL VOLUME 86.5 fl (80.0-94.0); MEAN CORPUSCULAR HEMOGLOBIN 29.2 pg (27.0-31.0); MEAN CORPUSCULAR HGB CONC 33.8 g/dL (33.0-37.0); MEAN PLATELET VOLUME 9.1 fl (7.2-11.7); MONO # 0.8 K/uL (0.0-0.8); NEUT # 4.8 K/uL (1.8-7.0); NEUT % 62.3 % (50.0-75.0); NRBC % 0.1 % (0.0-0.0); RED CELL DISTRIBUTION WIDTH 15.6 % (11.5-14.5); WHITE BLOOD COUNT 7.7 K/uL (4.8-10.8)
[2018-11-23 07:14] LABS: BLOOD UREA NITROGEN 20 mg/dl (9-20); GFR NON-AFRICAN AMERICAN > 60
[2018-11-23] MEDS ORDERED: Potassium Chloride 20 mEq ER Tab PO ONE (08:31)
--- NOTE | 2018-11-23 08:50 | CP.PCM.PN ---
<Ally Echols - Last Filed: 11/23/18 10:59> Subjective - Date & Time of Evaluation Date of Evaluation: 11/23/18 Time of Evaluation: 10:00 - Subjective Subjective: Patient seen and examined at bedside. Reports mild left knee pain. Brace in place. Denies angina, dyspnea, nausea, vomiting, abdominal pain. For I and D tomorrow, 11/23/18, by Ortho. Objective - Vital Signs/Intake and Output Vital Signs (last 24 hours): Temp Pulse Resp BP Pulse Ox 97.9 F 72 20 144/82 99 11/23/18 08:19 11/23/18 08:19 11/23/18 08:19 11/23/18 08:19 11/23/18 08:19 - Medications Medications: Current Medications Alprazolam (Xanax) 0.25 mg PO Q12 PRN PRN Reason: Anxiety Stop: 11/29/18 09:39 Last Admin: 11/22/18 10:22 Dose: 0.25 mg Amlodipine Besylate (Norvasc) 10 mg PO DAILY [facility] Last Admin: 11/22/18 12:23 Dose: 10 mg Atorvastatin Calcium (Lipitor) 20 mg PO DIN [facility] Last Admin: 11/21/18 18:57 Dose: 20 mg Digoxin (Digoxin) 0.0625 mg PO DAILY [facility] Last Admin: 11/22/18 12:23 Dose: 0.0625 mg Docusate Sodium (Colace) 100 mg PO DAILY [facility] Last Admin: 11/22/18 10:22 Dose: 100 mg Furosemide (Lasix) 40 mg PO DAILY [facility] Last Admin: 11/22/18 10:26 Dose: 40 mg Gabapentin (Neurontin) 300 mg PO BID [facility] Last Admin: 11/22/18 21:03 Dose: 300 mg Glyburide (Micronase) 1.25 mg PO DAILY [facility] Last Admin: 11/22/18 10:25 Dose: 1.25 mg Linezolid (Zyvox 600mg/300ml D5w) 600 mg in 300 mls @ 300 mls/hr IVPB Q12 [facility]; Protocol Last Admin: 11/22/18 21:02 Dose: 300 mls/hr Aztreonam 1 gm/ Sodium (Chloride) 100 mls @ 100 mls/hr IVPB Q12 [facility]; Protocol Last Admin: 11/22/18 22:23 Dose: 100 mls/hr Losartan Potassium (Cozaar) 50 mg PO DAILY [facility] Last Admin: 11/22/18 12:23 Dose: 50 mg Metformin HCl (Glucophage) 1,000 mg PO BID [facility] Last Admin: 11/22/18 17:47 Dose: 1,000 mg Metoprolol Tartrate (Lopressor) 75 mg PO BID [facility] Last Admin: 11/22/18 17:47 Dose: 75 mg Oxycodone/Acetaminophen (Percocet 5/325 Mg Tab) 1 tab PO Q4 PRN PRN Reason: Pain, moderate (4-7) Stop: 11/24/18 13:40 Last Admin: 11/21/18 23:29 Dose: 1 tab Oxycodone/Acetaminophen (Percocet 5/325 Mg Tab) 1 tab PO Q6 [facility] Stop: 11/24/18 16:01 Last Admin: 11/23/18 04:20 Dose: 1 tab Sitagliptin Phosphate (Januvia) 50 mg PO BID [facility] Last Admin: 11/22/18 17:47 Dose: 50 mg - Labs Labs: 11/23/18 06:10 11/23/18 06:10 PT 12.7 Seconds (9.8-13.1) 11/21/18 13:46 INR 1.1 11/21/18 13:46 APTT 30.9 Seconds (25.6-37.1) 11/21/18 13:46 - Constitutional Appears: Non-toxic, No Acute Distress - Eye Exam Eye Exam: Normal appearance - ENT Exam ENT Exam: Mucous Membranes Moist - Respiratory Exam Respiratory Exam: Clear to Ausculation Bilateral, NORMAL BREATHING PATTERN. absent: Accessory Muscle Use, Chest Wall Tenderness, Decreased Breath Sounds, Prolonged Expiratory Phase, Rales, Rhonchi, Wheezes, Respiratory Distress, Stridor - Cardiovascular Exam Cardiovascular Exam: Irregular Rhythm, +S1, +S2 - GI/Abdominal Exam GI & Abdominal Exam: Soft, Normal Bowel Sounds. absent: Distended, Firm, Guarding, Rigid, Tenderness, Mass, Rebound - Extremities Exam Extremities Exam: Normal Capillary Refill, Pedal Edema (Left lower leg swelling). absent: Tenderness Additional comments: Brace in place on left leg. +2 dorsalis pedis and tibialis posterior noted bilaterally. - Neurological Exam Neurological Exam: Alert, Awake, Oriented x3 - Psychiatric Exam Psychiatric exam: Normal Affect, Normal Mood - Skin Skin Exam: Dry, Intact, Normal Color, Warm Assessment and Plan - Assessment and Plan (Free Text) Assessment: 63 yo male with history of AFib, CHF, CAD and Left TKR admitted for I&D because of hemarthrosis. For I and D 11/24/18 Plan: 1. Left Knee Hemarthroses hold anticoagulants CT scan: suspicious infectious bursitis with possible abscess formation continue IV Zyvox (Day 3) ID consult appreciated 2. AFib rate controlled continue Metoprolol and Digoxin Xarelto indefinitely on hold 3. DM2 BS relatively controlled continue Glyburide, Metformin and Januvia 4. CAD asymptomatic continue statin and Metoprolol 5. DVT prophylaxis Anticoagulants on hold given hemarthrosis SCD's <Srikanth Kemp D - Last Filed: 11/23/18 17:13> Objective - Vital Signs/Intake and Output Vital Signs (last 24 hours): Temp Pulse Resp BP Pulse Ox 98.4 F 65 18 132/81 98 11/23/18 16:58 11/23/18 17:10 11/23/18 16:58 11/23/18 17:10 11/23/18 16:58 - Medications Medications: Current Medications Alprazolam (Xanax) 0.25 mg PO Q12 PRN PRN Reason: Anxiety Stop: 11/29/18 09:39 Last Admin: 11/22/18 10:22 Dose: 0.25 mg Amlodipine Besylate (Norvasc) 10 mg PO DAILY [facility] Last Admin: 11/23/18 09:46 Dose: 10 mg Atorvastatin Calcium (Lipitor) 20 mg PO DIN [facility] Last Admin: 11/23/18 17:11 Dose: 20 mg Digoxin (Digoxin) 0.0625 mg PO DAILY [facility] Last Admin: 11/23/18 09:46 Dose: 0.0625 mg Docusate Sodium (Colace) 100 mg PO DAILY [facility] Last Admin: 11/23/18 09:42 Dose: 100 mg Furosemide (Lasix) 40 mg PO DAILY [facility] Last Admin: 11/23/18 09:45 Dose: 40 mg Gabapentin (Neurontin) 300 mg PO BID [facility] Last Admin: 11/23/18 17:10 Dose: 300 mg Glyburide (Micronase) 1.25 mg PO DAILY [facility] Last Admin: 11/23/18 09:43 Dose: 1.25 mg Linezolid (Zyvox 600mg/300ml D5w) 600 mg in 300 mls @ 300 mls/hr IVPB Q12 [facility]; Protocol Last Admin: 11/23/18 11:03 Dose: 300 mls/hr Aztreonam 1 gm/ Sodium (Chloride) 100 mls @ 100 mls/hr IVPB Q12 [facility]; Protocol Last Admin: 11/23/18 09:41 Dose: 100 mls/hr Losartan Potassium (Cozaar) 50 mg PO DAILY [facility] Last Admin: 11/23/18 09:47 Dose: 50 mg Metformin HCl (Glucophage) 1,000 mg PO BID [facility] Last Admin: 11/23/18 17:11 Dose: 1,000 mg Metoprolol Tartrate (Lopressor) 75 mg PO BID [facility] Last Admin: 11/23/18 17:10 Dose: 75 mg Oxycodone/Acetaminophen (Percocet 5/325 Mg Tab) 1 tab PO Q4 PRN PRN Reason: Pain, moderate (4-7) Stop: 11/24/18 13:40 Last Admin: 11/21/18 23:29 Dose: 1 tab Oxycodone/Acetaminophen (Percocet 5/325 Mg Tab) 1 tab PO Q6 [facility] Stop: 11/24/18 16:01 Last Admin: 11/23/18 15:14 Dose: 1 tab Sitagliptin Phosphate (Januvia) 50 mg PO BID [facility] Last Admin: 11/23/18 17:11 Dose: 50 mg - Labs Labs: 11/23/18 06:10 11/23/18 06:10 PT 12.7 Seconds (9.8-13.1) 11/21/18 13:46 INR 1.1 11/21/18 13:46 APTT 30.9 Seconds (25.6-37.1) 11/21/18 13:46 Attending/Attestation - Attestation I have personally seen and examined this patient.: Yes I have fully participated in the care of the patient.: Yes I have reviewed all pertinent clinical information, including history, physical exam and plan: Yes Notes (Text): 11/23/18 17:12 Patient seen and examined with resident. Case discussed and agreed with assessment.
[2018-11-23] MEDS: Aztreonam 1 GM in Sodium Chloride 0.9% 100 ML IVPB SCH ×2 (09:41→20:22)
[2018-11-23] MEDS: Digoxin 125 mcg (0.125 mg) Tab PO SCH (09:46)
[2018-11-23] MEDS: Linezolid 600 mg in D5W 300 ml 600 MG/300 ML BAG IVPB SCH ×2 (11:03→22:12)
--- NOTE | 2018-11-23 21:46 | CP.PCM.PN ---
Subjective - Date & Time of Evaluation Date of Evaluation: 11/23/18 Time of Evaluation: 19:00 - Subjective Subjective: No complaints, for OR tomorrow. Objective - Vital Signs/Intake and Output Vital Signs (last 24 hours): Temp Pulse Resp BP Pulse Ox 98.4 F 65 18 132/81 98 11/23/18 17:00 11/23/18 17:10 11/23/18 17:00 11/23/18 17:10 11/23/18 17:00 - Medications Medications: Current Medications Alprazolam (Xanax) 0.25 mg PO Q12 PRN PRN Reason: Anxiety Stop: 11/29/18 09:39 Last Admin: 11/22/18 10:22 Dose: 0.25 mg Amlodipine Besylate (Norvasc) 10 mg PO DAILY [facility] Last Admin: 11/23/18 09:46 Dose: 10 mg Atorvastatin Calcium (Lipitor) 20 mg PO DIN [facility] Last Admin: 11/23/18 17:11 Dose: 20 mg Digoxin (Digoxin) 0.0625 mg PO DAILY [facility] Last Admin: 11/23/18 09:46 Dose: 0.0625 mg Docusate Sodium (Colace) 100 mg PO DAILY [facility] Last Admin: 11/23/18 09:42 Dose: 100 mg Furosemide (Lasix) 40 mg PO DAILY [facility] Last Admin: 11/23/18 09:45 Dose: 40 mg Gabapentin (Neurontin) 300 mg PO BID [facility] Last Admin: 11/23/18 17:10 Dose: 300 mg Glyburide (Micronase) 1.25 mg PO DAILY [facility] Last Admin: 11/23/18 09:43 Dose: 1.25 mg Linezolid (Zyvox 600mg/300ml D5w) 600 mg in 300 mls @ 300 mls/hr IVPB Q12 [facility]; Protocol Last Admin: 11/23/18 11:03 Dose: 300 mls/hr Aztreonam 1 gm/ Sodium (Chloride) 100 mls @ 100 mls/hr IVPB Q12 [facility]; Protocol Last Admin: 11/23/18 20:22 Dose: 100 mls/hr Losartan Potassium (Cozaar) 50 mg PO DAILY [facility] Last Admin: 11/23/18 09:47 Dose: 50 mg Metformin HCl (Glucophage) 1,000 mg PO BID [facility] Last Admin: 11/23/18 17:11 Dose: 1,000 mg Metoprolol Tartrate (Lopressor) 75 mg PO BID [facility] Last Admin: 11/23/18 17:10 Dose: 75 mg Oxycodone/Acetaminophen (Percocet 5/325 Mg Tab) 1 tab PO Q4 PRN PRN Reason: Pain, moderate (4-7) Stop: 11/24/18 13:40 Last Admin: 11/21/18 23:29 Dose: 1 tab Oxycodone/Acetaminophen (Percocet 5/325 Mg Tab) 1 tab PO Q6 [facility] Stop: 11/24/18 16:01 Last Admin: 11/23/18 15:14 Dose: 1 tab Sitagliptin Phosphate (Januvia) 50 mg PO BID [facility] Last Admin: 11/23/18 17:11 Dose: 50 mg - Labs Labs: 11/23/18 06:10 11/23/18 06:10 PT 12.7 Seconds (9.8-13.1) 11/21/18 13:46 INR 1.1 11/21/18 13:46 APTT 30.9 Seconds (25.6-37.1) 11/21/18 13:46 - Head Exam Head Exam: ATRAUMATIC - Eye Exam Eye Exam: Normal appearance - ENT Exam ENT Exam: Mucous Membranes Dry - Respiratory Exam Respiratory Exam: NORMAL BREATHING PATTERN - Cardiovascular Exam Cardiovascular Exam: +S1, +S2 - GI/Abdominal Exam GI & Abdominal Exam: Normal Bowel Sounds Assessment and Plan (1) Anemia Assessment & Plan: mild joint bleed monitor H/H Status: Acute (2) Drainage from wound Assessment & Plan: antiplatelet and anticoagulation held for bleeding encourage OOB hold antiplatelet and anticoagulation post op until cleared by orthopedics. When cleared, reintroduce either aspirin 81mg or lovenox prophylaxis (NOT both) Status: Acute
[2018-11-24] MEDS: Oxycodone/Acetaminophen 5/325 mg Tab PO PRN (00:11)
[2018-11-24] MEDS: Oxycodone/Acetaminophen 5/325 mg Tab PO SCH ×3 (04:18→16:44)
[2018-11-24 06:54] LABS: BASO # 0.1 K/uL (0.0-0.2); BASO % 0.8 % (0.0-2.0); EOS # 0.2 K/uL (0.0-0.7); EOS % 2.3 % (0.0-4.0); HEMOGLOBIN 12.2 g/dL (12.0-18.0); LYMPH # 1.7 K/uL (1.0-4.3); LYMPH % 22.6 % (20.0-40.0); MEAN CELL VOLUME 85.6 fl (80.0-94.0); MEAN CORPUSCULAR HEMOGLOBIN 28.3 pg (27.0-31.0); MEAN CORPUSCULAR HGB CONC 33.1 g/dL (33.0-37.0); MEAN PLATELET VOLUME 8.7 fl (7.2-11.7); MONO # 0.8 K/uL (0.0-0.8); MONO % 10.6 % (0.0-10.0); NEUT # 4.7 K/uL (1.8-7.0); NEUT % 63.7 % (50.0-75.0); NRBC % 0.1 % (0.0-0.0); RBC 4.32 Mil/uL (4.40-5.90); RED CELL DISTRIBUTION WIDTH 15.3 % (11.5-14.5); WHITE BLOOD COUNT 7.4 K/uL (4.8-10.8)
[2018-11-24 07:12] LABS: ALB/GLOB RATIO 1.3 (1.0-2.1); ALBUMIN 3.9 g/dL (3.5-5.0); ALT/SGPT 41 U/L (21-72); AST/SGOT 39 U/L (17-59); BLOOD UREA NITROGEN 16 mg/dl (9-20); CALCIUM 8.4 mg/dL (8.4-10.2); GFR NON-AFRICAN AMERICAN > 60
[2018-11-24] MEDS ORDERED: Bacitracin Ointment 30 GM TUBE ONE (07:15)
[2018-11-24] MEDS ORDERED: Rocuronium 10 mg/ml (5 ml) ONE ×3 (07:26→10:45)
[2018-11-24] MEDS ORDERED: Succinylcholine Chloride 20 mg/ml Syr (5 ml) IV ONE (07:26)
[2018-11-24] MEDS ORDERED: Etomidate 20 mg/10ml Inj IV ONE (07:26)
[2018-11-24] MEDS ORDERED: Lidocaine 4% (Laryng-O-Jet) Kit MM ONE (07:26)
[2018-11-24] MEDS ORDERED: Propofol 10 mg/ml Inj (20 ML) ONE (07:26)
[2018-11-24] MEDS ORDERED: Midazolam 2 MG/2 ML VIAL ONE (08:01)
[2018-11-24] MEDS ORDERED: Phenylephrine 10 mg/ml Inj ONE (08:31)
--- NOTE | 2018-11-24 08:55 | CP.PCM.PN ---
Subjective - Date & Time of Evaluation Date of Evaluation: 11/24/18 Time of Evaluation: 09:40 - Subjective Subjective: Patient seen and examined at bedside s/p I and D of left knee. At this time he reports discomfort in the left knee. No chest pain, shortness of breath, nausea, vomiting, or abdominal discomfort. Hemodynamically stable at this time. Objective - Vital Signs/Intake and Output Vital Signs (last 24 hours): Temp Pulse Resp BP Pulse Ox 98.1 F 81 19 141/91 H 100 11/24/18 06:35 11/24/18 07:05 11/24/18 06:35 11/24/18 07:05 11/24/18 06:35 - Medications Medications: Current Medications Alprazolam (Xanax) 0.25 mg PO Q12 PRN PRN Reason: Anxiety Stop: 11/29/18 09:39 Last Admin: 11/23/18 22:19 Dose: 0.25 mg Amlodipine Besylate (Norvasc) 10 mg PO DAILY [facility] Last Admin: 11/23/18 09:46 Dose: 10 mg Atorvastatin Calcium (Lipitor) 20 mg PO DIN [facility] Last Admin: 11/23/18 17:11 Dose: 20 mg Digoxin (Digoxin) 0.0625 mg PO DAILY [facility] Last Admin: 11/23/18 09:46 Dose: 0.0625 mg Docusate Sodium (Colace) 100 mg PO DAILY [facility] Last Admin: 11/23/18 09:42 Dose: 100 mg Furosemide (Lasix) 40 mg PO DAILY [facility] Last Admin: 11/23/18 09:45 Dose: 40 mg Gabapentin (Neurontin) 300 mg PO BID [facility] Last Admin: 11/23/18 17:10 Dose: 300 mg Glyburide (Micronase) 1.25 mg PO DAILY [facility] Last Admin: 11/23/18 09:43 Dose: 1.25 mg Linezolid (Zyvox 600mg/300ml D5w) 600 mg in 300 mls @ 300 mls/hr IVPB Q12 [facility]; Protocol Last Admin: 11/23/18 22:12 Dose: 300 mls/hr Aztreonam 1 gm/ Sodium (Chloride) 100 mls @ 100 mls/hr IVPB Q12 [facility]; Protocol Last Admin: 11/23/18 20:22 Dose: 100 mls/hr Losartan Potassium (Cozaar) 50 mg PO DAILY [facility] Last Admin: 11/24/18 07:05 Dose: 50 mg Metformin HCl (Glucophage) 1,000 mg PO BID [facility] Last Admin: 11/23/18 17:11 Dose: 1,000 mg Metoprolol Tartrate (Lopressor) 75 mg PO BID [facility] Last Admin: 11/24/18 06:31 Dose: 75 mg Oxycodone/Acetaminophen (Percocet 5/325 Mg Tab) 1 tab PO Q4 PRN PRN Reason: Pain, moderate (4-7) Stop: 11/24/18 13:40 Last Admin: 11/24/18 00:11 Dose: 1 tab Oxycodone/Acetaminophen (Percocet 5/325 Mg Tab) 1 tab PO Q6 [facility] Stop: 11/24/18 16:01 Last Admin: 11/24/18 04:18 Dose: 1 tab Sitagliptin Phosphate (Januvia) 50 mg PO BID [facility] Last Admin: 11/23/18 17:11 Dose: 50 mg - Labs Labs: 11/24/18 06:35 11/24/18 06:35 PT 12.7 Seconds (9.8-13.1) 11/21/18 13:46 INR 1.1 11/21/18 13:46 APTT 30.9 Seconds (25.6-37.1) 11/21/18 13:46 - Constitutional Appears: Non-toxic, No Acute Distress - Eye Exam Eye Exam: Normal appearance - ENT Exam ENT Exam: Mucous Membranes Moist - Respiratory Exam Respiratory Exam: Clear to Ausculation Bilateral, NORMAL BREATHING PATTERN. absent: Accessory Muscle Use, Chest Wall Tenderness, Decreased Breath Sounds, Prolonged Expiratory Phase, Rales, Rhonchi, Wheezes, Respiratory Distress, Stridor - Cardiovascular Exam Cardiovascular Exam: REGULAR RHYTHM, +S1, +S2 - GI/Abdominal Exam GI & Abdominal Exam: Soft, Normal Bowel Sounds. absent: Distended, Firm, Guarding, Rigid, Tenderness, Rebound - Extremities Exam Extremities Exam: Normal Capillary Refill. absent: Calf Tenderness, Joint Swelling, Tenderness Additional comments: Left knee in brace - Neurological Exam Neurological Exam: Alert, Awake, Oriented x3 - Psychiatric Exam Psychiatric exam: Normal Affect, Normal Mood - Skin Skin Exam: Dry, Intact, Pallor, Warm Assessment and Plan - Assessment and Plan (Free Text) Assessment: 63 yo male with history of AFib, CHF, CAD and Left TKR admitted because of hemarthrosis s/p I & D 11/24/18 Plan: 1. Left Knee Hemarthroses hold anticoagulants CT scan: suspicious infectious bursitis with possible abscess formation continue IV Zyvox (Day 4) ID consult appreciated Orthopedic recommendations appreciated 2. AFib rate controlled continue Metoprolol and Digoxin Xarelto indefinitely on hold 3. DM2 BS relatively controlled continue Glyburide, Metformin and Januvia 4. CAD asymptomatic continue statin and Metoprolol 5. DVT prophylaxis Anticoagulants on hold given hemarthrosis SCD's
[2018-11-24] MEDS ORDERED: Linezolid 600 mg in D5W 300 ml IVPB ONE (09:00)
[2018-11-24] MEDS: Aztreonam 1 GM in Sodium Chloride 0.9% 100 ML IVPB SCH ×2 (09:01→22:00)
[2018-11-24] MEDS: Linezolid 600 mg in D5W 300 ml 600 MG/300 ML BAG IVPB SCH ×2 (09:02→21:31)
[2018-11-24] MEDS: Digoxin 125 mcg (0.125 mg) Tab PO SCH (09:07)
[2018-11-24 09:19] LABS: FLUID TYPE SYNOVIAL FLUID
[2018-11-24] MEDS ORDERED: Absorbable Gelatin Sponge Size 12-7 ONE ×2 (09:34→10:33)
[2018-11-24] MEDS ORDERED: Thrombin Topical 5,000 Int Units Spray Kit ONE (09:34)
[2018-11-24] MEDS ORDERED: Lactated Ringer's 1,000 ML IV ONE ×2 (10:00→11:00)
[2018-11-24 10:29] LABS: SF GROSS APPEARANCE CLOUDY (CLEAR); SYNOVIAL FLUID COMMENT RED
[2018-11-24 10:30] LABS: FLUID TYPE SYNOVIAL FLUID; SF GROSS APPEARANCE CLOUDY (CLEAR); SYNOVIAL FLUID COMMENT RED
[2018-11-24] MEDS ORDERED: SODIUM CHLORIDE 3,000 ML IR ONE ×3 (10:30→10:40)
[2018-11-24] MEDS ORDERED: Neostigmine 1:1000 (1 mg/ml) Inj ONE (11:06)
[2018-11-24] MEDS ORDERED: Metoprolol 1 mg/ml Inj ONE (11:32)
[2018-11-24 11:51] LABS: SYNOVIAL FLUID MONO/MACROPHAGE 11 % (0-0)
[2018-11-24 11:54] LABS: SYNOVIAL FLUID MONO/MACROPHAGE 8 % (0-0)
[2018-11-24] MEDS ORDERED: Sodium Chloride 0.9% 1,000 ML IV SCH (12:00)
[2018-11-24] MEDS ORDERED: HYDROmorphone 0.5 mg/0.5 ml ISec IVP PRN (12:01)
[2018-11-24] MEDS ORDERED: Lactated Ringer's 1,000 ML IV SCH (12:15)
--- NOTE | 2018-11-24 16:35 | PCM.SURG1 ---
Surgeon's Initial Post Op Note - Surgeon's Notes Surgeon: Stephanie Track Rider: Farzana Webster PA-C/ MARIELA Benito Type of Anesthesia: General Endo Anesthesia Administered By: DR Luciana Henry Pre-Operative Diagnosis: wound dehiscience s/p hematoma (post op secondary to anticoagulation change unilaterally by hospitalist without consultation with operating surgeon. --quadriceps tendon rupture. - wound dehiscience. - Operative Findings: quad tendon rupture. retained hematoma. wound dehiscience Post-Operative Diagnosis: as above Operation Performed: Revision total knee replacement 1 component- tibial polyethylene. primary repair quad tendon rupture. repair/reinforcment paterlla ligemnt. partiall synovectomy. removal foreing bodies (deep- retained suture removall). applx provena wound vac. applx Jarod Zhou compression dressing aND KNEE IMMOBILIZER Specimen/Specimens Removed: synovium/tendon/foreign bodies Estimated Blood Loss: EBL {In ML}: 100 Drains Used: Wound Vac Post-Op Condition: Fair Date of Surgery/Procedure: 11/24/18 Time of Surgery/Procedure: 09:00 (time in room 7:50/ anaesthesia indcution time)
[2018-11-24] MEDS: HYDROmorphone 0.5 mg/0.5 ml ISec IVP PRN (21:41)
[2018-11-25] MEDS: HYDROmorphone 0.5 mg/0.5 ml ISec IVP PRN ×2 (01:23→05:19)
[2018-11-25 06:33] LABS: BASO % 0.3 % (0.0-2.0); EOS % 0.2 % (0.0-4.0); HEMOGLOBIN 10.7 g/dL (12.0-18.0); LYMPH # 1.4 K/uL (1.0-4.3); LYMPH % 10.5 % (20.0-40.0); MEAN CELL VOLUME 86.7 fl (80.0-94.0); MEAN CORPUSCULAR HGB CONC 33.4 g/dL (33.0-37.0); MEAN PLATELET VOLUME 8.8 fl (7.2-11.7); MONO # 1.3 K/uL (0.0-0.8); MONO % 10.3 % (0.0-10.0); NEUT # 10.2 K/uL (1.8-7.0); NEUT % 78.7 % (50.0-75.0); RBC 3.7 Mil/uL (4.40-5.90); RED CELL DISTRIBUTION WIDTH 15.5 % (11.5-14.5); WHITE BLOOD COUNT 12.9 K/uL (4.8-10.8)
[2018-11-25 06:42] LABS: BLOOD UREA NITROGEN 17 mg/dl (9-20); CALCIUM 8.7 mg/dL (8.4-10.2); GFR NON-AFRICAN AMERICAN > 60
--- NOTE | 2018-11-25 08:00 | CP.PCM.PN ---
Subjective - Date & Time of Evaluation Date of Evaluation: 11/25/18 Time of Evaluation: 07:30 - Subjective Subjective: Patient seen and examined at bedside. C/o moderate pain this AM as the nerve block wears off. His knee has been kept in knee imm since surgery. No other complaints. Denies CP/SOB/dizziness/fever. Objective - Vital Signs/Intake and Output Vital Signs (last 24 hours): Temp Pulse Resp BP Pulse Ox 97.9 F 81 19 135/85 97 11/25/18 04:20 11/25/18 04:20 11/25/18 04:20 11/25/18 04:20 11/25/18 04:20 - Medications Medications: Current Medications Acetaminophen (Tylenol 325mg Tab) 650 mg PO Q4 PRN PRN Reason: Fever 101 degrees fahrenheit Alprazolam (Xanax) 0.25 mg PO Q12 PRN PRN Reason: Anxiety Stop: 11/29/18 09:39 Last Admin: 11/24/18 16:43 Dose: 0.25 mg Amlodipine Besylate (Norvasc) 10 mg PO DAILY [facility] Last Admin: 11/24/18 09:08 Dose: Not Given Atorvastatin Calcium (Lipitor) 20 mg PO DIN [facility] Last Admin: 11/24/18 17:02 Dose: 20 mg Digoxin (Digoxin) 0.0625 mg PO DAILY [facility] Last Admin: 11/24/18 09:07 Dose: Not Given Docusate Sodium (Colace) 100 mg PO DAILY [facility] Last Admin: 11/24/18 09:05 Dose: Not Given Enoxaparin Sodium (Lovenox) 40 mg SC Q24H [facility]; Protocol Furosemide (Lasix) 40 mg PO DAILY [facility] Last Admin: 11/24/18 09:07 Dose: Not Given Gabapentin (Neurontin) 300 mg PO BID [facility] Last Admin: 11/24/18 16:48 Dose: 300 mg Glyburide (Micronase) 1.25 mg PO DAILY [facility] Last Admin: 11/23/18 09:43 Dose: 1.25 mg Hydromorphone HCl (Dilaudid) 0.5 mg IVP Q4 PRN PRN Reason: Pain, severe (8-10) Last Admin: 11/25/18 05:19 Dose: 0.5 mg Linezolid (Zyvox 600mg/300ml D5w) 600 mg in 300 mls @ 300 mls/hr IVPB Q12 [facility]; Protocol Last Admin: 11/24/18 21:31 Dose: 300 mls/hr Aztreonam 1 gm/ Sodium (Chloride) 100 mls @ 100 mls/hr IVPB Q12 [facility]; Protocol Last Admin: 11/24/18 22:00 Dose: 100 mls/hr Losartan Potassium (Cozaar) 50 mg PO DAILY [facility] Last Admin: 11/24/18 09:10 Dose: Not Given Metformin HCl (Glucophage) 1,000 mg PO BID [facility] Last Admin: 11/23/18 17:11 Dose: 1,000 mg Metoprolol Tartrate (Lopressor) 75 mg PO BID [facility] Last Admin: 11/24/18 16:47 Dose: 75 mg Sitagliptin Phosphate (Januvia) 50 mg PO BID [facility] Last Admin: 11/23/18 17:11 Dose: 50 mg - Labs Labs: 11/25/18 05:40 11/25/18 05:40 PT 12.7 Seconds (9.8-13.1) 11/21/18 13:46 INR 1.1 11/21/18 13:46 APTT 30.9 Seconds (25.6-37.1) 11/21/18 13:46 - Extremities Exam Additional comments: L knee: knee imm in place Dressings CDI Prevena intact sensation SP/TN intact, DP diminished due to block motor intact EHL/FHL pedal pulse intact calves soft NT b/l Assessment and Plan - Assessment and Plan (Free Text) Assessment: Postop knee hematoma, wound dehiscence POD#1 s/p L revision TKA Plan: Pain control Prevena dressing intact PT/OT DVT ppx, lovenox 40mg, Do not change until cleared by ortho knee imm on at all times no CPM d/w Dr. Brown who agrees with above
[2018-11-25] MEDS ORDERED: oxyCODONE 10 mg Immediate Release Tab PO PRN (08:28)
[2018-11-25] MEDS ORDERED: Enoxaparin 40 mg Syringe SC SCH (09:00)
[2018-11-25] MEDS: Aztreonam 1 GM in Sodium Chloride 0.9% 100 ML IVPB SCH ×2 (09:28→21:52)
[2018-11-25] MEDS: Digoxin 125 mcg (0.125 mg) Tab PO SCH (09:30)
--- NOTE | 2018-11-25 10:45 | CP.PCM.PN ---
Subjective - Date & Time of Evaluation Date of Evaluation: 11/25/18 Time of Evaluation: 10:43 - Subjective Subjective: Patient seen and examined at bedside. Reports left knee pain. Denies chest pain, shortness of breath, nausea, vomiting and abdominal pain, and urinary symptoms. Hemodynamically stable. No acute overnight events. Objective - Vital Signs/Intake and Output Vital Signs (last 24 hours): Temp Pulse Resp BP Pulse Ox 97.8 F 78 18 147/88 97 11/25/18 08:27 11/25/18 09:33 11/25/18 08:27 11/25/18 09:33 11/25/18 08:27 - Medications Medications: Current Medications Acetaminophen (Tylenol 325mg Tab) 975 mg PO Q8 [facility] Last Admin: 11/25/18 09:38 Dose: 975 mg Alprazolam (Xanax) 0.25 mg PO Q12 PRN PRN Reason: Anxiety Stop: 11/29/18 09:39 Last Admin: 11/25/18 09:38 Dose: 0.25 mg Amlodipine Besylate (Norvasc) 10 mg PO DAILY [facility] Last Admin: 11/25/18 09:33 Dose: 10 mg Atorvastatin Calcium (Lipitor) 20 mg PO DIN [facility] Last Admin: 11/24/18 17:02 Dose: 20 mg Digoxin (Digoxin) 0.0625 mg PO DAILY [facility] Last Admin: 11/25/18 09:30 Dose: 0.0625 mg Docusate Sodium (Colace) 100 mg PO DAILY [facility] Last Admin: 11/25/18 09:29 Dose: 100 mg Enoxaparin Sodium (Lovenox) 40 mg SC Q24H [facility]; Protocol Furosemide (Lasix) 40 mg PO DAILY [facility] Last Admin: 11/25/18 09:31 Dose: 40 mg Gabapentin (Neurontin) 300 mg PO BID [facility] Last Admin: 11/25/18 09:32 Dose: 300 mg Glyburide (Micronase) 1.25 mg PO DAILY [facility] Last Admin: 11/23/18 09:43 Dose: 1.25 mg Hydromorphone HCl (Dilaudid) 1 mg IVP Q3 PRN PRN Reason: Pain, severe (8-10) Last Admin: 11/25/18 09:25 Dose: 1 mg Linezolid (Zyvox 600mg/300ml D5w) 600 mg in 300 mls @ 300 mls/hr IVPB Q12 [facility]; Protocol Last Admin: 11/24/18 21:31 Dose: 300 mls/hr Aztreonam 1 gm/ Sodium (Chloride) 100 mls @ 100 mls/hr IVPB Q12 [facility]; Protocol Last Admin: 11/25/18 09:28 Dose: 100 mls/hr Losartan Potassium (Cozaar) 50 mg PO DAILY [facility] Last Admin: 11/25/18 09:30 Dose: 50 mg Metformin HCl (Glucophage) 1,000 mg PO BID [facility] Last Admin: 11/23/18 17:11 Dose: 1,000 mg Metoprolol Tartrate (Lopressor) 75 mg PO BID [facility] Last Admin: 11/25/18 09:32 Dose: 75 mg Oxycodone HCl (Oxycodone Immediate Release Tab) 10 mg PO Q6 PRN PRN Reason: Pain, moderate (4-7) Sitagliptin Phosphate (Januvia) 50 mg PO BID [facility] Last Admin: 11/23/18 17:11 Dose: 50 mg - Labs Labs: 11/25/18 05:40 11/25/18 05:40 PT 12.7 Seconds (9.8-13.1) 11/21/18 13:46 INR 1.1 11/21/18 13:46 APTT 30.9 Seconds (25.6-37.1) 11/21/18 13:46 - Constitutional Appears: Non-toxic, No Acute Distress - Eye Exam Eye Exam: Normal appearance - ENT Exam ENT Exam: Mucous Membranes Moist - Respiratory Exam Respiratory Exam: Clear to Ausculation Bilateral, NORMAL BREATHING PATTERN. absent: Accessory Muscle Use, Chest Wall Tenderness, Decreased Breath Sounds, Prolonged Expiratory Phase, Rales, Rhonchi, Wheezes, Respiratory Distress, Stridor - Cardiovascular Exam Cardiovascular Exam: +S1, +S2 - GI/Abdominal Exam GI & Abdominal Exam: Soft, Normal Bowel Sounds. absent: Distended, Firm, Guarding, Rigid, Tenderness, Mass, Rebound - Extremities Exam Extremities Exam: Normal Capillary Refill, Normal Inspection. absent: Calf Tenderness, Joint Swelling, Pedal Edema, Tenderness Additional comments: Left knee immobilizer in place. - Neurological Exam Neurological Exam: Alert, Awake, Oriented x3 - Psychiatric Exam Psychiatric exam: Normal Affect, Normal Mood - Skin Skin Exam: Dry, Intact, Normal Color, Warm Assessment and Plan - Assessment and Plan (Free Text) Assessment: 63 yo male with history of AFib, CHF, CAD and Left TKR admitted for hemarthrosis s/p L revision of TKA POD 1. Plan: 1. Left Knee Hemarthroses hold anticoagulants CT scan: suspicious infectious bursitis with possible abscess formation ID consult appreciated Orthopedic recommendations appreciated Leukocytosis today of 12.9 (possibly reactive after surgery) F/U am CBC 2. UTI - Klebsiella oxytoca - continue IV Zyvox (Day 4) and aztreonam - ID following 3. AFib rate controlled continue Metoprolol and Digoxin Xarelto indefinitely on hold 5. DM2 BS relatively controlled continue Glyburide, Metformin and Januvia 6. CAD asymptomatic continue statin and Metoprolol 7. DVT prophylaxis Anticoagulants on hold given hemarthrosis SCD's
[2018-11-25] MEDS: Enoxaparin 40 mg Syringe SC SCH (11:40)
[2018-11-25] MEDS: Linezolid 600 mg in D5W 300 ml 600 MG/300 ML BAG IVPB SCH ×2 (11:41→20:29)
--- NOTE | 2018-11-25 21:44 | CP.PCM.PN ---
Subjective - Date & Time of Evaluation Date of Evaluation: 11/24/18 Time of Evaluation: 20:00 - Subjective Subjective: Has some post op pain. Objective - Vital Signs/Intake and Output Vital Signs (last 24 hours): Temp Pulse Resp BP Pulse Ox 98 F 79 19 109/68 95 11/25/18 16:01 11/25/18 16:05 11/25/18 16:01 11/25/18 16:05 11/25/18 16:01 - Medications Medications: Current Medications Acetaminophen (Tylenol 325mg Tab) 975 mg PO Q8 [facility] Last Admin: 11/25/18 16:37 Dose: 975 mg Alprazolam (Xanax) 0.25 mg PO Q12 PRN PRN Reason: Anxiety Stop: 11/29/18 09:39 Last Admin: 11/25/18 09:38 Dose: 0.25 mg Amlodipine Besylate (Norvasc) 10 mg PO DAILY [facility] Last Admin: 11/25/18 09:33 Dose: 10 mg Atorvastatin Calcium (Lipitor) 20 mg PO DIN [facility] Last Admin: 11/25/18 16:05 Dose: 20 mg Digoxin (Digoxin) 0.0625 mg PO DAILY [facility] Last Admin: 11/25/18 09:30 Dose: 0.0625 mg Docusate Sodium (Colace) 100 mg PO DAILY [facility] Last Admin: 11/25/18 09:29 Dose: 100 mg Enoxaparin Sodium (Lovenox) 40 mg SC Q24H [facility]; Protocol Last Admin: 11/25/18 11:40 Dose: 40 mg Furosemide (Lasix) 40 mg PO DAILY [facility] Last Admin: 11/25/18 09:31 Dose: 40 mg Gabapentin (Neurontin) 300 mg PO BID [facility] Last Admin: 11/25/18 16:06 Dose: 300 mg Glyburide (Micronase) 1.25 mg PO DAILY [facility] Last Admin: 11/23/18 09:43 Dose: 1.25 mg Hydromorphone HCl (Dilaudid) 1 mg IVP Q3 PRN PRN Reason: Pain, severe (8-10) Last Admin: 11/25/18 20:27 Dose: 1 mg Linezolid (Zyvox 600mg/300ml D5w) 600 mg in 300 mls @ 300 mls/hr IVPB Q12 [facility]; Protocol Last Admin: 11/25/18 20:29 Dose: 300 mls/hr Aztreonam 1 gm/ Sodium (Chloride) 100 mls @ 100 mls/hr IVPB Q12 [facility]; Protocol Last Admin: 11/25/18 09:28 Dose: 100 mls/hr Losartan Potassium (Cozaar) 50 mg PO DAILY [facility] Last Admin: 11/25/18 09:30 Dose: 50 mg Metformin HCl (Glucophage) 1,000 mg PO BID [facility] Last Admin: 11/23/18 17:11 Dose: 1,000 mg Metoprolol Tartrate (Lopressor) 75 mg PO BID [facility] Last Admin: 11/25/18 16:05 Dose: 75 mg Oxycodone HCl (Oxycodone Immediate Release Tab) 10 mg PO Q6 PRN PRN Reason: Pain, moderate (4-7) Sitagliptin Phosphate (Januvia) 50 mg PO BID [facility] Last Admin: 11/23/18 17:11 Dose: 50 mg - Labs Labs: 11/25/18 05:40 11/25/18 05:40 PT 12.7 Seconds (9.8-13.1) 11/21/18 13:46 INR 1.1 11/21/18 13:46 APTT 30.9 Seconds (25.6-37.1) 11/21/18 13:46 - Head Exam Head Exam: ATRAUMATIC - Eye Exam Eye Exam: Normal appearance - ENT Exam ENT Exam: Mucous Membranes Dry - Respiratory Exam Respiratory Exam: NORMAL BREATHING PATTERN - Cardiovascular Exam Cardiovascular Exam: +S1, +S2 - GI/Abdominal Exam GI & Abdominal Exam: Normal Bowel Sounds Assessment and Plan (1) Anemia Assessment & Plan: mild joint bleed, surgical blood loss monitor H/H Status: Acute (2) Drainage from wound Assessment & Plan: antiplatelet and anticoagulation held for bleeding encourage OOB hold antiplatelet and anticoagulation post op until cleared by orthopedics. When cleared, reintroduce either aspirin 81mg or lovenox prophylaxis (NOT both) Status: Acute
--- NOTE | 2018-11-25 21:46 | CP.PCM.PN ---
Subjective - Date & Time of Evaluation Date of Evaluation: 11/25/18 Time of Evaluation: 19:00 - Subjective Subjective: Has left knee pain. Objective - Vital Signs/Intake and Output Vital Signs (last 24 hours): Temp Pulse Resp BP Pulse Ox 98 F 79 19 109/68 95 11/25/18 16:01 11/25/18 16:05 11/25/18 16:01 11/25/18 16:05 11/25/18 16:01 - Medications Medications: Current Medications Acetaminophen (Tylenol 325mg Tab) 975 mg PO Q8 [facility] Last Admin: 11/25/18 16:37 Dose: 975 mg Alprazolam (Xanax) 0.25 mg PO Q12 PRN PRN Reason: Anxiety Stop: 11/29/18 09:39 Last Admin: 11/25/18 09:38 Dose: 0.25 mg Amlodipine Besylate (Norvasc) 10 mg PO DAILY [facility] Last Admin: 11/25/18 09:33 Dose: 10 mg Atorvastatin Calcium (Lipitor) 20 mg PO DIN [facility] Last Admin: 11/25/18 16:05 Dose: 20 mg Digoxin (Digoxin) 0.0625 mg PO DAILY [facility] Last Admin: 11/25/18 09:30 Dose: 0.0625 mg Docusate Sodium (Colace) 100 mg PO DAILY [facility] Last Admin: 11/25/18 09:29 Dose: 100 mg Enoxaparin Sodium (Lovenox) 40 mg SC Q24H [facility]; Protocol Last Admin: 11/25/18 11:40 Dose: 40 mg Furosemide (Lasix) 40 mg PO DAILY [facility] Last Admin: 11/25/18 09:31 Dose: 40 mg Gabapentin (Neurontin) 300 mg PO BID [facility] Last Admin: 11/25/18 16:06 Dose: 300 mg Glyburide (Micronase) 1.25 mg PO DAILY [facility] Last Admin: 11/23/18 09:43 Dose: 1.25 mg Hydromorphone HCl (Dilaudid) 1 mg IVP Q3 PRN PRN Reason: Pain, severe (8-10) Last Admin: 11/25/18 20:27 Dose: 1 mg Linezolid (Zyvox 600mg/300ml D5w) 600 mg in 300 mls @ 300 mls/hr IVPB Q12 [facility]; Protocol Last Admin: 11/25/18 20:29 Dose: 300 mls/hr Aztreonam 1 gm/ Sodium (Chloride) 100 mls @ 100 mls/hr IVPB Q12 [facility]; Protocol Last Admin: 11/25/18 09:28 Dose: 100 mls/hr Losartan Potassium (Cozaar) 50 mg PO DAILY [facility] Last Admin: 11/25/18 09:30 Dose: 50 mg Metformin HCl (Glucophage) 1,000 mg PO BID [facility] Last Admin: 11/23/18 17:11 Dose: 1,000 mg Metoprolol Tartrate (Lopressor) 75 mg PO BID [facility] Last Admin: 11/25/18 16:05 Dose: 75 mg Oxycodone HCl (Oxycodone Immediate Release Tab) 10 mg PO Q6 PRN PRN Reason: Pain, moderate (4-7) Sitagliptin Phosphate (Januvia) 50 mg PO BID [facility] Last Admin: 11/23/18 17:11 Dose: 50 mg - Labs Labs: 11/25/18 05:40 11/25/18 05:40 PT 12.7 Seconds (9.8-13.1) 11/21/18 13:46 INR 1.1 11/21/18 13:46 APTT 30.9 Seconds (25.6-37.1) 11/21/18 13:46 - Head Exam Head Exam: ATRAUMATIC - Eye Exam Eye Exam: Normal appearance - ENT Exam ENT Exam: Mucous Membranes Dry - Respiratory Exam Respiratory Exam: NORMAL BREATHING PATTERN - Cardiovascular Exam Cardiovascular Exam: +S1, +S2 - GI/Abdominal Exam GI & Abdominal Exam: Normal Bowel Sounds Assessment and Plan (1) Anemia Assessment & Plan: mild joint bleed, surgical blood loss monitor H/H Status: Acute (2) Drainage from wound Assessment & Plan: on prophylactic lovenox no aspirin or further anticoagulation until cleared by ortho Status: Acute
[2018-11-25 23:22] VITALS: RESP 20
[2018-11-26 06:44] LABS: BASO # 0.1 K/uL (0.0-0.2); BASO % 0.9 % (0.0-2.0); EOS # 0.2 K/uL (0.0-0.7); HEMOGLOBIN 11.1 g/dL (12.0-18.0); LYMPH # 2.1 K/uL (1.0-4.3); LYMPH % 26.8 % (20.0-40.0); MEAN CELL VOLUME 86.2 fl (80.0-94.0); MEAN CORPUSCULAR HEMOGLOBIN 29.1 pg (27.0-31.0); MEAN CORPUSCULAR HGB CONC 33.8 g/dL (33.0-37.0); MONO # 0.9 K/uL (0.0-0.8); MONO % 11.6 % (0.0-10.0); NEUT # 4.6 K/uL (1.8-7.0); NEUT % 58.7 % (50.0-75.0); RBC 3.83 Mil/uL (4.40-5.90); RED CELL DISTRIBUTION WIDTH 15.4 % (11.5-14.5); WHITE BLOOD COUNT 7.8 K/uL (4.8-10.8)
[2018-11-26 06:51] LABS: BLOOD UREA NITROGEN 19 mg/dl (9-20); CALCIUM 8.5 mg/dL (8.4-10.2); GFR NON-AFRICAN AMERICAN > 60
[2018-11-26] MEDS ORDERED: oxyCODONE 5 mg Immediate Release Tab PO PRN (07:37)
[2018-11-26] MEDS ORDERED: oxyCODONE 10 mg Immediate Release Tab PO PRN (07:38)
--- NOTE | 2018-11-26 07:38 | CP.PCM.PN ---
Subjective - Date & Time of Evaluation Date of Evaluation: 11/26/18 Time of Evaluation: 07:38 - Subjective Subjective: Patient seen and examined at bedside. Pain is better controlled. Able to ambulate with RW without difficulties. No other complaints. Objective - Vital Signs/Intake and Output Vital Signs (last 24 hours): Temp Pulse Resp BP Pulse Ox 97.9 F 70 20 133/92 H 95 11/25/18 23:21 11/25/18 23:21 11/25/18 23:21 11/25/18 23:21 11/25/18 23:21 - Medications Medications: Current Medications Acetaminophen (Tylenol 325mg Tab) 975 mg PO Q8 [facility] Last Admin: 11/26/18 00:35 Dose: 975 mg Alprazolam (Xanax) 0.25 mg PO Q12 PRN PRN Reason: Anxiety Stop: 11/29/18 09:39 Last Admin: 11/25/18 09:38 Dose: 0.25 mg Amlodipine Besylate (Norvasc) 10 mg PO DAILY [facility] Last Admin: 11/25/18 09:33 Dose: 10 mg Atorvastatin Calcium (Lipitor) 20 mg PO DIN [facility] Last Admin: 11/25/18 16:05 Dose: 20 mg Digoxin (Digoxin) 0.0625 mg PO DAILY [facility] Last Admin: 11/25/18 09:30 Dose: 0.0625 mg Docusate Sodium (Colace) 100 mg PO DAILY [facility] Last Admin: 11/25/18 09:29 Dose: 100 mg Enoxaparin Sodium (Lovenox) 40 mg SC Q24H [facility]; Protocol Last Admin: 11/25/18 11:40 Dose: 40 mg Furosemide (Lasix) 40 mg PO DAILY [facility] Last Admin: 11/25/18 09:31 Dose: 40 mg Gabapentin (Neurontin) 300 mg PO BID [facility] Last Admin: 11/25/18 16:06 Dose: 300 mg Glyburide (Micronase) 1.25 mg PO DAILY [facility] Last Admin: 11/23/18 09:43 Dose: 1.25 mg Linezolid (Zyvox 600mg/300ml D5w) 600 mg in 300 mls @ 300 mls/hr IVPB Q12 [facility]; Protocol Last Admin: 11/25/18 20:29 Dose: 300 mls/hr Aztreonam 1 gm/ Sodium (Chloride) 100 mls @ 100 mls/hr IVPB Q12 [facility]; Protocol Last Admin: 11/25/18 21:52 Dose: 100 mls/hr Losartan Potassium (Cozaar) 50 mg PO DAILY [facility] Last Admin: 11/25/18 09:30 Dose: 50 mg Metformin HCl (Glucophage) 1,000 mg PO BID [facility] Last Admin: 11/23/18 17:11 Dose: 1,000 mg Metoprolol Tartrate (Lopressor) 75 mg PO BID [facility] Last Admin: 11/25/18 16:05 Dose: 75 mg Sitagliptin Phosphate (Januvia) 50 mg PO BID [facility] Last Admin: 11/23/18 17:11 Dose: 50 mg - Labs Labs: 11/26/18 05:35 11/26/18 05:35 PT 12.7 Seconds (9.8-13.1) 11/21/18 13:46 INR 1.1 11/21/18 13:46 APTT 30.9 Seconds (25.6-37.1) 11/21/18 13:46 - Extremities Exam Additional comments: L knee: knee imm in place Dressings CDI Prevena intact sensation SP/DP/TN intact motor intact EHL/FHL pedal pulse intact calves soft NT b/l Assessment and Plan - Assessment and Plan (Free Text) Assessment: Postop knee hematoma, wound dehiscence POD#2 s/p L revision TKA Plan: Pain controlled Prevena dressing intact, transferred to portable VAC unit. Not to be changed until office visit. IV abx as per ID PT/OT DVT ppx, lovenox 40mg knee imm on at all times orthopedically stable for d/c to home f/u in office within 7-10 days d/w Dr. Brown who agrees with above
[2018-11-26 09:09] VITALS: BP 168/84; PULSE 74; TEMP 98.4; O2SAT 99
[2018-11-26] MEDS: Aztreonam 1 GM in Sodium Chloride 0.9% 100 ML IVPB SCH (09:48)
[2018-11-26 09:51] VITALS: PULSE 74
[2018-11-26] MEDS: Digoxin 125 mcg (0.125 mg) Tab PO SCH (09:51)
[2018-11-26] MEDS: Linezolid 600 mg in D5W 300 ml 600 MG/300 ML BAG IVPB SCH (11:08)
[2018-11-26] MEDS: Enoxaparin 40 mg Syringe SC SCH (11:24)
--- NOTE | 2018-11-26 12:27 | PQF ---
PROVIDER RESPONSE TEXT: Patient has history of CHF and CAD . These diagnosis are not active fort this admission. REVIEWER QUERY TEXT: CHF Acuity and Type Physician?s Documentation Request This Form is Not a Permanent Document in the Medical Record Pt Name: BARBARA HARE MR #: [id number] Payor: [facility] INSURANCE Unit/Bed: [id number] Adm Date: 11/21/2018 1:27:00 PM Reviewer: Amy Arriola Ext. Query Date: 11/26/2018 11:58:51 AM CHF Acuity and Type [id number] By submitting this query, we are merely seeking further clarification of documentation to accurately reflect all conditions that you are monitoring, evaluating, treating or that extend the hospitalizati on or utilize additional resources of care. Please utilize your independent clinical judgment when ad dressing the question(s) below. Dear Doctor Finesse Peterson, The patient?s Clinical Indicators include: -- Congestive Heart Failure is documented in the Medical Record. Please document the type and acuity (in cludes probable or suspected) if known: Type: -- Systolic -- Diastolic -- Combined -- Other, please specify Acuity: -- Acute -- Chronic -- Acute on chronic -- Other, please specify H and P includes; CHF and CAD - Lasix 40mg PO QD -Losartan 50mg-HCTZ 12.5mg PO QD -Lipitor 20mg PO -ASA/ 325mg PO QD -Norvasc 10mg PO QD PLEASE DOCUMENT ANY ADDITIONAL DIAGNOSES AND/OR SPECIFICITY IN THE PROGRESS NOTES AND/OR DISCHARGE SAINI MMARY. Clinically unable to determine/unknown Disagree with the above request Need to discuss Query created by: Amy Arriola on 11/26/2018 11:58 AM Electronically signed by: 11/26/2018 12:24 PM
--- NOTE | 2018-11-26 13:14 | CP.PCM.PN ---
Subjective - Date & Time of Evaluation Date of Evaluation: 11/26/18 Time of Evaluation: 12:00 - Subjective Subjective: Has left knee pain. Objective - Vital Signs/Intake and Output Vital Signs (last 24 hours): Temp Pulse Resp BP Pulse Ox 98.4 F 74 20 168/84 H 99 11/26/18 09:08 11/26/18 09:50 11/26/18 09:08 11/26/18 09:50 11/26/18 09:08 - Medications Medications: Current Medications Acetaminophen (Tylenol 325mg Tab) 975 mg PO Q8 [facility] Last Admin: 11/26/18 09:48 Dose: 975 mg Alprazolam (Xanax) 0.25 mg PO Q12 PRN PRN Reason: Anxiety Stop: 11/29/18 09:39 Last Admin: 11/26/18 09:47 Dose: 0.25 mg Amlodipine Besylate (Norvasc) 10 mg PO DAILY [facility] Last Admin: 11/26/18 09:50 Dose: 10 mg Atorvastatin Calcium (Lipitor) 20 mg PO DIN [facility] Last Admin: 11/25/18 16:05 Dose: 20 mg Digoxin (Digoxin) 0.0625 mg PO DAILY [facility] Last Admin: 11/26/18 09:51 Dose: 0.0625 mg Docusate Sodium (Colace) 100 mg PO DAILY [facility] Last Admin: 11/26/18 09:49 Dose: 100 mg Enoxaparin Sodium (Lovenox) 40 mg SC Q24H [facility]; Protocol Last Admin: 11/26/18 11:24 Dose: 40 mg Furosemide (Lasix) 40 mg PO DAILY [facility] Last Admin: 11/26/18 09:50 Dose: 40 mg Gabapentin (Neurontin) 300 mg PO BID [facility] Last Admin: 11/26/18 09:50 Dose: 300 mg Glyburide (Micronase) 1.25 mg PO DAILY [facility] Last Admin: 11/23/18 09:43 Dose: 1.25 mg Linezolid (Zyvox 600mg/300ml D5w) 600 mg in 300 mls @ 300 mls/hr IVPB Q12 [facility]; Protocol Last Admin: 11/26/18 11:08 Dose: 300 mls/hr Aztreonam 1 gm/ Sodium (Chloride) 100 mls @ 100 mls/hr IVPB Q12 [facility]; Protocol Last Admin: 11/26/18 09:48 Dose: 100 mls/hr Losartan Potassium (Cozaar) 50 mg PO DAILY [facility] Last Admin: 11/26/18 09:49 Dose: 50 mg Metformin HCl (Glucophage) 1,000 mg PO BID [facility] Last Admin: 11/23/18 17:11 Dose: 1,000 mg Metoprolol Tartrate (Lopressor) 75 mg PO BID [facility] Last Admin: 11/26/18 09:50 Dose: 75 mg Oxycodone HCl (Oxycodone Immediate Release Tab) 5 mg PO Q4 PRN PRN Reason: Pain, moderate (4-7) Oxycodone HCl (Oxycodone Immediate Release Tab) 10 mg PO Q4 PRN PRN Reason: Pain, severe (8-10) Sitagliptin Phosphate (Januvia) 50 mg PO BID [facility] Last Admin: 11/23/18 17:11 Dose: 50 mg - Labs Labs: 11/26/18 05:35 11/26/18 05:35 PT 12.7 Seconds (9.8-13.1) 11/21/18 13:46 INR 1.1 11/21/18 13:46 APTT 30.9 Seconds (25.6-37.1) 11/21/18 13:46 - Head Exam Head Exam: ATRAUMATIC - ENT Exam ENT Exam: Mucous Membranes Dry - Respiratory Exam Respiratory Exam: NORMAL BREATHING PATTERN - Cardiovascular Exam Cardiovascular Exam: +S1, +S2 - GI/Abdominal Exam GI & Abdominal Exam: Normal Bowel Sounds Assessment and Plan (1) Anemia Assessment & Plan: mild prior joint bleed, surgical blood loss H/H improved Status: Acute (2) Drainage from wound Assessment & Plan: on prophylactic lovenox no aspirin or further anticoagulation until cleared by ortho Status: Acute
--- NOTE | 2018-11-26 16:48 | OP ---
PROCEDURE DATE: 11/24/2018 PREOPERATIVE DIAGNOSES: 1. Wound dehiscence, status post hematoma, status post successful revision total knee replacement (postoperative hematoma secondary to anticoagulation changed unilaterally by the hospitalist without consultation with the operating surgeon). 2. Quadriceps tendon rupture, partial. 3. Wound dehiscence, partial. OPERATIVE FINDINGS: 1. Quadriceps tendon rupture, partial. 2. Retained hematoma which was expansile. 3. Wound dehiscence. POSTOPERATIVE DIAGNOSES: 1. Wound dehiscence, status post hematoma (postoperative after a complex revision surgery secondary to anticoagulation changed immediately postoperatively by the hospitalist without consultation with the operating surgeon). 2. Retained hematoma. 3. Quadriceps tendon rupture. 4. Wound dehiscence. OPERATIVE PROCEDURES: 1. Revision total knee replacement, one component (tibial). 2. Primary repair of quadriceps tendon rupture. 3. Repair reinforcement, patellar ligament. 4. Partial synovectomy. 5. Removal of foreign bodies deep sutures. 6. Application of Prevena wound VAC. 7. Application of Jarod Zhou compression dressing and knee immobilizer. SPECIMENS: Synovium, tendon, foreign bodies. BLOOD LOSS: 100 mL. DRAINS USED: Wound VAC Prevena type. POSTOPERATIVE CONDITION: Stable. DATE OF SURGERY: 11/24/2018. INCISION TIME: 9 a.m. TIME IN THE ROOM: 07:50. OPERATIVE INDICATIONS: Joe Reinoso is a 63-year-old gentleman who presents status post successful revision total knee replacement. After the index arthroplasty, the hospitalist consulted on the case changed the anticoagulation without consultation to a very unpredictable Xarelto causing a wound hematoma. The wound hematoma expanded and caused partial rupture of the quad tendon. Pros, cons, risks, and benefits of surgical approach were discussed. The patient was admitted as an emergency through the emergency room. The diagnoses was accomplished. The patient was admitted. After anticoagulation, the patient was admitted to neutralize anticoagulation and be taken to the operating room on Saturday, . Pros, cons, risks, and benefits of surgical approach were discussed at length with the patient and his , Antonieta. The possibility of stiffness, nerve injury, mechanical failure, infection, thromboembolic disease, possibility of secondary or tertiary surgery was discussed. The patient can no longer stand the discomfort and wished the surgery be accomplished. DESCRIPTION OF PROCEDURE: After having obtained informed consent in the above fashion, after having identified side, site and procedure and a critical pause/time-out, left knee is the correct knee after having identified side, site and procedure, the critical pause/time-out, the patient identified as Joe Reinoso in the supine position with all bony prominences well padded, the left lower extremity was prepped and free draped in the usual fashion for lower extremity surgery. The tourniquet had been applied, but was not yet inflated. After exsanguinating the limb using a 6-inch Esmarch bandage, the tourniquet which had been applied was inflated to 350 mmHg. The initial incision was outlined two fingerbreadths proximal to the initial incision two fingerbreadths distal. The skin incision was carried down through the skin and subcutaneous tissue. An ellipse of skin was carried down through the skin and subcutaneous tissue. The ellipse of skin and subcutaneous tissue was removed. Dissection was carried around superficial to the fascia of the vastus medialis, and there was found to be immediately on exposure, a gush of fluid with the decompressing hematoma. Stat Gram stain was taken and sent for stat Gram number of white cells per high-power field and the aerobic, anaerobic, AFB, and fungal cultures were sent as well. This having been accomplished, the entire suture line was opened from the proximal aspect of the tibial plateau to the proximal aspect of the quadriceps tendon. Great care was taken. The knee was gently flexed. There was found to be a great deal of hematoma and organizing hematoma. The organizing hematoma and adhesions were removed carefully. This having been accomplished with careful exposure of the quadriceps tendon and protection of the patellar ligament, the extensor expansion was everted. The insertion into the proximal tibia was protected. This having been accomplished, the polyethylene insert was removed. Hemostasis was controlled. Adhesions were removed as well. The adhesions in the suprapatellar pouch and in the lateral gutter and the medial gutter were removed. This having been accomplished, multiple retained foreign bodies were noted which were deep retained sutures. These deep retained sutures were removed and everything is carefully irrigated. At this point in time, evaluation with the tibial polyethylene component removed was accomplished. The tibial polyethylene component having been removed, search for active bleeders was accomplished and there was absolutely no active bleeding. Again, the oozing and the hematoma that had formed again was secondary to the unilateral change of the anticoagulation regimen, which I ordered through my PA postoperatively and which was changed by the hospitalist unilaterally without consultation with the operating surgeon. The oozing was under control. Hemostasis controlled with Aquamantys. This having been accomplished, revision of the tibial component was accomplished to a #13 polyethylene tibial component. At this point in time, aggressive irrigation was accomplished with 1000 mL of normal saline antibiotic impregnated. Multiple irrigations were accomplished. This having been accomplished, the wound was thoroughly irrigated. Primary repair of the quadriceps tendon was now accomplished with #2 FiberWire. The patellar ligament insertion was elevated a bit and was repaired. This was repaired in the following fashion. The Arthrex PEEK anchor was introduced on the medial and proximal aspect of the tibial plateau. Drilling was accomplished, the anchor was introduced; and after the flexion-extension gap was tested and found to be well balanced, the quadriceps tendon was repaired from the superior aspect of the wound to the area of the patellar ligament insertion and the medial retinaculum. This repair having been accomplished with interrupted #2 FiberWire, it was reinforced with #1 Vicryl as well. This was a very secure repair of the quadriceps tendon and the patellar ligament was repaired and reinforced as well with the sutures from the PEEK anchor. The PEEK anchor was used to repair and reinforced the patellar ligament. This having been accomplished, the wound was thoroughly irrigated. Again, the tourniquet was deflated. Hemostasis controlled with the Aquamantys. Closures in layers with interrupted 0 Vicryl, 2-0 Vicryl, and brooke for skin. At this point in time, the tourniquet having been deflated, the Prevena wound VAC is sized in the appropriate fashion. The reticular structure is cut to the size of the wound. This was placed in the appropriate fashion on the wound. The wound VAC was applied in the usual fashion and it was attached to the suction canister. The Prevena wound VAC having been applied in that fashion, Jarod Zhou compression dressing and knee immobilizer was applied. Postoperative x-rays revealed acceptable position of the construct. Abdiaziz Brown MD
--- NOTE | 2018-11-26 16:58 | CP.PCM.DIS ---
<Marce Covington - Last Filed: 11/26/18 17:08> Provider - Provider Date of Admission: 11/21/18 13:27 Attending physician: Srikanth Kemp MD Consults: 11/21/18 13:07 Infectious Disease Consult Stat Comment: Consulting Provider: Johnie Manzano Consulting Physician: Johnie Manzano Reason for Consult: post op 11/21/18 13:39 Orthopedic Consult Stat Comment: Consulting Provider: Abdiaziz Brown III Consulting Physician: Abdiaziz Brown III Reason for Consult: post op wound hematoma 11/21/18 14:00 Hematology Oncology Consult Routine Comment: Consulting Provider: Adalberto Benitez Consulting Physician: Adalberto Benitez Reason for Consult: post op hemarthrosis, wound drainage 11/24/18 12:00 Case Management Referral Routine Comment: Physician Instructions: Reason For Exam: Reason for Referral: Discharge Planning Time Spent in preparation of Discharge (in minutes): 20 Diagnosis - Discharge Diagnosis (1) Hemarthrosis following procedure Status: Acute Hospital Course - Lab Results Lab Results: Micro Results 11/21/18 12:00 Blood-Venous Blood Culture - Final NO GROWTH AFTER 5 DAYS 11/21/18 12:00 Blood-Venous Gram Stain - Final TEST NOT PERFORMED 11/21/18 11:50 Blood-Venous Blood Culture - Final NO GROWTH AFTER 5 DAYS 11/21/18 11:50 Blood-Venous Gram Stain - Final TEST NOT PERFORMED 11/24/18 10:32 Knee - Left Gram Stain - Final 11/24/18 10:32 Knee - Left Wound Culture - Preliminary No growth. 11/24/18 10:32 Knee - Left Gram Stain - Final 11/24/18 10:32 Knee - Left Wound Culture - Preliminary No growth. 11/24/18 10:41 Knee - Left Gram Stain - Final 11/24/18 10:41 Knee - Left Wound Culture - Preliminary No growth. 11/24/18 11:15 Knee - Left Gram Stain - Final 11/24/18 11:15 Knee - Left Anaerobic Culture - Final NO ANAEROBES ISOLATED. 11/24/18 11:15 Knee - Left Wound Culture - Preliminary NO GROWTH AFTER 24 HOURS 11/24/18 10:41 Knee - Left Gram Stain - Final 11/24/18 10:41 Knee - Left Wound Culture - Preliminary No growth. 11/24/18 10:41 Knee - Left Gram Stain - Final 11/24/18 10:41 Knee - Left Wound Culture - Preliminary No growth. 11/24/18 10:41 Knee - Left Gram Stain - Final 11/24/18 10:41 Knee - Left Wound Culture - Preliminary No growth. 11/24/18 10:41 Knee - Left Gram Stain - Final 11/24/18 10:41 Knee - Left Wound Culture - Preliminary No growth. 11/24/18 10:41 Knee - Left Gram Stain - Final 11/24/18 10:41 Knee - Left Wound Culture - Preliminary No growth. 11/24/18 10:41 Knee - Left Gram Stain - Final 11/24/18 10:41 Knee - Left Wound Culture - Preliminary No growth. 11/24/18 10:32 Knee - Left Gram Stain - Final 11/24/18 10:32 Knee - Left Wound Culture - Preliminary No growth. 11/24/18 10:32 Knee - Left Gram Stain - Final 11/24/18 10:32 Knee - Left Wound Culture - Preliminary No growth. 11/24/18 10:32 Knee - Left Gram Stain - Final 11/24/18 10:32 Knee - Left Wound Culture - Preliminary No growth. 11/24/18 10:32 Knee - Left Gram Stain - Final 11/24/18 10:32 Knee - Left Wound Culture - Preliminary No growth. 11/24/18 10:32 Knee - Left Gram Stain - Final 11/24/18 10:32 Knee - Left Wound Culture - Preliminary No growth. 11/24/18 11:15 Knee - Left Gram Stain - Final 11/24/18 11:15 Knee - Left Wound Culture - Preliminary No growth. 11/24/18 09:22 Body Fluid - Knee-Left Gram Stain - Final 11/24/18 09:22 Body Fluid - Knee-Left Anaerobic Culture - Final NO ANAEROBES ISOLATED. 11/24/18 09:22 Body Fluid - Knee-Left Body Fluid Culture - Preliminary NO GROWTH AFTER 2 DAYS 11/24/18 09:18 Body Fluid - Knee-Left Gram Stain - Final 11/24/18 09:18 Body Fluid - Knee-Left Anaerobic Culture - Final NO ANAEROBES ISOLATED. 11/24/18 09:18 Body Fluid - Knee-Left Body Fluid Culture - Preliminary NO GROWTH AFTER 2 DAYS 11/24/18 10:54 Other: Please Indicate Mycobacterial Culture - Preliminary 11/24/18 09:18 Other: Please Indicate Mycobacterial Culture - Preliminary 11/22/18 12:20 Urine,Clean Catch Urine Culture - Final No Growth (<1,000 CFU/ML) Most Recent Lab Values WBC 7.8 K/uL (4.8-10.8) 11/26/18 05:35 RBC 3.83 Mil/uL (4.40-5.90) L 11/26/18 05:35 Hgb 11.1 g/dL (12.0-18.0) L 11/26/18 05:35 Hct 33.0 % (35.0-51.0) L 11/26/18 05:35 MCV 86.2 fl (80.0-94.0) 11/26/18 05:35 MCH 29.1 pg (27.0-31.0) 11/26/18 05:35 MCHC 33.8 g/dL (33.0-37.0) 11/26/18 05:35 RDW 15.4 % (11.5-14.5) H 11/26/18 05:35 Plt Count 308 K/uL (130-400) 11/26/18 05:35 MPV 9.0 fl (7.2-11.7) 11/26/18 05:35 Neut % (Auto) 58.7 % (50.0-75.0) 11/26/18 05:35 Lymph % (Auto) 26.8 % (20.0-40.0) 11/26/18 05:35 [place] % (Auto) 11.6 % (0.0-10.0) H 11/26/18 05:35 Eos % (Auto) 2.0 % (0.0-4.0) 11/26/18 05:35 Baso % (Auto) 0.9 % (0.0-2.0) 11/26/18 05:35 Neut # (Auto) 4.6 K/uL (1.8-7.0) 11/26/18 05:35 Lymph # (Auto) 2.1 K/uL (1.0-4.3) 11/26/18 05:35 [place] # (Auto) 0.9 K/uL (0.0-0.8) H 11/26/18 05:35 Eos # (Auto) 0.2 K/uL (0.0-0.7) 11/26/18 05:35 Baso # (Auto) 0.1 K/uL (0.0-0.2) 11/26/18 05:35 ESR 25 mm/hr (0-20) H 11/21/18 13:46 PT 12.7 Seconds (9.8-13.1) 11/21/18 13:46 INR 1.1 11/21/18 13:46 APTT 30.9 Seconds (25.6-37.1) 11/21/18 13:46 Sodium 138 mmol/l (132-148) 11/26/18 05:35 Potassium 3.8 MMOL/L (3.6-5.0) 11/26/18 05:35 Chloride 100 mmol/L (98-107) 11/26/18 05:35 Carbon Dioxide 28 mmol/L (22-30) 11/26/18 05:35 Anion Gap 14 (10-20) 11/26/18 05:35 BUN 19 mg/dl (9-20) 11/26/18 05:35 Creatinine 1.2 mg/dl (0.8-1.5) 11/26/18 05:35 Est GFR ( Amer) > 60 11/26/18 05:35 Est GFR (Non-Af Amer) > 60 11/26/18 05:35 POC Glucose (mg/dL) 183 mg/dL (65-110) H 11/26/18 11:06 Random Glucose 159 mg/dL (75-110) H 11/26/18 05:35 Lactic Acid 2.2 mmol/L (0.7-2.1) H 11/23/18 06:10 Calcium 8.5 mg/dL (8.4-10.2) 11/26/18 05:35 Total Bilirubin 0.7 mg/dl (0.2-1.3) 11/24/18 06:35 AST 39 U/L (17-59) 11/24/18 06:35 ALT 41 U/L (21-72) 11/24/18 06:35 Alkaline Phosphatase 73 U/L (38-126) 11/24/18 06:35 Total Creatine Kinase 413 U/L (55-170) H 11/21/18 13:46 C-Reactive Protein 20.30 mg/L (0.0-9.9) H 11/21/18 13:46 Total Protein 6.8 G/DL (6.3-8.2) 11/24/18 06:35 Albumin 3.9 g/dL (3.5-5.0) 11/24/18 06:35 Globulin 3.0 gm/dL (2.2-3.9) 11/24/18 06:35 Albumin/Globulin Ratio 1.3 (1.0-2.1) 11/24/18 06:35 Procalcitonin < 0.05 NG/ML (0.19-0.49) L 11/21/18 18:49 Urine Color Yellow (YELLOW) 11/22/18 00:15 Urine Clarity Slighty-cloudy (Clear) 11/22/18 00:15 Urine pH 5.0 (5.0-8.0) 11/22/18 00:15 Ur Specific [place] 1.043 (1.003-1.030) H 11/22/18 00:15 Urine Protein 100 mg/dL (NEGATIVE) 11/22/18 00:15 Urine Glucose (UA) Neg mg/dL (NEGATIVE) 11/22/18 00:15 Urine Ketones Negative mg/dL (NEGATIVE) 11/22/18 00:15 Urine Blood Moderate (NEGATIVE) 11/22/18 00:15 Urine Nitrate Positive (NEGATIVE) H 11/22/18 00:15 Urine Bilirubin Negative (NEGATIVE) 11/22/18 00:15 Urine Urobilinogen 0.2-1.0 mg/dL (0.2-1.0) 11/22/18 00:15 Ur Leukocyte Esterase Small [place]/uL (Negative) 11/22/18 00:15 Urine RBC (Auto) 2 /hpf (0-3) 11/22/18 00:15 Urine Microscopic WBC 24 /hpf (0-5) H 11/22/18 00:15 Ur Squamous Epith Cells < 1 /hpf (0-5) 11/22/18 00:15 Fluid Type Synovial fluid 11/24/18 09:22 Synovial WBC 1060.0 /mm3 (0.0-150.0) H 11/24/18 09:22 Synovial RBC 66822.0 /mm3 (0.0-0.0) H 11/24/18 09:22 Synovial Neutrophils 88.0 % (0-0) H 11/24/18 09:22 Synovial Lymphocytes 4.0 % (0-0) H 11/24/18 09:22 Synov Monos/Macrophage 8 % (0-0) H 11/24/18 09:22 Synovial Fluid Comment Red 11/24/18 09:22 Digoxin 0.4 ng/mL (0.8-2.0) L 11/21/18 13:46 Blood Type B POSITIVE 11/23/18 06:10 Antibody Screen Negative 11/23/18 06:10 Crossmatch See Detail 11/23/18 06:10 BBK History Checked Patient has bt 11/23/18 06:10 - Hospital Course Hospital Course: 63 y/o male with hx of Chronic A Fib, CHF, CAD,Arthritis ,admitted for hemarthrosis of left knee after revision TKR. Taken to OR 11/24 for I&D and underwent primary repair of quadriceps tendon rupture , repair of patella ligament , partial synovectomy, removal of foreign body (suture) and application of wound vac . Pt tolerated procedure well, pain controlled and lovenox started on post-op day [address] Darby requesting ASA and Xarelto be held and pt be discharged on Lovenox. Pt is aware of higher risk of stroke from his chronic atrial fibrillation due to discontinuation of Xarelto. Ortho recommending it is only to be restarted as per recommendations of Dr Darby. Pt was found to have UTI (Klebsiella oxytoca) and has been on on Zyvox IV and aztreonam IV, as per DR Manzano (ID) he is to remain on both antibiotics for an additional 2 weeks upon discharge. Weight-bearing therapy tolerated and patient is medical stable for discharge to home. Foollow up with Dr Darby December [address] Wilner Ryan PA. Discharge Exam - Head Exam Head Exam: ATRAUMATIC - Eye Exam Eye Exam: Normal appearance - Respiratory Exam Respiratory Exam: NORMAL BREATHING PATTERN. absent: Wheezes, Respiratory Distress - Cardiovascular Exam Cardiovascular Exam: REGULAR RHYTHM - GI/Abdominal Exam GI & Abdominal Exam: Soft. absent: Tenderness - Extremities Exam Additional comments: Left knee immobilizer in place. - Neurological Exam Neurological exam: Alert, Oriented x3 - Psychiatric Exam Psychiatric exam: Anxious - Skin Skin Exam: Normal Color, Warm Discharge Plan - Discharge Medications Prescriptions: Aztreonam 1 Gm in NS 100mL [Azactam 1 gm] 1 gm IV Q12 14 Days ml Enoxaparin [Lovenox] 40 mg SQ DAILY #7 syr Linezolid 600 mg in NS 300 ml [Zyvox 600mg/300ml NS] 600 mg IV Q12 14 Days iv.soln Losartan/Hydrochlorothiazide [Losartan-Hctz 50-12.5 mg Tab] 1 tab PO DAILY #30 tablet oxyCODONE [oxyCODONE Immediate Release Tab] 5 mg PO Q6 #20 tab Sitagliptin Phos/Metformin HCl [Janumet 50-1,000 mg Tablet] 1 tab PO BID #60 tablet - Follow Up Plan Condition: FAIR Disposition: HOME/ ROUTINE Instructions: Knee Immobilizer (DC), Knee Pain (DC), Wound Incision and Drainage (DC) Additional Instructions: follow up with primary MD and Dr Brown 1 week weight bearing as tolerated with knee immobilizer at all times. Referrals: Adalberto Benitez MD [Staff Provider] - Abdiaziz Brown III, MD [Staff Provider] - Johnie Manzano MD [Medical Doctor] - <Srikanth Kemp - Last Filed: 11/26/18 17:28> Provider - Provider Date of Admission: 11/21/18 13:27 Attending physician: Srikanth Kemp MD Consults: 11/21/18 13:07 Infectious Disease Consult Stat Comment: Consulting Provider: Johnie Manzano Consulting Physician: Johnie Manzano Reason for Consult: post op 11/21/18 13:39 Orthopedic Consult Stat Comment: Consulting Provider: Abdiaziz Brown III Consulting Physician: Abdiaziz Brown III Reason for Consult: post op wound hematoma 11/21/18 14:00 Hematology Oncology Consult Routine Comment: Consulting Provider: Adalberto Benitez Consulting Physician: Adalberto Benitez Reason for Consult: post op hemarthrosis, wound drainage 11/24/18 12:00 Case Management Referral Routine Comment: Physician Instructions: Reason For Exam: Reason for Referral: Discharge Planning Hospital Course - Lab Results Lab Results: Micro Results 11/21/18 12:00 Blood-Venous Blood Culture - Final NO GROWTH AFTER 5 DAYS 11/21/18 12:00 Blood-Venous Gram Stain - Final TEST NOT PERFORMED 11/21/18 11:50 Blood-Venous Blood Culture - Final NO GROWTH AFTER 5 DAYS 11/21/18 11:50 Blood-Venous Gram Stain - Final TEST NOT PERFORMED 11/24/18 10:32 Knee - Left Gram Stain - Final 11/24/18 10:32 Knee - Left Wound Culture - Preliminary No growth. 11/24/18 10:32 Knee - Left Gram Stain - Final 11/24/18 10:32 Knee - Left Wound Culture - Preliminary No growth. 11/24/18 10:41 Knee - Left Gram Stain - Final 11/24/18 10:41 Knee - Left Wound Culture - Preliminary No growth. 11/24/18 11:15 Knee - Left Gram Stain - Final 11/24/18 11:15 Knee - Left Anaerobic Culture - Final NO ANAEROBES ISOLATED. 11/24/18 11:15 Knee - Left Wound Culture - Preliminary NO GROWTH AFTER 24 HOURS 11/24/18 10:41 Knee - Left Gram Stain - Final 11/24/18 10:41 Knee - Left Wound Culture - Preliminary No growth. 11/24/18 10:41 Knee - Left Gram Stain - Final 11/24/18 10:41 Knee - Left Wound Culture - Preliminary No growth. 11/24/18 10:41 Knee - Left Gram Stain - Final 11/24/18 10:41 Knee - Left Wound Culture - Preliminary No growth. 11/24/18 10:41 Knee - Left Gram Stain - Final 11/24/18 10:41 Knee - Left Wound Culture - Preliminary No growth. 11/24/18 10:41 Knee - Left Gram Stain - Final 11/24/18 10:41 Knee - Left Wound Culture - Preliminary No growth. 11/24/18 10:41 Knee - Left Gram Stain - Final 11/24/18 10:41 Knee - Left Wound Culture - Preliminary No growth. 11/24/18 10:32 Knee - Left Gram Stain - Final 11/24/18 10:32 Knee - Left Wound Culture - Preliminary No growth. 11/24/18 10:32 Knee - Left Gram Stain - Final 11/24/18 10:32 Knee - Left Wound Culture - Preliminary No growth. 11/24/18 10:32 Knee - Left Gram Stain - Final 11/24/18 10:32 Knee - Left Wound Culture - Preliminary No growth. 11/24/18 10:32 Knee - Left Gram Stain - Final 11/24/18 10:32 Knee - Left Wound Culture - Preliminary No growth. 11/24/18 10:32 Knee - Left Gram Stain - Final 11/24/18 10:32 Knee - Left Wound Culture - Preliminary No growth. 11/24/18 11:15 Knee - Left Gram Stain - Final 11/24/18 11:15 Knee - Left Wound Culture - Preliminary No growth. 11/24/18 09:22 Body Fluid - Knee-Left Gram Stain - Final 11/24/18 09:22 Body Fluid - Knee-Left Anaerobic Culture - Final NO ANAEROBES ISOLATED. 11/24/18 09:22 Body Fluid - Knee-Left Body Fluid Culture - Preliminary NO GROWTH AFTER 2 DAYS 11/24/18 09:18 Body Fluid - Knee-Left Gram Stain - Final 11/24/18 09:18 Body Fluid - Knee-Left Anaerobic Culture - Final NO ANAEROBES ISOLATED. 11/24/18 09:18 Body Fluid - Knee-Left Body Fluid Culture - Preliminary NO GROWTH AFTER 2 DAYS 11/24/18 10:54 Other: Please Indicate Mycobacterial Culture - Preliminary 11/24/18 09:18 Other: Please Indicate Mycobacterial Culture - Preliminary 11/22/18 12:20 Urine,Clean Catch Urine Culture - Final No Growth (<1,000 CFU/ML) Most Recent Lab Values WBC 7.8 K/uL (4.8-10.8) 11/26/18 05:35 RBC 3.83 Mil/uL (4.40-5.90) L 11/26/18 05:35 Hgb 11.1 g/dL (12.0-18.0) L 11/26/18 05:35 Hct 33.0 % (35.0-51.0) L 11/26/18 05:35 MCV 86.2 fl (80.0-94.0) 11/26/18 05:35 MCH 29.1 pg (27.0-31.0) 11/26/18 05:35 MCHC 33.8 g/dL (33.0-37.0) 11/26/18 05:35 RDW 15.4 % (11.5-14.5) H 11/26/18 05:35 Plt Count 308 K/uL (130-400) 11/26/18 05:35 MPV 9.0 fl (7.2-11.7) 11/26/18 05:35 Neut % (Auto) 58.7 % (50.0-75.0) 11/26/18 05:35 Lymph % (Auto) 26.8 % (20.0-40.0) 11/26/18 05:35 [place] % (Auto) 11.6 % (0.0-10.0) H 11/26/18 05:35 Eos % (Auto) 2.0 % (0.0-4.0) 11/26/18 05:35 Baso % (Auto) 0.9 % (0.0-2.0) 11/26/18 05:35 Neut # (Auto) 4.6 K/uL (1.8-7.0) 11/26/18 05:35 Lymph # (Auto) 2.1 K/uL (1.0-4.3) 11/26/18 05:35 [place] # (Auto) 0.9 K/uL (0.0-0.8) H 11/26/18 05:35 Eos # (Auto) 0.2 K/uL (0.0-0.7) 11/26/18 05:35 Baso # (Auto) 0.1 K/uL (0.0-0.2) 11/26/18 05:35 ESR 25 mm/hr (0-20) H 11/21/18 13:46 PT 12.7 Seconds (9.8-13.1) 11/21/18 13:46 INR 1.1 11/21/18 13:46 APTT 30.9 Seconds (25.6-37.1) 11/21/18 13:46 Sodium 138 mmol/l (132-148) 11/26/18 05:35 Potassium 3.8 MMOL/L (3.6-5.0) 11/26/18 05:35 Chloride 100 mmol/L (98-107) 11/26/18 05:35 Carbon Dioxide 28 mmol/L (22-30) 11/26/18 05:35 Anion Gap 14 (10-20) 11/26/18 05:35 BUN 19 mg/dl (9-20) 11/26/18 05:35 Creatinine 1.2 mg/dl (0.8-1.5) 11/26/18 05:35 Est GFR ( Amer) > 60 11/26/18 05:35 Est GFR (Non-Af Amer) > 60 11/26/18 05:35 POC Glucose (mg/dL) 183 mg/dL (65-110) H 11/26/18 11:06 Random Glucose 159 mg/dL (75-110) H 11/26/18 05:35 Lactic Acid 2.2 mmol/L (0.7-2.1) H 11/23/18 06:10 Calcium 8.5 mg/dL (8.4-10.2) 11/26/18 05:35 Total Bilirubin 0.7 mg/dl (0.2-1.3) 11/24/18 06:35 AST 39 U/L (17-59) 11/24/18 06:35 ALT 41 U/L (21-72) 11/24/18 06:35 Alkaline Phosphatase 73 U/L (38-126) 11/24/18 06:35 Total Creatine Kinase 413 U/L (55-170) H 11/21/18 13:46 C-Reactive Protein 20.30 mg/L (0.0-9.9) H 11/21/18 13:46 Total Protein 6.8 G/DL (6.3-8.2) 11/24/18 06:35 Albumin 3.9 g/dL (3.5-5.0) 11/24/18 06:35 Globulin 3.0 gm/dL (2.2-3.9) 11/24/18 06:35 Albumin/Globulin Ratio 1.3 (1.0-2.1) 11/24/18 06:35 Procalcitonin < 0.05 NG/ML (0.19-0.49) L 11/21/18 18:49 Urine Color Yellow (YELLOW) 11/22/18 00:15 Urine Clarity Slighty-cloudy (Clear) 11/22/18 00:15 Urine pH 5.0 (5.0-8.0) 11/22/18 00:15 Ur Specific [place] 1.043 (1.003-1.030) H 11/22/18 00:15 Urine Protein 100 mg/dL (NEGATIVE) 11/22/18 00:15 Urine Glucose (UA) Neg mg/dL (NEGATIVE) 11/22/18 00:15 Urine Ketones Negative mg/dL (NEGATIVE) 11/22/18 00:15 Urine Blood Moderate (NEGATIVE) 11/22/18 00:15 Urine Nitrate Positive (NEGATIVE) H 11/22/18 00:15 Urine Bilirubin Negative (NEGATIVE) 11/22/18 00:15 Urine Urobilinogen 0.2-1.0 mg/dL (0.2-1.0) 11/22/18 00:15 Ur Leukocyte Esterase Small [place]/uL (Negative) 11/22/18 00:15 Urine RBC (Auto) 2 /hpf (0-3) 11/22/18 00:15 Urine Microscopic WBC 24 /hpf (0-5) H 11/22/18 00:15 Ur Squamous Epith Cells < 1 /hpf (0-5) 11/22/18 00:15 Fluid Type Synovial fluid 11/24/18 09:22 Synovial WBC 1060.0 /mm3 (0.0-150.0) H 11/24/18 09:22 Synovial RBC 22836.0 /mm3 (0.0-0.0) H 11/24/18 09:22 Synovial Neutrophils 88.0 % (0-0) H 11/24/18 09:22 Synovial Lymphocytes 4.0 % (0-0) H 11/24/18 09:22 Synov Monos/Macrophage 8 % (0-0) H 11/24/18 09:22 Synovial Fluid Comment Red 11/24/18 09:22 Digoxin 0.4 ng/mL (0.8-2.0) L 11/21/18 13:46 Blood Type B POSITIVE 11/23/18 06:10 Antibody Screen Negative 11/23/18 06:10 Crossmatch See Detail 11/23/18 06:10 BBK History Checked Patient has bt 11/23/18 06:10 Attending/Attestation - Attestation I have personally seen and examined this patient.: Yes I have fully participated in the care of the patient.: Yes I have reviewed all pertinent clinical information, including history, physical exam and plan: Yes Notes (Text): 11/26/18 17:28 Patient seen and examined with resident. Case discussed and agreed with assessment and plan. Patient discharged in stable condition.
== END 2018-11-26 15:10 | disposition home or self-care (01) | DRG 908 ==
LOC: H.ER 12:25 → H.ERHOLD 13:27 → H.MEDSURG1 16:53
PROC: 0SRW0JZ Replacement of Left Knee Joint, Tibial Surface with Synthetic Substitute, Open Approach (ICD-10-PCS; 2018-11-24)
PROC: 0SPW0JZ Removal of Synthetic Substitute from Left Knee Joint, Tibial Surface, Open Approach (ICD-10-PCS; principal; 2018-11-24 07:45)
PROC: 0LQM0ZZ Repair Left Upper Leg Tendon, Open Approach (ICD-10-PCS; 2018-11-24 07:45)
PROC: 0SBD0ZZ Excision of Left Knee Joint, Open Approach (ICD-10-PCS; 2018-11-24 07:45)
DX: M96.840 Postprocedural hematoma of a musculoskeletal structure following a musculoskeletal system procedure (principal); T81.31XA Disruption of external operation (surgical) wound, not elsewhere classified, initial encounter; M25.062 Hemarthrosis, left knee; N39.0 Urinary tract infection, site not specified; D62 Acute posthemorrhagic anemia; M96.89 Other intraoperative and postprocedural complications and disorders of the musculoskeletal system; T45.515A Adverse effect of anticoagulants, initial encounter; I48.2 Chronic atrial fibrillation; Z96.652 Presence of left artificial knee joint; I25.10 Atherosclerotic heart disease of native coronary artery without angina pectoris; Z95.5 Presence of coronary angioplasty implant and graft; E11.9 Type 2 diabetes mellitus without complications; Z88.1 Allergy status to other antibiotic agents; Z88.3 Allergy status to other anti-infective agents; E78.5 Hyperlipidemia, unspecified; I11.0 Hypertensive heart disease with heart failure; I50.9 Heart failure, unspecified; E55.9 Vitamin D deficiency, unspecified; M66.252 Spontaneous rupture of extensor tendons, left thigh